=== PATIENT | female | born 1975 | race Caucasian/White ===

== ENCOUNTER → 2018-10-30 11:52 | Outpatient (CLI) | payer MEDICARE, SELFPAY ==
[2018-10-30 12:15] LABS: Basophils # 0.1 K/mm3 (0-0.2); Basophils % 0.6 % (0.1-2.0); Eosinophils # 0.9 K/mm3 (0.0-0.4); Eosinophils % 10.7 % (0.1-12.0); Hematocrit 41.9 % (37.0-47.0); Hemoglobin 14.3 g/dL (12.2-16.2); Lymphocytes # 1.8 K/mm3 (0.7-4.5); Lymphocytes % 22.4 % (10-50); Mean Corpuscular HGB Conc 34.2 g/dL (31.8-35.4); Mean Corpuscular Hemoglobin 34.6 pg (27.0-31.2); Mean Corpuscular Volume 101.3 fl (81-99); Mean Platelet Volume 7.2 fl (7.4-10.4); Monocytes # 0.4 K/mm3 (0.1-1.0); Monocytes % 5.3 % (1.7-9.3); Neutrophils # 4.8 K/mm3 (1.8-7.8); Platelet Count 270 K/mm3 (142-424); Red Blood Count 4.14 M/mm3 (4.20-5.40); Red Cell Distribution Width 13.6 % (11.5-17.5); White Blood Count 7.9 K/mm3 (4.8-10.8)
[2018-10-30 13:03] LABS: Alanine Aminotransferase 35 U/L (12-78); Albumin Level 3.8 gm/dL (3.4-5.0); Bilirubin,Total 0.2 mg/dL (0.2-1.0); Blood Urea Nitrogen 14 mg/dL (7-18); Carbon Dioxide 24 mmol/L (21.0-32.0); Chloride 102 mmol/L (98-107); Globulin 3.8 gm/dl (1.3-3.2); Sodium 137 mmol/L (136-145); Thyroid Stimulating Hormone 1.45 uIU/ml (0.358-3.740); Total Protein,Serum 7.6 gm/dL (6.4-8.2)
[2018-10-30 13:35] LABS: Alkaline Phosphatase 83 U/L (46-116); Anion Gap 15.3 mEq/L (5-15); Aspartate Amino Transferase 15 U/L (15-37); Calcium 8.6 mg/dL (8.5-10.1); Creatinine,Serum 0.69 mg/dL (0.55-1.02); Estimated Glomerular Filt Rate 92 ml/min (>60); GFR (African American) 112 ML/MIN (>60); Potassium 4.3 mmoL/L (3.5-5.1); T4 (Thyroxine) 7.5 ug/dl (4.7-13.3); Triiodothryronine (T3) Uptake 27 % (31-39)
[2018-10-30 13:42] LABS: Glucose 96 mg/dL (74-106)
[2018-10-31 09:48] LABS: FSH 8.4 mIU/mL (.); LH 8.8 mIU/mL (.)
== END ==
PROVIDERS: Visit Provider Nurse Practitioner Obstetrics & Gynecology
DX: N93.9 Abnormal uterine and vaginal bleeding, unspecified (principal); N92.6 Irregular menstruation, unspecified
CPT/HCPCS: 36415; 80053; 83001; 83002; 84436; 84443; 84479; 85025

== ENCOUNTER → 2018-11-15 09:41 | Outpatient (CLI) | payer MEDICARE, SELFPAY ==
--- NOTE | 2018-11-15 09:43 | MM_ITS ---
MM Dig screening mamm BI w/CAD ORDERING PHYSICIAN : Venu Maxwell MD PATIENT AGE: 43 years GENDER: Female COMPARISON: [place] February INDICATION: ITS.REASON: Routine Screening Mammogram TECHNIQUE: Standard CC and MLO images were obtained. R2 CAD reviewed. FINDINGS: Very dense breast bilaterally which significantly decreases sensitivity of mammography. We have finally obtained prior outside studies from [place], [place] RIGHT BREAST: Very very dense breast. There is a focal area of relative density at the medial inferior right breast, most evident on the axillary cc view. Roughly 12 mm size.-Possible cyst versus merely island of dense glandular tissue.. Labeled A. Ultrasound suggested to further evaluate. If no cyst seen here to correlate spot views recommended. As well LEFT BREAST: Area of relative density at the central left breast on cc view seems to dissipate on other views is most likely dense glandular tissue labeled X Also note somewhat dense tissue towards upper-outer quadrant area labeled Y towards upper-outer quadrant. Again these are most likely areas of dense glandular tissue but would recommend ultrasound to survey the left breast as well when the patient returns IMPRESSION: ...... Very dense breast bilaterally which decreases sensitivity of mammography. Right breast, Vague round area of density at the medial right breast warrants ultrasound Left breast.. Area of density at the central breast but it seems to dissipate on the views a most likely dense glandular elements. But ultrasound suggested on left as well given the diffuse dense character breast. . recommend bilateral breast ultrasound to further evaluate this dense breasts. Ultrasound useful compliment/augment to mammography in breast of this dense character BI-RADS Category: 0 0 Need Additional Imaging Evaluation RECOMMENDED FOLLOW-UP: IMM - IMMEDIATE FOLLOW-UP RECOMMENDED Bilateral breast ultrasound. If no cyst identified on the right suggest spot views of the area labeled a (A letter has been sent to the patient regarding results of the study.)
== END ==
PROVIDERS: PCP Emergency Medicine; Visit Provider Nurse Practitioner Obstetrics & Gynecology
DX: Z12.31 Encounter for screening mammogram for malignant neoplasm of breast (principal)
CPT/HCPCS: 77067

== ENCOUNTER → 2018-11-24 12:59 | Outpatient (CLI) | payer MEDICARE, SELFPAY ==
--- NOTE | 2018-11-24 13:01 | MR_ITS ---
MR lumbar spine wo con, MR 3-d myelogram/MRCP HISTORY: Low back pain with bilateral leg pain ITS.REASON: BACK PAIN ORDERING PHYSICIAN: Isac Sandhu MD PATIENT AGE: 43 years Comparison: None TECHNIQUE: Standard multiplanar multiecho sequences are performed without contrast. 3-D MIP and myelographic images are also rendered and reviewed FINDINGS: There is normal alignment. The spinal cord ends at the T12-L1 level. L1-L2, L2-L3, and L3-L4 have unremarkable appearance. L4-L5: There is minimal right foraminal and lateral disc protrusion with minimal foraminal narrowing. L5-S1: Minimal bulging disc along with mild facet and ligamentum hypertrophy with mild bilateral foraminal narrowing. No extruded herniated disc or canal stenosis. Incidental note is made of a left adrenal nodule at 1.5 cm nonspecific. IMPRESSION: 1. Small right foraminal and lateral disc protrusion at L4-L5 with minimal right-sided foraminal narrowing at that level. 2. Minimal bulging disc along with mild facet and ligamentum hypertrophy with mild bilateral foraminal narrowing at L5-S1. 3. No extruded herniated disc or canal stenosis 4. Small left adrenal nodule
== END ==
PROVIDERS: PCP Emergency Medicine; Visit Provider Emergency Medicine
DX: M54.5 Low back pain (principal)
CPT/HCPCS: 72148; 76376

== ENCOUNTER → 2019-01-03 15:08 | Outpatient (CLI) | payer MEDICARE, SELFPAY ==
--- NOTE | 2019-01-03 15:11 | US_ITS ---
MM Dig mamm DX unilat LT CAD, US breast RT complete, US breast LT complete INDICATION: Follow-up abnormal mammogram ORDERING PHYSICIAN: Venu Maxwell MD PATIENT AGE: 43 years COMPARISON: 11/15/2018 The at TECHNIQUE: Spot compression views performed along with bilateral breast ultrasound . The exam was NOT reviewed by the radiologist before the patient left the department FINDINGS: There is very dense fibroglandular tissue decreasing sensitivity of the mammogram. Left breast: 7 mm nodular opacity noted on the edge of the spot compression view. Remains increased density in the retroareolar region medially. Focal spot compression views with small paddle are recommended of both of these abnormalities. Also recommend focal spot compression view in the MLO of a nodular opacity in the superior breast. Also suggest rolled cc views and a straight ML view. Additional spot compression views are recommended of the right breast as suggested in the screening exam as there were no sonographic abnormalities at this region. Recommend spot compression view rolled views and straight ML views of the right breast. Also suggest a spot compression view of the inferior aspect on the MLO image. Right breast ultrasound: Moderate amount of fibroglandular tissue noted. There is a complex cyst measuring 5 mm at 11:00 and does not correspond to the mammographic abnormality. A 6 mm cyst is present in the retroareolar region and does not correspond to the mammographic abnormality. Small nodes are present in the axilla. Left breast ultrasound: There is a 9 x 6 mm cyst at 2:00 which may correspond to the focal asymmetric density which is not well delineated on the mammogram. A 5 x 6 mm isoechoic nodule present at 2:00. At 5 x 3 mm isoechoic nodule is noted at 9:00. There is a 5 mm isoechoic nodule in the retroareolar region. Small nodes are present in the axilla. IMPRESSION: Incomplete, additional imaging recommended. Images were not reviewed by the radiologist before the patient left the department. Asymmetric densities are present in both breasts which warrant further imaging. These are probably benign however they're incompletely evaluated. Additional imaging will be performed at no additional charge to the patient and an addendum issued once the images are reviewed. BI-RADS Category: 0 Need Additional Imaging Evaluation RECOMMENDED FOLLOW-UP: IMM - IMMEDIATE FOLLOW-UP RECOMMENDED (A letter has been sent to the patient regarding results of the study.)
== END ==
PROVIDERS: PCP Emergency Medicine; Visit Provider Nurse Practitioner Obstetrics & Gynecology
DX: R92.8 Other abnormal and inconclusive findings on diagnostic imaging of breast (principal)
CPT/HCPCS: 76641; 77065

== ENCOUNTER 2019-08-21 11:47 | Inpatient (IN) ==
[2019-08-21 14:09] LABS: Basophils % 0.3 % (0.1-2.0); Eosinophils # 0.5 K/mm3 (0.0-0.4); Eosinophils % 7.1 % (0.1-12.0); Hematocrit 38.5 % (37.0-47.0); Hemoglobin 13.2 g/dL (12.2-16.2); Lymphocytes # 1.3 K/mm3 (0.7-4.5); Lymphocytes % 17.2 % (10-50); Mean Corpuscular HGB Conc 34.2 g/dL (31.8-35.4); Monocytes # 0.3 K/mm3 (0.1-1.0); Neutrophils # 5.3 K/mm3 (1.8-7.8); Neutrophils % 71.5 % (37.0-80.0); Platelet Count 358 K/mm3 (142-424); Red Blood Count 3.78 M/mm3 (4.20-5.40); Red Cell Distribution Width 13.4 % (11.5-17.5); White Blood Count 7.5 K/mm3 (4.8-10.8)
[2019-08-21 14:50] LABS: Eosinophils % 5 % (0-3); Lymphocytes % 16 % (10-50); Monocytes % 1 % (2-9); Neutrophils % 77 % (42-76); RBC Morphology Normal; Total Cells Counted 100
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
[2019-08-21 16:05] LABS: Alanine Aminotransferase 58 U/L (12-78); Albumin Level 3.6 gm/dL (3.4-5.0); Albumin/Globulin Ratio 1.1 (1.1-1.8); Alkaline Phosphatase 116 U/L (46-116); Anion Gap 16.8 mEq/L (5-15); Aspartate Amino Transferase 39 U/L (15-37); Bilirubin,Total 0.2 mg/dL (0.2-1.0); Blood Urea Nitrogen 4 mg/dL (7-18); Calcium 8.5 mg/dL (8.5-10.1); Carbon Dioxide 22 mmol/L (21.0-32.0); Chloride 95 mmol/L (98-107); Globulin 3.3 gm/dl (1.3-3.2); Glucose 135 mg/dL (74-106); Sodium 130 mmol/L (136-145); Total Protein,Serum 6.9 gm/dL (6.4-8.2)
[2019-08-21 16:06] LABS: C-Reactive Protein < 0.2 mg/dL (0.0-0.9)
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
[2019-08-21 16:41] LABS: Erythrocyte Sedimentation Rate 22 mm/hr (0-20)
--- NOTE | 2019-08-22 05:49 | Cardiology Report ---
APPROVED REPORT EXAM: Comprehensive 2D, Doppler, and color-flow Echocardiogram Print Journalist: Kourtney Ruano RDCS Ht: 5 ft 0 in Wt: [id number] BSA: 29.19 BP: 122/87 mmHg Indications: Pre-Op Clearance, Hypertension/HDD 2D Dimensions LVOT 1.66 cm (M/F) 1.5-2.5 M-Mode Dimensions RVDd 1.61 cm (0.9-2.6)LVDd 4.88 cm (3.5-5.7) LVDs 3.54 cm (3.5-5.7)IVSd 0.54 cm (0.6-1.1) PWd 0.67 cm (0.6-1.1)EF (Teich) 53.20% FS 27.50% EDV (Teich) 111.70 mL ESV (Teich) 52.30 mL Aortic Valve AO VTI 202.85 (18-25 cm) Left Ventricle Left atrium is mildly enlarged, left ventricle is normal size, mild concentric left ventricular hypertrophy, visually estimated ejection fraction 55% with no regional wall motion abnormality. Diastolic parameters are within normal range. Right Ventricle Right atrium and right ventricle is normal size and contractility. Aortic Valve Aortic valve is grossly normal, there is no aortic stenosis or aortic insufficiency. Mitral Valve Mitral valve is minimally thickened, there is no mitral stenosis, there is moderate mitral regurgitation. Tricuspid Valve Tricuspid valve is grossly normal, there is mild tricuspid regurgitation, tricuspid regurgitation jet velocity is inadequate for calculation of the right ventricular systolic pressure. Pulmonic Valve Pulmonic valve is poorly visualized. Great Vessels Aortic root is normal size. Pericardium No significant pericardial effusion noted. Conclusion 1. Mildly enlarged left atrium, normal left ventricular size, visually estimated ejection fraction 55% with no regional wall motion abnormality, diastolic parameters are within normal range. 2. Moderate mitral and mild tricuspid regurgitation. 3. No significant pericardial effusion noted. Electronically signed by : Sandeep Booth, 08/22/2019 05:48:41
[2019-08-22 06:24] LABS: Basophils % 0.2 % (0.1-2.0); Eosinophils # 0.3 K/mm3 (0.0-0.4); Eosinophils % 5.4 % (0.1-12.0); Hematocrit 37.4 % (37.0-47.0); Hemoglobin 12.7 g/dL (12.2-16.2); Lymphocytes # 0.9 K/mm3 (0.7-4.5); Lymphocytes % 17.4 % (10-50); Mean Corpuscular HGB Conc 34.1 g/dL (31.8-35.4); Mean Corpuscular Volume 103.1 fl (81-99); Mean Platelet Volume 7.3 fl (7.4-10.4); Monocytes # 0.3 K/mm3 (0.1-1.0); Monocytes % 5.6 % (1.7-9.3); Neutrophils # 3.7 K/mm3 (1.8-7.8); Neutrophils % 71.4 % (37.0-80.0); Platelet Count 363 K/mm3 (142-424); Red Blood Count 3.63 M/mm3 (4.20-5.40); Red Cell Distribution Width 13.4 % (11.5-17.5); White Blood Count 5.2 K/mm3 (4.8-10.8)
[2019-08-22 06:30] LABS: Anion Gap 12.6 mEq/L (5-15)
--- NOTE | 2019-08-22 07:19 | Pharmacy Consult Notes ---
[facility] Pharmacy VTE Monitoring - Patient Demographics Admission date: 08/21/19 Report Date: 08/22/19 Time: 07:18 Allergies/Adverse Reactions: Patient Allergies acetaminophen [From Tylenol-Codeine #3] Allergy (Mild, Verified 08/21/19 09:37) vomiting codeine [From Tylenol-Codeine #3] Allergy (Mild, Verified 08/21/19 09:37) vomiting Penicillins Allergy (Mild, Verified 08/21/19 09:37) Height: 1.52 m Weight: 57.153 kg Patient Problems: Current Active Problems Pre-op evaluation (Acute) Peripheral arterial disease (Acute) Critical lower limb ischemia (Acute) - VTE Risk Labs: VTE Related Lab Results Hgb 12.7 g/dL (12.2-16.2) 08/22/19 06:17 Hct 37.4 % (37.0-47.0) 08/22/19 06:17 Plt Count 363 K/mm3 (142-424) 08/22/19 06:17 BUN 2 mg/dL (7-18) L D 08/22/19 06:17 Creatinine 0.54 mg/dL (0.55-1.02) L 08/22/19 06:17 Estimated Creat Clear 119 mL/min (50-200) 08/22/19 06:17 Was VTE Risk Assessment Performed: Yes VTE Score: 3 VTE Risk Level: Low Risk Clinical Trial Participant: No - Prophylaxis VTE Prophylaxis Ordered?: Yes Types of VTE Prophylaxis: TEDS Knee High
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
--- NOTE | 2019-08-22 13:17 | Progress Note ---
Internal Medicine - PN: Subj *Date: 08/23/19 *Time: 06:36 Interval history: pt with foot pain and awaiting card and podiatry eval Exam Vital signs and Labs for Last 24 Hours: Temp Pulse Resp BP Pulse Ox 97.8 F 95 H 18 121/83 94 L 08/22/19 08:00 08/22/19 08:00 08/22/19 08:00 08/22/19 08:00 08/22/19 08:00 Laboratory Results - last 24 hr 08/21/19 13:21: WBC 7.5, RBC 3.78 L, Hgb 13.2, Hct 38.5, MCV 102.0 H, MCH 34.9 H , MCHC 34.2, RDW 13.4, Plt Count 358, Neut % (Auto) 71.5, Lymph % (Auto) 17.2, [place] % (Auto) 4.0, Eos % (Auto) 7.1, Baso % (Auto) 0.3, Neut # (Auto) 5.3, Lymph # (Auto) 1.3, [place] # (Auto) 0.3, Eos # (Auto) 0.5 H, Baso # (Auto) 0.0, Total Counted 100, Neutrophils % (Manual) 77 H, Band Neutrophils % 1.0, Lymphocytes % (Manual) 16, Monocytes % (Manual) 1 L, Eosinophils % (Manual) 5 H, Platelet Estimate Normal, RBC Morphology Normal, ESR 22 H 08/21/19 13:21: Sodium 130 L, Potassium 3.8, Chloride 95 L, Carbon Dioxide 22, Anion Gap 16.8 H, BUN 4 L, Creatinine 0.59, Estimated Creat Clear 110, Estimated GFR 110, Est GFR ( Amer) 133, Glucose 135 H, Calcium 8.5, Total Bilirubin 0.2, AST 39 H, ALT 58, Alkaline Phosphatase 116, C-Reactive Protein < 0.2, Total Protein 6.9, Albumin 3.6, Globulin 3.3 H, Albumin/Globulin Ratio 1.1 08/22/19 06:17: WBC 5.2 D, RBC 3.63 L, Hgb 12.7, Hct 37.4, MCV 103.1 H, MCH 35.1 H, MCHC 34.1, RDW 13.4, Plt Count 363, MPV 7.3 L, Neut % (Auto) 71.4, Lymph % (Auto) 17.4, [place] % (Auto) 5.6, Eos % (Auto) 5.4, Baso % (Auto) 0.2, Neut # (Auto) 3.7, Lymph # (Auto) 0.9, [place] # (Auto) 0.3, Eos # (Auto) 0.3, Baso # (Auto) 0.0 08/22/19 06:17: Sodium 137, Potassium 3.6, Chloride 102, Carbon Dioxide 26, Anion Gap 12.6, BUN 2 L D, Creatinine 0.54 L, Estimated Creat Clear 119, Estimated GFR 122, Est GFR ( Amer) 148, Glucose 131 H, Calcium 9.0, Magnesium 1.9 I & O for Last 24 hours: Intake & Output 08/20/19 08/21/19 08/22/19 08/23/19 11:59 11:59 11:59 11:59 Intake Total 720 / 720 Output Total 700 / 700 Balance Weight 126 lb - Constitutional no acute distress - *Routine HEENT Exam Head: Present: normocephalic Eye: Present: EOMI, PERRL ENT: Present: mucous membranes dry - *Routine Neck Exam Present: supple. Absent: JVD - *Routine Respiratory Exam Present: CTA bilaterally - *Routine Cardiovascular Exam Present: RRR, murmur - *Routine Abdominal Exam Present: soft - *Routine Extremities Exam Absent: calf tenderness - *Routine Skin Exam Present: intact - *Routine Neurological Exam Present: alert, CN II-XII intact - Routine Psychiatric Exam Present: normal affect Assessment and Plan (1) Pre-op evaluation Current visit: Yes Status: Acute Category: Medical Code(s): Z01.818 - Encounter for other preprocedural examination (2) Cellulitis of toe of left foot Current visit: No Status: Acute Category: Medical Code(s): L03.032 - Cellulitis of left toe (3) Toe pain, left Current visit: No Status: Acute Category: Medical Code(s): M79.675 - Pain in left toe(s) (4) Ulcer of second toe of left foot Current visit: No Status: Acute Qualifiers: Non-pressure ulcer stage: with necrosis of muscle Qualified Code(s): L97.523 - Non-pressure chronic ulcer of other part of left foot with necrosis of muscle Category: Medical Code(s): L97.529 - Non-pressure chronic ulcer of other part of left foot with unspecified severity (5) Anxiety Current visit: No Status: Chronic Category: Medical Code(s): F41.9 - Anxiety disorder, unspecified (6) Essential hypertension Current visit: No Status: Chronic Category: Medical Code(s): I10 - Essential (primary) hypertension (7) Tobacco use Current visit: Yes Status: Acute Category: Medical Code(s): Z72.0 - Tobacco use (8) Peripheral arterial disease Current visit: Yes Status: Acute Category: Medical Code(s): I73.9 - Peripheral vascular disease, unspecified (9) Bipolar 1 disorder Current visit: Yes Status: Acute Category: Medical Code(s): F31.9 - Bipolar disorder, unspecified
[2019-08-23 07:23] LABS: Anion Gap 12.8 mEq/L (5-15); Basophils % 0.3 % (0.1-2.0); Calcium 8.8 mg/dL (8.5-10.1); Eosinophils # 0.4 K/mm3 (0.0-0.4); Eosinophils % 7.1 % (0.1-12.0); Hematocrit 38.6 % (37.0-47.0); Hemoglobin 12.8 g/dL (12.2-16.2); Lymphocytes # 1.5 K/mm3 (0.7-4.5); Lymphocytes % 25.1 % (10-50); Mean Corpuscular HGB Conc 33.2 g/dL (31.8-35.4); Mean Corpuscular Volume 104.8 fl (81-99); Monocytes # 0.3 K/mm3 (0.1-1.0); Monocytes % 5.7 % (1.7-9.3); Neutrophils # 3.7 K/mm3 (1.8-7.8); Neutrophils % 61.9 % (37.0-80.0); Platelet Count 396 K/mm3 (142-424); Red Blood Count 3.68 M/mm3 (4.20-5.40); Red Cell Distribution Width 13.3 % (11.5-17.5)
--- NOTE | 2019-08-23 08:21 | Progress Note ---
Subjective Date: 08/23/19 Time: 07:55 Principal diagnosis: Left foot ulcer, PAD Interval history: Patient is resting comfortably upstairs. She is anxious this morning and wants to be home for the holidays. She complains of pain to the left second and third toes. Patient did undergo aortogram with Dr. Mary yesterday 08/22/2019. 08/22/19, ANGIOGRAPHIC RESULTS: The suprarenal abdominal aorta is small with no significant atherosclerotic p laque. The bilateral renal arteries are singular normal. The infrarenal abdominal aorta is hypoplastic mild to moderately atheromatous with diffuse mid vessel and distal 30% stenoses. The bilateral common iliac arteries are calcified with mild to moderate plaque but no stenosis greater than 30%. The bilateral internal iliac arteries are normal. The bilateral external iliac arteries have mild atheromatous plaque with no stenosis greater than 10%. The bilateral profunda femoris arteries are normal. The bilateral femoral arteries are normal. The right superficial femoral artery and right popliteal artery has mild atheromatous plaque. Below the knee the anterior tibialis artery is patent and supplies the right foot. The posterior tibialis artery and peroneal artery are subtotally occluded in the proximal to mid segment and did not supply the foot. The left superficial femoral artery and left popliteal artery are small caliber vessels but patent with no stenosis greater than 10 to 20%. Below the knee the distal popliteal artery becomes very small in caliber with a 50% narrowing. The anterior tibialis artery is small caliber vessel severely diffusely diseased proximally occluded and appears to have some collateralization very distally. The posterior tibialis artery and peroneal artery are proximally occluded. The circulation below the knee is very small caliber diffusely diseased with small vessel vasculopathy. IMPRESSION: Peripheral artery disease as described above Severe infrageniculate small vessel diffuse vasculopathy as described above with left leg worse than right leg PN: Obj Ex Vital signs: Temp Pulse Resp BP Pulse Ox 97.9 F 93 H 18 129/84 94 L 08/23/19 07:56 08/23/19 07:56 08/23/19 07:56 08/23/19 07:56 08/23/19 07:56 - Constitutional no acute distress (anxious) - Routine HEENT Exam Head: Present: normocephalic - Routine Neck Exam Present: supple - Routine Respiratory Exam Absent: respiratory distress - Routine Abdominal Exam Present: soft - Routine Rectal Exam Patient deferred: visual exam - Routine Exam Patient deferred: external exam - Routine Extremities Exam Present: pallor. Absent: pulses intact - Detailed Lower Extremity Exam Top foot image: 1 - Wounds noted to the medial and lateral sides of the left 2nd toe and medial aspect of left 3rd toe. The 2,3,5th toes have some cellulitis extending to the 2-3rd PIPJ. There is pain with palpation. Non-palpable pedal pulse left. Weakly to right. CFT delayed. No hair growth. No drainage, purulence, or malodor noted. Post debridement: 1. Left 2nd toe medial: 1.1 x 1.8 x 0.3cm: 50% black- brown eschar, 50% fibrotic. 2. Left 2nd toe lateral: 1.2 x 1.3 x 0.2cm: 50% black-brown eschar, 50% fibrotic. 3. Left 3rd toe medial: erythema, superficial breakdown thru skin 0.4 x 0.3 x 0.1cm. 4. Left 5th toe medial: 0.4 x 0.3 x 0.1cm: 50% granular, 50% fibrotic - Routine Skin Exam Present: erythema, dry, pallor - Routine Neurological Exam Present: alert, oriented X3 Progress Note: A&P (1) Pre-op evaluation Status: Acute Current Visit: Yes (2) Cellulitis of toe of left foot Status: Acute Current Visit: No (3) Toe pain, left Status: Acute Current Visit: No (4) Ulcer of second toe of left foot Status: Acute Current Visit: No (5) Anxiety Status: Chronic Current Visit: No (6) Essential hypertension Status: Chronic Current Visit: No (7) Tobacco use Status: Acute Current Visit: Yes (8) Peripheral arterial disease Status: Acute Current Visit: Yes (9) Bipolar 1 disorder Status: Acute Current Visit: Yes (10) Osteomyelitis of left foot Status: Acute Current Visit: Yes (11) Osteomyelitis of second toe of left foot Status: Acute Current Visit: Yes Assessment and Plan for All Diagnoses:: Critical limb ischemia, PAD, Left foot cellulitis, 2,3,5th toe ulcers, osteomyelitis: 08/22/19, ANGIOGRAPHIC RESULTS: The suprarenal abdominal aorta is small with no significant atherosclerotic plaque. The bilateral renal arteries are singular normal. The infrarenal abdominal aorta is hypoplastic mild to moderately atheromatous with diffuse mid vessel and distal 30% stenoses. The bilateral common iliac arteries are calcified with mild to moderate plaque but no stenosis greater than 30%. The bilateral internal iliac arteries are normal. The bilateral external iliac arteries have mild atheromatous plaque with no stenosis greater than 10%. The bilateral profunda femoris arteries are normal. The bilateral femoral arteries are normal. The right superficial femoral artery and right popliteal artery has mild atheromatous plaque. Below the knee the anterior tibialis artery is patent and supplies the right foot. The posterior tibialis artery and peroneal artery are subtotally occluded in the proximal to mid segment and did not supply the foot. The left superficial femoral artery and left popliteal artery are small caliber vessels but patent with no stenosis greater than 10 to 20%. Below the knee the distal popliteal artery becomes very small in caliber with a 50% narrowing. The anterior tibialis artery is small caliber vessel severely diffusely diseased proximally occluded and appears to have some collateralization very distally. The posterior tibialis artery and peroneal artery are proximally occluded. The circulation below the knee is very small caliber diffusely diseased with small vessel vasculopathy. IMPRESSION: Peripheral artery disease as described above. Severe infrageniculate small vessel diffuse vasculopathy as described above with left leg worse than right leg. PRE-OP AMPUTATION/INFECTION: Radiographs of the left foot were reviewed and discussed with the patient. MRI was refused by the patient. We discussed results of the aortogram from yesterday. I explained to the patient that she does not have the full blood flow to the foot so that puts her at increased risk of not healing the ulcers. Coupled with the fact that you can see deep through deep fascia and capsule over the bone of the left second toe high suspicion for osteomyelitis. I recommend d oing a definitive amputation with closure as I think there is the greatest chance of trying to heal the sores. Likely her place of residence will not let her go home on an IV antibiotics. So definitive amputation with closure and being discharged on oral antibiotics is likely her best option. We discussed conservative versus surgical treatment options. Conservative treatment options include local wound care, oral and IV antibiotics, change in shoe wear, taping/padding, and off-loading. We discussed surgical intervention for amputation of the left 2-3rd toes versus ulcer debirdements 2,3,5th toes, possible TMA. Patient understands that there is a chance that the toes can migrate to fill the gap or the foot may change shape after surgery. Patient also understands that they could have wound healing complications including delayed healing and infection. We discussed that if the wound does not heal, it is possible that they may need a more proximal amputation and could result in further loss of digits, loss of partial foot or loss of leg. We discussed the risks and benefits in great detail. Other surgical risks include: prolonged pain and swelling, further infection requiring oral or IV antibiotics, delay in healing of soft tissue or bone, nerve or blood vessel damage, CRPS/RSD, DVT, anesthesia complications, and even . PCP: Dr. Sandhu-medical clearance. Cardiac clearance-Dr. Mary. 1. Dressing: betadine dry sterile dressing; done today 2. Wound care instructions given: change dressing daily 3. PWB in post op shoe with DME assistance (needs walker) 4. Case mgmt consult: DME 5. MRI left forefoot w/wout contrast: refused by patient 6. NPO after midnight 8. Plan for amputation vs foot debridement left foot: 08/23/19 @1130 10. Floor nurse, Diya, calling state to discuss surgical consent 11. Plan: post op dressing change tomorrow, then likely discharge back to [place] with betadine daily dressing change orders and 2-4 weeks of oral antibiotics.
--- NOTE | 2019-08-23 08:38 | Progress Note ---
Internal Medicine - PN: Subj *Date: 08/23/19 *Time: 10:58 Interval history: patient refused mri. Surgery planned today per dr treadwell Exam Vital signs and Labs for Last 24 Hours: Temp Pulse Resp BP Pulse Ox 97.9 F 93 H 18 129/84 94 L 08/23/19 07:56 08/23/19 07:56 08/23/19 07:56 08/23/19 07:56 08/23/19 07:56 Laboratory Results - last 24 hr 08/21/19 13:21: 25-OH Vitamin D Total 17.1 L 08/23/19 07:03: WBC 6.0, RBC 3.68 L, Hgb 12.8, Hct 38.6, MCV 104.8 H, MCH 34.8 H , MCHC 33.2, RDW 13.3, Plt Count 396, MPV 8.0, Neut % (Auto) 61.9, Lymph % (Auto) 25.1, [place] % (Auto) 5.7, Eos % (Auto) 7.1, Baso % (Auto) 0.3, Neut # (Auto) 3.7, Lymph # (Auto) 1.5, [place] # (Auto) 0.3, Eos # (Auto) 0.4, Baso # (Auto) 0.0 08/23/19 07:03: Sodium 138, Potassium 3.8, Chloride 104, Carbon Dioxide 25, Anion Gap 12.8, BUN 3 L D, Creatinine 0.59, Estimated Creat Clear 108, Estimated GFR 110, Est GFR ( Amer) 133, Glucose 109 H, Calcium 8.8 I & O for Last 24 hours: Intake & Output 08/20/19 08/21/19 08/22/19 08/23/19 11:59 11:59 11:59 11:59 Intake Total 720 / 720 1776 / 1776 Output Total 700 / 700 3150 / 3150 Balance -1374 / -1374 Weight 126 lb 125 lb 2 oz - Constitutional no acute distress, thin - *Routine HEENT Exam Head: Present: normocephalic Eye: Present: PERRL ENT: Present: mucous membranes moist - *Routine Neck Exam Present: supple. Absent: lymphadenopathy - *Routine Respiratory Exam Present: CTA bilaterally - *Routine Cardiovascular Exam Present: RRR - *Routine Abdominal Exam Present: soft, normoactive bowel sounds. Absent: tenderness - *Routine Extremities Exam Present: full ROM. Absent: cyanosis, clubbing, edema - *Routine Skin Exam Present: warm. Absent: rash Comments: dressing to left foot c/d/i dressing to rt index finger - *Routine Neurological Exam Present: alert, oriented X3 - Routine Psychiatric Exam Present: normal affect Assessment and Plan (1) Pre-op evaluation Current visit: Yes Status: Acute Category: Medical Code(s): Z01.818 - Encounter for other preprocedural examination (2) Cellulitis of toe of left foot Current visit: No Status: Acute Category: Medical Code(s): L03.032 - Cellulitis of left toe (3) Toe pain, left Current visit: No Status: Acute Category: Medical Code(s): M79.675 - Pain in left toe(s) (4) Ulcer of second toe of left foot Current visit: No Status: Acute Qualifiers: Non-pressure ulcer stage: with necrosis of muscle Qualified Code(s): L97.523 - Non-pressure chronic ulcer of other part of left foot with necrosis of muscle Category: Medical Code(s): L97.529 - Non-pressure chronic ulcer of other part of left foot with unspecified severity (5) Anxiety Current visit: No Status: Chronic Category: Medical Code(s): F41.9 - Anxiety disorder, unspecified (6) Essential hypertension Current visit: No Status: Chronic Category: Medical Code(s): I10 - Essential (primary) hypertension (7) Tobacco use Current visit: Yes Status: Acute Category: Medical Code(s): Z72.0 - Tobacco use (8) Peripheral arterial disease Current visit: Yes Status: Acute Category: Medical Code(s): I73.9 - Peripheral vascular disease, unspecified (9) Bipolar 1 disorder Current visit: Yes Status: Acute Category: Medical Code(s): F31.9 - Bipolar disorder, unspecified (10) Osteomyelitis of left foot Current visit: Yes Status: Acute Category: Medical Code(s): M86.9 - Osteomyelitis, unspecified (11) Osteomyelitis of second toe of left foot Current visit: Yes Status: Acute Category: Medical Code(s): M86.9 - Osteomyelitis, unspecified - Assessment and plan all Dx Assessment and Plan for all problems:: rounded with Dr Sandhu all orders per Dr Sandhu
--- NOTE | 2019-08-23 09:01 | Progress Note ---
Subjective Date: 08/23/19 Time: 08:59 Principal diagnosis: Left foot ulcer, PAD Interval history: 43-year-old white female in bed in no acute distress. Right groin cath site looks good. Patient denies any chest pain, pressure or tightness. Exam Vital signs and Labs for Last 24 Hours: Temp Pulse Resp BP Pulse Ox 97.9 F 93 H 18 129/84 94 L 08/23/19 07:56 08/23/19 07:56 08/23/19 07:56 08/23/19 07:56 08/23/19 07:56 Laboratory Results - last 24 hr 08/21/19 13:21: 25-OH Vitamin D Total 17.1 L 08/23/19 07:03: WBC 6.0, RBC 3.68 L, Hgb 12.8, Hct 38.6, MCV 104.8 H, MCH 34.8 H , MCHC 33.2, RDW 13.3, Plt Count 396, MPV 8.0, Neut % (Auto) 61.9, Lymph % (Auto) 25.1, [place] % (Auto) 5.7, Eos % (Auto) 7.1, Baso % (Auto) 0.3, Neut # (Auto) 3.7, Lymph # (Auto) 1.5, [place] # (Auto) 0.3, Eos # (Auto) 0.4, Baso # (Auto) 0.0 08/23/19 07:03: Sodium 138, Potassium 3.8, Chloride 104, Carbon Dioxide 25, Anion Gap 12.8, BUN 3 L D, Creatinine 0.59, Estimated Creat Clear 108, Estimated GFR 110, Est GFR ( Amer) 133, Glucose 109 H, Calcium 8.8 I & O for Last 24 hours: Intake & Output 08/20/19 08/21/19 08/22/19 08/23/19 11:59 11:59 11:59 11:59 Intake Total 720 / 720 1776 / 1776 Output Total 700 / 700 3150 / 3150 Balance -1374 / -1374 Weight 126 lb 125 lb 2 oz - *Routine Respiratory Exam Present: CTA bilaterally. Absent: accessory muscle use, rales, rhonchi, wheezes - *Routine Cardiovascular Exam Present: RRR. Absent: murmur, gallop, rubs - *Routine Neurological Exam Present: alert, oriented X3, moving all extremities Progress Note: A&P (1) Pre-op evaluation Status: Acute Current Visit: Yes (2) Cellulitis of toe of left foot Status: Acute Current Visit: No (3) Toe pain, left Status: Acute Current Visit: No (4) Ulcer of second toe of left foot Status: Acute Current Visit: No (5) Anxiety Status: Chronic Current Visit: No (6) Essential hypertension Status: Chronic Current Visit: No (7) Tobacco use Status: Acute Current Visit: Yes (8) Peripheral arterial disease Status: Acute Current Visit: Yes (9) Bipolar 1 disorder Status: Acute Current Visit: Yes (10) Osteomyelitis of left foot Status: Acute Current Visit: Yes (11) Osteomyelitis of second toe of left foot Status: Acute Current Visit: Yes Assessment and Plan for All Diagnoses:: 1. Cardiac status stable to proceed with anticipated podiatry surgery later today. 2. Moderate MR by echocardiogram with normal left ventricular ejection fraction. Patient is asymptomatic at this time. Continue to monitor.
--- NOTE | 2019-08-23 09:18 | Electrocardiograph Report ---
APPROVED REPORT Exam: Resting ECG HR:105 bpm ECG Measurements Heart Rate 105 AXES [place] 158 P 69 QRSd 80 QRS 58 QT 346 T59 QTc 457 <Conclusion> Sinus tachycardia with premature atrial complexes with aberrant conduction left atrial abnormality Borderline ECG Electronically signed by : Jonas Blair, 08/23/2019 09:17:51
--- NOTE | 2019-08-23 12:13 | Pharmacy Consult Notes ---
- Pharmacy Consult Date: 08/23/19 Time: 12:12 Referring provider: DR. BENSON Reason for Consult:: VANCOMYCIN DOSING Allergies and ADEs:: Allergies Allergy/AdvReac Type Severity Reaction Status Date / Time Penicillins Allergy Mild Verified 08/22/19 08:17 codeine AdvReac Mild vomiting Verified 08/22/19 08:17 [From Tylenol-Codeine #3] Home Medications:: Home Medications Medication Instructions Recorded Confirmed Type acetaminophen 325 mg tablet 650 mg PO Q6H PRN 10/30/18 08/22/19 History clonazepam 0.5 mg tablet 0.5 mg PO BIDP PRN 10/30/18 08/22/19 History gabapentin 600 mg tablet 600 mg PO TID 10/30/18 08/21/19 History cyclobenzaprine 10 mg tablet 10 mg PO BID tab 02/02/19 08/22/19 History diphenhydramine HCl 25 mg capsule 25 mg PO TID 02/02/19 08/21/19 History loperamide 2 mg capsule 2 mg PO BIDP PRN cap 02/02/19 08/22/19 History ondansetron HCl 4 mg tablet 4 mg PO Q6HP PRN 02/02/19 08/22/19 History oxcarbazepine 600 mg tablet 600 mg PO BID 02/02/19 08/21/19 History Quetiapine Fumarate [Seroquel 25mg 25 mg PO BID 06/30/19 08/21/19 History tablet] ARIPiprazole [Abilify 15mg Tablet] 15 mg PO DAILY 08/22/19 08/22/19 History Collagenase Clostridium Hist. 0 gm TP DAILY 08/22/19 08/22/19 History [Santyl Ointment 30gm] Fluticasone/Vilanterol [Breo 1 inh IH DAILY 08/22/19 08/22/19 History Ellipta 100-25 Mcg INH] Ibuprofen [Ibuprofen 600mg 600 mg PO Q6HP PRN 08/22/19 08/22/19 History Tablet] Loratadine [Allergy] 10 mg PO DAILY 08/22/19 08/22/19 History Metoprolol Tartrate [Lopressor 25 mg PO BID 08/22/19 08/22/19 History 25mg tablet] Sertraline HCl [Zoloft] 150 mg PO DAILY 08/22/19 08/22/19 History guaiFENesin [Robafen] 200 mg PO Q6HP PRN 08/22/19 08/22/19 History Height: 1.52 m Weight: 56.756 kg Laboratory Results:: Laboratory Results - last 24 hr 08/21/19 13:21: 25-OH Vitamin D Total 17.1 L 08/23/19 07:03: WBC 6.0, RBC 3.68 L, Hgb 12.8, Hct 38.6, MCV 104.8 H, MCH 34.8 H , MCHC 33.2, RDW 13.3, Plt Count 396, MPV 8.0, Neut % (Auto) 61.9, Lymph % (Auto) 25.1, [place] % (Auto) 5.7, Eos % (Auto) 7.1, Baso % (Auto) 0.3, Neut # (Auto) 3.7, Lymph # (Auto) 1.5, [place] # (Auto) 0.3, Eos # (Auto) 0.4, Baso # (Auto) 0.0 08/23/19 07:03: Sodium 138, Potassium 3.8, Chloride 104, Carbon Dioxide 25, Anion Gap 12.8, BUN 3 L D, Creatinine 0.59, Estimated Creat Clear 108, Estimated GFR 110, Est GFR ( Amer) 133, Glucose 109 H, Calcium 8.8 Medical History: Reports:: Anxiety, Asthma, Depression, Hypertension Denies:: Cancer, Diabetes Mellitus Type 1, Diabetes Mellitus Type 2, MRSA Assessment and Plan (1) Pre-op evaluation Current visit: Yes Status: Acute Category: Medical Code(s): Z01.818 - Encounter for other preprocedural examination (2) Cellulitis of toe of left foot Current visit: No Status: Acute Category: Medical Code(s): L03.032 - Cellulitis of left toe (3) Toe pain, left Current visit: No Status: Acute Category: Medical Code(s): M79.675 - Pain in left toe(s) (4) Ulcer of second toe of left foot Current visit: No Status: Acute Qualifiers: Non-pressure ulcer stage: with necrosis of muscle Qualified Code(s): L97.523 - Non-pressure chronic ulcer of other part of left foot with necrosis of muscle Category: Medical Code(s): L97.529 - Non-pressure chronic ulcer of other part of left foot with unspecified severity (5) Anxiety Current visit: No Status: Chronic Category: Medical Code(s): F41.9 - Anxiety disorder, unspecified (6) Essential hypertension Current visit: No Status: Chronic Category: Medical Code(s): I10 - Essent ial (primary) hypertension (7) Tobacco use Current visit: Yes Status: Acute Category: Medical Code(s): Z72.0 - Tobacco use (8) Peripheral arterial disease Current visit: Yes Status: Acute Category: Medical Code(s): I73.9 - Peripheral vascular disease, unspecified (9) Bipolar 1 disorder Current visit: Yes Status: Acute Category: Medical Code(s): F31.9 - Bipolar disorder, unspecified (10) Osteomyelitis of left foot Current visit: Yes Status: Acute Category: Medical Code(s): M86.9 - Osteomyelitis, unspecified (11) Osteomyelitis of second toe of left foot Current visit: Yes Status: Acute Category: Medical Code(s): M86.9 - Osteomyelitis, unspecified - Assessment and plan all Dx Assessment and Plan for all problems:: BASED ON PATIENT FACTORS, RECOMMEND VANCOMYCIN 1GM IV EVERY 12 HOURS. PHARMACY WILL OBTAIN TROUGH LEVEL PRIOR TO FOURTH DOSE AND ADJUST DOSE APPROPRIATE. -CARON CLIFTOND
[2019-08-24 07:35] LABS: Anion Gap 14.6 mEq/L (5-15); Basophils % 0.5 % (0.1-2.0); Calcium 8.7 mg/dL (8.5-10.1); Eosinophils # 0.1 K/mm3 (0.0-0.4); Eosinophils % 4.9 % (0.1-12.0); Hematocrit 36.4 % (37.0-47.0); Hemoglobin 12.3 g/dL (12.2-16.2); Lymphocytes # 0.6 K/mm3 (0.7-4.5); Mean Corpuscular HGB Conc 33.8 g/dL (31.8-35.4); Mean Corpuscular Volume 102.3 fl (81-99); Mean Platelet Volume 7.3 fl (7.4-10.4); Monocytes # 0.1 K/mm3 (0.1-1.0); Monocytes % 4.9 % (1.7-9.3); Neutrophils # 1.8 K/mm3 (1.8-7.8); Neutrophils % 68.7 % (37.0-80.0); Platelet Count 310 K/mm3 (142-424); Red Blood Count 3.56 M/mm3 (4.20-5.40); Red Cell Distribution Width 13.5 % (11.5-17.5); White Blood Count 2.7 K/mm3 (4.8-10.8)
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
== END 2019-08-24 10:50 | disposition home or self-care (01) | DRG 300 ==
LOC: RT 11:47 → 2ND 11:47 → OBSVTOIN 14:09
PROVIDERS: ADMIT Emergency Medicine; ATTEND Emergency Medicine
CPT/HCPCS: 36200; 36415; 73610; 73630; 75630; 80048; 80053; 82652; 83036; 83735; 85007; 85014; 85018; 85025; 85048; 85049; 85651; 86140; 93005; 93306; 93923; 97162; 99152; 99153; C1725; C1760; C1769; J1644; J3370; Q9966; Q9967

== ENCOUNTER → 2019-09-17 11:37 | Outpatient (CLI) | payer MEDICARE, SELFPAY ==
[2019-09-17 11:55] LABS: Basophils % 0.2 % (0.1-2.0); Eosinophils # 0.3 K/mm3 (0.0-0.4); Eosinophils % 3.6 % (0.1-12.0); Hematocrit 38.2 % (37.0-47.0); Hemoglobin 12.7 g/dL (12.2-16.2); Lymphocytes # 1.5 K/mm3 (0.7-4.5); Lymphocytes % 15.5 % (10-50); Mean Corpuscular HGB Conc 33.1 g/dL (31.8-35.4); Mean Corpuscular Volume 102.6 fl (81-99); Mean Platelet Volume 6.7 fl (7.4-10.4); Monocytes # 0.2 K/mm3 (0.1-1.0); Monocytes % 2.4 % (1.7-9.3); Neutrophils # 7.5 K/mm3 (1.8-7.8); Neutrophils % 78.4 % (37.0-80.0); Platelet Count 331 K/mm3 (142-424); Red Blood Count 3.73 M/mm3 (4.20-5.40); White Blood Count 9.5 K/mm3 (4.8-10.8)
[2019-09-17 12:27] LABS: Erythrocyte Sedimentation Rate 21 mm/hr (0-20)
[2019-09-17 13:51] LABS: Alanine Aminotransferase 18 U/L (12-78); Albumin Level 3.4 gm/dL (3.4-5.0); Albumin/Globulin Ratio 1.1 (1.1-1.8); Alkaline Phosphatase 116 U/L (46-116); Anion Gap 16.9 mEq/L (5-15); Aspartate Amino Transferase 11 U/L (15-37); Bilirubin,Total 0.2 mg/dL (0.2-1.0); Blood Urea Nitrogen 7 mg/dL (7-18); C-Reactive Protein 3.3 mg/dL (0.0-0.9); Calcium 8.5 mg/dL (8.5-10.1); Carbon Dioxide 20 mmol/L (21.0-32.0); Chloride 90 mmol/L (98-107); Creatinine,Serum 0.48 mg/dL (0.55-1.02); Estimated Glomerular Filt Rate 140 ml/min (>60); GFR (African American) 169 ML/MIN (>60); Globulin 3.1 gm/dl (1.3-3.2); Glucose 107 mg/dL (74-106); Potassium 3.9 mmoL/L (3.5-5.1); Sodium 123 mmol/L (136-145); Total Protein,Serum 6.5 gm/dL (6.4-8.2)
== END ==
PROVIDERS: Visit Provider Podiatrist
DX: L03.90 Cellulitis, unspecified (principal); L97.522 Non-pressure chronic ulcer of other part of left foot with fat layer exposed; L97.523 Non-pressure chronic ulcer of other part of left foot with necrosis of muscle; R53.83 Other fatigue; D72.829 Elevated white blood cell count, unspecified
CPT/HCPCS: 36415; 80053; 85025; 85651; 86140

== ENCOUNTER → 2019-10-30 08:53 | Outpatient (CLI) | payer MEDICARE, MEDICAID, SELFPAY ==
--- NOTE | 2019-10-30 08:56 | NM_ITS ---
PROCEDURE: NM BONE 3 PHASE CLINICAL INDICATION: left ulcer to 2nd toe, PAD Left foot 2nd toe ulcer COMPARISON: XR FOOT WT BEARING LT 3V from 08/21/2019 TECHNIQUE: Dose: 24.6 mCi technetium MDP FINDINGS: Initially, there is slight increased blood flow to the right foot compared to the left side. However, during the blood flow images there is increased activity to the 2nd toe. Blood pool images also show increased activity to the 2nd toe and distal aspect of the left foot. Static images only show a small area increased activity to the distal aspect of the left 2nd toe. This is not as hyperintense as what 1 expect for osteomyelitis. IMPRESSION: Overall, the findings are not conclusive for osteomyelitis. There is increased activity to the left foot/2nd toe region on blood flow and blood pool consistent with cellulitis. There is only a small area of increased activity at the distal aspect of the left 2nd toe on the static images. One would expect this to be more hyperintense for acute osteomyelitis although that entity is not completely excluded. Suggest correlation with more recent radiograph.. Dictated by: Pranay Patricio MD 10/31/2019 10:41 Electronically signed by Pranay Patricio MD in [place] 10/31/2019 10:41
--- NOTE | 2019-10-30 11:18 | HMH.ITSHM ---
Current Home Medications as stated by this patient Dorcas Hernández or insurance claim representative. []SULFAMETHOXAZOLE OXCARBAZEPINE ONDANSETRON LOPERAMIDE GUAIFENESIN CLONAZEPAM CYCLOBENZAPRINE GABAPENTIN DIPHENHYDRAMINE ASA ARIPIPRAZOLE ACETAMINOPHEN SERTRALINE XARELTO SEROZUEL METOPROLOL LORATADINE IBUPROFEN DEMETRICE FLOWERS
== END ==
PROVIDERS: PCP Emergency Medicine; Visit Provider Podiatrist
DX: L97.529 Non-pressure chronic ulcer of other part of left foot with unspecified severity (principal); I73.9 Peripheral vascular disease, unspecified; R09.89 Other specified symptoms and signs involving the circulatory and respiratory systems
CPT/HCPCS: 78315; A9503

== ENCOUNTER → 2019-11-06 15:28 | Outpatient (CLI) | payer MEDICARE, MEDICAID, SELFPAY ==
--- NOTE | 2019-11-06 15:40 | XR_ITS ---
PROCEDURE: XR CHEST 2V CLINICAL HISTORY: HYPERTENSION, LEAKING VALVE COMPARISON: No exams were available for comparison FINDINGS: The cardiomediastinal silhouette and pulmonary vascularity are within normal limits. The lungs are clear without infiltrates, suspicious nodules, or pleural effusions. Mild thoracic scoliosis convex right IMPRESSION: No acute findings. Dictated by: Pranay Patricio MD 11/06/2019 17:14 Electronically signed by Pranay Patricio MD in [place] 11/06/2019 17:14
--- NOTE | 2019-11-06 16:07 | ECG_ITS ---
APPROVED REPORT Exam: Resting ECG HR:82 bpm ECG Measurements Heart Rate 82 AXES UT 142 P 69 QRSd 74 QRS 71 QT 368 T 76 QTc 429 <Conclusion> Normal sinus rhythm Left atrial abnormality Borderline ECG Electronically signed by : Jonas Blair, 11/09/2019 08:51:38
== END ==
PROVIDERS: PCP Emergency Medicine; Visit Provider Podiatrist
DX: E11.621 Type 2 diabetes mellitus with foot ulcer (principal); L97.522 Non-pressure chronic ulcer of other part of left foot with fat layer exposed; L03.032 Cellulitis of left toe
CPT/HCPCS: 71046; 93005

== ENCOUNTER → 2019-11-27 09:48 | Outpatient (CLI) | payer MEDICARE, MEDICAID, SELFPAY ==
--- NOTE | 2019-11-27 09:54 | XR_ITS ---
PROCEDURE: XR FOOT WT BEARING LT 3V CLINICAL INDICATION: pain, postop views COMPARISON: XR FOOT WT BEARING RT 3V from 08/21/2019 XR FOOT WT BEARING LT 3V from 08/21/2019 XR FOOT LT MIN 3V from 11/05/2019 XR FOOT LT MIN 3V from 11/07/2019 FINDINGS: Been prior amputation at the 2nd MTP joint and 3rd PIP joint with overlying bandage artifact. There is some minimal cortical regularity at the distal aspect of the proximal phalanx of the 3rd digit not significantly changed nonspecific. The distal and mid phalanges of the 4th and 5th digits are not well delineated and may be due to the overlying bandage artifact. There is good alignment of the remaining bony elements. The joint spaces are well-preserved. No significant degenerative/arthritic changes. No erosive changes evident. Other findings:None. IMPRESSION: Status post amputation at the 2nd MTP joint and the 3rd PIP joint with no definite acute finding Dictated by: Pranay Patricio MD 11/27/2019 15:19 Electronically signed by Pranay Patricio MD in [place] 11/27/2019 15:19
[2019-11-27 10:38] LABS: Basophils % 0.4 % (0.1-2.0); Eosinophils # 0.6 K/mm3 (0.0-0.4); Eosinophils % 6.6 % (0.1-12.0); Hematocrit 39.1 % (37.0-47.0); Lymphocytes # 1.3 K/mm3 (0.7-4.5); Lymphocytes % 16.1 % (10-50); Mean Corpuscular HGB Conc 33.4 g/dL (31.8-35.4); Mean Corpuscular Hemoglobin 32.9 pg (27.0-31.2); Mean Corpuscular Volume 98.5 fl (81-99); Mean Platelet Volume 6.9 fl (7.4-10.4); Monocytes # 0.4 K/mm3 (0.1-1.0); Monocytes % 5.1 % (1.7-9.3); Neutrophils % 71.8 % (37.0-80.0); Platelet Count 374 K/mm3 (142-424); Red Blood Count 3.97 M/mm3 (4.20-5.40); Red Cell Distribution Width 13.2 % (11.5-17.5); White Blood Count 8.3 K/mm3 (4.8-10.8)
[2019-11-27 11:33] LABS: Alanine Aminotransferase 16 U/L (12-78); Albumin Level 4.1 g/dl (3.5-5.0); Albumin/Globulin Ratio 1.5 (1.1-1.8); Alkaline Phosphatase 110 U/L (38-126); Anion Gap 13.4 mEq/L (5-15); Aspartate Amino Transferase 23 U/L (14-36); Bilirubin,Total 0.2 mg/dl (0.2-1.3); Blood Urea Nitrogen 5 mg/dl (7-17); Calcium 9.6 mg/dl (8.4-10.2); Carbon Dioxide 22 mmol/L (22.0-30.0); Chloride 95 mmol/L (98-107); Estimated Glomerular Filt Rate 172 ml/min (>60); GFR (African American) 208 ML/MIN (>60); Globulin 2.8 g/dL (1.3-3.2); Glucose 98 mg/dl (74-100); Potassium 4.4 mmoL/L (3.5-5.1); Sodium 126 mmol/L (136-145); Total Protein,Serum 6.9 g/dl (6.3-8.2)
[2019-11-27 11:42] LABS: Erythrocyte Sedimentation Rate 21 mm/hr (0-20)
== END ==
PROVIDERS: PCP Emergency Medicine; Visit Provider Podiatrist
DX: Z98.890 Other specified postprocedural states (principal); L03.119 Cellulitis of unspecified part of limb; L02.612 Cutaneous abscess of left foot
CPT/HCPCS: 36415; 73630; 80053; 85025; 85651; 86140

== ENCOUNTER → 2019-12-04 16:31 | Outpatient (CLI) | payer MEDICARE, MEDICAID, SELFPAY | PROVIDERS: Visit Provider Podiatrist | DX: Z98.890 Other specified postprocedural states (principal); T81.49XA Infection following a procedure, other surgical site, initial encounter; L03.032 Cellulitis of left toe | CPT/HCPCS: 87070; 87077; 87186; 87205 ==

== ENCOUNTER → 2019-12-25 12:01 | Outpatient (CLI) | payer MEDICARE, SELFPAY ==
[2019-12-25 13:15] LABS: Basophils # 0.1 K/mm3 (0-0.2); Basophils % 1.1 % (0.1-2.0); Eosinophils # 0.5 K/mm3 (0.0-0.4); Eosinophils % 7.5 % (0.1-12.0); Hematocrit 38.7 % (37.0-47.0); Hemoglobin 12.7 g/dL (12.2-16.2); Lymphocytes # 1.3 K/mm3 (0.7-4.5); Lymphocytes % 21.4 % (10-50); Mean Corpuscular HGB Conc 32.8 g/dL (31.8-35.4); Mean Corpuscular Hemoglobin 32.4 pg (27.0-31.2); Mean Corpuscular Volume 98.9 fl (81-99); Mean Platelet Volume 7.5 fl (7.4-10.4); Monocytes # 0.3 K/mm3 (0.1-1.0); Monocytes % 5.2 % (1.7-9.3); Neutrophils # 4.1 K/mm3 (1.8-7.8); Neutrophils % 64.8 % (37.0-80.0); Platelet Count 355 K/mm3 (142-424); Red Blood Count 3.92 M/mm3 (4.20-5.40); Red Cell Distribution Width 13.2 % (11.5-17.5); White Blood Count 6.3 K/mm3 (4.8-10.8)
[2019-12-25 14:06] LABS: Erythrocyte Sedimentation Rate 23 mm/hr (0-20)
[2019-12-25 14:20] LABS: Alanine Aminotransferase 18 U/L (12-78); Albumin Level 3.8 g/dl (3.5-5.0); Albumin/Globulin Ratio 1.5 (1.1-1.8); Alkaline Phosphatase 127 U/L (38-126); Anion Gap 11.1 mEq/L (5-15); Aspartate Amino Transferase 25 U/L (14-36); Bilirubin,Total 0.2 mg/dl (0.2-1.3); Blood Urea Nitrogen 4 mg/dl (7-17); Calcium 9.2 mg/dl (8.4-10.2); Carbon Dioxide 24 mmol/L (22.0-30.0); Chloride 95 mmol/L (98-107); Estimated Glomerular Filt Rate 172 ml/min (>60); GFR (African American) 208 ML/MIN (>60); Globulin 2.6 g/dL (1.3-3.2); Glucose 89 mg/dl (74-100); Potassium 4.1 mmoL/L (3.5-5.1); Sodium 126 mmol/L (136-145); Total Protein,Serum 6.4 g/dl (6.3-8.2)
[2019-12-25 14:26] LABS: C-Reactive Protein 5.4 mg/L (0-4)
== END ==
PROVIDERS: Visit Provider Podiatrist
DX: Z98.890 Other specified postprocedural states; L02.612 Cutaneous abscess of left foot; L03.032 Cellulitis of left toe
CPT/HCPCS: 36415; 80053; 85025; 85651; 86140

== ENCOUNTER → 2020-01-07 15:05 | Outpatient (CLI) | payer MEDICARE, MEDICAID, SELFPAY ==
--- NOTE | 2020-01-07 15:15 | XR_ITS ---
PROCEDURE: XR FOOT WT BEARING LT 3V CLINICAL INDICATION: pain, postop Postoperative pain COMPARISON: XR FOOT LT MIN 3V from 11/05/2019 XR FOOT LT MIN 3V from 11/07/2019 XR FOOT WT BEARING LT 3V from 11/27/2019 XR FOOT LT MIN 3V from 12/06/2019 FINDINGS: Status post amputation at the mid shaft of the 2nd and 3rd metatarsal. The edges of the amputation site appears sharp with no obvious bony erosive process. There is good alignment. The joint spaces are well-preserved. No significant degenerative/arthritic changes. No erosive changes evident. Other findings:None. IMPRESSION: No change status post amputation at the mid shaft of the 2nd and 3rd metatarsal Dictated by: Pranay Patricio MD 01/07/2020 17:32 Electronically signed by Pranay Patricio MD in [place] 01/07/2020 17:32
[2020-01-07 16:36] LABS: Basophils # 0.1 K/mm3 (0-0.2); Eosinophils # 0.3 K/mm3 (0.0-0.4); Eosinophils % 2.2 % (0.1-12.0); Hematocrit 38.8 % (37.0-47.0); Hemoglobin 13.6 g/dL (12.2-16.2); Lymphocytes # 1.1 K/mm3 (0.7-4.5); Lymphocytes % 8.8 % (10-50); Mean Corpuscular HGB Conc 35.1 g/dL (31.8-35.4); Mean Corpuscular Hemoglobin 33.7 pg (27.0-31.2); Mean Corpuscular Volume 95.8 fl (81-99); Mean Platelet Volume 7.8 fl (7.4-10.4); Monocytes # 0.5 K/mm3 (0.1-1.0); Monocytes % 3.5 % (1.7-9.3); Neutrophils # 10.8 K/mm3 (1.8-7.8); Neutrophils % 84.6 % (37.0-80.0); Platelet Count 397 K/mm3 (142-424); Red Blood Count 4.05 M/mm3 (4.20-5.40); Red Cell Distribution Width 13.3 % (11.5-17.5); White Blood Count 12.7 K/mm3 (4.8-10.8)
[2020-01-07 16:45] LABS: Chloride 95 mmol/L (98-107); Potassium 4.6 mmoL/L (3.5-5.1); Sodium 129 mmol/L (136-145)
[2020-01-07 16:48] LABS: Alanine Aminotransferase 17 U/L (12-78); Albumin Level 4.2 g/dl (3.5-5.0); Albumin/Globulin Ratio 1.4 (1.1-1.8); Alkaline Phosphatase 133 U/L (38-126); Anion Gap 14.6 mEq/L (5-15); Aspartate Amino Transferase 23 U/L (14-36); Bilirubin,Total 0.3 mg/dl (0.2-1.3); Blood Urea Nitrogen 5 mg/dl (7-17); Carbon Dioxide 24 mmol/L (22.0-30.0); Estimated Glomerular Filt Rate 133 ml/min (>60); GFR (African American) 161 ML/MIN (>60); Globulin 2.9 g/dL (1.3-3.2); Total Protein,Serum 7.1 g/dl (6.3-8.2)
[2020-01-07 16:49] LABS: Calcium 9.4 mg/dl (8.4-10.2); Glucose 107 mg/dl (74-100)
[2020-01-07 16:55] LABS: C-Reactive Protein 17.8 mg/L (0-4)
[2020-01-07 17:31] LABS: Erythrocyte Sedimentation Rate 21 mm/hr (0-20)
== END ==
PROVIDERS: PCP Emergency Medicine; Visit Provider Podiatrist
DX: Z98.890 Other specified postprocedural states (principal); L03.119 Cellulitis of unspecified part of limb; L02.612 Cutaneous abscess of left foot
CPT/HCPCS: 36415; 73630; 80053; 85025; 85651; 86140

== ENCOUNTER → 2020-01-14 18:09 | Outpatient (CLI) | payer MEDICARE, SELFPAY | PROVIDERS: Visit Provider Podiatrist | DX: T81.49XA Infection following a procedure, other surgical site, initial encounter (principal); Z98.890 Other specified postprocedural states | CPT/HCPCS: 87070; 87077; 87186; 87205 ==

== ENCOUNTER → 2020-01-16 09:18 | Outpatient (CLI) | payer MEDICARE, MEDICAID, SELFPAY ==
--- NOTE | 2020-01-16 10:15 | US_ITS ---
APPROVED REPORT Exam Type: Lower Extremity Segmental Pressures Nutrition Associate: Talia Summers RVT Indications Claudication: Rest Pain: Current Smoker OSTEOMYELITIS OF LEFT FOOT Pressures/Indices Right Indices Left Indices Brachial 113.00 mmHg Brachial 110.00 mmHg Low Thigh 117.00 mmHg 1.04 Low Thigh 123.00 mmHg 1.09 Calf 116.00 mmHg 1.03 Calf 107.00 mmHg 0.95 Ankle(PT) 124.00 mmHg 1.10 Ankle(PT) 99.00 mmHg 0.88 Ankle(DP) 135.00 mmHg 1.19 Ankle(DP) 69.00 mmHg 0.61 Digit 108.00 mmHg 0.96 Digit 32.00 mmHg 0.28 Findings RT ALEX:1.10 LT ALEX:0.88 RT TBI:0.96 LT TBI:0.28 PULSES DIMINSIHED ON THE LEFT. WAVEFORMS DIMINISHED ON THE LEFT. Conclusion RT ALEX:1.10 LT ALEX:0.88 RT TBI:0.96 LT TBI:0.28 PULSES DIMINSIHED ON THE LEFT. WAVEFORMS DIMINISHED ON THE LEFT. MILD ARTERIAL DISEASE ON THE LEFT Electronically signed by : Pranay Patricio MD 01/16/2020 16:35:19
== END ==
PROVIDERS: PCP Emergency Medicine; Visit Provider Podiatrist
DX: M86.9 Osteomyelitis, unspecified (principal); I96 Gangrene, not elsewhere classified
CPT/HCPCS: 93923

== ENCOUNTER → 2020-01-18 11:52 | Outpatient (CLI) | payer MEDICARE, MEDICAID, SELFPAY ==
--- NOTE | 2020-01-18 11:53 | MR_ITS ---
PROCEDURE: MR FOOT LT WO/W CON CLINICAL INDICATION: osteomyelitis Prior amputation, dorsal foot pain, open wound COMPARISON: XR FOOT WT BEARING LT 3V from 01/07/2020 TECHNIQUE: Exam is limited technically due to patient's inability to be properly position and to lie still. Motion artifact is present on every image FINDINGS: There has been amputation at the distal shaft of the 2nd and 3rd metatarsals. There is some increased T2 signal at the distal aspect of the distal phalanx of the great toe. Artifact is noted along the plantar surface and amputation site of the 2nd and 3rd metatarsals. Soft tissue swelling is present at this region with increase in T2 signal IMPRESSION: Dictated by: Pranay Patricio MD 01/21/2020 14:24 Electronically signed by Pranay Patricio MD in [place] 01/21/2020 14:24
== END ==
PROVIDERS: PCP Emergency Medicine; Visit Provider Podiatrist
DX: M86.9 Osteomyelitis, unspecified (principal)
CPT/HCPCS: 73720; A9576

== ENCOUNTER → 2020-01-21 15:53 | Outpatient (CLI) | payer MEDICARE, MEDICAID, SELFPAY ==
--- NOTE | 2020-01-21 | XR_ITS ---
PROCEDURE: XR CHEST 2V CLINICAL HISTORY: SMOKER; PREOP COMPARISON: XR CHEST 2V from 11/06/2019 FINDINGS: The cardiomediastinal silhouette and pulmonary vascularity are within normal limits. There is some mild scarring in the right apex. Lungs are otherwise clear Mild dextroscoliosis of the thoracic spine IMPRESSION: No acute findings. Dictated by: Pranay Patricio MD 01/21/2020 16:27 Electronically signed by Pranay Patricio MD in [place] 01/21/2020 16:27
--- NOTE | 2020-01-21 16:20 | ECG_ITS ---
APPROVED REPORT Exam: Resting ECG HR:78 bpm ECG Measurements Heart Rate 78 AXES IL 150 P 83 QRSd 80 QRS 88 QT 374 T 83 QTc 426 <Conclusion> Normal sinus rhythm Possible Left atrial enlargement Borderline ECG Electronically signed by : Reza Gandara, 01/22/2020 08:52:23
[2020-01-21 16:51] LABS: Basophils % 0.5 % (0.1-2.0); Eosinophils # 0.4 K/mm3 (0.0-0.4); Eosinophils % 4.4 % (0.1-12.0); Hematocrit 38.2 % (37.0-47.0); Hemoglobin 12.9 g/dL (12.2-16.2); Lymphocytes # 1.9 K/mm3 (0.7-4.5); Lymphocytes % 21.9 % (10-50); Mean Corpuscular HGB Conc 33.8 g/dL (31.8-35.4); Mean Corpuscular Hemoglobin 32.3 pg (27.0-31.2); Mean Corpuscular Volume 95.8 fl (81-99); Mean Platelet Volume 6.5 fl (7.4-10.4); Monocytes # 0.5 K/mm3 (0.1-1.0); Monocytes % 5.3 % (1.7-9.3); Neutrophils # 5.9 K/mm3 (1.8-7.8); Platelet Count 420 K/mm3 (142-424); Red Blood Count 3.98 M/mm3 (4.20-5.40); Red Cell Distribution Width 13.9 % (11.5-17.5); White Blood Count 8.6 K/mm3 (4.8-10.8)
[2020-01-21 19:44] LABS: Alanine Aminotransferase 15 U/L (12-78); Albumin Level 4.7 g/dl (3.5-5.0); Albumin/Globulin Ratio 1.4 (1.1-1.8); Alkaline Phosphatase 151 U/L (38-126); Anion Gap 14.1 mEq/L (5-15); Aspartate Amino Transferase 20 U/L (14-36); Bilirubin,Total 0.3 mg/dl (0.2-1.3); Blood Urea Nitrogen 3 mg/dl (7-17); Carbon Dioxide 23 mmol/L (22.0-30.0); Chloride 93 mmol/L (98-107); Estimated Glomerular Filt Rate 239 ml/min (>60); GFR (African American) 290 ML/MIN (>60); Globulin 3.3 g/dL (1.3-3.2); Glucose 105 mg/dl (74-100); Potassium 4.1 mmoL/L (3.5-5.1); Sodium 126 mmol/L (136-145)
[2020-01-21 19:49] LABS: C-Reactive Protein 11.8 mg/L (0-4)
[2020-01-21 21:00] LABS: Erythrocyte Sedimentation Rate 57 mm/hr (0-20)
[2020-01-23 16:14] LABS: Covid-19 Nasal PCR Sendout Lex NOT DETECTED
== END ==
PROVIDERS: PCP Emergency Medicine; Visit Provider Podiatrist
DX: Z01.818 Encounter for other preprocedural examination (principal); M79.672 Pain in left foot; I96 Gangrene, not elsewhere classified
CPT/HCPCS: 36415; 71046; 80053; 85025; 85651; 86140; 93005; U0004

== ENCOUNTER → 2020-01-30 17:07 | Outpatient (CLI) | payer MEDICARE, MEDICAID, SELFPAY ==
[2020-01-30 17:11] LABS: Adenovirus,PCR Not Detected (NotDetected); Bordetella Pertussis Not Detected (NotDetected); Chlamydophila Pneumoniae, PCR Not Detected (NotDetected); Coronavirus 19, PCR Not Detected (NotDetected); Coronavirus 229E Not Detected (NotDetected); Coronavirus NL63 Not Detected (NotDetected); Coronavirus OC43 Not Detected (NotDetected); Coronovirus HKU1,PCR Not Detected (NotDetected); Human Metapneumovirus Not Detected (NotDetected); Influenza A, PCR Not Detected (NotDetected); Influenza AH1, 2009 Not Detected (NotDetected); Influenza AH1, PCR Not Detected (NotDetected); Influenza AH3,PCR Not Detected (NotDetected); Influenza B, PCR Not Detected (NotDetected); Mycoplasma Pneumoniae, PCR Not Detected (NotDected); Parainfluenza 1, PCR Not Detected (NotDetected); Parainfluenza 2, PCR Not Detected (NotDetected); Parainfluenza 3, PCR Not Detected (NotDetected); Parainfluenza 4, PCR Not Detected (NotDetected); Respiratory Syncytial Virus Not Detected (NotDetected); Rhinovirus/Enterovirus Not Detected (NotDetected)
== END ==
PROVIDERS: Visit Provider Podiatrist
DX: Z01.818 Encounter for other preprocedural examination (principal)
CPT/HCPCS: 87581; 87633; 87798

== ENCOUNTER 2020-01-31 06:11 | Day surgery (SDC) | payer MEDICARE, MEDICAID, SELFPAY ==
--- NOTE | 2020-01-21 16:09 | SUR.PREOP ---
01/21/2020 @ 0035--PHONE CALL MADE TO PATIENT. PATIENT UNDERSTANDS THAT LAB WORK AND COVID TESTING NEEDS TO BE COMPLETED @ 0900 ON 01/22/2020. PATIENT UNDERSTANDS IF LAB WORK AND COVID-19 TESTS ARE NOT COMPLETED BY 12PM ON THAT DATE, THE SURGERY SCHEDULED WILL BE CANCELLED AND RESCHEDULED FOR ANOTHER TIME.
--- NOTE | 2020-01-30 12:17 | SW/DCPLANNER ---
I have spoke with Kadeem from [facility] this afternoon regarding this patient. Kadeem has stated that this patient does have a planned surgery tomorrow and is aware that this is an outpatient surgery. Kadeem has stated that as long as patient does not need IV antibiotics or if surgery is more invasive they will take this patient back after surgery. I have provided Jadyn Glass in outpatient with Kameron contact information from [facility] since Kadeem will be out tomorrow. Radha: [phone]
[2020-01-31] VITALS (16 sets, daily range): BP systolic 125–158; BP diastolic 79–100; PULSE 119–144; RESP 14–22; TEMP 36.8–43; O2SAT 91–96; BMI 25.4
--- NOTE | 2020-01-31 07:14 | SUR.PREOP ---
LAB AT BEDSIDE FOR ORDERED LABS
--- NOTE | 2020-01-31 07:15 | SUR.PREOP ---
DR BENSON AT BEDSIDE ORDERS RECEIVED FOR CBC, CMP, ESR, CRP. R/V
[2020-01-31 07:21] LABS: HCG Qualitative, Serum Negative (Negative)
--- NOTE | 2020-01-31 07:25 | SUR.PREOP ---
0725-Radha Dutton called from [facility] and stated that if Xarelto is not on their MAR then the patient doesn't receive it at [facility]. Medication is not on the MAR
[2020-01-31 07:29] LABS: Basophils # 0.1 K/mm3 (0-0.2); Basophils % 0.5 % (0.1-2.0); Eosinophils # 0.4 K/mm3 (0.0-0.4); Eosinophils % 3.5 % (0.1-12.0); Hematocrit 38.1 % (37.0-47.0); Hemoglobin 13.1 g/dL (12.2-16.2); Lymphocytes # 1.6 K/mm3 (0.7-4.5); Mean Corpuscular HGB Conc 34.3 g/dL (31.8-35.4); Mean Corpuscular Hemoglobin 33.8 pg (27.0-31.2); Mean Corpuscular Volume 98.6 fl (81-99); Mean Platelet Volume 6.6 fl (7.4-10.4); Monocytes # 0.5 K/mm3 (0.1-1.0); Monocytes % 5.1 % (1.7-9.3); Neutrophils % 75.8 % (37.0-80.0); Platelet Count 302 K/mm3 (142-424); Red Blood Count 3.87 M/mm3 (4.20-5.40); Red Cell Distribution Width 14.3 % (11.5-17.5); White Blood Count 10.6 K/mm3 (4.8-10.8)
--- NOTE | 2020-01-31 07:31 | HMH.OPNOTE ---
Date of procedure: 01/31/20 Pre-op Diagnosis:: 1. Left foot gangrene 2. Left foot osteomyelitis 3. Post op wound dehiscence 4. Left foot infection, cellulitis 5. Severe PAD 11/07/19, s/p left 2nd toe amp, 3rd partial toe amp 12/06/19, s/p left 3rd toe amp, irrigation and debridement of 2-3rd toes (non viable soft tissue and bone), 2-3rd metatarsal head resection (bone biospy), 2-3rd partial ray amputation Post-op Diagnosis:: Same Procedure performed:: 1. Left foot irrigation and debridement 2. Left Lisfranc disarticulation/amputation 3. Left foot bone biospy 4. Left foot suture removal 5. Left foot application of GABI drain Surgeon:: Karen Plascencia DPM HAY BUCKLER:: Jhoan Kowalski Anesthesia: GETA, local (0.5% marcaine plain) Estimated blood loss (mL): 30 Clinical Note:: Ms. Hernández is a patient with severe PAD who has had surgery: 11/07/19, s/p left 2nd toe amp, 3rd partial toe amp, which did not heal. She then had: 12/06/19, s/p left 3rd toe amp, irrigation and debridement of 2-3rd toes (non viable soft tissue and bone), 2-3rd metatarsal head resection (bone biospy), 2-3rd partial ray amputation. Due to infection and gangrene with poor circulation, wound dehisced and she is still not healing. PRE-OP AMPUTATION/INFECTION: Radiographs and MRI of the left foot were reviewed and discussed with the patient. We discussed conservative versus surgical treatment options. Conservative treatment options include local wound care, oral and IV antibiotics, change in shoe wear, taping/padding, and off-loading. We discussed surgical intervention for amputation of the left partial foot. Patient understands that there is a chance that the foot may change shape after surgery. Patient also understands that they could have wound healing complications including delayed healing, further gangrene and infection. We discussed that if the wound does not heal, it is possible that they may need a more proximal amputation and could result in further loss partial foot, entire foot or loss of leg. She understands if this surgery does not heal, she will likely need a BKA. We discussed the risks and benefits in great detail. Other surgical risks include: prolonged pain and swelling, further infection requiring oral or IV antibiotics, delay in healing of soft tissue or bone, nerve or blood vessel damage, CRPS/RSD, DVT, anesthesia complications, and even . All questions answered. Patient verbalized understanding. Consent obtained by patient, Eagle Lopez (guardian as she is [facility]) and Yaima (clinical nurse). New labs: cbc, cmp, esr, crp, ekg and chest xray ordered. Medical clearance per Dr. Sandhu. Operative findings:: Prior amputation of the second and third toes with partial ray. Postop wound dehiscence with gangrene. Wound base had yellow fibrotic, brown and black necrotic changes with malodor. Sutures from previous surgery intact but loose and pulling through. In the remaining digits at work at the bases were soft. Second and third metatarsal amputation sites were irregular with erosions. Fibrotic scar tissue overlying previous amputation site. Muscle was waldrop and tendons were shredded. By the end of the case the incision site was already dusky. Although there was blood flow, no vessels needed to be tied or cauterized. Patient has severe peripheral arterial disease. Prognosis is poor to fair at best. Given the duskiness and PAD, patient is high risk for referral to an orthopedic surgeon for below-knee amputation. Operative note:: On this date and time patient was deemed an appropriate surgical candidate. With informed consent signed, the patient was taken to the operating theater. The patient was positioned supine. General anesthesia was induced. No tourniquet used. The left lower extremity was prepped and draped in normal sterile fashion. 30cc 0.5% marcaine plain was injected as regional block. Left foot irrigation and debridement: Attention was directed to the left foot, which was prepp
[2020-01-31 07:52] LABS: Erythrocyte Sedimentation Rate 25 mm/hr (0-20)
[2020-01-31 08:07] LABS: Alanine Aminotransferase 12 U/L (12-78); Albumin/Globulin Ratio 1.3 (1.1-1.8); Alkaline Phosphatase 136 U/L (38-126); Anion Gap 7.7 mEq/L (5-15); Aspartate Amino Transferase 23 U/L (14-36); Bilirubin,Total 0.6 mg/dl (0.2-1.3); Blood Urea Nitrogen 3 mg/dl (7-17); Calcium 9.3 mg/dl (8.4-10.2); Carbon Dioxide 27 mmol/L (22.0-30.0); Chloride 100 mmol/L (98-107); Creatinine Clearance Estimated 164 mL/min (50-200); Estimated Glomerular Filt Rate 172 ml/min (>60); GFR (African American) 208 ML/MIN (>60); Globulin 3.2 g/dL (1.3-3.2); Glucose 103 mg/dl (74-100); Potassium 3.7 mmoL/L (3.5-5.1); Sodium 131 mmol/L (136-145); Total Protein,Serum 7.2 g/dl (6.3-8.2)
--- NOTE | 2020-01-31 08:07 | P.PN_ITS ---
[facility] Anesthesia Checklist - Structural Data Admitted From: Home Planned Operative Procedure/s: amputation l foot Consent for Planned Operative Procedure(s) Verified: Yes - Additional verifications Anesthesia Reactions: No Hx Blood Transfusions: No Blood Transfusion Reaction: No - Airway Assessment C-Spine Mobility Assessed: Yes TMJ Mobility Assessed: Yes Dentition: Edentulous - Neurological Assessment Level of Consciousness: Awake, Alert, Appropriate - Anesthesia Plan Anesthesia Risk discussed: Yes Anesthesia Plan: Verified ASA Class: III Anesthesia Type: General [facility] History I have reviewed the patient's past medical history: Yes Medical History: Reports:: Anxiety, Asthma, Depression, Hypertension, MRSA, Peripheral Artery Disease, Seizures (as a child) Denies:: Cancer, Diabetes Mellitus Type 1, Diabetes Mellitus Type 2, Internal Pacemaker *Have you ever received a pneumonia vaccine?: Yes *Have you received a flu vaccine this season?: Yes Other Medical History: Denies: Blood Transfusion Reaction Anesthesia experience/problems:: none Other Surgeries: Yes: Tubal Ligation, Other. No: Pacemaker Amputation: Yes (2 toes removed on left foot) Fractures: Yes (r arm) - *Social History Educational Level: Completed High School Smoking Status: Current every day smoker Tobacco Type: cigarettes # Packs/Day (cigarettes): 1 #Yrs smoked (if former smoker): 20 Alcohol Intake: never Substance Use Type: former substance user, IV drugs *Occupational Status:: disabled Housing: assisted living facility Household Members: other *Travel in the last 8 weeks: None - Psychiatric History Pschychiatric History:: Reports:: Anxiety, Depression Family Hx:: Diabetes, Heart Attack, Hyperlipidemia, Hypertension
[2020-01-31 08:15] LABS: C-Reactive Protein 6.2 mg/L (0-4)
--- NOTE | 2020-01-31 08:36 | XR_ITS ---
PROCEDURE: XR FOOT LT 2V CLINICAL INDICATION: TRANSMETATARSAL AMPUTAION LEFT COMPARISON: XR FOOT LT MIN 3V from 11/07/2019 XR FOOT WT BEARING LT 3V from 11/27/2019 XR FOOT LT MIN 3V from 12/06/2019 XR FOOT WT BEARING LT 3V from 01/07/2020 FINDINGS: Fluoroscopy time: 12 seconds fluoro utilized due guide the amputation at the metatarsal tarsal junction. IMPRESSION: Status post amputation at the metatarsal tarsal Dictated by: Pranay Patricio MD 01/31/2020 13:34 Electronically signed by Pranay Patricio MD in [place] 01/31/2020 13:34
--- NOTE | 2020-01-31 09:13 | HMH.ANESI ---
[facility] Anesthesia Record Part I Intake, IV Amount: 1,500 Estimated blood loss (mL): 100 Urine output (mL): 0 Blood Pressure: 157/100 SaO2: 95 Pulse Rate: 140 Respiratory Rate: 14 Temperature: 98.5 F Patient is:: Awake, Stable Stable to PACU at:: 09:10
--- NOTE | 2020-01-31 09:30 | XR_ITS ---
PROCEDURE: XR FOOT LT MIN 3V CLINICAL INDICATION: Post op amp COMPARISON: XR FOOT WT BEARING LT 3V from 11/27/2019 XR FOOT LT MIN 3V from 12/06/2019 XR FOOT WT BEARING LT 3V from 01/07/2020 XR FOOT LT 2V from 01/31/2020 FINDINGS: There has been interval amputation at the tarsal metatarsal junction. There is some mild fragmentation along the lateral aspect of the cuboid and may be related to residual base of 5th metatarsal.. A drain is in place bandage artifact noted at amputation site IMPRESSION: Interval amputation at the tarsometatarsal junction Dictated by: Pranay Patricio MD 01/31/2020 13:27 Electronically signed by Pranay Patricio MD in [place] 01/31/2020 13:27
--- NOTE | 2020-01-31 10:11 | PC.NURSE ---
pt placed on bedpan c/o having to urinate.
--- NOTE | 2020-01-31 10:16 | PC.NURSE ---
pt remains on bedpan at this time. unable to urinate. wants to remain on bedpan.
--- NOTE | 2020-01-31 10:18 | INFXCTL.NOTE ---
0930- radiology @ bedside getting post-op xrays.
--- NOTE | 2020-01-31 13:37 | PC.NURSE ---
Radha stated that staff was on the way to get patient. Nurse registry was going to help care for patient while recovering at [facility] due to non medical staff on site. Jeaneth from [facility] was given take home instructions, GABI drain instruction sheet, copy of Dr Plascencia's order sheet, 2 RX for patient in the yellow folder.Instructed Jeaneth to have Radha call if there were any questions
--- NOTE | 2020-02-01 17:12 | HMH.ANESII ---
[facility] Anesthesia Record Part II Discharge Time: 09:40 Destination: [facility] PACU nurse assessment reviewed?: Yes Patient Condition:: Good Anesthesia Complications:: None Swallowing reflex intact?: Yes Cyanosis?: No Blood Pressure: 139/79 Pulse Rate: 139 Temperature: 98.7 F Mental Status: Alert & Oriented, Supervisor Baking Memory Loss (139) Pain level:: 7 Nausea and/or vomitting:: None Intake, IV Amount: 1,500
[2020-02-01 17:16] VITALS: BP 139/79; PULSE 139; TEMP 37.1
== END 2020-01-31 12:15 | disposition home or self-care (01) ==
LOC: OR 06:13
PROVIDERS: PCP Emergency Medicine; Visit Provider Podiatrist
DX: M86.8X7 Other osteomyelitis, ankle and foot; L97.524 Non-pressure chronic ulcer of other part of left foot with necrosis of bone; L97.522 Non-pressure chronic ulcer of other part of left foot with fat layer exposed; I70.268 Atherosclerosis of native arteries of extremities with gangrene, other extremity; L03.116 Cellulitis of left lower limb; Z72.0 Tobacco use; Z88.0 Allergy status to penicillin; Z88.5 Allergy status to narcotic agent; I10 Essential (primary) hypertension; Z79.899 Other long term (current) drug therapy; I25.10 Atherosclerotic heart disease of native coronary artery without angina pectoris; T87.81 Dehiscence of amputation stump
CPT/HCPCS: 28805; 36415; 73620; 73630; 76000; 80053; 84703; 85025; 85651; 86140; 87070; 87075; 87077; 87186; 87205; 88305; 88307; 88311; 96374; J3370

== ENCOUNTER → 2020-02-18 16:01 | Outpatient (CLI) | payer MEDICARE, MEDICAID, SELFPAY ==
[2020-02-18 16:09] LABS: Chloride 103 mmol/L (98-107); Potassium 4.1 mmoL/L (3.5-5.1); Sodium 131 mmol/L (136-145)
[2020-02-18 16:11] LABS: Basophils % 0.3 % (0.1-2.0); Eosinophils # 0.3 K/mm3 (0.0-0.4); Eosinophils % 4.9 % (0.1-12.0); Hematocrit 37.7 % (37.0-47.0); Hemoglobin 12.6 g/dL (12.2-16.2); Lymphocytes # 1.7 K/mm3 (0.7-4.5); Lymphocytes % 29.6 % (10-50); Mean Corpuscular HGB Conc 33.3 g/dL (31.8-35.4); Mean Corpuscular Hemoglobin 33.1 pg (27.0-31.2); Mean Corpuscular Volume 99.5 fl (81-99); Mean Platelet Volume 8.3 fl (7.4-10.4); Monocytes # 0.4 K/mm3 (0.1-1.0); Monocytes % 6.6 % (1.7-9.3); Neutrophils # 3.4 K/mm3 (1.8-7.8); Neutrophils % 58.6 % (37.0-80.0); Platelet Count 390 K/mm3 (142-424); Red Blood Count 3.79 M/mm3 (4.20-5.40); Red Cell Distribution Width 14.3 % (11.5-17.5); White Blood Count 5.8 K/mm3 (4.8-10.8)
[2020-02-18 16:12] LABS: Alanine Aminotransferase 13 U/L (12-78); Albumin Level 3.8 g/dl (3.5-5.0); Albumin/Globulin Ratio 1.2 (1.1-1.8); Alkaline Phosphatase 110 U/L (38-126); Anion Gap 6.1 mEq/L (5-15); Aspartate Amino Transferase 27 U/L (14-36); Bilirubin,Total 0.4 mg/dl (0.2-1.3); Blood Urea Nitrogen 5 mg/dl (7-17); Calcium 9.1 mg/dl (8.4-10.2); Carbon Dioxide 26 mmol/L (22.0-30.0); Estimated Glomerular Filt Rate 133 ml/min (>60); GFR (African American) 161 ML/MIN (>60); Globulin 3.1 g/dL (1.3-3.2); Glucose 94 mg/dl (74-100); Total Protein,Serum 6.9 g/dl (6.3-8.2)
[2020-02-18 16:56] LABS: C-Reactive Protein 1.6 mg/L (0-4)
[2020-02-18 18:10] LABS: Erythrocyte Sedimentation Rate 27 mm/hr (0-20)
== END ==
PROVIDERS: Visit Provider Podiatrist
DX: M86.9 Osteomyelitis, unspecified (principal); Z98.890 Other specified postprocedural states
CPT/HCPCS: 36415; 80053; 85025; 85651; 86140; 87070; 87077; 87186; 87205

== ENCOUNTER → 2020-03-03 12:35 | Outpatient (CLI) | payer MEDICARE, SELFPAY ==
--- NOTE | 2020-03-03 12:37 | XR_ITS ---
PROCEDURE: XR FOOT LT MIN 3V CLINICAL INDICATION: POST-OP Follow-up surgery COMPARISON: XR FOOT LT MIN 3V from 12/06/2019 XR FOOT WT BEARING LT 3V from 01/07/2020 XR FOOT LT MIN 3V from 01/31/2020 XR FOOT LT 2V from 01/31/2020 FINDINGS: Status post midfoot amputation at the tarsal metatarsal junction. There is some bony fragmentation along the cuboid laterally which was present on the previous study. Bandage artifact is present. IMPRESSION: Status post amputation at the metatarsal tarsal junction with some fragmentation of the cuboid laterally but no definite bony erosive change Dictated by: Pranay Patricio MD 03/03/2020 13:26 Electronically signed by Pranay Patricio MD in [place] 03/03/2020 13:26
== END ==
PROVIDERS: PCP Emergency Medicine; Visit Provider Podiatrist
DX: Z98.890 Other specified postprocedural states (principal)
CPT/HCPCS: 73630

== ENCOUNTER → 2020-03-11 12:41 | Outpatient (CLI) | payer MEDICARE, SELFPAY ==
--- NOTE | 2020-03-11 12:44 | XR_ITS ---
PROCEDURE: XR FOOT WT BEARING LT 3V CLINICAL INDICATION: foot pain Follow-up amputation COMPARISON: XR FOOT WT BEARING LT 3V from 01/07/2020 XR FOOT LT MIN 3V from 01/31/2020 XR FOOT LT 2V from 01/31/2020 XR FOOT LT MIN 3V from 03/03/2020 FINDINGS: Status amputation at the tarsal metatarsal junction. Bony fragmentation once again noted laterally at the cuboid region. There is ill definition of the distal aspect of the cuboid on AP view possibly only due to osteopenia however, the distal bony cortex is less well delineated than on previous exams on the AP view. On the oblique view there is also questionable discontinuity of the cortex anteriorly and laterally. IMPRESSION: Postsurgical changes with suspected cortical discontinuity distally and laterally raising the suspicion osteomyelitis. MRI may confirm Dictated by: Pranay Patricio MD 03/11/2020 13:57 Electronically signed by Pranay Patricio MD in [place] 03/11/2020 13:57
--- NOTE | 2020-03-11 12:44 | XR_ITS ---
PROCEDURE: XR FOOT WT BEARING RT 3V CLINICAL INDICATION: foot pain COMPARISON: XR FOOT WT BEARING LT 3V from 01/07/2020 XR FOOT LT MIN 3V from 01/31/2020 XR FOOT LT 2V from 01/31/2020 XR FOOT LT MIN 3V from 03/03/2020 FINDINGS: No fracture or dislocation. No lytic or blastic change. There is normal mineralization. The joint spaces are well-preserved. No significant degenerative/arthritic changes. No erosive changes evident. Other findings:None. IMPRESSION: No acute findings. Dictated by: Pranay Patricio MD 03/11/2020 14:03 Electronically signed by Pranay Patricio MD in [place] 03/11/2020 14:03
[2020-03-11 14:31] LABS: Basophils % 0.3 % (0.1-2.0); Eosinophils # 0.4 K/mm3 (0.0-0.4); Eosinophils % 5.3 % (0.1-12.0); Hematocrit 37.4 % (37.0-47.0); Hemoglobin 12.7 g/dL (12.2-16.2); Lymphocytes # 1.7 K/mm3 (0.7-4.5); Lymphocytes % 23.6 % (10-50); Mean Corpuscular Hemoglobin 32.4 pg (27.0-31.2); Mean Corpuscular Volume 95.3 fl (81-99); Mean Platelet Volume 7.8 fl (7.4-10.4); Monocytes # 0.4 K/mm3 (0.1-1.0); Monocytes % 4.9 % (1.7-9.3); Neutrophils # 4.7 K/mm3 (1.8-7.8); Platelet Count 290 K/mm3 (142-424); Red Blood Count 3.92 M/mm3 (4.20-5.40); Red Cell Distribution Width 14.2 % (11.5-17.5); White Blood Count 7.1 K/mm3 (4.8-10.8)
[2020-03-11 14:55] LABS: Erythrocyte Sedimentation Rate 23 mm/hr (0-20)
[2020-03-11 15:07] LABS: Chloride 96 mmol/L (98-107); Potassium 3.8 mmoL/L (3.5-5.1); Sodium 129 mmol/L (136-145)
[2020-03-11 15:10] LABS: Alanine Aminotransferase 14 U/L (12-78); Albumin/Globulin Ratio 1.3 (1.1-1.8); Alkaline Phosphatase 119 U/L (38-126); Anion Gap 13.8 mEq/L (5-15); Aspartate Amino Transferase 29 U/L (14-36); Bilirubin,Total 0.6 mg/dl (0.2-1.3); Blood Urea Nitrogen 6 mg/dl (7-17); Carbon Dioxide 23 mmol/L (22.0-30.0); Estimated Glomerular Filt Rate 172 ml/min (>60); GFR (African American) 208 ML/MIN (>60); Globulin 3.2 g/dL (1.3-3.2); Glucose 97 mg/dl (74-100); Total Protein,Serum 7.2 g/dl (6.3-8.2)
[2020-03-11 15:19] LABS: C-Reactive Protein 23.8 mg/L (0-4)
[2020-03-11 15:30] LABS: Hemoglobin A1C 4.9 % (4.0-6.0)
== END ==
PROVIDERS: PCP Emergency Medicine; Visit Provider Podiatrist
DX: M79.671 Pain in right foot (principal); Z98.890 Other specified postprocedural states; E11.621 Type 2 diabetes mellitus with foot ulcer; L97.509 Non-pressure chronic ulcer of other part of unspecified foot with unspecified severity
CPT/HCPCS: 36415; 73630; 80053; 83036; 85025; 85651; 86140; 87070; 87077; 87186; 87205

== ENCOUNTER 2020-04-03 11:48 | Emergency (ER) | payer MEDICARE, SELFPAY ==
[2020-04-03 11:56] VITALS: BP 135/94; PULSE 65; RESP 17; O2SAT 96; BMI 25.4
--- NOTE | 2020-04-03 12:05 | HMH.EDGENADL ---
ED Disposition Clinical Impression: Wrist drop, left, Radial nerve palsy Disposition: Home, Self-Care Condition on Discharge: Good Instructions: DI for Wrist Strain, Radial Tunnel Syndrome Additional Instructions: You have been evaluated for a wrist drop, radial nerve palsy. Please follow-up with your primary care doctor in 1 to 2 days. Will likely need physical therapy. Return to the emergency department if you have any new or worsening symptoms, speech difficulty, numbness or weakness in other parts of your body. Referrals: Isac Sandhu MD [Primary Care Provider] - Time of Disposition: 13:50 - Critical Care Critical Care Time: No Attestation: On 04/03/20, the high probability of a clinically significant, sudden or life threatening deterioration of the following system(s) required my full and direct attention, intervention and personal management. The time I documented below is in addition to time spent performing reported procedures but includes the following listed in this critical care notation. Medical Decision Making - Medical Records Medical records reviewed: Yes: I reviewed the patient's medical records. - Raymond Inquiry Pt receiving controlled substance: No Vital Signs: 04/03/20 11:56 04/03/20 12:44 04/03/20 13:00 Temperature Temperature Source Pulse Rate Pulse Rate [Radial] 65 73 68 Respiratory Rate 17 20 18 Blood Pressure Blood Pressure [Right Arm] 135/94 H 113/86 114/74 Blood Pressure Mean [Right Arm] 107 95 87 Blood Pressure Source Blood Pressure Source [Right Arm] Automatic Cuff Automatic Cuff Automatic Cuff Blood Pressure Position Blood Pressure Position [Right Arm] Sitting Supine Supine 02 Sat by Pulse Oximetry 96 94 L 97 Oxygen Delivery Method Room Air Room Air Room Air 04/03/20 13:30 04/03/20 13:55 Temperature 98.1 F Temperature Source Oral Pulse Rate 78 Pulse Rate [Radial] 78 Respiratory Rate 20 20 Blood Pressure 124/86 Blood Pressure [Right Arm] 124/86 Blood Pressure Mean [Right Arm] 98 Blood Pressure Source Automatic Cuff Blood Pressure Source [Right Arm] Automatic Cuff Blood Pressure Position Sitting Blood Pressure Position [Right Arm] Supine 02 Sat by Pulse Oximetry 95 Oxygen Delivery Method Room Air Room Air - Lab Data Lab Results 04/03/20 12:25: Phosphorus 4.7 H, Magnesium 1.9 04/03/20 12:25: WBC 7.7, RBC 4.38, Hgb 14.2, Hct 40.9, MCV 93.4, MCH 32.4 H, MCHC 34.7, RDW 14.6, Plt Count 317, MPV 7.5, Neut % (Auto) 66.7, Lymph % (Auto) 22.3, Island % (Auto) 4.1, Eos % (Auto) 6.5, Baso % (Auto) 0.4, Neut # (Auto) 5.2, Lymph # (Auto) 1.7, Island # (Auto) 0.3, Eos # (Auto) 0.5 H, Baso # (Auto) 0.0 04/03/20 12:25: Sodium 127 L, Potassium 4.1, Chloride 94 L, Carbon Dioxide 23, Anion Gap 14.1, BUN 6 L, Creatinine 0.40 L, Estimated Creat Clear 164, Estimated GFR 172, Est GFR ( Amer) 208, Glucose 98, Calcium 9.3, Total Bilirubin 0.4, AST 31, ALT 16, Alkaline Phosphatase 140 H, Total Protein 7.8, Albumin 4.3, Globulin 3.5 H, Albumin/Globulin Ratio 1.2 Result diagrams: 04/03/20 12:25 04/03/20 12:25 Orders (Tests/Meds): ORDERS Category Date Time Status Calcium, Ionized Stat Lab 04/03/20 13:20 Received Medical Decision Narrative: Is a 44-year-old female with history of wrist drop presenting to the emergency department with weakness of wrist extension. Patient is overall well-appearing on arrival. She has an isolated peripheral nerve complaints. No other signs of central neurologic dysfunction. No facial asymmetry, speech difficulty, lower extremity symptoms, weakness on elbow flexion extension, weakness on shoulder shrug. Patient has a lengthy history of tobacco use. Will obtain chest x-ray to assess for superior sulcus tumor. Will obtain basic labs to address electrolytes. Chest x-ray unremarkable. Laboratory results do not show abnormality of potassium, sodium, other electrolytes. On reassessment she continued to have wri
--- NOTE | 2020-04-03 12:15 | XR_ITS ---
PROCEDURE: XR CHEST 2V CLINICAL HISTORY: left wrist drop Cough. Smoker. COMPARISON: XR CHEST 2V from 11/06/2019 XR CHEST 2V from 01/21/2020 FINDINGS: No acute bony abnormalities. Straightening of normal thoracic kyphosis. Mild dextroscoliosis. The cardiomediastinal silhouette and pulmonary vascularity are within normal limits. The lungs are hyperinflated, consistent with COPD. There is left basilar mild subsegmental atelectasis. No demonstrated consolidation, vascular congestion or substantial pleural effusion. IMPRESSION: 1. No acute cardiopulmonary abnormality demonstrated. Stable chest. 2. Possible COPD. Dictated by: Padma Goramn 04/03/2020 12:54 Electronically signed by Padma Gorman in [place] 04/03/2020 12:54
[2020-04-03 12:36] LABS: Basophils % 0.4 % (0.1-2.0); Eosinophils # 0.5 K/mm3 (0.0-0.4); Eosinophils % 6.5 % (0.1-12.0); Hematocrit 40.9 % (37.0-47.0); Hemoglobin 14.2 g/dL (12.2-16.2); Lymphocytes # 1.7 K/mm3 (0.7-4.5); Lymphocytes % 22.3 % (10-50); Mean Corpuscular HGB Conc 34.7 g/dL (31.8-35.4); Mean Corpuscular Hemoglobin 32.4 pg (27.0-31.2); Mean Corpuscular Volume 93.4 fl (81-99); Mean Platelet Volume 7.5 fl (7.4-10.4); Monocytes # 0.3 K/mm3 (0.1-1.0); Monocytes % 4.1 % (1.7-9.3); Neutrophils # 5.2 K/mm3 (1.8-7.8); Neutrophils % 66.7 % (37.0-80.0); Platelet Count 317 K/mm3 (142-424); Red Blood Count 4.38 M/mm3 (4.20-5.40); Red Cell Distribution Width 14.6 % (11.5-17.5); White Blood Count 7.7 K/mm3 (4.8-10.8)
--- NOTE | 2020-04-03 12:40 | PC.NURSE ---
pt with rad at this time
[2020-04-03 12:41] LABS: Magnesium 1.9 mg/dl (1.6-2.3); Phosphorous 4.7 mg/dl (2.5-4.5)
[2020-04-03 12:42] LABS: Alanine Aminotransferase 16 U/L (12-78); Albumin Level 4.3 g/dl (3.5-5.0); Albumin/Globulin Ratio 1.2 (1.1-1.8); Alkaline Phosphatase 140 U/L (38-126); Anion Gap 14.1 mEq/L (5-15); Aspartate Amino Transferase 31 U/L (14-36); Bilirubin,Total 0.4 mg/dl (0.2-1.3); Blood Urea Nitrogen 6 mg/dl (7-17); Calcium 9.3 mg/dl (8.4-10.2); Carbon Dioxide 23 mmol/L (22.0-30.0); Chloride 94 mmol/L (98-107); Creatinine Clearance Estimated 164 mL/min (50-200); Estimated Glomerular Filt Rate 172 ml/min (>60); GFR (African American) 208 ML/MIN (>60); Globulin 3.5 g/dL (1.3-3.2); Glucose 98 mg/dl (74-100); Potassium 4.1 mmoL/L (3.5-5.1); Sodium 127 mmol/L (136-145); Total Protein,Serum 7.8 g/dl (6.3-8.2)
[2020-04-03 12:44] VITALS: BP 113/86; PULSE 73; RESP 20; O2SAT 94
[2020-04-03 13:00] VITALS: BP 114/74; PULSE 68; RESP 18; O2SAT 97
[2020-04-03 13:30] VITALS: BP 124/86; PULSE 78; RESP 20; O2SAT 95
[2020-04-03 13:55] VITALS: BP 124/86; PULSE 78; RESP 20; TEMP 36.7; O2SAT 95
[2020-04-04 18:01] LABS: Calcium, Ionized 5.3 mg/dL (4.5-5.6)
== END 2020-04-03 13:59 | disposition home or self-care (01) ==
PROVIDERS: Emergency Provider Emergency Medicine; PCP Emergency Medicine
DX: M21.332 Wrist drop, left wrist (principal); G56.32 Lesion of radial nerve, left upper limb; I10 Essential (primary) hypertension; F41.8 Other specified anxiety disorders; F90.9 Attention-deficit hyperactivity disorder, unspecified type; Z87.891 Personal history of nicotine dependence; F17.210 Nicotine dependence, cigarettes, uncomplicated; Z88.0 Allergy status to penicillin; Z88.5 Allergy status to narcotic agent; Z89.422 Acquired absence of other left toe(s); F31.9 Bipolar disorder, unspecified; Z79.899 Other long term (current) drug therapy
CPT/HCPCS: 29125; 36415; 71046; 80053; 82330; 83735; 84100; 85025; 99283

== ENCOUNTER 2020-04-14 11:47 | Outpatient (RCR) | payer MEDICARE, SELFPAY | END 2020-04-14 12:15 | disposition home or self-care (01) | LOC: OT 11:47 | PROVIDERS: Visit Provider Orthopaedic Surgery | DX: G56.32 Lesion of radial nerve, left upper limb (principal) | CPT/HCPCS: 97763 ==

== ENCOUNTER 2020-07-08 14:20 | Inpatient (IN) | payer MEDICARE, SELFPAY ==
[2020-07-08 12:01] LABS: MANUAL DIFFERENTIAL MANUAL DIFFERENTIAL (MANUAL DIFF)
[2020-07-08 13:21] LABS: Alanine Aminotransferase 18 U/L (12-78); Albumin Level 3.9 g/dl (3.5-5.0); Albumin/Globulin Ratio 1.4 (1.1-1.8); Alkaline Phosphatase 141 U/L (38-126); Anion Gap 11.9 mEq/L (5-15); Aspartate Amino Transferase 26 U/L (14-36); Bilirubin,Total 0.3 mg/dl (0.2-1.3); Blood Urea Nitrogen 6 mg/dl (7-17); Carbon Dioxide 23 mmol/L (22.0-30.0); Chloride 93 mmol/L (98-107); Estimated Glomerular Filt Rate 172 ml/min (>60); GFR (African American) 208 ML/MIN (>60); Globulin 2.7 g/dL (1.3-3.2); Glucose 92 mg/dl (74-100); Potassium 4.9 mmoL/L (3.5-5.1); Sodium 123 mmol/L (136-145); Total Protein,Serum 6.6 g/dl (6.3-8.2)
[2020-07-08 13:25] LABS: Basophils % 0.5 % (0.1-2.0); Eosinophils # 0.3 K/mm3 (0.0-0.4); Eosinophils % 5.5 % (0.1-12.0); Hematocrit 40.4 % (37.0-47.0); Hemoglobin 13.8 g/dL (12.2-16.2); Lymphocytes # 1.1 K/mm3 (0.7-4.5); Lymphocytes % 18.4 % (10-50); Mean Corpuscular HGB Conc 34.2 g/dL (31.8-35.4); Mean Corpuscular Hemoglobin 33.2 pg (27.0-31.2); Mean Corpuscular Volume 97.1 fl (81-99); Mean Platelet Volume 7.2 fl (7.4-10.4); Monocytes # 0.3 K/mm3 (0.1-1.0); Monocytes % 5.4 % (1.7-9.3); Neutrophils # 4.2 K/mm3 (1.8-7.8); Neutrophils % 70.2 % (37.0-80.0); Platelet Count 324 K/mm3 (142-424); Red Blood Count 4.17 M/mm3 (4.20-5.40); Red Cell Distribution Width 15.5 % (11.5-17.5); White Blood Count 5.9 K/mm3 (4.8-10.8)
[2020-07-08 13:27] LABS: C-Reactive Protein 3.1 mg/L (0-4)
[2020-07-08 14:03] LABS: INR 0.98 (0.9-1.1); Prothrombin Time 10.9 seconds (9.4-11.8)
[2020-07-08 14:07] LABS: Activated Partial Thrombo Time 37.1 seconds (23.6-34.0)
[2020-07-08 14:14] LABS: Eosinophils % 3 % (0-3); Lymphocytes % 19 % (10-50); Monocytes % 10 % (2-9); Neutrophils % 68 % (42-76); Platelet Estimate Normal; RBC Morphology Normal; Total Cells Counted 100
[2020-07-08 14:26] VITALS: BP 102/70; PULSE 67; RESP 19; TEMP 36.6; O2SAT 99; BMI 24.2
[2020-07-08 14:33] LABS: Erythrocyte Sedimentation Rate 12 mm/hr (0-20)
[2020-07-08 14:49] LABS: Coronavirus 19 IgG Antibody Negative (Negative); Coronavirus 19 IgM Antibody Negative (Negative)
--- NOTE | 2020-07-08 15:12 | CA_ITS ---
APPROVED REPORT EXAM: Comprehensive 2D, Doppler, and color-flow Echocardiogram Auto Mechanic Supervisor: Talia Summers RVT Ht: 5 ft 0 in Wt: 124lbs BSA: 1.52 BP: 98/65 mmHg Indications: PRE-OP BKA, MOD MR,HTN,EX SMOKER 2D Dimensions LVOT 1.89 cm (M/F) 1.5-2.5 M-Mode Dimensions RVDd 1.88 cm (0.9-2.6) LA Diam 3.08 cm (1.9-4.0) LVDd 4.16 cm (3.5-5.7) Ao Diam 2.13 cm (2.0-3.7) LVDs 2.32 cm (3.5-5.7) IVSd 1.03 cm (0.6-1.1) PWd 0.88 cm (0.6-1.1) EF (Teich) 75.90% FS 44.20% EDV (Teich) 76.80 mL ESV (Teich) 18.50 mL LV Diastology E Decel Time 283.00 (160-240 msec) E/A Ratio 1.1 MED E' 13.40 (< 7 cm/sec) E'/MED E' Ratio 7.93 (>14) LAT E' 9.90 (<10 cm/sec) E/LAT E' Ratio 10.73 (>14) Aortic Valve AI PHT 481.00 ms Mitral Valve MV E Max Joselito. 106.00 (40-130 cm/s) MV A Velocity 95.00 (40-130 cm/s) E/A Ratio 1.11 MV Decel. Time 283.00 (160-240 ms) MV PHT 83.00 ms Pulmonary Valve PV Peak Velocity 69.00 (50-150 cm/s) Tricuspid Valve TR P. Velocity 201.00 cm/s Left Ventricle Left atrium is mildly enlarged, left ventricle is normal size, left ventricle wall thickness is upper limit of normal, there is preserved left ventricular systolic function, visually estimated ejection fraction 55% with no regional wall motion abnormality. Diastolic parameters are inconclusive. Right Ventricle Right atrium and right ventricle are relatively normal size and function. Aortic Valve Aortic valve is thickened and calcified leaflet chordae display good mobility, there is no aortic stenosis, there is mild aortic insufficiency. Mitral Valve Mitral valve leaflets are minimally thickened, there is no mitral stenosis, there is moderate mitral regurgitation. Tricuspid Valve Tricuspid valve grossly normal, there is mild tricuspid regurgitation, tricuspid regurgitation jet velocity is inadequate for calculation of the right ventricular systolic pressure. Pulmonic Valve Pulmonic valve is poorly visualized. Great Vessels Aortic root is normal size. Pericardium No significant pericardial effusion noted. 1. Conclusion 1. Normal left ventricular size, preserved left ventricular systolic function, visually estimated ejection fraction 55% with no regional wall motion abnormality, diastolic parameters are inconclusive. 2. Mild aortic and moderate mitral regurgitation. 3. No significant pericardial effusion noted. Electronically signed by : Sandeep Booth, 07/09/2020 06:40:26
[2020-07-08 15:27] LABS: Thyroid Stimulating Hormone 1.17 uIU/mL (0.465-4.68)
--- NOTE | 2020-07-08 15:28 | HMH.PHAVTE ---
[facility] Pharmacy VTE Monitoring - Patient Demographics Admission date: 07/08/20 Report Date: 07/08/20 Time: 15:28 Allergies/Adverse Reactions: Patient Allergies Penicillins Allergy (Mild, Verified 07/08/20 14:47) Unknown allergy reaction codeine [From Tylenol-Codeine #3] Adverse Reaction (Mild, Verified 07/08/20 12:55) vomiting Height: 1.52 m Weight: 56.245 kg - VTE Risk Labs: VTE Related Lab Results Hgb 13.8 g/dL (12.2-16.2) 07/08/20 11:45 Hct 40.4 % (37.0-47.0) 07/08/20 11:45 Plt Count 324 K/mm3 (142-424) 07/08/20 11:45 PT 10.9 seconds (9.4-11.8) 07/08/20 11:45 INR 0.98 (0.9-1.1) 07/08/20 11:45 APTT 37.1 seconds (23.6-34.0) H 07/08/20 11:45 BUN 6 mg/dl (7-17) L 07/08/20 11:45 Creatinine 0.40 mg/dl (0.52-1.04) L 07/08/20 11:45 - Prophylaxis VTE Prophylaxis Ordered?: Yes Types of VTE Prophylaxis: TEDS Knee High Location of Applied Device: Bilateral Lower Extremeties
--- NOTE | 2020-07-08 15:34 | HMH.CNCARD ---
History of Present Illness Consult date: 07/08/20 Requesting physician: Isac Sandhu Consult reason: pre-op evaluation Chief complaint: Left foot infection Additional Medical History:: 1. Hypertension A. Echo, 08/21/2019, 1. Mildly enlarged left atrium, normal left ventricular size, visually estimated ejection fraction 55% with no regional wall motion abnormality, diastolic parameters are within normal range. 2. Moderate mitral and mild tricuspid regurgitation. 3. No significant pericardial effusion noted. 2. Bipolar disorder 3. PTSD 4. History of drug use 5. History of anxiety/depression 6. History of Tourette's syndrome 7. Tobacco use 8. Asthma 9. PAD A. History of left transmetatarsal amputation B. Osteomyelitis of the left foot, 07/08/2020 10. Hyponatremia, 123 on 07/08/2020 (same as 09/2019 but as high as 131 in 03/2020). History of present illness: 44-year-old white female with multiple medical issues as noted above was admitted for osteomyelitis of the left foot with plans for surgical intervention this admission. Cardiology consulted for preop evaluation. Patient denies any chest pain, pressure or tightness. Activity is limited due to partial amputation of the left foot. [facility] the [facility] She does continue to smoke 10 cigarettes/day and denies being a diabetic. 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 No: Pacemaker Amputation: Yes (2 toes removed on left foot) Fractures: Yes (r arm) - *Social History Smoking Status: Former smoker Tobacco Type: cigarettes # Packs/Day (cigarettes): 1 #Yrs smoked (if former smoker): 20 Alcohol Intake: never Substance Use Type: former substance user, IV drugs *Occupational Status:: disabled Housing: assisted living facility Household Members: other *Travel in the last 8 weeks: None - Psychiatric History Pschychiatric History:: Reports:: Anxiety, Depression Family Hx:: Diabetes, Heart Attack, Hyperlipidemia, Hypertension Meds Home Medications Medication Instructions Recorded Confirmed Type acetaminophen 325 mg tablet 650 mg PO Q6H PRN 10/30/18 07/08/20 History gabapentin 600 mg tablet 600 mg PO TID 10/30/18 07/08/20 History cyclobenzaprine 10 mg tablet 10 mg PO HS tab 02/02/19 07/08/20 History diphenhydramine HCl 25 mg capsule 25 mg PO TID 02/02/19 07/08/20 History loperamide 2 mg capsule 2 mg PO BIDP PRN cap 02/02/19 07/08/20 History oxcarbazepine 600 mg tablet 600 mg PO BID 02/02/19 07/08/20 History Quetiapine Fumarate [Seroquel 25mg 25 mg PO BID 06/30/19 07/08/20 History tablet] Collagenase Clostridium Hist. 0 gm TP DAILY 08/22/19 07/08/20 History [Santyl Ointment 30gm] Fluticasone/Vilanterol [Breo 1 inh IH DAILY 08/22/19 07/08/20 History Ellipta 100-25 Mcg INH] Ibuprofen [Ibuprofen 600mg 600 mg PO Q6HP PRN 08/22/19 07/08/20 History Tablet] Loratadine [Allergy] 10 mg PO DAILY 08/22/19 07/08/20 History Metoprolol Tartrate [Lopressor 25 mg PO BID 08/22/19 07/08/20 History 25mg tablet] guaiFENesin [Robafen] 200 mg PO Q6HP PRN 08/22/19 07/08/20 History aripiprazole 15 mg tablet 15 mg PO DAILY tab 09/17/19 07/08/20 History Aspirin [Low Dose Aspirin EC] 81 mg PO DAILY 11/07/19 07/08/20 History ondansetron HCL [Zofran 4mg Tab*] 1 tab PO Q6HP PRN 12/06/19 07/08/20 History polyethylene glycoL 3350 [Miralax 17 gm PO DAILY 12/06/19 07/08/20 History 17gm Packet] diazepam 5 mg tablet 5 mg PO DAILY tab 01/14/20 07/08/20 History sertraline 100 mg tablet 100 mg PO Q24H tab 01/14/2007/08
--- NOTE | 2020-07-08 17:38 | HMH.ORTHOCON ---
*Admission Date: 07/08/20 *Reason for consult:: L foot osteomyelitis, gangrene; hyponatremia *History of present illness: 44yo F with L foot wound dehiscence s/p L TMA, with underlying osteomyelitis and progressive infection (h/o MRSA, Pseudomonas, enterococcus and corynebacterium; now with MDR E. Coli); gangrene appears stable and not worsened since her last visit. After discussion with Dr. Plascencia and examination of the patient and her history, I have recommended below-knee amputation. I last saw her in April 2020, when these recommendations were made. Evaluation and clearance by her primary care physician were requested, as well as permission from the [facility] to perform the procedure. The patient is a pratt of the [facility] and it has taken a prolonged period of time to get approval for the procedure. We have the approval now, but the patient has not been seen by myself in some time and was brought in today for evaluation prior to surgical planning. She has not been seen or cleared by her primary care since her last visit, and a history of chronic hyponatremia has been noted, so labs were drawn today in the outpatient setting prior to scheduling a surgical date. Her sodium today is 123. She does not appear to be symptomatic from this; no nausea or vomiting, no headache, no confusion, no fatigue, no restless or irritable complaints, no muscle spasms or seizures. She has been on chronic antipsychotic medication, which may be contributing to her hyponatremia; she is currently on aripiprazole 15 mg daily. Additionally she takes clonazepam, diazepam, oxcarbazepine, quetiapine, sertraline for her psychiatric issues. She is a resident of [facility], and local wound care has been performed by a home health agency there. Because of her location of residence she is unable to have an indwelling PICC line or IV antibiotics, so she has been on oral antibiotics. She reports she is currently not on anything. Nonweightbearing on the left lower extremity in a postop shoe. She has previously been a heavy smoker but is working on smoking cessation. Additionally, she has a history of lymphedema, peripheral vascular disease, bipolar disorder and diabetes. Recent LLE ALEX was 0.8, TBI 0.28. At her last visit with me, she reported a new onset left radial nerve palsy with wrist drop. Subsequent EMG-NCS was negative and her symptoms appear to have resolved. L TMA 01/31/2020 --> E. Coli (cultures and path) --> remained on wound cultures from February and March 2020 (multi-drug resistant) amputations of several digits L foot November and December 2019 (dx: gangrene and osteomyelitis) --> November: pseudomonas, enterococcus and corynebacterium; bone pathology negative for osteomyelitis. December: bone cultures grew MRSA and corynebacterium. 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 No: Pacemaker Amputation: Yes (TOES ON LEFT FOOT) Fractures: Yes (RIGHT ARM) - *Social History Last grade of school completed: High school graduate Smoking Status: Former smoker Tobacco Type: cigarettes # Packs/Day (cigarettes): 1 #Yrs smoked (if former smoker): 20 Alcohol Intake: never Substance Use Type: former substance user, IV drugs *Occupational Status:: disabled Housing: assisted living facility Household Members: other *Travel in the last 8 weeks: None - Psychiatric History Pschychiatric History:: Reports:: Anxiety, Depression Family Hx:: Heart Attack Review of Systems - Review of Systems Review of systems:: pertinent systems reviewed and
--- NOTE | 2020-07-08 17:46 | XR_ITS ---
PROCEDURE: XR FOOT LT MIN 3V CLINICAL INDICATION: known osteomyelitis Foot infection, pain redness and swelling COMPARISON: CR XR FOOT WT BEARING LT 3V from 08/21/2019 CR XR FOOT LT MIN 3V from 01/31/2020 CR XR FOOT LT MIN 3V from 03/03/2020 CR XR FOOT WT BEARING RT 3V from 03/11/2020 CR XR FOOT WT BEARING LT 3V from 03/11/2020 FINDINGS: Status post midfoot amputation at the tarsal metatarsal junction. There is diffuse osteopenia. Previously noted bony cortical irregularity at the cuboid is not apparent on today's exam. There is a calcific density lateral to the cuboid and may be due to residual base of 5th metatarsal fragment. Other findings:None. IMPRESSION: Status post amputation at the tarsal metatarsal junction with interval improvement in the cortical regularity of the cuboid Dictated by: Pranay Patricio MD 07/09/2020 06:25 Pranay Patricio MD in OV 07/09/2020 06:25
[2020-07-08 18:21] LABS: Microscopic, Urine URINE MICROSCOPIC (MICROSCOPIC)
[2020-07-08 18:40] VITALS: RESP 16
--- NOTE | 2020-07-08 19:05 | PC.NURSE ---
report given to danie
--- NOTE | 2020-07-08 19:24 | PC.NURSE ---
incisional wound w/ necrosis, min amount of sang drainage noted to dressing when removed. noted to be 5 cm x 2 cm
[2020-07-08 20:00] VITALS: BP 116/80; PULSE 68; RESP 19; TEMP 36.4; O2SAT 98
[2020-07-08 20:50] LABS: Chloride 93 mmol/L (98-107); Sodium 122 mmol/L (136-145)
[2020-07-08 20:51] LABS: Potassium 3.5 mmoL/L (3.5-5.1)
[2020-07-08 20:53] LABS: Blood Urea Nitrogen 6 mg/dl (7-17); Creatinine Clearance Estimated 125 mL/min (50-200); Estimated Glomerular Filt Rate 133 ml/min (>60); GFR (African American) 161 ML/MIN (>60)
[2020-07-08 20:54] LABS: Anion Gap 10.5 mEq/L (5-15); Calcium 8.4 mg/dl (8.4-10.2); Carbon Dioxide 22 mmol/L (22.0-30.0); Glucose 112 mg/dl (74-100)
[2020-07-08 20:56] LABS: Appearance,Urine CLEAR (Clear); Bilirubin,Urine Negative (Negative); Blood, Urine TRACE-I (Negative); Color,Urine YELLOW (Yellow); Glucose,Urine (UA) Negative (Negative); Ketones,Urine Negative (Negative); Leukocyte Esterase,Urine Negative (Negative); Nitrate,Urine Negative (Negative); Protein,Urine Negative (Negative); Specific Gravity, Urine 1.015 (1.005-1.030); Urobilinogen,Urine 0.2 EU/dl (0.2)
[2020-07-08 21:11] LABS: Bacteria,Urine 1+ /lpf
[2020-07-09] VITALS (25 sets, daily range): BP systolic 104–148; BP diastolic 64–95; PULSE 71–141; RESP 10–20; TEMP 36.4–43; O2SAT 93–98; BMI 23.9; BMI 23.8
[2020-07-09 06:38] LABS: Basophils % 0.4 % (0.1-2.0); Eosinophils # 0.3 K/mm3 (0.0-0.4); Eosinophils % 6.5 % (0.1-12.0); Hematocrit 41.3 % (37.0-47.0); Hemoglobin 13.4 g/dL (12.2-16.2); Lymphocytes # 1.1 K/mm3 (0.7-4.5); Mean Corpuscular HGB Conc 32.4 g/dL (31.8-35.4); Mean Corpuscular Hemoglobin 32.5 pg (27.0-31.2); Mean Corpuscular Volume 100.2 fl (81-99); Mean Platelet Volume 6.4 fl (7.4-10.4); Monocytes # 0.2 K/mm3 (0.1-1.0); Monocytes % 4.5 % (1.7-9.3); Neutrophils % 65.6 % (37.0-80.0); Platelet Count 283 K/mm3 (142-424); Red Blood Count 4.12 M/mm3 (4.20-5.40); Red Cell Distribution Width 15.1 % (11.5-17.5); White Blood Count 4.6 K/mm3 (4.8-10.8)
[2020-07-09 06:51] LABS: Chloride 103 mmol/L (98-107); Potassium 4.8 mmoL/L (3.5-5.1); Sodium 135 mmol/L (136-145)
[2020-07-09 06:54] LABS: Anion Gap 11.8 mEq/L (5-15); Blood Urea Nitrogen 6 mg/dl (7-17); Carbon Dioxide 25 mmol/L (22.0-30.0); Creatinine Clearance Estimated 154 mL/min (50-200); Estimated Glomerular Filt Rate 172 ml/min (>60); GFR (African American) 208 ML/MIN (>60); Glucose 97 mg/dl (74-100)
[2020-07-09 06:55] LABS: Magnesium 2.1 mg/dl (1.6-2.3)
[2020-07-09 07:02] LABS: INR 0.97 (0.9-1.1); Prothrombin Time 10.8 seconds (9.4-11.8)
--- NOTE | 2020-07-09 07:08 | PC.NURSE ---
shift summary patient has been awake all night anxious at times. able to ambulate with standby assist to rest room. breath sounds clear. has complained of pain twice this shift. treated with morphine.
[2020-07-09 08:02] LABS: Calcium 9.3 mg/dl (8.4-10.2)
--- NOTE | 2020-07-09 09:05 | HMH.HP ---
*Admission Date: 07/08/20 *Chief complaint: Hyponatremia *History of present illness: 44 year-old female patient seen in Ortho clinic for preop assessment of foot surgery. She had not been seen or cleared by her primary care physician and has a history of chronic hyponatremia after labs were drawn and resulted sodium was 123. She is also taking medications for her chronic antipsychotic behavior including Abilify, clonazepam, diazepam, oxcarbazepine, quetiapine, sertraline and she is resident of [place]. She denies N/V/D, headache, confusion, muscle spasms, fatigue, or seizures She was admitted to the hospital in normal saline IV fluids were started. Sodium was rechecked at 10:30 PM last night and was 122 Sodium this morning is 135. Patient was seen she was sitting in the bed resting quietly explained to her current situation and she will be cleared for orthopedic surgery. Patient became very tearful, discussion of benefits of surgery with patient and she was more relieved afterwards. 07/08/20 ECHO: Conclusion 1. Normal left ventricular size, preserved left ventricular systolic function, visually estimated ejection fraction 55% with no regional wall motion abnormality, diastolic parameters are inconclusive. 2. Mild aortic and moderate mitral regurgitation. 3. No significant pericardial effusion noted. Electronically signed by : Holli Pathak has seen and recommends: 1. Osteomyelitis of the left foot. Surgery planned. 2. Hyponatremia, sodium 123. 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 Recommend monitoring to make sure it doesn't rapidly rise within a 12 hr period to greater than 130. 3. Moderate mitral regurgitation, unchanged by preliminary echo today. From a cardiac standpoint, she is a low and acceptable risk for surgery. 4. 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 No: Pacemaker Amputation: Yes (TOES ON LEFT FOOT) Fractures: Yes (RIGHT ARM) - *Social History Last grade of school completed: High school graduate Smoking Status: Current every day smoker Tobacco Type: cigarettes # Packs/Day (cigarettes): 1 #Yrs smoked (if former smoker): 20 Alcohol Intake: never Substance Use Type: former substance user, IV drugs *Occupational Status:: disabled Housing: assisted living facility Household Members: other *Travel in the last 8 weeks: None - Psychiatric History Pschychiatric History:: Reports:: Anxiety, Depression Family Hx:: Heart Attack Review of Systems - Review of Systems Review of systems:: pertinent systems reviewed and negative unless documented below - Constitutional Denies chills, Denies lack of energy - Eyes Denies blind spots, Denies change in vision - ENT Denies abnormal hearing, Denies lip swelling - *Cardiovascular Denies chest pain, Denies shortness of breath - *Respiratory Denies chest congestion, Denies shortness of breath - *Gastrointestinal Reports abdominal pain, Denies incontinent of stools - *Musculoskeletal Denies joint pain, Denies muscle weakness - Integumentary/Breasts Denies change in skin color, Denies lesions - *Neurologic Denies abnormal walking, Denies headache(s) - Psychiatric Denies abnormal sleep pattern, Denies anxiety - Endocrine Denies cold intolerance, Denies heat intolerance - Hematologic/Lymphatic Denies easy bleeding, Denies easy bruising - Allergic/Immunologic Denies GI upset with certain foods, Denies lip swelling Meds Home Medications Medication Instructions Recorded Confirmed Type sebastian
--- NOTE | 2020-07-09 09:49 | SW/DCPLANNER ---
Addendum entered by [facility] 07/11/20 11:20: Dr Sandhu has signed 30 day exempt for PAS[employer]. I have added a copy to patients chart and faxed Rosario at [facility] a copy. Addendum entered by [facility] 07/11/20 09:37: I have notified Rosario with [facility] that this patient will be stable for discharge today. Dr Alvarado will see this patient around noon then patient will be ready for discharge pending no setbacks. Addendum entered by [facility] 07/10/20 17:28: Lan is agreeable with plan of discharging to [facility] tomorrow pending no setbacks. Addendum entered by [facility] 07/10/20 14:53: Rosario from [facility] has stated that she can accept this patient for tomorrow pending no setbacks. Negative COVID results have been faxed to Rosario. Addendum entered by [facility] 07/10/20 13:59: Patients Guardian (Lan) has stated that he is currently waiting to hear back from his occupational therapy supervisor regarding financial situation for this patient. Rosario from [facility] is aware of this plan. Lan is asking if the state can approve for to cover co-insurance days if needed after 20 MCR skilled days. I will continue to follow up with Lan and Rosario at [facility]. I have informed Dr Sandhu, Dr Gray, Alondra and Dr Alvarado of situation. COVID test is NEGATIVE. Addendum entered by Jeanne [place] 07/10/20 09:57: I have updated patients State Guardian Lan regarding this case. Addendum entered by [facility] 07/10/20 09:41: Rosario has stated that patient information is still being reviewed. I have informed Rosario that this patient will be ready for discharge later today. Currently waiting to hear back from Rosario. Patient will have PT/OT evaluation today. Patient will also require a COVID swab prior to discharge. Addendum entered by [facility] 07/09/20 15:38: Lisa at [facility] has stated that patient information is currently being reviewed. Lisa has stated that Rosario from [facility] will follow up with me tomorrow morning. Original Note: This patient currently resides at [facility]. I have spoke with Kadeem and she has stated that placement has not been started for this patient. Kadeem has stated that Lan Gonzalez is patients Guardian: I have contacted Lan. Lan stated that he would prefer [facility] for this patient and if they do not have a bed available then would prefer [place]. I have informed Lan that this patient will have BKA surgery this afternoon. Rosario with [facility] has stated that they do have females beds available. Patient information has been faxed to Rosario at [facility]. Patient is not currently ready for discharge but I will continue to follow up with Lan and Angus Munroe.
[2020-07-09 10:04] LABS: Urine Pregnancy, HCG Qual. Negative (Negative)
--- NOTE | 2020-07-09 10:12 | HMH.PNCARD ---
Subjective Date: 07/09/20 Time: 10:00 Principal diagnosis: OM of L foot Interval history: This is a 44-year-old white female who was admitted to the hospital for osteomyelitis of her left foot. The patient does have a history of moderate mitral regurgitation which is unchanged by echocardiogram on this visit. She denies any chest pain or pressure. She denies any shortness of breath or edema. She denies any fever, chills, nausea, vomiting, diarrhea, PND or orthopnea. Her sodium was down to 122. It did improve to 135 today. 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 She is acceptable risk from a cardiac standpoint to proceed with surgical intervention on her left lower extremity today. Exam Vital signs and Labs for Last 24 Hours: Temp Pulse Resp BP Pulse Ox 97.8 F 82 18 104/64 L 93 L 07/09/20 07:58 07/09/20 07:58 07/09/20 07:58 07/09/20 07:58 07/09/20 08:40 Laboratory Results - last 24 hr 07/08/20 11:45: WBC 5.9, RBC 4.17 L, Hgb 13.8, Hct 40.4, MCV 97.1, MCH 33.2 H, MCHC 34.2, RDW 15.5, Plt Count 324, MPV 7.2 L, Neut % (Auto) 70.2, Lymph % (Auto) 18.4, Kay % (Auto) 5.4, Eos % (Auto) 5.5, Baso % (Auto) 0.5, Neut # (Auto) 4.2, Lymph # (Auto) 1.1, Kay # (Auto) 0.3, Eos # (Auto) 0.3, Baso # (Auto) 0.0, Total Counted 100, Neutrophils % (Manual) 68, Lymphocytes % (Manual) 19, Monocytes % (Manual) 10 H, Eosinophils % (Manual) 3, Platelet Estimate Normal, RBC Morphology Normal, ESR 12 07/08/20 11:45: PT 10.9, INR 0.98, APTT 37.1 H 07/08/20 11:45: Sodium 123 L, Potassium 4.9, Chloride 93 L, Carbon Dioxide 23, Anion Gap 11.9, BUN 6 L, Creatinine 0.40 L, Estimated GFR 172, Est GFR ( Amer) 208, Glucose 92, Calcium 9.0, Total Bilirubin 0.3, AST 26, ALT 18, Alkaline Phosphatase 141 H, C-Reactive Protein 3.1, Total Protein 6.6, Albumin 3.9, Globulin 2.7, Albumin/Globulin Ratio 1.4 07/08/20 12:01: SARS-CoV-2 IgG Ab (Rapid) Negative, SARS-CoV-2 IgM Ab (Rapid) Negative 07/08/20 12:01: TSH 1.17, Thyroxine (T4) 6.0 07/08/20 18:00: Urine Color Yellow, Urine Appearance Clear, Urine pH 6.0, Ur Specific [employer] 1.015, Urine Protein Negative, Urine Glucose (UA) Negative, Urine Ketones Negative, Urine Blood Trace-i, Urine Nitrate Negative, Urine Bilirubin Negative, Urine Urobilinogen 0.2, Ur Leukocyte Esterase Negative, Urine WBC 3-5, Ur Squamous Epith Cells 10-20, Urine Bacteria 1+ 07/08/20 20:30: Sodium 122 L, Potassium 3.5 D, Chloride 93 L, Carbon Dioxide 22, Anion Gap 10.5, BUN 6 L, Creatinine 0.50 L D, Estimated Creat Clear 125, Estimated GFR 133, Est GFR ( Amer) 161 D, Glucose 112 H D, Calcium 8.4 07/09/20 06:00: Urine HCG, Qual Negative 07/09/20 06:12: WBC 4.6 L, RBC 4.12 L, Hgb 13.4, Hct 41.3, MCV 100.2 H, MCH 32.5 H, MCHC 32.4, RDW 15.1, Plt Count 283, MPV 6.4 L, Neut % (Auto) 65.6, Lymph % (Auto) 23.0, Kay % (Auto) 4.5, Eos % (Auto) 6.5, Baso % (Auto) 0.4, Neut # (Auto) 3.0, Lymph # (Auto) 1.1, Kay # (Auto) 0.2, Eos # (Auto) 0.3, Baso # (Auto) 0.0 07/09/20 06:12: PT 10.8, INR 0.97 07/09/20 06:12: Sodium 135 L, Potassium 4.8 D, Chloride 103, Carbon Dioxide 25, Anion Gap 11.8, BUN 6 L, Creatinine 0.40 L, Estimated Creat Clear 154, Estimated GFR 172, Est GFR ( Amer) 208 D, Glucose 97, Calcium 9.3 D, Magnesium 2.1 I & O for Last 24 hours: Intake & Output 07/06/20 07/07/20 07/08/20 07/09/20 23:59 23:59 23:59 23:59 Intake Total 450 / 930 2235 / 2235 Output Total 700 / 700 1850 / 1850 Balance -250 / 230 385 / 385 Weight 124 lb 122 lb - Constitutional no acute distress, average body habitus, chronically ill appearing - *Routine HEENT Exam Head: Present: normocephalic, atraumatic Eye: Present: EOMI, PERRL ENT: Present: mucous membranes moist - *Routine Neck Exam Present: supple, full ROM. Absent: JVD, carotid bruit, lymphadenopathy - *Routine Respiratory Exam Present: CTA bilaterally - *Routine
--- NOTE | 2020-07-09 10:39 | PC.NURSE ---
Preoperative checklist completed with pt. Dr. Alvarado at bedside at this time talking to pt about surgery. Sandee Tucker RN called and said she got verbal consent from the state and the consent is in OR.
--- NOTE | 2020-07-09 10:47 | HMH.PHAINT ---
CLARIFIED HOME MEDICATION LIST WITH [employer]
--- NOTE | 2020-07-09 10:55 | HMH.ORTHPN ---
Subjective Date: 07/09/20 Time: 10:30 Principal diagnosis: osteomyelitis, gangrene L foot Interval history: The patient is well this morning but anxious regarding her surgery. She is fearful of the pain she knows she'll have post-operatively but knows surgery is necessary and is in agreement with the plan. Her sodium yesterday was 123, which has increased to 135 this morning. She appears lucid with no reports of dizziness, lethargy, chest pain, shortness of breath, nausea/vomiting. PN: Obj Ex Vital signs: Temp Pulse Resp BP Pulse Ox 97.8 F 82 18 104/64 L 93 L 07/09/20 07:58 07/09/20 07:58 07/09/20 07:58 07/09/20 07:58 07/09/20 08:40 - Constitutional no acute distress - Routine HEENT Exam Head: Present: normocephalic Eye: Present: EOMI ENT: Present: mucous membranes moist - Routine Neck Exam Present: supple - Routine Respiratory Exam Absent: respiratory distress - Routine Cardiovascular Exam Present: RRR - Routine Abdominal Exam Present: soft. Absent: tenderness - Routine Extremities Exam Comments: LLE s/p TMA with incisional wound necrosis/gangrene with dehiscence; appears stable from last exam in April but not improved LLE pedal pulses weakly palpable (DP and PT), sluggish cap refill skin temperature wnl, no varicosities 2+ pitting edema LLE with mild cellulitis muscle tone normal throughout, strength 5/5 throughout no calf tenderness LLE no active drainage L foot, no purulence; no fluctuance. Patient does not tolerate extensive palpation. sensation intact to light touch LLE but quality diminished from mid-tibia distally - Routine Skin Exam Present: erythema, warm, normal turgor, wounds, gangrene. Absent: ecchymosis - Routine Neurological Exam Present: alert, oriented X3, moving all extremities, normal tone, vision grossly intact, hearing grossly intact, normal speech. Absent: sensory deficit, motor deficit, altered mental status - Routine Psychiatric Exam Present: anxious Progress Note: A&P (1) Moderate mitral regurgitation by prior echocardiogram Status: Acute (2) Bipolar 1 disorder Status: Acute (3) Cellulitis Status: Acute (4) Cellulitis and abscess of foot Status: Acute (5) Osteomyelitis of left foot Status: Acute (6) Tobacco use Status: Acute (7) Essential hypertension Status: Chronic (8) Peripheral arterial disease Status: Chronic (9) Hyponatremia Status: Acute Assessment and Plan for All Diagnoses:: 44yo F with L foot wound dehiscence with worsening gangrene s/p L TMA, with underlying osteomyelitis and progressive infection (h/o MRSA, Pseudomonas, enterococcus and corynebacterium; now with MDR E. Coli) -- sodium has increased to 135 overnight. This is a rapid increase and I am concerned about the magnitude and speed with which it corrected. 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 This was discussed with Dr. Mary, who believes she is ok for surgery today and delaying the procedure further does not have added protective benefit. Will monitor neurologic status closely after surgery. -- to OR this afternoon for L BKA -- continue NPO status, IVF per primary care team -- IV antibiotics section laborer to OR; will hold antibiotics until biopsies are taken. After that will give daptomycin 350mg IV; this was discussed with pharmacy. I discussed the risks of below-knee amputation with the patient, including bleeding, continued or worsening infection, neurovascular damage, risk of wound or stump necrosis necessitating later debridement, wound vac application, wound care clinic treatment, or revision amputation to a higher level; I also discussed the risk of phantom limb pain, later s
--- NOTE | 2020-07-09 17:55 | HMH.OPNOTE ---
Date of procedure: 07/09/20 Pre-op Diagnosis:: Left lower extremity: 1) s/p transmetatarsal amputation (TMA) L foot with wound dehiscence and gangrene 2) osteomyelitis L foot Post-op Diagnosis:: same Procedure performed:: left below knee amputation (BKA) Surgeon:: Carol Alvarado MD Coding Director(s):: Cathy Ta ANNUAL GIVING DIRECTOR:: Gurdeep Walker Anesthesia: GETA Estimated blood loss (mL): 200 Clinical Note:: 44yo F with L foot wound dehiscence s/p L TMA, with underlying osteomyelitis and progressive infection (h/o MRSA, Pseudomonas, enterococcus and corynebacterium; now with MDR E. Coli); gangrene appears stable and not worsened since her last visit. After discussion with Dr. Plascencia and examination of the patient and her history, I have recommended below-knee amputation. I last saw her in April 2020, when these recommendations were made. Evaluation and clearance by her primary care physician were requested, as well as permission from the [facility] to perform the procedure. The patient is a pratt of the [facility] and it has taken a prolonged period of time to get approval for the procedure. We have the approval now, but the patient has not been seen by myself in some time and was brought in today for evaluation prior to surgical planning. She has not been seen or cleared by her primary care since her last visit, and a history of chronic hyponatremia has been noted, so labs were drawn today in the outpatient setting prior to scheduling a surgical date. Her sodium today is 123. She does not appear to be symptomatic from this; no nausea or vomiting, no headache, no confusion, no fatigue, no restless or irritable complaints, no muscle spasms or seizures. She has been on chronic antipsychotic medication, which may be contributing to her hyponatremia; she is currently on aripiprazole 15 mg daily. Additionally she takes clonazepam, diazepam, oxcarbazepine, quetiapine, sertraline for her psychiatric issues. She is a resident of [facility], and local wound care has been performed by a home health agency there. Because of her location of residence she is unable to have an indwelling PICC line or IV antibiotics, so she has been on oral antibiotics. She reports she is currently not on anything. Nonweightbearing on the left lower extremity in a postop shoe. She has previously been a heavy smoker but is working on smoking cessation. Additionally, she has a history of lymphedema, peripheral vascular disease, bipolar disorder and diabetes. Recent LLE ALEX was 0.8, TBI 0.28. At her last visit with me, she reported a new onset left radial nerve palsy with wrist drop. Subsequent EMG-NCS was negative and her symptoms appear to have resolved. L TMA 01/31/2020 --> E. Coli (cultures and path) --> remained on wound cultures from February and March 2020 (multi-drug resistant) amputations of several digits L foot November and December 2019 (dx: gangrene and osteomyelitis) --> November: pseudomonas, enterococcus and corynebacterium; bone pathology negative for osteomyelitis. December: bone cultures grew MRSA and corynebacterium. Sodium increased to 135 overnight. She was seen and cleared by Drs. Sandhu and Tyra. I discussed the risks of below-knee amputation with the patient, including bleeding, continued or worsening infection, neurovascular damage, risk of wound or stump necrosis necessitating later debridement, wound vac application, wound care clinic treatment, or revision amputation to a higher level; I also discussed the risk of phantom limb pain, later stump breakdown despite initial wound healing, and risks of anesthesia including heart attack, stroke or even . The patient vocalized understanding of the above and in agreement with this plan. Consent was obtained by the patient's state guardian Lan Gonzalez verbally. Daptomycin 350mg IV was ordered electrical & instrumentation supervisor to OR for the case, after discussion with pharmacy. This was given too early by the patient's nurse in error; dimas sams
--- NOTE | 2020-07-09 17:58 | HMH.ORTHPN ---
Subjective Date: 07/09/20 Time: 18:00 Principal diagnosis: osteomyelitis, gangrene L foot Interval history: The patient underwent L BKA this afternoon without complication. EBL 200cc PN: Obj Ex Vital signs: Temp Pulse Resp BP Pulse Ox 97.8 F 82 18 104/64 L 93 L 07/09/20 07:58 07/09/20 07:58 07/09/20 07:58 07/09/20 07:58 07/09/20 08:40 - Constitutional no acute distress - Routine HEENT Exam Head: Present: normocephalic Eye: Present: EOMI ENT: Present: mucous membranes moist - Routine Respiratory Exam Absent: respiratory distress, wheezes - Routine Cardiovascular Exam Present: RRR - Routine Abdominal Exam Present: soft. Absent: tenderness - Routine Extremities Exam Comments: LLE s/p BKA, splint/dressings c/d/i GABI drain to suction with scant output - Routine Skin Exam Present: warm Progress Note: A&P (1) Moderate mitral regurgitation by prior echocardiogram Status: Acute (2) Bipolar 1 disorder Status: Acute (3) Cellulitis Status: Acute (4) Cellulitis and abscess of foot Status: Acute (5) Osteomyelitis of left foot Status: Acute (6) Tobacco use Status: Acute (7) Essential hypertension Status: Chronic (8) Peripheral arterial disease Status: Chronic (9) Hyponatremia Status: Acute Assessment and Plan for All Diagnoses:: 44yo F POD #0 s/p L BKA -- clear liquid diet, advance as tolerated -- DVT prophy: SCD RLE, pharmacoprophylaxis per PCP -- encourage IS 10x/hr while awake -- pain control: oral percocet, IV dilaudid PRN for breakthrough -- elevate LLE on pillows at all times -- empty GABI drain each shift and record output -- continue IV antibiotics x24 hours -- PT/OT eval ordered -- dispo planning: anticipate d/c to SNF for retirement, dressing changes and PT
--- NOTE | 2020-07-09 18:02 | HMH.ANESI ---
[facility] Anesthesia Record Part I Intake, IV Amount: 700 Estimated blood loss (mL): 200 Urine output (mL): 0 (NM) Blood Products used (#): none Blood Pressure: 147/90 SaO2: 96 Pulse Rate: 121 Respiratory Rate: 10 Temperature: 97.5 F Patient is:: Awake, Drowsy, Nasal O2, Stable Stable to PACU at:: 17:55
--- NOTE | 2020-07-09 18:10 | PC.NURSE ---
A&OX4. PT HAS TOLERATED ROOM AIR WELL THROUGHOUT SHIFT. RESPIRATIONS REGULAR AND UNLABORED. LUNG SOUNDS BILATERALLY CLEAR. NO COUGH NOTED. NO EDEMA NOTED. +2 PULSES NOTED THROUGHOUT. HAND DRYCLEANER EQUAL. ACTIVE BOWEL SOUNDS HEARD IN ALL 4 QUADRANTS. SOFT AND NONTENDER ABDOMEN. PT HAS DOYLE 1 BM THUS FAR. PT VOIDS PER TOILET WITH CLEAR YELLOW URINE NOTED. STANDBY ASSIST. STEADY GAIT NOTED. PT TOLERATES WELL. PT REPORTED PAIN ONCE THUS FAR AND RECEIVED MORPHINE PER MAR. ON REASSESSMENT, PT STATED PAIN WAS TOLERABLE. DRESSING NOTED TO L FOOT R/T PREVIOUS TOE AMPUTATION A FEW MONTHS AGO. CDI. PT IS CURRENTLY IN SURGERY GETTING A L BKA. AWAITING PT'S ARRIVAL BACK TO THE FLOOR. WHILE UNDER MY CARE, PT'S VITALS WERE STABLE. CALL LIGHT WAS WITHIN LIMITS. BED WAS IN LOWEST POSITION. PT REMAINED NPO. ANDREW NOTED TO R LEG.
--- NOTE | 2020-07-09 18:20 | XR_ITS ---
PROCEDURE: XR TIBIA FIBULA LT 2V CLINICAL INDICATION: s/p L BKA Follow-up surgery COMPARISON: No exams were available for comparison FINDINGS: Status post below the knee amputation. Postsurgical gas and drain and wrap is present. The bony amputation site is well defined. Other findings:None. IMPRESSION: Status post below-knee amputation Dictated by: Pranay Patricio MD 07/10/2020 05:44 Pranay Patricio MD in OV 07/10/2020 05:44
--- NOTE | 2020-07-09 18:30 | PC.NURSE ---
RECEIVED REPORT FROM Tomeka VIDALES RN. SHE SAID SHE WOULD BRING PT UP SHORTLY.
--- NOTE | 2020-07-09 18:48 | PC.NURSE ---
A&OX4. PT IS TOLERATING 2L NC WELL. RESPIRATIONS REGULAR AND UNLABORED. LUNG SOUNDS BILATERALLY CLEAR. DRY OCCASIONAL NONPRODUCTIVE COUGH NOTED. HAND RUBBER GOODS CUTTER FINISHER EQUAL. +2 PULSES NOTED THROUGHOUT. ACTIVE BOWEL SOUNDS HEARD IN ALL 4 QUADRANTS. SOFT AND NONTENDER ABDOMEN. DRESSING NOTED TO L KNEE. CDI. PT EDCUATED ON HOW TO USE INCENTIVE SPIROMETER AND ENCOURAGED TO USE 10 TIMES EVERY HOUR WHILE AWAKE. PT'S BEST NOTED AT 1250ML. GABI DRAIN NOTED TO L KNEE.NO DRAINAGE NOTED AT THIS TIME. SCUD NOTED TO R LEG. L KNEE ELEVATED ON A PILLOW. DIETARY BROUGHT PT A TRAY FOR SUPPER. CURRENTLY DRINKING AND TOLERATING WELL. BED IN LOWEST POSITION. CALL LIGHT WITHIN REACH. VSS. WILL CONTINUE TO MONITOR.
--- NOTE | 2020-07-09 19:06 | PC.NURSE ---
report given to maru
[2020-07-10] VITALS (7 sets, daily range): BP systolic 126–142; BP diastolic 78–93; PULSE 86–120; RESP 16–20; TEMP 36.4–36.8; O2SAT 94–97; BMI 22.7
--- NOTE | 2020-07-10 03:13 | PC.NURSE ---
Pt has remained A&O to name and time this shift, but not place. Lung sounds remain clear. Left BKA dressing remains CDI and left stump remains elevated on a pillow. Right leg continues to have thigh-high SCUDS. Pt was able to use bedpan x2 this shift and has urinated clear, tea colored urine. Pt has c/o pain x1 thus far this shift and pt was administered PRN pain meds per MAR with favorable results. Currently pt is lying in bed with eyes closed. Pt is currently tolerating RA appropriately with o2 sats in the mid-upper 90's. IS has been used hourly during awake hours. At best, pt has reached 500 on IS. GABI drain continues to have no drainage. Pt has continued to tolerate clear liquids this shift. Call light remains in reach. No other acute changes or complaints at this time. Will continue to monitor.
[2020-07-10 07:13] LABS: Basophils % 0.1 % (0.1-2.0); Eosinophils # 0.1 K/mm3 (0.0-0.4); Eosinophils % 1.3 % (0.1-12.0); Hemoglobin 10.4 g/dL (12.2-16.2); Lymphocytes # 1.2 K/mm3 (0.7-4.5); Lymphocytes % 15.2 % (10-50); Mean Corpuscular HGB Conc 32.5 g/dL (31.8-35.4); Mean Corpuscular Volume 101.6 fl (81-99); Mean Platelet Volume 6.8 fl (7.4-10.4); Monocytes # 0.5 K/mm3 (0.1-1.0); Monocytes % 6.4 % (1.7-9.3); Neutrophils # 5.9 K/mm3 (1.8-7.8); Platelet Count 302 K/mm3 (142-424); Red Blood Count 3.15 M/mm3 (4.20-5.40); Red Cell Distribution Width 15.3 % (11.5-17.5); White Blood Count 7.7 K/mm3 (4.8-10.8)
[2020-07-10 07:51] LABS: Chloride 100 mmol/L (98-107); Potassium 3.7 mmoL/L (3.5-5.1); Sodium 130 mmol/L (136-145)
[2020-07-10 07:54] LABS: Blood Urea Nitrogen 3 mg/dl (7-17); Creatinine Clearance Estimated 146 mL/min (50-200); Estimated Glomerular Filt Rate 172 ml/min (>60); GFR (African American) 208 ML/MIN (>60)
[2020-07-10 07:55] LABS: Anion Gap 7.7 mEq/L (5-15); Calcium 8.6 mg/dl (8.4-10.2); Carbon Dioxide 26 mmol/L (22.0-30.0); Glucose 110 mg/dl (74-100)
--- NOTE | 2020-07-10 08:24 | P.PN_ITS ---
Subjective Date: 07/10/20 Time: 08:30 Principal diagnosis: osteomyelitis, gangrene L foot Interval history: The patient is doing well today, but does report pain in the left leg. This is tolerable with pain medication. Otherwise no complaints; no fevers or chills, no nausea, vomiting or diarrhea. No chest pain or shortness of breath. PN: Obj Ex Vital signs: Temp Pulse Resp BP Pulse Ox 98.3 F 107 H 16 130/93 H 94 L 07/10/20 04:00 07/10/20 04:00 07/10/20 04:00 07/10/20 04:00 07/10/20 04:00 - Constitutional no acute distress - Routine HEENT Exam Head: Present: normocephalic Eye: Present: EOMI ENT: Present: mucous membranes moist - Routine Neck Exam Present: trachea midline - Routine Respiratory Exam Absent: respiratory distress - Routine Cardiovascular Exam Present: RRR - Routine Abdominal Exam Present: soft. Absent: tenderness - Routine Extremities Exam Comments: LLE s/p BKA, splint/dressings c/d/i GABI drain to suction with scant output - Routine Skin Exam Present: warm - Routine Neurological Exam Present: alert, oriented X3, moving all extremities, normal tone, vision grossly intact, hearing grossly intact, normal speech. Absent: sensory deficit, motor deficit, altered mental status - Routine Psychiatric Exam Present: normal affect Progress Note: A&P (1) Moderate mitral regurgitation by prior echocardiogram Status: Acute (2) Bipolar 1 disorder Status: Acute (3) Cellulitis Status: Acute (4) Cellulitis and abscess of foot Status: Acute (5) Osteomyelitis of left foot Status: Acute (6) Tobacco use Status: Acute (7) Essential hypertension Status: Chronic (8) Peripheral arterial disease Status: Chronic (9) Hyponatremia Status: Acute Assessment and Plan for All Diagnoses:: 44yo F POD #1 s/p L BKA -- PT/OT to eval -- DVT prophy: SCD RLE, pharmacoprophylaxis per PCP -- encourage IS 10x/hr while awake -- pain control: oral percocet, IV dilaudid PRN for breakthrough -- elevate LLE on pillows at all times -- empty GABI drain each shift and record output --> scant output overnight, may pull later today -- continue IV antibiotics x24 hours -- dispo planning: anticipate d/c to SNF for [facility], dressing changes and PT --> ok for d/c from ortho standpoint after drain pulled
--- NOTE | 2020-07-10 10:19 | HMH.OTEV ---
OT Inpatient Evaluation Rehab OT IP Evaluation Start: 07/09/20 18:14 Freq: ONCE Status: Complete Protocol: Document 07/10/20 10:12 [facility] (Rec: 07/10/20 10:19 [facility] [id number]) Rehab OT IP Assessment Subjective History Pt oriented x 3 on arrival. Pt agreeable to engage in therapy evaluation. Pt was admitted on 07/08/20 and required a left below the knee amputation on 07/09/20. Pt has a past medical history of anxiety, asthma, depression, HTN, hyperlipidemia, PAD, MRSA , and seizures. Pt reports prior to admission, pt lived at [place] and required assistance with all ADL's ( dressing and bathing). Pt did not ambulate much and mostly used a wheelchair. Pt is independent with eating. Pt is dependent upon staff to complete IADL's. Subjective I can't do this. Objective Patient Orientation Person,Place,Birthday Upper Extremity Gross ROM WFL Bed Mobility bed mobility-scooting,bed mobility - supine/sit,bed mobility - rolling Assist Level Minimal x 1 (25% assist) Rehab OT IP prob,goals,plan Problems Date of Evaluation: 07/10/20 OT IP Problems Bed Mobility,Transfers,Gait, Balance,Self care,Safety Rehab Potential Rehab Potential Good Equipment Needs Assistive Devices Standard Walker Plan OT intervention Plan Bed Mobility,Transfers,Gait, Balance,Self care,Safety, Therapeutic Exercise OT Plan Frequency Daily Duration LOS Discharge Goals Bed Mobility Ability Standby Assistance Sit to Stand Chair Transfer Ability Minimal x 1 (25% assist) Chair Transfer Ability Contact Guard/Hand Hold Chair Transfer Technique Sit to/from Ambulatory Chair Transfer Assistive Devices Standard Walker Feeding Ability Assist with Tray Set Up Lower Body Dressing Ability Assistance X1 Upper Body Dressing Ability Standby Assistance Bathing Ability Assistance x1 Performing Toilet Hygiene Ability Assistance X1 Overall Commode/Toilet Transfer Ability Assistance x1 Commode/Toilet Transfer Technique Sit to/from Ambu
--- NOTE | 2020-07-10 11:01 | HMH.PTEV ---
Physical Therapy Evaluation Rehab PT IP Evaluation Start: 07/09/20 18:14 Freq: ONCE Status: Active Protocol: Document 07/10/20 10:53 [facility] (Rec: 07/10/20 11:01 [facility] [id number]) Subjective/History History History This is the initial IP PT evaluation for Dorcas Hernández. Pt is a 44 y/o female admitted to [facility] s/p sx for L BKA. Pt had hx of multiple toe amputation w/ failed heeling, and eventual osteo and gangrene. Pt has sig. co- morbidities including bipolar disorder, PVD, smoking, and hx of hyponatremia Subjective Subjective Pt is fearful of pain and screams and moans in pain w/ any movement of anticipation of movement. Pt stops c/o pain or acting fearful of pain if distracted by conversation . Pt requires a lot of encouragement to move and participate. Rehab PT IP Eval Objective Appearance Patient Behavior Anxious,Fearful,Distractible Patient Orientation Place,Name,Birthday Difficulty following instructions none Speech Pattern Appropriate Ambulation Patient Able to Ambulate No Balance Ability to Arise Unable Sitting Balance Steady, safe Standing Balance Unsteady Dynamic Sitting Balance Ability Fair Dynamic Standing Balance Ability Poor Transfers Bed Transfer Ability Supervision/Stand by Chair Transfer Ability Supervision/Stand by Sit to Stand Bed Transfer Ability Maximum x 1 (75% assist) Sit to Stand Chair Transfer Ability Maximum x 1 (75% assist) ROM LLE PT ROM Status ABN Abnormal ROM Comment knee splinted to prevent flexion and protect incision MMT LLE PT MMT ABN Abnormal MMT Grade no ankle MMT Rehab PT IP prob,goals,plan Problems Date of Evaluation: 07/10/20 PT IP Problems Bed Mobility,Transfers,Gait, Balance,Self care,Safety Rehab Potential Rehab Potential Fair Equipment Needs Assistive Devices Rolling / Wheeled Walker Plan PT Intervention Plan Bed Mobility,Transfers,Gait, Balance,Self care,Therapeutic Exercise PT Plan Frequency
[2020-07-10 11:12] LABS: Adenovirus,PCR Not Detected (NotDetected); Bordetella Pertussis Not Detected (NotDetected); Chlamydophila Pneumoniae, PCR Not Detected (NotDetected); Coronavirus 19, PCR Not Detected (NotDetected); Coronavirus 229E Not Detected (NotDetected); Coronavirus NL63 Not Detected (NotDetected); Coronavirus OC43 Not Detected (NotDetected); Coronovirus HKU1,PCR Not Detected (NotDetected); Human Metapneumovirus Not Detected (NotDetected); Influenza A, PCR Not Detected (NotDetected); Influenza AH1, 2009 Not Detected (NotDetected); Influenza AH1, PCR Not Detected (NotDetected); Influenza AH3,PCR Not Detected (NotDetected); Influenza B, PCR Not Detected (NotDetected); Mycoplasma Pneumoniae, PCR Not Detected (NotDetected); Parainfluenza 1, PCR Not Detected (NotDetected); Parainfluenza 2, PCR Not Detected (NotDetected); Parainfluenza 3, PCR Not Detected (NotDetected); Parainfluenza 4, PCR Not Detected (NotDetected); Respiratory Syncytial Virus Not Detected (NotDetected)
--- NOTE | 2020-07-10 11:34 | HMH.ANESII ---
[facility] Anesthesia Record Part II Discharge Time: 18:25 Destination: Medical Surgical Department PACU nurse assessment reviewed?: Yes Patient Condition:: Good Anesthesia Complications:: None Swallowing reflex intact?: Yes Cyanosis?: No Blood Pressure: 134/78 Pulse Rate: 120 Temperature: 97.5 F Mental Status: Confused and Disoriented Pain level:: 10 (Medication administered) Nausea and/or vomitting:: None Intake, IV Amount: 0
[2020-07-10 12:57] LABS: Rhinovirus/Enterovirus Detected (NotDetected)
--- NOTE | 2020-07-10 13:55 | HMH.ACPN2 ---
Internal Medicine - PN: Subj *Date: 07/10/20 *Time: 08:15 Interval history: pt states no issues Exam Vital signs and Labs for Last 24 Hours: Temp Pulse Resp BP Pulse Ox 97.5 F L 120 H 16 134/78 94 L 07/10/20 11:36 07/10/20 11:36 07/10/20 04:00 07/10/20 11:36 07/10/20 04:00 Laboratory Results - last 24 hr 07/10/20 06:45: WBC 7.7 D, RBC 3.15 L, Hgb 10.4 L, Hct 32.0 L, MCV 101.6 H, MCH 33.0 H, MCHC 32.5, RDW 15.3, Plt Count 302, MPV 6.8 L, Neut % (Auto) 77.0, Lymph % (Auto) 15.2, Aiken % (Auto) 6.4, Eos % (Auto) 1.3, Baso % (Auto) 0.1, Neut # (Auto) 5.9, Lymph # (Auto) 1.2, Aiken # (Auto) 0.5, Eos # (Auto) 0.1, Baso # (Auto) 0.0 07/10/20 06:45: Sodium 130 L, Potassium 3.7 D, Chloride 100, Carbon Dioxide 26, Anion Gap 7.7, BUN 3 L D, Creatinine 0.40 L, Estimated Creat Clear 146, Estimated GFR 172, Est GFR ( Amer) 208, Glucose 110 H, Calcium 8.6 07/10/20 11:00: Chlamy pneumoniae PCR Not detected, Adenovirus (PCR) Not detected, B. pertussis DNA (PCR) Not detected, Coronavirus OC43 (PCR) Not detected, Coronavirus HKU1 (PCR) Not detected, Coronavirus 229E (PCR) Not detected, SARS-CoV-2 (PCR) Not detected, Coronavirus NL63 (PCR) Not detected, Human Metapneumovir PCR Not detected, Influenza A (H1) PCR Not detected, Influ A (H1N1/09) PCR Not detected, Influenza A (H3) PCR Not detected, Influenza Type A (PCR) Not detected, Influenza Type B (PCR) Not detected, M. pneumoniae (PCR) Not detected, Parainfluenza 1 (PCR) Not detected, Parainfluenza 2 (PCR) Not detected, Parainfluenza 3 (PCR) Not detected, Parainfluenza 4 (PCR) Not detected, RSV (PCR) Not detected, Entero/Rhino (PCR) Detected A I & O for Last 24 hours: Intake & Output 07/08/20 07/09/20 07/10/20 07/11/20 11:59 11:59 11:59 11:59 Intake Total 2685 / 2685 1763 / 1763 Output Total 2550 / 2550 850 / 850 Balance 135 / 135 913 / 913 Weight 122 lb 116 lb - Constitutional no acute distress - *Routine HEENT Exam Head: Present: normocephalic Eye: Present: PERRL ENT: Present: mucous membranes moist - *Routine Neck Exam Present: supple. Absent: lymphadenopathy - *Routine Respiratory Exam Present: CTA bilaterally - *Routine Cardiovascular Exam Present: RRR - *Routine Abdominal Exam Present: soft, normoactive bowel sounds. Absent: tenderness - *Routine Extremities Exam Present: amputation. Absent: cyanosis, clubbing, edema Comments: left bka dressing intact drain with no drainage - *Routine Skin Exam Present: warm. Absent: rash - *Routine Neurological Exam Present: alert, oriented X3 - Routine Psychiatric Exam Present: normal affect Assessment and Plan (1) Moderate mitral regurgitation by prior echocardiogram Status: Acute Category: Medical Code(s): I34.0 - Nonrheumatic mitral (valve) insufficiency (2) Bipolar 1 disorder Status: Acute Category: Medical Code(s): F31.9 - Bipolar disorder, unspecified (3) Cellulitis Status: Acute Qualifiers: Site of cellulitis: extremity Site of cellulitis of extremity: toe Laterality: left Qualified Code(s): L03.032 - Cellulitis of left toe Category: Medical Code(s): L03.90 - Cellulitis, unspecified (4) Cellulitis and abscess of foot Status: Acute Category: Medical Code(s): L03.119 - Cellulitis of unspecified part of limb; L02.619 - Cutaneous abscess of unspecified foot (5) Osteomyelitis of left foot Status: Acute Qualifiers: Osteomyelitis type: chronic multifocal Qualified Code(s): M86.372 - Chronic multifocal osteomyelitis, left ankle and foot Category: Medical Code(s): M86.9 - Osteomyelitis, unspecified (6) Tobacco use Status: Acute Category: Social Hx Code(s): Z72.0 - Tobacco use (7) Essential hypertension Status: Chronic Category: Medical Code(s): I10 - Essential (primary) hypertension (8) Peripheral arterial disease Status: Chronic Category: Medical Code(s): I73.9 - Peripheral vascular disease, unspecif
--- NOTE | 2020-07-10 19:54 | PC.NURSE ---
Pt is alert and oriented. Have medicated per mar related to L BKA pain. Have educated to keep elevated, L BKA elevated. 5 cc drained from joselin, have stripped a couple times this shift. VSS. Have encouraged pt use is as lungs have had some expiratory wheezes on r side. NAD- denies soa. Has been pleasant. CB in reach and report given.
--- NOTE | 2020-07-10 22:04 | PC.NURSE ---
[address] R[address] PT AWAKE AND NO NEEDS VOICED . TRASH AND LINENS EMPTIED. ICE WATER FILLED.
--- NOTE | 2020-07-11 03:38 | PC.NURSE ---
Pt is A&O, Pt medicated for pain per MAR, BLT lung sounds have some wheezing, Pt educated on use of incentive, has been done multiple times an hour when awake, Bowel sounds present in all 4 quadrants, Pt has kept LLE elevated, Both IVs patent, Pt has a purewick in place draining clear/yellow urine, dressing on the knee CDI.
[2020-07-11 05:00] VITALS: BMI 23.2
[2020-07-11 05:01] VITALS: BP 154/91; PULSE 92; RESP 20; TEMP 36.8; O2SAT 96
[2020-07-11 06:59] LABS: Basophils % 0.4 % (0.1-2.0); Eosinophils # 0.3 K/mm3 (0.0-0.4); Eosinophils % 4.8 % (0.1-12.0); Hematocrit 33.2 % (37.0-47.0); Hemoglobin 11.4 g/dL (12.2-16.2); Lymphocytes # 1.4 K/mm3 (0.7-4.5); Lymphocytes % 20.4 % (10-50); Mean Corpuscular HGB Conc 34.2 g/dL (31.8-35.4); Mean Corpuscular Volume 99.5 fl (81-99); Mean Platelet Volume 7.1 fl (7.4-10.4); Monocytes # 0.5 K/mm3 (0.1-1.0); Monocytes % 7.3 % (1.7-9.3); Neutrophils # 4.6 K/mm3 (1.8-7.8); Neutrophils % 67.2 % (37.0-80.0); Platelet Count 292 K/mm3 (142-424); Red Blood Count 3.34 M/mm3 (4.20-5.40); Red Cell Distribution Width 15.6 % (11.5-17.5); White Blood Count 6.8 K/mm3 (4.8-10.8)
[2020-07-11 07:03] LABS: Chloride 100 mmol/L (98-107); Potassium 3.9 mmoL/L (3.5-5.1); Sodium 132 mmol/L (136-145)
[2020-07-11 07:06] LABS: Anion Gap 9.9 mEq/L (5-15); Blood Urea Nitrogen 2 mg/dl (7-17); Calcium 8.8 mg/dl (8.4-10.2); Carbon Dioxide 26 mmol/L (22.0-30.0); Creatinine Clearance Estimated 149 mL/min (50-200); Estimated Glomerular Filt Rate 172 ml/min (>60); GFR (African American) 208 ML/MIN (>60); Glucose 104 mg/dl (74-100)
[2020-07-11 08:00] VITALS: BP 132/67; PULSE 99; RESP 16; TEMP 37.2; O2SAT 97
[2020-07-11 08:45] VITALS: PULSE 99; RESP 16; O2SAT 97
--- NOTE | 2020-07-11 09:20 | HMH.DCSUM ---
General - General Admission date:: 07/09/20 Discharge date: 07/11/20 HPI HPI: 44 year-old female patient seen in Ortho clinic for preop assessment of foot surgery. She had not been seen or cleared by her primary care physician and has a history of chronic hyponatremia after labs were drawn and resulted sodium was 123. She is also taking medications for her chronic antipsychotic behavior including Abilify, clonazepam, diazepam, oxcarbazepine, quetiapine, sertraline and she is resident of [facility]. She denies N/V/D, headache, confusion, muscle spasms, fatigue, or seizures She was admitted to the hospital in normal saline IV fluids were started. Sodium was rechecked at 10:30 PM last night and was 122 Sodium this morning is 135. Patient was seen she was sitting in the bed resting quietly explained to her current situation and she will be cleared for orthopedic surgery. Patient became very tearful, discussion of benefits of surgery with patient and she was more relieved afterwards. 07/08/20 ECHO: Conclusion 1. Normal left ventricular size, preserved left ventricular systolic function, visually estimated ejection fraction 55% with no regional wall motion abnormality, diastolic parameters are inconclusive. 2. Mild aortic and moderate mitral regurgitation. 3. No significant pericardial effusion noted. Electronically signed by : Holli Pathak has seen and recommends: 1. Osteomyelitis of the left foot. Surgery planned. 2. Hyponatremia, sodium 123. 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 Recommend monitoring to make sure it doesn't rapidly rise within a 12 hr period to greater than 130. 3. Moderate mitral regurgitation, unchanged by preliminary echo today. From a cardiac standpoint, she is a low and acceptable risk for surgery. 4. Bipolar disorder Hospital Course Hospital Course: Laboratory Tests 07/08/20 07/08/20 07/08/20 11:45 11:45 11:45 WBC 5.9 RBC 4.17 L Hgb 13.8 Hct 40.4 MCV 97.1 MCH 33.2 H MCHC 34.2 RDW 15.5 Plt Count 324 MPV 7.2 L Neut % (Auto) 70.2 Lymph % (Auto) 18.4 [place] % (Auto) 5.4 Eos % (Auto) 5.5 Baso % (Auto) 0.5 Neut # (Auto) 4.2 Lymph # (Auto) 1.1 [place] # (Auto) 0.3 Eos # (Auto) 0.3 Baso # (Auto) 0.0 Total Counted 100 Neutrophils % (Manual) 68 Lymphocytes % (Manual) 19 Monocytes % (Manual) 10 H Eosinophils % (Manual) 3 Platelet Estimate Normal RBC Morphology Normal ESR 12 PT 10.9 INR 0.98 APTT 37.1 H Sodium 123 L Potassium 4.9 Chloride 93 L Carbon Dioxide 23 Anion Gap 11.9 BUN 6 L Creatinine 0.40 L Estimated Creat Clear Estimated GFR 172 Est GFR ( Amer) 208 Glucose 92 Calcium 9.0 Magnesium Total Bilirubin 0.3 AST 26 ALT 18 Alkaline Phosphatase 141 H C-Reactive Protein 3.1 Total Protein 6.6 Albumin 3.9 Globulin 2.7 Albumin/Globulin Ratio 1.4 TSH Thyroxine (T4) Urine Color Urine Appearance Urine pH Ur Specific [place] Urine Protein Urine Glucose (UA) Urine Ketones Urine Blood Urine Nitrate Urine Bilirubin Urine Urobilinogen Ur Leukocyte Esterase Urine WBC Ur Squamous Epith Cells Urine Bacteria Urine HCG, Qual Chlamy pneumoniae PCR Adenovirus (PCR) B. pertussis DNA (PCR) Coronavirus OC43 (PCR) Coronavirus HKU1 (PCR) Coronavirus 229E (PCR) SARS-CoV-2 (PCR) Coronavirus NL63 (PCR) Human Metapneumovir PCR Influenza A (H1) PCR Influ A (H1N1/09) PCR Influenza A (H3) PCR Influenza Type A (PCR) Influenza Type B (PCR) M. pneumoniae (PCR) Parainfluenza 1 (PCR) Parainfluenza 2 (PCR) Parainfluenza 3 (PCR) Parainfluenza 4 (PCR) RSV (PCR) Entero/Rhino (PCR) SARS-CoV-2 IgG Ab (Rapid) SARS-CoV-2 IgM Ab (Rapid) 07/08/20 07/08/20 07/08/20 12:01
--- NOTE | 2020-07-11 10:00 | DIET.NUTRFU ---
Pt tolerated diet advancement well, is in good spirits, and states [facility] has the best biscuits and gravy. PO intakes ~75% + protein supplements bid. Pt has been counseled/educated on increased protein needs for dc.
--- NOTE | 2020-07-11 12:38 | HMH.ORTHPN ---
Subjective Date: 07/11/20 Time: 12:00 Principal diagnosis: osteomyelitis, gangrene L foot Interval history: The patient is doing well this morning. She is resting comfortably in the bedside chair, and has worked with physical therapy. Her pain is controlled with pain medication. No fevers or chills reported, no chest pain or shortness of breath, no nausea, vomiting or diarrhea. She is currently eating lunch and is anticipating transfer to residential facility this afternoon. PN: Obj Ex Vital signs: Temp Pulse Resp BP Pulse Ox 99.0 F 99 H 16 132/67 97 07/11/20 08:00 07/11/20 08:45 07/11/20 08:45 07/11/20 08:00 07/11/20 08:45 - Constitutional no acute distress - Routine HEENT Exam Head: Present: normocephalic Eye: Present: EOMI ENT: Present: mucous membranes moist - Routine Neck Exam Present: trachea midline - Routine Respiratory Exam Absent: respiratory distress - Routine Cardiovascular Exam Present: RRR - Routine Abdominal Exam Present: soft. Absent: tenderness - Routine Extremities Exam Comments: LLE dressings/splint intact, GABI with scant output all dressings removed, incision c/d/i with all sutures intact GABI drain removed intact no periwound erythema, no wound necrosis/duskiness, minimal tenderness L BKA stump skin pink/warm; sensation intact - Routine Skin Exam Present: warm - Routine Neurological Exam Present: alert, oriented X3, moving all extremities, vision grossly intact, hearing grossly intact, normal speech. Absent: sensory deficit, motor deficit, altered mental status - Routine Psychiatric Exam Present: normal affect Progress Note: A&P (1) Moderate mitral regurgitation by prior echocardiogram Status: Acute (2) Bipolar 1 disorder Status: Acute (3) Cellulitis Status: Acute (4) Cellulitis and abscess of foot Status: Acute (5) Osteomyelitis of left foot Status: Acute (6) Tobacco use Status: Acute (7) Essential hypertension Status: Chronic (8) Peripheral arterial disease Status: Chronic (9) Hyponatremia Status: Acute Assessment and Plan for All Diagnoses:: 44yo F POD #2 s/p L BKA -- PT/OT to continue at SNF; NWB LLE, transfers and edema control -- DVT prophy: SCD RLE, pharmacoprophylaxis per PCP -- encourage IS 10x/hr while awake -- pain control: oral percocet, IV dilaudid PRN for breakthrough -- elevate LLE on pillows at all times -- dispo planning: ok for d/c from ortho standpoint at this time; follow-up 07/17/20 in the office
== END 2020-07-11 15:30 | DRG 240 ==
PROVIDERS: Nurse Practitioner Family; Admitting Provider Emergency Medicine; PCP Emergency Medicine; Visit Provider Orthopaedic Surgery
PROC: 0Y6J0Z2 Detachment at Left Lower Leg, Mid, Open Approach (ICD-10-PCS; CPT 27880; principal; 2020-07-09 14:30)
DX: I70.262 Atherosclerosis of native arteries of extremities with gangrene, left leg (principal); E87.1 Hypo-osmolality and hyponatremia; M86.672 Other chronic osteomyelitis, left ankle and foot; L03.116 Cellulitis of left lower limb; M87.9 Osteonecrosis, unspecified; Z79.01 Long term (current) use of anticoagulants; I34.0 Nonrheumatic mitral (valve) insufficiency; Z72.0 Tobacco use; T87.81 Dehiscence of amputation stump; F31.9 Bipolar disorder, unspecified; I10 Essential (primary) hypertension; Z86.14 Personal history of Methicillin resistant Staphylococcus aureus infection
CPT/HCPCS: 27880; 36415; 73590; 73630; 80048; 80053; 81001; 81025; 83735; 84436; 84443; 85007; 85014; 85018; 85025; 85048; 85049; 85610; 85651; 85730; 86140; 86328; 87070; 87205; 87581; 87633; 87798; 88307; 88311; 90686; 90732; 93306; 97110; 97161; 97166; 97530; G0378; J0131; J0878; J2405; J2710; U0003

== ENCOUNTER → 2020-07-28 12:56 | Outpatient (CLI) | payer MEDICARE, MEDICAID, SELFPAY ==
--- NOTE | 2020-07-28 12:59 | XR_ITS ---
PROCEDURE: XR TIBIA FIBULA LT 2V CLINICAL INDICATION: left leg pain/ evaluate for infection COMPARISON: No exams were available for comparison FINDINGS: Status post below the knee amputation. The amputation site appears sharp and unremarkable. No gas within the soft tissues. There is a small lucency along the anterior aspect of the tibia just proximal to the amputation site which had a similar appearance the previous study. IMPRESSION: Status post below the knee amputation with no acute finding. Dictated by: Pranay Patricio MD 07/28/2020 14:42 Pranay Patricio MD in [facility] 07/28/2020 14:42
== END ==
PROVIDERS: PCP Emergency Medicine; Visit Provider Orthopaedic Surgery
DX: M86.9 Osteomyelitis, unspecified (principal)
CPT/HCPCS: 73590

== ENCOUNTER 2020-08-16 02:24 | Inpatient (IN) | payer MEDICARE, MEDICAID, SELFPAY ==
[2020-08-16] VITALS (14 sets, daily range): BP systolic 95–131; BP diastolic 59–84; PULSE 85–121; RESP 16–18; TEMP 36.6–37.2; O2SAT 94–100; BMI 22.4; BMI 22.6; BMI 23.3
--- NOTE | 2020-08-16 02:27 | CT_ITS ---
PROCEDURE: CT LOWER LEG LT W CON CLINICAL HISTORY: recent BKA, swelling and warmth, concern abscess COMPARISON: No exams were available for comparison TECHNIQUE: Axial images obtained with sagittal and coronal reformats. All CT scans at the facility use one or more dose reduction, viz: automated exposure control, ma/kV adjustment per patient size (including targeted exams where dose is matched to indication, i.e. head), or iterative reconstruction technique. FINDINGS: There is a well-defined postsurgical stump of the proximal tibia and proximal fibula. However just inferior to the tibial stump is a rim enhancing fluid collection measuring 4.7 x 1 point 6 x 3.4 cm. There is diffuse swelling and heterogenic enhancement of the fascial planes with subcutaneous edema and the appearance is strongly suggestive of infectious myositis and abscess collection. At the most inferior extent of the amputation site there is a smaller rim enhancing fluid collection measuring 2.4 x 1.2 by 1.9 cm. There is no periosteal reaction of either the tibial stump or fibular stump. The muscles of the thigh and subcutaneous tissues of the thigh appear normal. IMPRESSION: Status post below-knee amputation with diffuse cellulitis and probable myositis and small rim enhancing fluid collections consistent with abscesses without definite communication between each abscess. Dictated by: Dr. Bear Yang MD 08/16/2020 13:37 Dr. Bear Yang MD in [facility] 08/16/2020 13:37
--- NOTE | 2020-08-16 02:39 | HMH.EDGENADL ---
ED Disposition Clinical Impression: Abscess after procedure Disposition: Admitted As Inpatient Condition on Discharge: Good Referrals: Isac Sandhu MD [Primary Care Provider] - - Critical Care Critical Care Time: No Attestation: On 08/16/20, the high probability of a clinically significant, sudden or life threatening deterioration of the following system(s) required my full and direct attention, intervention and personal management. The time I documented below is in addition to time spent performing reported procedures but includes the following listed in this critical care notation. Medical Decision Making - Raymond Inquiry Pt receiving controlled substance: No Vital Signs: 08/16/20 02:21 Temperature 98.2 F Temperature Source Oral Pulse Rate [Left] 97 H Respiratory Rate 18 Blood Pressure [Right Arm] 120/78 Blood Pressure Mean [Right Arm] 92 Blood Pressure Source [Right Arm] Automatic Cuff Blood Pressure Position [Right Arm] Sitting 02 Sat by Pulse Oximetry 100 Oxygen Delivery Method Room Air - Lab Data Lab Results 08/16/20 02:20: WBC 14.0 H, RBC 3.73 L, Hgb 12.1 L, Hct 36.8 L, MCV 98.8, MCH 32.6 H, MCHC 33.0, RDW 14.0, Plt Count 349, MPV 7.7, Neut % (Auto) 81.8 H, Lymph % (Auto) 8.6 L, [place] % (Auto) 7.1, Eos % (Auto) 2.3, Baso % (Auto) 0.2, Neut # (Auto) 11.5 H, Lymph # (Auto) 1.2, [place] # (Auto) 1.0, Eos # (Auto) 0.3, Baso # (Auto) 0.0, ESR 23 H 08/16/20 02:20: Sodium 129 L, Potassium 3.9, Chloride 95 L, Carbon Dioxide 25, Anion Gap 12.9, BUN 4 L, Creatinine 0.40 L, Estimated Creat Clear 145, Estimated GFR 172, Est GFR ( Amer) 208, Glucose 112 H, Calcium 9.2, C-Reactive Protein 65.8 H Result diagrams: 08/16/20 02:20 08/16/20 02:20 Orders (Tests/Meds): ED MEDICATIONS Generic Name Dose Route Start Last Admin Trade Name Freq PRN Reason Stop Dose Admin Vancomycin HCl 1,000 mg/ 250 mls @ 125 mls/hr 08/16/20 05:29 Sodium Chloride IV 08/16/20 07:28 ONCE ONE Protocol Discontinued Medications Generic Name Dose Route Start Last Admin Trade Name Abbi PRN Reason Stop Dose Admin Hydrocodone Bitart/Acetaminophen 1 tab 08/16/20 02:28 08/16/20 02:42 Hydrocodone/Apap 5/325 Mg Tablet PO 08/16/20 02:29 1 tab ONCE ONE Administration Iopamidol 120 ml 08/16/20 04:43 08/16/20 04:44 Iopamidol-370 (76%);100ml Bottle IV 08/16/20 04:44 120 ml ONCE ONE Administration Sodium Chloride 40 ml 08/16/20 04:43 08/16/20 04:44 0.9 % Sodium Chloride 50 Ml Vial IV 08/16/20 04:44 40 ml ONCE ONE Administration Sodium Chloride 10 ml 08/16/20 04:43 08/16/20 04:44 Sodium Chloride 0.9% 10ml Syr (Rad Only) IV 08/16/20 04:44 10 ml ONCE ONE Administration ORDERS Category Date Time Status CT lower leg LT w con Stat Cat Scan 08/16/20 02:27 Taken Blood Culture Stat Micro 08/16/20 02:30 Received Medical Decision Narrative: The patient is a 44 year old female s/p BKA who presents with LLE swelling, redness, warmth and increased pain at the site of her amputation. She is awake and alert. Hemodynamically stable. She has a mild cellulitis on visual exam at the site of her LLE amputation but on POC US I am concerned for abscess. Labs including CBC, BMP, CRP, ESR were ordered as well as blood cultures. She was given PO [place] [address] LLE was ordered to evaluate for abscess. CT scan showed 4.9x 3 x 2.3 cm rim enhancing fluid collection concerning for abscess with surrounding cellulitis. Also some concern for osteomyelitis of the tibial stump. CRP was 64, ESR mildly elevated at 32. Orthopedics electrician substation supervisor was consulted who recommended admission for antibiotics and ortho evaluation inpatient. She was given 1g vancomycin IV. Dr. Centeno agreed to admit the patient for Dr. Sandhu. Patient in agreement with plan. General Adult HPI - General Chief complaint: Extremity Problem,Nontraumatic Stated complaint: BKA redness Time Seen by Provider: 08/16/20 02:51 Mod
[2020-08-16 02:41] LABS: Basophils % 0.2 % (0.1-2.0); Eosinophils # 0.3 K/mm3 (0.0-0.4); Eosinophils % 2.3 % (0.1-12.0); Hematocrit 36.8 % (37.0-47.0); Hemoglobin 12.1 g/dL (12.2-16.2); Lymphocytes # 1.2 K/mm3 (0.7-4.5); Lymphocytes % 8.6 % (10-50); Mean Corpuscular Hemoglobin 32.6 pg (27.0-31.2); Mean Corpuscular Volume 98.8 fl (81-99); Mean Platelet Volume 7.7 fl (7.4-10.4); Monocytes % 7.1 % (1.7-9.3); Neutrophils # 11.5 K/mm3 (1.8-7.8); Neutrophils % 81.8 % (37.0-80.0); Platelet Count 349 K/mm3 (142-424); Red Blood Count 3.73 M/mm3 (4.20-5.40)
[2020-08-16 02:42] LABS: Anion Gap 12.9 mEq/L (5-15); Blood Urea Nitrogen 4 mg/dl (7-17); Calcium 9.2 mg/dl (8.4-10.2); Carbon Dioxide 25 mmol/L (22.0-30.0); Chloride 95 mmol/L (98-107); Creatinine Clearance Estimated 145 mL/min (50-200); Estimated Glomerular Filt Rate 172 ml/min (>60); GFR (African American) 208 ML/MIN (>60); Glucose 112 mg/dl (74-100); Potassium 3.9 mmoL/L (3.5-5.1); Sodium 129 mmol/L (136-145)
[2020-08-16 02:47] LABS: C-Reactive Protein 65.8 mg/L (0-4)
[2020-08-16 03:13] LABS: Erythrocyte Sedimentation Rate 23 mm/hr (0-20)
--- NOTE | 2020-08-16 03:46 | PC.NURSE ---
Pt is a difficult pt to obtain IV access on, Radiology states they can't do IV contrast through a hand IV, will continue to obtain AC, IV access.
--- NOTE | 2020-08-16 06:19 | PC.NURSE ---
Vanco dose confirmed with Ana in Pharmacy
[2020-08-16 07:14] LABS: Coronavirus 19 IgG Antibody Positive (Negative); Coronavirus 19 IgM Antibody Positive (Negative)
--- NOTE | 2020-08-16 07:15 | PC.NURSE ---
notified ER of pt igg/igm results.
--- NOTE | 2020-08-16 07:20 | PC.NURSE ---
Covid swab sent to lab by Kevin WHITLEY
[2020-08-16 07:23] LABS: Adenovirus,PCR Not Detected (NotDetected); Bordetella Pertussis Not Detected (NotDetected); Chlamydophila Pneumoniae, PCR Not Detected (NotDetected); Coronavirus 19, PCR Not Detected (NotDetected); Coronavirus 229E Not Detected (NotDetected); Coronavirus NL63 Not Detected (NotDetected); Coronavirus OC43 Not Detected (NotDetected); Coronovirus HKU1,PCR Not Detected (NotDetected); Human Metapneumovirus Not Detected (NotDetected); Influenza A, PCR Not Detected (NotDetected); Influenza AH1, 2009 Not Detected (NotDetected); Influenza AH1, PCR Not Detected (NotDetected); Influenza AH3,PCR Not Detected (NotDetected); Influenza B, PCR Not Detected (NotDetected); Mycoplasma Pneumoniae, PCR Not Detected (NotDetected); Parainfluenza 1, PCR Not Detected (NotDetected); Parainfluenza 2, PCR Not Detected (NotDetected); Parainfluenza 3, PCR Not Detected (NotDetected); Parainfluenza 4, PCR Not Detected (NotDetected); Respiratory Syncytial Virus Not Detected (NotDetected)
--- NOTE | 2020-08-16 09:01 | PC.NURSE ---
lab states pt swab is negative for covid notified Karen on second floor that pt is ready to come up for admission.
[2020-08-16 09:02] LABS: Rhinovirus/Enterovirus Detected (NotDetected)
--- NOTE | 2020-08-16 09:38 | PC.NURSE ---
spoke with food concession manager [facility], Pao Bennett, who gave permission to photography pt left bka. phone consent obtained with Viola Peoples RN
--- NOTE | 2020-08-16 10:28 | PC.WOUNDNOTE ---
Wound Location: left bka incision Length: Width: Depth: Undermining Y/N: n Tunneling cm: Granulation %: Slough/necrotic tissue %: Inflammation/swelling Y/N: y Pain and/or tenderness Y/N: y Exudate: purulent, serous Serosanguinous Sanguinous Serosanguinous Seropurulent Purulent Color: Yellow, red streaking Clear [place] Cloudy/milky [place] Red Green Yellow Brown [place] Blue Consistency: thick and thin Thick Thin Amount: small None Scant Small Moderate Large Odor Y/N: n
--- NOTE | 2020-08-16 12:13 | P.CONPHA_ITS ---
[facility] Pharmacy VTE Monitoring - Patient Demographics Admission date: 08/16/20 Report Date: 08/16/20 Time: 12:13 Allergies/Adverse Reactions: Patient Allergies Penicillins Allergy (Mild, Verified 07/28/20 13:25) Unknown allergy reaction codeine [From Tylenol-Codeine #3] Adverse Reaction (Mild, Verified 07/28/20 13:25) vomiting Height: 1.52 m Weight: 54.204 kg Patient Problems: Current Active Problems Abscess after procedure (Acute) - VTE Risk Labs: VTE Related Lab Results Hgb 12.1 g/dL (12.2-16.2) L 08/16/20 02:20 Hct 36.8 % (37.0-47.0) L 08/16/20 02:20 Plt Count 349 K/mm3 (142-424) 08/16/20 02:20 BUN 4 mg/dl (7-17) L 08/16/20 02:20 Creatinine 0.40 mg/dl (0.52-1.04) L 08/16/20 02:20 Estimated Creat Clear 145 mL/min (50-200) 08/16/20 02:20 VTE Score: 2 - Prophylaxis Types of VTE Prophylaxis: TEDS Knee High Location of Applied Device: Right Leg (ANDREW HOSE ORDERED FOR RIGHT LEG.)
--- NOTE | 2020-08-16 13:54 | ECG_ITS ---
APPROVED REPORT Exam: Resting ECG HR:116 bpm ECG Measurements Heart Rate 116 AXES AL 128 P 69 QRSd 68 QRS 56 QT 312 T 47 QTc 433 Conclusion Sinus tachycardia Possible Left atrial enlargement Junctional ST depression, probably normal Borderline ECG Electronically signed by : Jonas Blair, 08/16/2020 14:27:25
--- NOTE | 2020-08-16 14:52 | HMH.HP ---
*Admission Date: 08/16/20 *Chief complaint: cellulitis LLE *History of present illness: The patient is a 44 year old female s/p BKA after LLE gangrene who presents to the ED with concern for post operative infection. Patient states since yesterday her LLE stump has been red, hard, and swollen. She denies fever but notes increased pain. She has not had issues with her incision since the surgery. She is not on antibiotics. No other complaints. The patient is a 44 year old female s/p BKA who presents with LLE swelling, redness, warmth and increased pain at the site of her amputation. She is awake and alert. Hemodynamically stable. She has a mild cellulitis on visual exam at the site of her LLE amputation but on POC US I am concerned for abscess. Labs including CBC, BMP, CRP, ESR were ordered as well as blood cultures. She was given PO [place] [address] LLE was ordered to evaluate for abscess. CT scan showed 4.9x 3 x 2.3 cm rim enhancing fluid collection concerning for abscess with surrounding cellulitis. Also some concern for osteomyelitis of the tibial stump. CRP was 64, ESR mildly elevated at 32. Orthopedics front end ui developer was consulted who recommended admission for antibiotics and ortho evaluation inpatient. She was given 1g vancomycin IV. Dr. Centeno agreed to admit the patient for Dr. Sandhu. Patient in agreement with plan. Above is from ER documentation. Elevated heart rate was noted. EKG this afternoon shows sinus tachycardia. She was given a fluid bolus, and her low-dose beta-hien was uptitrated. Clinically she does not appear to be septic. I spoke with Dr. Cao this afternoon, he plans on taking her to the operating room for a cleanout. Patient is apprehensive about going to the OR today, but she does feel she will be ready in the morning. He relays no chest pain, no dyspnea, she has underlying psychiatric issues but answers questions appropriately. She was given 1 dose of vancomycin in the emergency room, spoke with pharmacy, we will be continuing this. Blood cultures were taken. Patient has no history of diabetes. 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 No: Pacemaker Amputation: Yes Fractures: Yes (RIGHT ARM) - *Social History Last grade of school completed: High school graduate Smoking Status: Former smoker Tobacco Type: cigarettes # Packs/Day (cigarettes): 1 #Yrs smoked (if former smoker): 20 Alcohol Intake: never Substance Use Type: former substance user, IV drugs *Occupational Status:: disabled Housing: alf Household Members: other *Travel in the last 8 weeks: None - Psychiatric History Pschychiatric History:: Reports:: Anxiety, Depression Family Hx:: Heart Attack Review of Systems - Constitutional Denies chills, Denies fever(s) - Eyes Denies change in vision - ENT Denies abnormal hearing, Denies hearing loss - *Cardiovascular Reports leg swelling, Reports rapid, pounding, or irregular heartbeat, Denies chest pain, Denies chest pain at rest, Denies shortness of breath, Denies shortness of breath causing sudden awakening - *Respiratory Denies chest congestion, Denies cough - *Gastrointestinal Denies abdominal pain - *Genitourinary Denies difficulty urinating - *Musculoskeletal Reports abnormal walking, Reports joint pain, Reports decreased muscle mass, Reports muscle weakness, Reports radiating pain into limb - Integumentary/Breasts Reports changing lesions, Denies yellowing of the skin - *Neurologic Reports abnormal walking, Reports weakness, Denies seizure-like activity, Denies sei
--- NOTE | 2020-08-16 15:21 | HMH.ORTHOCON ---
*Admission Date: 08/16/20 *Reason for consult:: Abscess BKA stump, left *History of present illness: The patient is a 44 year old female s/p BKA for LLE gangrene on 07/09/[address] Fisher. She presents to the ED during early hours today with concern for post operative infection. Patient states since yesterday her LLE stump has been red, hard, and swollen. She denies fever but notes increased pain. She states she did not have any issues with her incision since the surgery. She was not on any antibiotics prior to the admission. Evaluation in the ER showed elevated white cell count, ESR and CRP. CT scan showed evidence of fluid collection concerning for abscess. Patient was admitted from the ER and started on IV vancomycin. No history of any fevers, chills or rigors. She says she is eating and drinking well. She has underlying psychiatric issues but answers questions appropriately. Patient was last seen in Dr. Alvarado's office couple of weeks ago. She has history of anxiety, asthma, depression, peripheral vascular disease, hypertension, hyperlipidemia, seizures and history of MRSA infection. She is not known to be diabetic. She is a chronic smoker. Patient is apprehensive about going to the OR today, but she does feel she will be ready in the morning. She wanted me to discuss the management plan with Dr. Alvarado. 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 No: Pacemaker Amputation: Yes Fractures: Yes (RIGHT ARM) - *Social History Last grade of school completed: High school graduate Smoking Status: Former smoker Tobacco Type: cigarettes # Packs/Day (cigarettes): 1 #Yrs smoked (if former smoker): 20 Alcohol Intake: never Substance Use Type: former substance user, IV drugs *Occupational Status:: disabled Housing: fdc Household Members: other *Travel in the last 8 weeks: None - Psychiatric History Pschychiatric History:: Reports:: Anxiety, Depression Family Hx:: Heart Attack Review of Systems - Review of Systems Review of systems:: pertinent systems reviewed and negative unless documented below - Constitutional Denies chills, Denies fever(s) - Eyes Denies change in vision - ENT Denies abnormal hearing - *Cardiovascular Denies chest pain, Denies shortness of breath - *Respiratory Denies cough, Denies shortness of breath - *Gastrointestinal Denies abdominal pain - *Genitourinary Denies painful urination - *Musculoskeletal Reports abnormal walking, Reports joint pain, Reports joint swelling - *Neurologic Reports abnormal walking, Reports weakness, Denies abnormal hearing, Denies seizure-like activity, Denies seizure-like activity - Psychiatric Reports anxiety, Reports depression - Endocrine Denies cold intolerance, Denies heat intolerance - Allergic/Immunologic Denies hives Meds Home Medications Medication Instructions Recorded Confirmed Type cyclobenzaprine 10 mg tablet 10 mg PO HS tab 02/02/19 08/16/20 History diphenhydramine HCl 25 mg capsule 25 mg PO TID 02/02/19 08/16/20 History loperamide 2 mg capsule 2 mg PO BIDP PRN cap 02/02/19 08/16/20 History oxcarbazepine 600 mg tablet 600 mg PO BID 02/02/19 08/16/20 History Fluticasone/Vilanterol [Breo 1 inh IH DAILY 08/22/19 08/16/20 History Ellipta 100-25 Mcg INH] Metoprolol Tartrate [Lopressor 25 mg PO BID 08/22/19 08/16/20 History 25mg tablet] guaiFENesin [Robafen] 200 mg PO Q6HP PRN 08/22/19 08/16/20 History aripiprazole 15 mg tablet 15 mg PO DAILY tab 09/17/19 08/16/20
--- NOTE | 2020-08-16 15:22 | HMH.PHACONS ---
- Pharmacy Consult Date: 08/16/20 Time: 15:22 Referring provider: DR. HERNANDEZ Reason for Consult:: VANCOMYCIN DOSING Allergies and ADEs:: Allergies Allergy/AdvReac Type Severity Reaction Status Date / Time Penicillins Allergy Mild Unknown Verified 07/28/20 13:25 allergy reaction codeine AdvReac Mild vomiting Verified 07/28/20 13:25 [From Tylenol-Codeine #3] Home Medications:: Home Medications Medication Instructions Recorded Confirmed Type cyclobenzaprine 10 mg tablet 10 mg PO HS tab 02/02/19 08/16/20 History diphenhydramine HCl 25 mg capsule 25 mg PO TID 02/02/19 08/16/20 History loperamide 2 mg capsule 2 mg PO BIDP PRN cap 02/02/19 08/16/20 History oxcarbazepine 600 mg tablet 600 mg PO BID 02/02/19 08/16/20 History Fluticasone/Vilanterol [Breo 1 inh IH DAILY 08/22/19 08/16/20 History Ellipta 100-25 Mcg INH] Metoprolol Tartrate [Lopressor 25 mg PO BID 08/22/19 08/16/20 History 25mg tablet] guaiFENesin [Robafen] 200 mg PO Q6HP PRN 08/22/19 08/16/20 History aripiprazole 15 mg tablet 15 mg PO DAILY tab 09/17/19 08/16/20 History ondansetron HCL [Zofran 4mg Tab*] 1 tab PO Q6HP PRN 12/06/19 08/16/20 History polyethylene glycoL 3350 [Miralax 17 gm PO DAILY 12/06/19 08/16/20 History 17gm Packet] sertraline 100 mg tablet 150 mg PO Q24H tab 01/14/20 08/16/20 History Loratadine [Allerclear] 10 mg PO DAILYP PRN 07/09/20 08/16/20 History oxycodone-acetaminophen 5 mg-325 1 tab PO Q4-6H PRN #30 tab 07/15/20 08/16/20 Rx mg tablet gabapentin 600 mg tablet 600 mg PO QID #120 tab 07/18/20 08/16/20 Rx quetiapine 25 mg tablet 25 mg PO BID 07/28/20 08/16/20 History Acetaminophen [Tylenol 500mg 1,000 mg PO BID PRN 08/16/20 08/16/20 History tablet] Aspirin [Aspirin 325mg Tab] 325 mg PO DAILY 08/16/20 08/16/20 History Height: 1.52 m Weight: 54.204 kg Laboratory Results:: Laboratory Results - last 24 hr 08/16/20 02:20: WBC 14.0 H, RBC 3.73 L, Hgb 12.1 L, Hct 36.8 L, MCV 98.8, MCH 32.6 H, MCHC 33.0, RDW 14.0, Plt Count 349, MPV 7.7, Neut % (Auto) 81.8 H, Lymph % (Auto) 8.6 L, [place] % (Auto) 7.1, Eos % (Auto) 2.3, Baso % (Auto) 0.2, Neut # (Auto) 11.5 H, Lymph # (Auto) 1.2, [place] # (Auto) 1.0, Eos # (Auto) 0.3, Baso # (Auto) 0.0, ESR 23 H 08/16/20 02:20: Sodium 129 L, Potassium 3.9, Chloride 95 L, Carbon Dioxide 25, Anion Gap 12.9, BUN 4 L, Creatinine 0.40 L, Estimated Creat Clear 145, Estimated GFR 172, Est GFR ( Amer) 208, Glucose 112 H, Calcium 9.2, C-Reactive Protein 65.8 H 08/16/20 02:20: SARS-CoV-2 IgG Ab (Rapid) Positive A, SARS-CoV-2 IgM Ab (Rapid) Positive A 08/16/20 07:19: Chlamy pneumoniae PCR Not detected, Adenovirus (PCR) Not detected, B. pertussis DNA (PCR) Not detected, Coronavirus OC43 (PCR) Not detected, Coronavirus HKU1 (PCR) Not detected, Coronavirus 229E (PCR) Not detected, SARS-CoV-2 (PCR) Not detected, Coronavirus NL63 (PCR) Not detected, Human Metapneumovir PCR Not detected, Influenza A (H1) PCR Not detected, Influ A (H1N1/09) PCR Not detected, Influenza A (H3) PCR Not detected, Influenza Type A (PCR) Not detected, Influenza Type B (PCR) Not detected, M. pneumoniae (PCR) Not detected, Parainfluenza 1 (PCR) Not detected, Parainfluenza 2 (PCR) Not detected, Parainfluenza 3 (PCR) Not detected, Parainfluenza 4 (PCR) Not detected, RSV (PCR) Not detected, Entero/Rhino (PCR) Detected A Medical History: Reports:: Anxiety, Asthma, Depression, Hyperlipidemia, Hypertension, MRSA, Peripheral Artery Disease, Seizures Denies:: Cancer, Diabetes Mellitus Type 1, Diabetes Mellitus Type 2, Internal Pacemaker Assessment and Plan (1) Essential (primary) hypertension Status: Chronic Category: Medical Code(s): I10 - Essential (primary) hypertension (2) Tachycardia Status: Acute Category: Medical Code(s): R00.0 - Tachycardia, unspecified (3) Abscess after procedure Status: Acute Category: Medical Code(s): T81.49XA - Infection following a procedure, other surgical site, initial encounte
--- NOTE | 2020-08-16 17:59 | PC.NURSE ---
Patient was brought in today from ER. Has moments of extreme anxiety, but is overall very pleasant and content. Neurologically patient is alert and oriented x 4, however, she is a pratt of the state. GI patient has had a great appetite, no n/v/d, eaten greater than 75% of all meals. patient ambulates to bedside commode assist x 1, urine has been pale yellow. SKin: patients bka incision on left leg has been weeping purulent and serous fluid today. Redness extends up stump. Painful to the tough. Patient states that it feels very heavy, has required several doses of pain medication throughout shift. Images of wound obtained after the patients court appointed pratt was contacted and granted permission. Images attached to chart. spoke with patient regarding I and D tomorrow. Patient became very anxious regarding procedure when mentioned doing the procedure today because she states that she doesn't want to be npo because she is very thirsty. Patient stated that she would do it tomorrow as long as she could eat during the day and didn't have to be npo until tonight. Hemodynamically patient has had stable vital signs. No signs of fever currently. Started on IV antibiotics. Will continue to monitor patient.
[2020-08-17] VITALS (23 sets, daily range): BP systolic 88–121; BP diastolic 52–96; PULSE 64–100; RESP 12–20; TEMP 36.3–43; O2SAT 92–98; BMI 23.6
[2020-08-17 07:31] LABS: Basophils % 0.3 % (0.1-2.0); Eosinophils # 0.3 K/mm3 (0.0-0.4); Eosinophils % 3.2 % (0.1-12.0); Hematocrit 32.5 % (37.0-47.0); Hemoglobin 10.7 g/dL (12.2-16.2); Lymphocytes % 9.9 % (10-50); Mean Corpuscular Hemoglobin 32.9 pg (27.0-31.2); Mean Corpuscular Volume 99.6 fl (81-99); Mean Platelet Volume 7.5 fl (7.4-10.4); Monocytes # 0.6 K/mm3 (0.1-1.0); Monocytes % 5.7 % (1.7-9.3); Neutrophils # 8.4 K/mm3 (1.8-7.8); Neutrophils % 80.9 % (37.0-80.0); Platelet Count 286 K/mm3 (142-424); Red Blood Count 3.26 M/mm3 (4.20-5.40); Red Cell Distribution Width 14.1 % (11.5-17.5); White Blood Count 10.4 K/mm3 (4.8-10.8)
[2020-08-17 07:39] LABS: Chloride 102 mmol/L (98-107); Potassium 3.9 mmoL/L (3.5-5.1); Sodium 129 mmol/L (136-145)
[2020-08-17 07:42] LABS: Alanine Aminotransferase 11 U/L (12-78); Albumin Level 3.1 g/dl (3.5-5.0); Albumin/Globulin Ratio 1.1 (1.1-1.8); Alkaline Phosphatase 105 U/L (38-126); Anion Gap 6.9 mEq/L (5-15); Aspartate Amino Transferase 15 U/L (14-36); Bilirubin,Total 0.3 mg/dl (0.2-1.3); Blood Urea Nitrogen 5 mg/dl (7-17); Carbon Dioxide 24 mmol/L (22.0-30.0); Creatinine Clearance Estimated 151 mL/min (50-200); Estimated Glomerular Filt Rate 172 ml/min (>60); GFR (African American) 208 ML/MIN (>60); Globulin 2.9 g/dL (1.3-3.2); Glucose 102 mg/dl (74-100)
[2020-08-17 07:43] LABS: Calcium 8.3 mg/dl (8.4-10.2)
--- NOTE | 2020-08-17 10:23 | HMH.ANESCL ---
[facility] Anesthesia Checklist - Structural Data Admitted From: Inpatient Planned Operative Procedure/s: i/d lle Consent for Planned Operative Procedure(s) Verified: Yes - Additional verifications Anesthesia Reactions: No Hx Blood Transfusions: No Blood Transfusion Reaction: No - Anesthesia Plan Anesthesia Risk discussed: Yes Anesthesia Plan: Verified ASA Class: III Anesthesia Type: General [facility] History I have reviewed the patient's past medical history: Yes Medical History: Reports:: Anxiety, Asthma, Depression, Hyperlipidemia, Hypertension, MRSA, Peripheral Artery Disease, Seizures Denies:: Cancer, Diabetes Mellitus Type 1, Diabetes Mellitus Type 2, Internal Pacemaker *Have you ever received a pneumonia vaccine?: Yes *Have you received a flu vaccine this season?: Yes Other Medical History: Denies: Blood Transfusion Reaction Anesthesia experience/problems:: none Other Surgeries: Yes: Tubal Ligation, 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 No: Pacemaker Amputation: Yes Fractures: Yes (RIGHT ARM) - *Social History Last grade of school completed: High school graduate Smoking Status: Former smoker Tobacco Type: cigarettes # Packs/Day (cigarettes): 1 #Yrs smoked (if former smoker): 20 Alcohol Intake: never Substance Use Type: former substance user, IV drugs *Occupational Status:: disabled Housing: senior living Household Members: other *Travel in the last 8 weeks: None - Psychiatric History Pschychiatric History:: Reports:: Anxiety, Depression Family Hx:: Heart Attack
--- NOTE | 2020-08-17 10:31 | P.PN_ITS ---
[facility] Anesthesia Record Part I Intake, IV Amount: 1,000 Estimated blood loss (mL): 100 Urine output (mL): 0 Blood Pressure: 97/64 SaO2: 96 Pulse Rate: 71 Respiratory Rate: 12 Temperature: 98.7 F Patient is:: Awake, Stable Stable to PACU at:: 10:30
--- NOTE | 2020-08-17 11:59 | HMH.OPNOTE ---
Date of procedure: 08/17/20 Pre-op Diagnosis:: Abscess BKA stump, left Post-op Diagnosis:: Same Procedure performed:: Incision and drainage/debridement, abscess left BKA stump Surgeon:: Charles Cao MD Council Member(s):: Diamante Duran WHITEPRINTING MACHINE OPERATOR:: Jhoan Kowalski Anesthesia: GETA Estimated blood loss (mL): 10 Clinical Note:: The patient is a 44 year old female s/p BKA for LLE gangrene on 07/09/[address] Fisher. She presents to the ED during early hours today with concern for post operative infection. Patient states since yesterday her LLE stump has been red, hard, and swollen. She denies fever but notes increased pain. She states she did not have any issues with her incision since the surgery. She was not on any antibiotics prior to the admission. Evaluation in the ER showed elevated white cell count, ESR and CRP. CT scan showed evidence of fluid collection concerning for abscess. Patient was admitted from the ER and started on IV vancomycin. No history of any fevers, chills or rigors. She says she is eating and drinking well. She has underlying psychiatric issues but answers questions appropriately. Patient was last seen in Dr. Alvarado's office couple of weeks ago. She has history of anxiety, asthma, depression, peripheral vascular disease, hypertension, hyperlipidemia, seizures and history of MRSA infection. She is not known to be diabetic. She is a chronic smoker. Operative findings:: A large abscess over the left BKA stump with small amount of purulent discharge from the suture line. There is partial breakdown suture line with slough noted along the incision; small amount of purulent discharge is draining. After opening the previous incision, about 50 cc of ivone pus noted. No obvious tendon, bone involvement was noted. There was cellulitis over the BKA stump. Operative note:: On the day of the procedure the patient was met on the floor and I again discussed the diagnosis, natural history and management options in detail including both nonsurgical and surgical. Following admission to the hospital, she was started on IV antibiotics. The procedure of incision and drainage under anesthesia was discussed with the patient. The complications discussed including but not limited to- infection, bleeding, injury to nerves, blood vessels, tendons, failure to eradicate the infection, incomplete recovery, persistent pain, DVT/PE, likely need for further surgery and anesthetic complications including stroke, heart attack and even . Patient wished to proceed with the surgical intervention. All her questions were answered and she verbalized a good understanding. The limb was appropriately marked. Consent form was reviewed and signed. Patient was brought to the operating room and placed supine on the operating table. All the bony prominences were appropriately padded. A general anesthesia was administered by the membership secretary. The left lower residual extremity (status post left BKA) was prepped and draped in usual sterile fashion. A preprocedure timeout was performed as per protocol. A large abscess over the left BKA stump with small amount of purulent discharge from the suture line. There is partial breakdown suture line with slough noted along the incision; small amount of purulent discharge is draining. After opening the previous incision, about 50 cc of ivone pus noted. No obvious tendon, bone involvement was noted. There was cellulitis over the BKA stump. A culture swab was obtained. After taking the swab, the abscess cavity was explored digitally and all the adhesions were broken down. The abscess cavity was curetted out and granulation tissue/debris removed. The cavity was then thoroughly irrigated with normal saline. The abscess cavity was packed with 2 inch iodoform gauze; 2 pieces of packing gauze were used. The wound was partially closed with #2 Ethilon sutures. The remaining part of the wound was left open for drainage and to heal by secondary i
--- NOTE | 2020-08-17 17:01 | HMH.ACPN2 ---
Internal Medicine - PN: Subj *Date: 08/17/20 *Time: 17:03 Interval history: Patient was taken to the OR per Dr. Cao. The op note is reviewed. She tolerated the procedure nicely. Patient is in good spirits. She denies chest pain, shortness of breath. Her pain control is adequate. Exam Vital signs and Labs for Last 24 Hours: Temp Pulse Resp BP Pulse Ox 97.8 F 90 16 102/62 L 95 08/17/20 16:44 08/17/20 16:44 08/17/20 16:44 08/17/20 16:44 08/17/20 16:44 Laboratory Results - last 24 hr 08/17/20 07:05: WBC 10.4 D, RBC 3.26 L, Hgb 10.7 L, Hct 32.5 L, MCV 99.6 H, MCH 32.9 H, MCHC 33.0, RDW 14.1, Plt Count 286, MPV 7.5, Neut % (Auto) 80.9 H, Lymph % (Auto) 9.9 L, [place] % (Auto) 5.7, Eos % (Auto) 3.2, Baso % (Auto) 0.3, Neut # (Auto) 8.4 H, Lymph # (Auto) 1.0, [place] # (Auto) 0.6, Eos # (Auto) 0.3, Baso # (Auto) 0.0 08/17/20 07:05: Sodium 129 L, Potassium 3.9, Chloride 102, Carbon Dioxide 24, Anion Gap 6.9, BUN 5 L, Creatinine 0.40 L, Estimated Creat Clear 151, Estimated GFR 172, Est GFR ( Amer) 208, Glucose 102 H, Calcium 8.3 L, Total Bilirubin 0.3, AST 15, ALT 11 L, Alkaline Phosphatase 105, Total Protein 6.0 L, Albumin 3.1 L, Globulin 2.9, Albumin/Globulin Ratio 1.1 I & O for Last 24 hours: Intake & Output 08/14/20 08/15/20 08/16/20 08/17/20 23:59 23:59 23:59 23:59 Intake Total 2510 / 2510 3149 / 3149 Output Total 300 / 300 250 / 250 Balance 2210 / 2210 2899 / 2899 Weight 119 lb 8 oz 120 lb 5 oz Microbiology Reports for the Last 24 Hours: Microbiology 08/17/20 11:00 Synovial Fluid - Abscess Gram Stain - Final 08/17/20 11:00 Leg,Left Gram Stain - Final - Constitutional no acute distress - *Routine HEENT Exam Head: Present: normocephalic Eye: Present: EOMI, PERRL ENT: Present: mucous membranes moist - *Routine Neck Exam Present: supple. Absent: lymphadenopathy - *Routine Respiratory Exam Present: CTA bilaterally - *Routine Cardiovascular Exam Present: RRR - *Routine Abdominal Exam Present: soft, normoactive bowel sounds. Absent: tenderness - *Routine Extremities Exam Present: tenderness - *Routine Skin Exam Absent: jaundice - *Routine Neurological Exam Present: alert, oriented X3. Absent: facial asymmetry Assessment and Plan (1) Essential (primary) hypertension Status: Chronic Category: Medical Code(s): I10 - Essential (primary) hypertension (2) Tachycardia Status: Acute Category: Medical Code(s): R00.0 - Tachycardia, unspecified (3) Abscess after procedure Status: Acute Category: Medical Code(s): T81.49XA - Infection following a procedure, other surgical site, initial encounter (4) Bipolar 1 disorder Status: Chronic Category: Medical Code(s): F31.9 - Bipolar disorder, unspecified (5) Cellulitis Status: Acute Qualifiers: Site of cellulitis: extremity Site of cellulitis of extremity: toe Laterality: left Qualified Code(s): L03.032 - Cellulitis of left toe Category: Medical Code(s): L03.90 - Cellulitis, unspecified (6) Peripheral vascular disease Status: Chronic Category: Medical Code(s): I73.9 - Peripheral vascular disease, unspecified (7) Anxiety Status: Chronic Category: Medical Code(s): F41.9 - Anxiety disorder, unspecified (8) Hyponatremia Status: Acute Category: Medical Code(s): E87.1 - Hypo-osmolality and hyponatremia (9) Condition involving rhinovirus Status: Acute Category: Medical Code(s): B34.8 - Other viral infections of unspecified site (10) COVID-19 virus IgG antibody detected Status: Acute Category: Medical Code(s): Z01.84 - Encounter for antibody response examination (11) COVID-19 virus IgM antibody detected Status: Acute Category: Medical Code(s): Z01.84 - Encounter for antibody response examination (12) COVID-19 virus IgM antibody detected Status: Acute Category: Medical Code(s): Z01.84 - Encounter for antibody response e
--- NOTE | 2020-08-17 17:27 | PC.NURSE ---
Patient is resting comfortably in bed. Went for I/D today, did well and has been stable since being admitted back to [facility]. Patient is alert and oriented x 4. Sales Counselor are equal, pupils are equal. Patient is appropriate. Has reported pain after surgery, ordered 2mg morphine q4 hr prn as needed for pain in addition to oral pain medication, however, Dr. Cao requested that medications be spaced so that patient does not get IV morphine at the same time as her oral percocet. Patient's appetite has been excelled, eaten 100% of meals, no n/v/d. Patient has requested a purewic for her urine post surgery. Has had roughly 400cc of urine. Patient is concerned about urine being dark and states it best when she pee's, will discuss with md during next round. Patients vitals have been stable following i/d, no fever noted. Patients surgical site is dressed, drainage noted on bed, incision reinforced. Bedding changed. Patient has no concerns at this time. Will continue to monitor patient.
--- NOTE | 2020-08-17 23:14 | PC.NURSE ---
po pain medication given for pain rated at 8 on pain scale, requesting iv pain medication. discussed allowing medication time to work before iv pain medication.
--- NOTE | 2020-08-18 03:13 | PC.NURSE ---
patient currently resting with eyes closed
[2020-08-18 04:00] VITALS: BP 123/80; PULSE 82; RESP 17; TEMP 36.7; O2SAT 95
[2020-08-18 04:50] VITALS: BMI 24.4
[2020-08-18 05:20] LABS: Anion Gap 10.7 mEq/L (5-15); Blood Urea Nitrogen 3 mg/dl (7-17); Calcium 8.1 mg/dl (8.4-10.2); Carbon Dioxide 22 mmol/L (22.0-30.0); Chloride 97 mmol/L (98-107); Creatinine Clearance Estimated 157 mL/min (50-200); Estimated Glomerular Filt Rate 172 ml/min (>60); GFR (African American) 208 ML/MIN (>60); Glucose 102 mg/dl (74-100); Potassium 3.7 mmoL/L (3.5-5.1); Sodium 126 mmol/L (136-145)
[2020-08-18 05:24] LABS: Hematocrit 31.8 % (37.0-47.0); Hemoglobin 9.7 g/dL (12.2-16.2); Mean Corpuscular Volume 101.4 fl (81-99); Red Blood Count 3.14 M/mm3 (4.20-5.40); White Blood Count 8.8 K/mm3 (4.8-10.8)
[2020-08-18 05:25] LABS: Basophils % 0.3 % (0.1-2.0); Eosinophils # 0.4 K/mm3 (0.0-0.4); Eosinophils % 4.9 % (0.1-12.0); Lymphocytes # 1.1 K/mm3 (0.7-4.5); Lymphocytes % 12.4 % (10-50); Mean Corpuscular HGB Conc 30.6 g/dL (31.8-35.4); Monocytes # 0.4 K/mm3 (0.1-1.0); Neutrophils # 6.7 K/mm3 (1.8-7.8); Neutrophils % 75.6 % (37.0-80.0); Platelet Count 313 K/mm3 (142-424); Red Cell Distribution Width 13.6 % (11.5-17.5)
--- NOTE | 2020-08-18 05:25 | PC.NURSE ---
beginning of shift small amount of ss drainage on surgical dressing. patient has c/o pain throughout night, treated with prn medications. this am dressing reinforced due to ss drainage small amount of ss drainage through surgical dressing
[2020-08-18 05:26] LABS: C-Reactive Protein 82.3 mg/L (0-4)
[2020-08-18 05:48] LABS: Erythrocyte Sedimentation Rate 40 mm/hr (0-20)
[2020-08-18 05:50] LABS: Vancomycin,Trough 16.1 ug/mL (5.0-10.0)
[2020-08-18 07:21] VITALS: BP 116/71; PULSE 107; RESP 18; TEMP 36.7; O2SAT 95
--- NOTE | 2020-08-18 09:44 | SW/DCPLANNER ---
Addendum entered by Jeanne Sim 08/18/20 16:00: I have notified Rosario with [facility] that this patient will require a PICC line and prolong IV antibiotics. Original Note: This patient resides at [facility]. I have spoke with Rosario from [facility] and she has stated that patient is SN[facility] level of care. I will continue to update Rosario at [facility]. Updated patient information has been faxed to [facility].
--- NOTE | 2020-08-18 09:59 | HMH.PHACONS ---
- Pharmacy Consult Date: 08/18/20 Time: 09:59 Referring provider: DR. HERNANDEZ Reason for Consult:: VANCOMYCIN TROUGH LEVEL Allergies and ADEs:: Allergies Allergy/AdvReac Type Severity Reaction Status Date / Time Penicillins Allergy Mild Unknown Verified 07/28/20 13:25 allergy reaction codeine AdvReac Mild vomiting Verified 07/28/20 13:25 [From Tylenol-Codeine #3] Home Medications:: Home Medications Medication Instructions Recorded Confirmed Type cyclobenzaprine 10 mg tablet 10 mg PO HS tab 02/02/19 08/17/20 History loperamide 2 mg capsule 2 mg PO BIDP PRN cap 02/02/19 08/16/20 History Fluticasone/Vilanterol [Breo 1 inh IH DAILY 08/22/19 08/17/20 History Ellipta 100-25 Mcg INH] Metoprolol Tartrate [Lopressor 25 mg PO BID 08/22/19 08/16/20 History 25mg tablet] aripiprazole 15 mg tablet 15 mg PO DAILY tab 09/17/19 08/17/20 History ondansetron HCL [Zofran 4mg Tab*] 1 tab PO Q6HP PRN 12/06/19 08/16/20 History polyethylene glycoL 3350 [Miralax 17 gm PO DAILY 12/06/19 08/16/20 History 17gm Packet] Loratadine [Allerclear] 10 mg PO DAILYP PRN 07/09/20 08/16/20 History oxycodone-acetaminophen 5 mg-325 1 tab PO Q4-6H PRN #30 tab 07/15/20 08/16/20 Rx mg tablet gabapentin 600 mg tablet 600 mg PO QID #120 tab 07/18/20 08/17/20 Rx quetiapine 25 mg tablet 25 mg PO DAILY 07/28/20 08/17/20 History Acetaminophen [Tylenol 500mg 500 mg PO BID PRN 08/16/20 08/17/20 History tablet] Aspirin [Aspirin 325mg Tab] 325 mg PO DAILY 08/16/20 08/17/20 History Acetaminophen [Tactinal] 500 mg PO QID 08/17/20 08/17/20 History OXcarbazepine [Trileptal] 300 mg PO BID 08/17/20 08/17/20 History Sertraline HCl [Zoloft] 150 mg PO DAILY 08/17/20 08/17/20 History diphenhydrAMINE HCl 25 mg PO TID 08/17/20 08/17/20 History [Diphenhydramine HCl] guaiFENesin [Guaifenesin] 200 mg PO Q6HP PRN 08/17/20 08/17/20 History Height: 1.52 m Weight: 56.444 kg Laboratory Results:: Laboratory Results - last 24 hr 08/18/20 04:50: WBC 8.8, RBC 3.14 L, Hgb 9.7 L, Hct 31.8 L, MCV 101.4 H, MCH 31.0, MCHC 30.6 L, RDW 13.6, Plt Count 313, MPV 7.0 L, Neut % (Auto) 75.6, Lymph % (Auto) 12.4, [place] % (Auto) 5.0, Eos % (Auto) 4.9, Baso % (Auto) 0.3, Neut # (Auto) 6.7, Lymph # (Auto) 1.1, [place] # (Auto) 0.4, Eos # (Auto) 0.4, Baso # (Auto) 0.0 08/18/20 04:50: Sodium 126 L, Potassium 3.7, Chloride 97 L, Carbon Dioxide 22, Anion Gap 10.7, BUN 3 L D, Creatinine 0.40 L, Estimated Creat Clear 157, Estimated GFR 172, Est GFR ( Amer) 208, Glucose 102 H, Calcium 8.1 L, C-Reactive Protein 82.3 H D 08/18/20 04:50: Vancomycin Trough 16.1 H 08/18/20 04:50: ESR 40 H Medical History: Reports:: Anxiety, Asthma, Depression, Hyperlipidemia, Hypertension, MRSA, Peripheral Artery Disease, Seizures Denies:: Cancer, Diabetes Mellitus Type 1, Diabetes Mellitus Type 2, Internal Pacemaker Assessment and Plan (1) Essential (primary) hypertension Status: Chronic Category: Medical Code(s): I10 - Essential (primary) hypertension (2) Tachycardia Status: Acute Category: Medical Code(s): R00.0 - Tachycardia, unspecified (3) Abscess after procedure Status: Acute Category: Medical Code(s): T81.49XA - Infection following a procedure, other surgical site, initial encounter (4) Bipolar 1 disorder Status: Chronic Category: Medical Code(s): F31.9 - Bipolar disorder, unspecified (5) Cellulitis Status: Acute Qualifiers: Site of cellulitis: extremity Site of cellulitis of extremity: toe Laterality: left Qualified Code(s): L03.032 - Cellulitis of left toe Category: Medical Code(s): L03.90 - Cellulitis, unspecified (6) Peripheral vascular disease Status: Chronic Category: Medical Code(s): I73.9 - Peripheral vascular disease, unspecified (7) Anxiety Status: Chronic Category: Medical Code(s): F41.9 - Anxiety disorder, unspecified (8) Hyponatremia Status: Acute Category: Medical Code(s): E87.1 - Hypo-os
--- NOTE | 2020-08-18 10:25 | HMH.CNCARD ---
History of Present Illness Consult date: 08/18/20 Requesting physician: Richmond Gray Chief complaint: tachycardia, wound infection Additional Medical History:: 1. Hypertension A. Echo, 08/21/2019 and 07/09/2020. 1. Normal left ventricular size, preserved left ventricular systolic function, visually estimated ejection fraction 55% with no regional wall motion abnormality, diastolic parameters are inconclusive. 2. Mild aortic and moderate mitral regurgitation. 3. No significant pericardial effusion noted. 2. Bipolar disorder 3. PTSD 4. History of drug use 5. History of anxiety/depression 6. History of Tourette's syndrome 7. Tobacco use 8. Asthma 9. PAD A. History of left transmetatarsal amputation B. Osteomyelitis of the left foot, 07/08/2020 C. 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 Hyponatremia, 123 on 07/08/2020 (same as 09/2019 but as high as 131 in 03/2020). Possible psychogenic polydipsia. History of present illness: The patient is a 44 year old female s/p BKA after LLE gangrene who presents to the ED with concern for post operative infection. Patient states since yesterday her LLE stump has been red, hard, and swollen. She denies fever but notes increased pain. She has not had issues with her incision since the surgery. She is not on antibiotics. No other complaints. The patient is a 44 year old female s/p BKA who presents with LLE swelling, redness, warmth and increased pain at the site of her amputation. She is awake and alert. Hemodynamically stable. She has a mild cellulitis on visual exam at the site of her LLE amputation but on POC US I am concerned for abscess. Labs including CBC, BMP, CRP, ESR were ordered as well as blood cultures. She was given PO [place] [address] LLE was ordered to evaluate for abscess. CT scan showed 4.9x 3 x 2.3 cm rim enhancing fluid collection concerning for abscess with surrounding cellulitis. Also some concern for osteomyelitis of the tibial stump. CRP was 64, ESR mildly elevated at 32. Orthopedics mrp controller was consulted who recommended admission for antibiotics and ortho evaluation inpatient. She was given 1g vancomycin IV. Dr. Centeno agreed to admit the patient for Dr. Sandhu. Patient in agreement with plan. Above is from ER documentation. Elevated heart rate was noted. EKG this afternoon shows sinus tachycardia. She was given a fluid bolus, and her low-dose beta-hien was uptitrated. Clinically she does not appear to be septic. I spoke with Dr. Coa this afternoon, he plans on taking her to the operating room for a cleanout. Patient is apprehensive about going to the OR today, but she does feel she will be ready in the morning. He relays no chest pain, no dyspnea, she has underlying psychiatric issues but answers questions appropriately. She was given 1 dose of vancomycin in the emergency room, spoke with pharmacy, we will be continuing this. Blood cultures were taken. Patient has no history of diabetes The above per ER MD and Dr. Gray Cardiology asked to evaluate the patient for tachycardia. 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 No: Pacemaker Amputation: Yes Fractures: Yes (RIGHT ARM) - *Social History Last grade of school completed: High school graduate Smoking Status: Former smoker Tobacco Type: cigarettes # Packs/Day (cigarettes): 1 #Yrs smoked (if former smoker): 20 Alcohol Intake: never Substance Use Type: former substance user, IV drugs *Occupational Status:: disabled Housing: residential Household Members: o
[2020-08-18 11:03] VITALS: BP 113/83; PULSE 85; RESP 18; TEMP 36.9; O2SAT 95
--- NOTE | 2020-08-18 12:25 | HMH.ORTHPN ---
Subjective Date: 08/18/20 Time: 12:00 Principal diagnosis: L BKA stump infection Interval history: The patient is s/p L BKA stump I&D yesterday, with 50cc pus reported that communicated down to the bone. Wound was packed with iodoform and left partially open for drainage. The patient has been on IV vancomycin since admission. She says she has been doing well and reports no cuts or scrapes lately, but did fall a few weeks ago; prior to that she had not had any issues with her stump/incision and had been healing well. She recently quit smoking and has not smoked in 3 weeks. Preliminary intraoperative wound cultures positive for GPC. PN: Obj Ex Vital signs: Temp Pulse Resp BP Pulse Ox 98.5 F 85 18 113/83 95 08/18/20 11:03 08/18/20 11:03 08/18/20 11:03 08/18/20 11:03 08/18/20 11:03 - Constitutional no acute distress - Routine HEENT Exam Head: Present: normocephalic Eye: Present: EOMI ENT: Present: mucous membranes moist - Routine Neck Exam Present: trachea midline - Routine Respiratory Exam Absent: respiratory distress, wheezes - Routine Cardiovascular Exam Present: RRR - Routine Abdominal Exam Present: soft - Routine Extremities Exam Comments: L BKA stump dressings c/d/i, no strikethrough - Routine Skin Exam Present: warm - Routine Neurological Exam Present: alert, oriented X3, moving all extremities, normal tone, vision grossly intact, hearing grossly intact. Absent: sensory deficit, motor deficit, altered mental status Progress Note: A&P (1) Essential (primary) hypertension Status: Chronic (2) Tachycardia Status: Acute (3) Abscess after procedure Status: Acute (4) Bipolar 1 disorder Status: Chronic (5) Cellulitis Status: Acute (6) Peripheral vascular disease Status: Chronic (7) Anxiety Status: Chronic (8) Hyponatremia Status: Acute (9) Condition involving rhinovirus Status: Acute (10) COVID-19 virus IgG antibody detected Status: Acute (11) COVID-19 virus IgM antibody detected Status: Acute (12) COVID-19 virus IgM antibody detected Status: Acute (13) COVID-19 virus IgG antibody detected Status: Acute Assessment and Plan for All Diagnoses:: 44yo F POD 1 s/p I&D L BKA stump infection; s/p L BKA 07/09/20 -- continue IV vancomycin, pharmacy to dose -- will presume osteomyelitis is present given communication of pus with bone and treat accordingly -- PICC line today, plan on IV antibiotics for several weeks -- surgical cultures pending, will f/u results/speciation and tailor antibiotics accordingly -- will change packing tomorrow and reassess for need for repeat I&D -- continue to elevate LLE, offload R heel and turn frequently to avoid pressure ulcers -- continue medical management per Dr. Gray
--- NOTE | 2020-08-18 12:43 | XR_ITS ---
PROCEDURE: XR CHEST PORTABLE PICC PLAC CLINICAL HISTORY: Confirm PICC line placement COMPARISON: CR XR CHEST 2V from 11/06/2019 DX XR CHEST 2V from 01/21/2020 CR XR CHEST 2V from 04/03/2020 FINDINGS: Right upper extremity PICC line has been inserted. The tip is in good position in the region of the proximal aspect of the superior vena cava. Unremarkable cardiovascular structures. There is mild atelectatic changes in the lower lobes. No acute bony abnormalities. IMPRESSION: PICC line tip in good position with bibasilar atelectasis Dictated by: Pranay Patricio MD 08/18/2020 15:26 Pranay Patricio MD in OV 08/18/2020 15:26
--- NOTE | 2020-08-18 13:05 | HMH.ACPN2 ---
Internal Medicine - PN: Subj *Date: 08/19/20 *Time: 06:28 Interval history: doing better - surg note reviewed Exam Vital signs and Labs for Last 24 Hours: Temp Pulse Resp BP Pulse Ox 98.5 F 85 18 113/83 95 08/18/20 11:03 08/18/20 11:03 08/18/20 11:03 08/18/20 11:03 08/18/20 11:03 Laboratory Results - last 24 hr 08/18/20 04:50: WBC 8.8, RBC 3.14 L, Hgb 9.7 L, Hct 31.8 L, MCV 101.4 H, MCH 31.0, MCHC 30.6 L, RDW 13.6, Plt Count 313, MPV 7.0 L, Neut % (Auto) 75.6, Lymph % (Auto) 12.4, [place] % (Auto) 5.0, Eos % (Auto) 4.9, Baso % (Auto) 0.3, Neut # (Auto) 6.7, Lymph # (Auto) 1.1, [place] # (Auto) 0.4, Eos # (Auto) 0.4, Baso # (Auto) 0.0 08/18/20 04:50: Sodium 126 L, Potassium 3.7, Chloride 97 L, Carbon Dioxide 22, Anion Gap 10.7, BUN 3 L D, Creatinine 0.40 L, Estimated Creat Clear 157, Estimated GFR 172, Est GFR ( Amer) 208, Glucose 102 H, Calcium 8.1 L, C-Reactive Protein 82.3 H D 08/18/20 04:50: Vancomycin Trough 16.1 H 08/18/20 04:50: ESR 40 H I & O for Last 24 hours: Intake & Output 08/16/20 08/17/20 08/18/20 08/19/20 11:59 11:59 11:59 11:59 Intake Total 250 / 250 4449 / 4449 3160 / 3160 Output Total 550 / 550 1650 / 1650 Balance 250 / 250 3899 / 3899 1510 / 1510 Weight 119 lb 8 oz 120 lb 5 oz 124 lb 7.019 oz Microbiology Reports for the Last 24 Hours: Microbiology 08/17/20 11:00 Synovial Fluid - Abscess Gram Stain - Final 08/17/20 11:00 Synovial Fluid - Abscess Body Fluid Culture - Preliminary Gram Positive Cocci 08/17/20 11:00 Leg,Left Gram Stain - Final 08/17/20 11:00 Leg,Left Wound Culture - Preliminary Gram Positive Cocci 08/16/20 02:30 Blood Blood Culture - Preliminary NO GROWTH AFTER 48 HOURS 08/16/20 02:30 Blood Blood Culture - Preliminary NO GROWTH AFTER 48 HOURS - Constitutional no acute distress - *Routine HEENT Exam Head: Present: normocephalic Eye: Present: EOMI, PERRL ENT: Present: mucous membranes dry - *Routine Neck Exam Present: supple - *Routine Respiratory Exam Present: CTA bilaterally - *Routine Cardiovascular Exam Present: RRR - *Routine Abdominal Exam Present: soft - *Routine Extremities Exam Comments: s/p amputation - *Routine Skin Exam Comments: dressing in place - *Routine Neurological Exam Present: alert, CN II-XII intact - Routine Psychiatric Exam Present: normal affect Assessment and Plan (1) Essential (primary) hypertension Status: Chronic Category: Medical Code(s): I10 - Essential (primary) hypertension (2) Tachycardia Status: Acute Category: Medical Code(s): R00.0 - Tachycardia, unspecified (3) Abscess after procedure Status: Acute Category: Medical Code(s): T81.49XA - Infection following a procedure, other surgical site, initial encounter (4) Bipolar 1 disorder Status: Chronic Category: Medical Code(s): F31.9 - Bipolar disorder, unspecified (5) Cellulitis Status: Acute Qualifiers: Site of cellulitis: extremity Site of cellulitis of extremity: toe Laterality: left Qualified Code(s): L03.032 - Cellulitis of left toe Category: Medical Code(s): L03.90 - Cellulitis, unspecified (6) Peripheral vascular disease Status: Chronic Category: Medical Code(s): I73.9 - Peripheral vascular disease, unspecified (7) Anxiety Status: Chronic Category: Medical Code(s): F41.9 - Anxiety disorder, unspecified (8) Hyponatremia Status: Acute Category: Medical Code(s): E87.1 - Hypo-osmolality and hyponatremia (9) Condition involving rhinovirus Status: Acute Category: Medical Code(s): B34.8 - Other viral infections of unspecified site (10) COVID-19 virus IgG antibody detected Status: Acute Category: Medical Code(s): Z01.84 - Encounter for antibody response examination (11) COVID-19 virus IgM antibody detec
[2020-08-18 15:24] VITALS: BP 113/69; PULSE 81; RESP 20; TEMP 36.9; O2SAT 96
[2020-08-18 16:15] VITALS: BMI 24.2
--- NOTE | 2020-08-18 18:35 | PC.NURSE ---
pt has done well today. pt left stump incision has been draining, dressing reenforced. pt had a picc placed today in RUE, yellow disc has dried blood on it, no new drainaged noted. vss. will cont. to monitor.
[2020-08-18 20:00] VITALS: BP 107/74; PULSE 99; RESP 18; TEMP 37; O2SAT 96
[2020-08-18 23:45] VITALS: BP 110/76; PULSE 88; RESP 20; TEMP 37; O2SAT 94
[2020-08-19] VITALS (7 sets, daily range): BP systolic 110–128; BP diastolic 71–84; PULSE 70–87; RESP 18–20; TEMP 36.7–37.2; O2SAT 91–98; BMI 23.8
--- NOTE | 2020-08-19 04:47 | PC.NURSE ---
Addendum entered by Rafa Carter RN 08/19/20 06:21: Is encouraged often. Pt best of 1500 this shift. Original Note: Pt c/o pain to surgical site throughout the night and was medicated per MAR. Serous drainage to drsg at start of shift, Drsg reinforced w/ kerlex. Purwick in place w/ pt voiding clear, yellow urine. VSS. Will continue to monitor.
[2020-08-19 07:18] LABS: Basophils % 0.4 % (0.1-2.0); Eosinophils # 0.4 K/mm3 (0.0-0.4); Eosinophils % 7.4 % (0.1-12.0); Hematocrit 29.2 % (37.0-47.0); Hemoglobin 9.6 g/dL (12.2-16.2); Lymphocytes # 1.4 K/mm3 (0.7-4.5); Lymphocytes % 27.8 % (10-50); Mean Corpuscular HGB Conc 32.9 g/dL (31.8-35.4); Mean Corpuscular Hemoglobin 32.5 pg (27.0-31.2); Mean Corpuscular Volume 98.8 fl (81-99); Mean Platelet Volume 7.8 fl (7.4-10.4); Monocytes # 0.4 K/mm3 (0.1-1.0); Monocytes % 8.3 % (1.7-9.3); Neutrophils # 2.8 K/mm3 (1.8-7.8); Neutrophils % 56.1 % (37.0-80.0); Platelet Count 378 K/mm3 (142-424); Red Blood Count 2.95 M/mm3 (4.20-5.40); Red Cell Distribution Width 13.9 % (11.5-17.5)
[2020-08-19 07:22] LABS: Chloride 101 mmol/L (98-107); Sodium 133 mmol/L (136-145)
[2020-08-19 07:23] LABS: Potassium 4.1 mmoL/L (3.5-5.1)
[2020-08-19 07:25] LABS: Blood Urea Nitrogen 4 mg/dl (7-17); Creatinine Clearance Estimated 122 mL/min (50-200); Estimated Glomerular Filt Rate 133 ml/min (>60); GFR (African American) 161 ML/MIN (>60)
[2020-08-19 07:26] LABS: Anion Gap 9.1 mEq/L (5-15); Calcium 8.8 mg/dl (8.4-10.2); Carbon Dioxide 27 mmol/L (22.0-30.0); Glucose 84 mg/dl (74-100)
[2020-08-19 07:32] LABS: C-Reactive Protein 47.9 mg/L (0-4)
--- NOTE | 2020-08-19 14:01 | HMH.ACPN ---
Internal Medicine - PN: Subj *Date: 08/19/20 *Time: 14:01 Exam Vital signs and Labs for Last 24 Hours: Temp Pulse Resp BP Pulse Ox 98.3 F 70 20 114/71 98 08/19/20 11:43 08/19/20 11:43 08/19/20 11:43 08/19/20 11:43 08/19/20 11:43 Laboratory Results - last 24 hr 08/19/20 06:03: WBC 5.0 D, RBC 2.95 L, Hgb 9.6 L, Hct 29.2 L, MCV 98.8, MCH 32.5 H, MCHC 32.9, RDW 13.9, Plt Count 378, MPV 7.8, Neut % (Auto) 56.1, Lymph % (Auto) 27.8, [place] % (Auto) 8.3, Eos % (Auto) 7.4, Baso % (Auto) 0.4, Neut # (Auto) 2.8, Lymph # (Auto) 1.4, [place] # (Auto) 0.4, Eos # (Auto) 0.4, Baso # (Auto) 0.0 08/19/20 06:03: Sodium 133 L, Potassium 4.1, Chloride 101, Carbon Dioxide 27 D, Anion Gap 9.1, BUN 4 L D, Creatinine 0.50 L D, Estimated Creat Clear 122, Estimated GFR 133, Est GFR ( Amer) 161 D, Glucose 84, Calcium 8.8, C-Reactive Protein 47.9 H D I & O for Last 24 hours: Intake & Output 08/16/20 08/17/20 08/18/20 08/19/20 23:59 23:59 23:59 23:59 Intake Total 2510 / 2510 3629 / 3629 5403 / 5403 2383 / 2383 Output Total 300 / 300 250 / 250 4900 / 4900 3000 / 3000 Balance 2210 / 2210 3379 / 3379 503 / 503 -617 / -617 Weight 54.204 kg 54.573 kg 56 kg 55.026 kg Microbiology Reports for the Last 24 Hours: Microbiology 08/17/20 11:00 Synovial Fluid - Abscess Gram Stain - Final 08/17/20 11:00 Synovial Fluid - Abscess Body Fluid Culture - Final Staphylococcus aureus 08/17/20 11:00 Leg,Left Gram Stain - Final 08/17/20 11:00 Leg,Left Wound Culture - Final Staphylococcus aureus Assessment and Plan (1) Essential (primary) hypertension Status: Chronic Category: Medical Code(s): I10 - Essential (primary) hypertension (2) Tachycardia Status: Acute Category: Medical Code(s): R00.0 - Tachycardia, unspecified (3) Abscess after procedure Status: Acute Category: Medical Code(s): T81.49XA - Infection following a procedure, other surgical site, initial encounter (4) Bipolar 1 disorder Status: Chronic Category: Medical Code(s): F31.9 - Bipolar disorder, unspecified (5) Cellulitis Status: Acute Qualifiers: Site of cellulitis: extremity Site of cellulitis of extremity: toe Laterality: left Qualified Code(s): L03.032 - Cellulitis of left toe Category: Medical Code(s): L03.90 - Cellulitis, unspecified (6) Peripheral vascular disease Status: Chronic Category: Medical Code(s): I73.9 - Peripheral vascular disease, unspecified (7) Anxiety Status: Chronic Category: Medical Code(s): F41.9 - Anxiety disorder, unspecified (8) Hyponatremia Status: Acute Category: Medical Code(s): E87.1 - Hypo-osmolality and hyponatremia (9) Condition involving rhinovirus Status: Acute Category: Medical Code(s): B34.8 - Other viral infections of unspecified site (10) COVID-19 virus IgG antibody detected Status: Acute Category: Medical Code(s): Z01.84 - Encounter for antibody response examination (11) COVID-19 virus IgM antibody detected Status: Acute Category: Medical Code(s): Z01.84 - Encounter for antibody response examination (12) COVID-19 virus IgM antibody detected Status: Acute Category: Medical Code(s): Z01.84 - Encounter for antibody response examination (13) COVID-19 virus IgG antibody detected Status: Acute Category: Medical Code(s): Z01.84 - Encounter for antibody response examination The patient's infection will respond to the chosen ABx?: Yes Is the patient receiving the right drug, dose, and route?: Yes Could a more targeted ABx be ordered?: No
--- NOTE | 2020-08-19 17:33 | HMH.ACPN2 ---
Internal Medicine - PN: Subj *Date: 08/19/20 *Time: 19:37 Interval history: 44-year-old female patient sitting up in bed respirations easy even. She reports her pain is well under control. Dressing to left BKA clean dry and intact. Left lower extremity wound cultures have grown MRSA and is susceptible to vancomycin which she has been receiving Exam Vital signs and Labs for Last 24 Hours: Temp Pulse Resp BP Pulse Ox 98.1 F 80 18 128/84 95 08/19/20 16:00 08/19/20 16:00 08/19/20 16:00 08/19/20 16:00 08/19/20 16:00 Laboratory Results - last 24 hr 08/19/20 06:03: WBC 5.0 D, RBC 2.95 L, Hgb 9.6 L, Hct 29.2 L, MCV 98.8, MCH 32.5 H, MCHC 32.9, RDW 13.9, Plt Count 378, MPV 7.8, Neut % (Auto) 56.1, Lymph % (Auto) 27.8, [place] % (Auto) 8.3, Eos % (Auto) 7.4, Baso % (Auto) 0.4, Neut # (Auto) 2.8, Lymph # (Auto) 1.4, [place] # (Auto) 0.4, Eos # (Auto) 0.4, Baso # (Auto) 0.0 08/19/20 06:03: Sodium 133 L, Potassium 4.1, Chloride 101, Carbon Dioxide 27 D, Anion Gap 9.1, BUN 4 L D, Creatinine 0.50 L D, Estimated Creat Clear 122, Estimated GFR 133, Est GFR ( Amer) 161 D, Glucose 84, Calcium 8.8, C-Reactive Protein 47.9 H D I & O for Last 24 hours: Intake & Output 08/16/20 08/17/20 08/18/20 08/19/20 23:59 23:59 23:59 23:59 Intake Total 2510 / 2510 3629 / 3629 5403 / 5403 2383 / 2383 Output Total 300 / 300 250 / 250 4900 / 4900 3000 / 3000 Balance 2210 / 2210 3379 / 3379 503 / 503 -617 / -617 Weight 119 lb 8 oz 120 lb 5 oz 123 lb 7.342 oz 121 lb 5 oz Microbiology Reports for the Last 24 Hours: Microbiology 08/17/20 11:00 Synovial Fluid - Abscess Gram Stain - Final 08/17/20 11:00 Synovial Fluid - Abscess Body Fluid Culture - Final Staphylococcus aureus 08/17/20 11:00 Leg,Left Gram Stain - Final 08/17/20 11:00 Leg,Left Wound Culture - Final Staphylococcus aureus - Constitutional no acute distress - *Routine HEENT Exam Head: Present: normocephalic. Absent: scalp tenderness Eye: Present: EOMI ENT: Present: mucous membranes moist. Absent: sinus tenderness - *Routine Neck Exam Present: full ROM, trachea midline. Absent: tenderness, tracheal deviation - *Routine Respiratory Exam Present: CTA bilaterally. Absent: accessory muscle use, patient mechanically ventilated - *Routine Cardiovascular Exam Present: RRR. Absent: bradycardia - *Routine Abdominal Exam Present: soft, normoactive bowel sounds. Absent: tenderness, firm - *Routine Extremities Exam Present: amputation Comments: Anthony BKA - *Routine Skin Exam Present: warm. Absent: cyanosis, erythema, wounds Comments: Anthony BKA w/ Drsg C/D/I - *Routine Neurological Exam Present: alert, oriented X3. Absent: motor deficit, altered mental status - Routine Psychiatric Exam Present: normal affect, normal thought process. Absent: auditory hallucinations Assessment and Plan (1) Essential (primary) hypertension Status: Chronic Category: Medical Code(s): I10 - Essential (primary) hypertension (2) Tachycardia Status: Acute Category: Medical Code(s): R00.0 - Tachycardia, unspecified (3) Abscess after procedure Status: Acute Category: Medical Code(s): T81.49XA - Infection following a procedure, other surgical site, initial encounter (4) Bipolar 1 disorder Status: Chronic Category: Medical Code(s): F31.9 - Bipolar disorder, unspecified (5) Cellulitis Status: Acute Qualifiers: Site of cellulitis: extremity Site of cellulitis of extremity: toe Laterality: left Qualified Code(s): L03.032 - Cellulitis of left toe Category: Medical Code(s): L03.90 - Cellulitis, unspecified (6) Peripheral vascular disease Status: Chronic Category: Medical Code(s): I73.9 - Peripheral vascular disease, unspecified (7) Anxiety Status: Chronic Category: Medical Code(s): F41.9 - Anxiety disorder, unspecified (8) Hyponatremia S
--- NOTE | 2020-08-19 18:39 | PC.NURSE ---
Patient remains a/o x4 today. Patient remains on RA with no SOB. She has reported left leg pain multiple times today. Morophine and oxycodone were given per MAR. Per Linda note she had stated that she would come by today and reacess the wound. she has not rounded this shift. No drainage noted. Patient has a Right upper arm picc line, the dressing change was completed this shift. Tolerated well. Patient has TEDS on right leg for VTE. She is currently still using the purwick to void. Patient has been very pleasant today, will continue to monitor.
[2020-08-20] VITALS (11 sets, daily range): BP systolic 102–136; BP diastolic 59–93; PULSE 55–126; RESP 16–26; TEMP 36.3–36.8; O2SAT 89–100; BMI 24.0
--- NOTE | 2020-08-20 04:09 | PC.NURSE ---
PATIENT A&O X4, LUNGS CLEAR, PULSES EQUAL. DRESSING C/D/I. PATIENT HAS HAD SEVERAL REQUESTS FOR PAIN MEDICATION DURING THIS RN SHIFT. THIS RN APPLIED ICE PACK AND PROVIDED ORDERED MEDICATION. NO NEW CONCERNS AT THIS TIME.
[2020-08-20 06:54] LABS: Basophils % 0.6 % (0.1-2.0); Eosinophils # 0.4 K/mm3 (0.0-0.4); Eosinophils % 7.2 % (0.1-12.0); Hematocrit 30.3 % (37.0-47.0); Hemoglobin 10.2 g/dL (12.2-16.2); Lymphocytes # 1.6 K/mm3 (0.7-4.5); Lymphocytes % 28.6 % (10-50); Mean Corpuscular HGB Conc 33.7 g/dL (31.8-35.4); Mean Corpuscular Hemoglobin 33.1 pg (27.0-31.2); Mean Corpuscular Volume 98.3 fl (81-99); Mean Platelet Volume 7.4 fl (7.4-10.4); Monocytes # 0.4 K/mm3 (0.1-1.0); Monocytes % 8.1 % (1.7-9.3); Neutrophils % 55.5 % (37.0-80.0); Platelet Count 435 K/mm3 (142-424); Red Blood Count 3.08 M/mm3 (4.20-5.40); Red Cell Distribution Width 14.3 % (11.5-17.5); White Blood Count 5.5 K/mm3 (4.8-10.8)
[2020-08-20 06:58] LABS: Chloride 100 mmol/L (98-107); Sodium 134 mmol/L (136-145)
[2020-08-20 07:01] LABS: Blood Urea Nitrogen 5 mg/dl (7-17); Calcium 9.1 mg/dl (8.4-10.2); Carbon Dioxide 28 mmol/L (22.0-30.0); Creatinine Clearance Estimated 123 mL/min (50-200); Estimated Glomerular Filt Rate 133 ml/min (>60); GFR (African American) 161 ML/MIN (>60); Glucose 96 mg/dl (74-100)
--- NOTE | 2020-08-20 08:29 | HMH.DCSUM ---
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 Patient states since yesterday her LLE stump has been red, hard, and swollen. She denies fever but notes increased pain. She has not had issues with her incision since the surgery. She is not on antibiotics. No other complaints. The patient is a 44 year old female s/p BKA who presents with LLE swelling, redness, warmth and increased pain at the site of her amputation. She is awake and alert. Hemodynamically stable. She has a mild cellulitis on visual exam at the site of her LLE amputation but on POC US I am concerned for abscess. Labs including CBC, BMP, CRP, ESR were ordered as well as blood cultures. She was given PO [place] [address] LLE was ordered to evaluate for abscess. CT scan showed 4.9x 3 x 2.3 cm rim enhancing fluid collection concerning for abscess with surrounding cellulitis. Also some concern for osteomyelitis of the tibial stump. CRP was 64, ESR mildly elevated at 32. Orthopedics collection agent was consulted who recommended admission for antibiotics and ortho evaluation inpatient. She was given 1g vancomycin IV. Dr. Centeno agreed to admit the patient for Dr. Sandhu. Patient in agreement with plan. Above is from ER documentation. Elevated heart rate was noted. EKG this afternoon shows sinus tachycardia. She was given a fluid bolus, and her low-dose beta-hien was uptitrated. Clinically she does not appear to be septic. I spoke with Dr. Cao this afternoon, he plans on taking her to the operating room for a cleanout. Patient is apprehensive about going to the OR today, but she does feel she will be ready in the morning. He relays no chest pain, no dyspnea, she has underlying psychiatric issues but answers questions appropriately. She was given 1 dose of vancomycin in the emergency room, spoke with pharmacy, we will be continuing this. Blood cultures were taken. Patient has no history of diabetes. Hospital Course Hospital Course: The patient is a 44 year old female s/p BKA who presents with LLE swelling, redness, warmth and increased pain at the site of her amputation. She is awake and alert. Hemodynamically stable. She has a mild cellulitis on visual exam at the site of her LLE amputation but on POC US I am concerned for abscess. Labs including CBC, BMP, CRP, ESR were ordered as well as blood cultures. She was given PO [place] [address] LLE was ordered to evaluate for abscess. CT scan showed 4.9x 3 x 2.3 cm rim enhancing fluid collection concerning for abscess with surrounding cellulitis. Also some concern for osteomyelitis of the tibial stump. CRP was 64, ESR mildly elevated at 32. Orthopedics collection agent was consulted who recommended admission for antibiotics and ortho evaluation inpatient. She was given 1g vancomycin IV. Dr. Centeno agreed to admit the patient for Dr. Sandhu. Patient in agreement with plan. Above is from ER documentation. Elevated heart rate was noted. EKG this afternoon shows sinus tachycardia. She was given a fluid bolus, and her low-dose beta-hien was uptitrated. Clinically she does not appear to be septic. After discussion w/ Dr. Cao this afternoon, he plans on taking her to the operating room for a cleanout. Patient is apprehensive about going to the OR today, but she does feel she will be ready in the morning. He relays no chest pain, no dyspnea, she has underlying psychiatric issues but answers questions appropriately. She was given 1 dose of vancomycin in the emergency room, spoke with pharmacy, we will be continuing this. Blood cultures were taken. Patient has no history of diabetes (Per Dr. Gray). 08/16/[address]: FINDINGS: There is a well-defined postsurgical stump of the proximal tibia and proximal fibula. However just inferior to the tibial stump is a rim enhanci
[2020-08-20 10:57] LABS: Vancomycin,Trough 6.2 ug/mL (5.0-10.0)
--- NOTE | 2020-08-20 11:20 | HMH.PHACONS ---
- Pharmacy Consult Date: 08/20/20 Time: 11:20 Referring provider: DR. HERNANDEZ Reason for Consult:: VANCOMYCIN TROUGH LEVEL Allergies and ADEs:: Allergies Allergy/AdvReac Type Severity Reaction Status Date / Time Penicillins Allergy Mild Unknown Verified 07/28/20 13:25 allergy reaction codeine AdvReac Mild vomiting Verified 07/28/20 13:25 [From Tylenol-Codeine #3] Home Medications:: Home Medications Medication Instructions Recorded Confirmed Type cyclobenzaprine 10 mg tablet 10 mg PO HS tab 02/02/19 08/17/20 History loperamide 2 mg capsule 2 mg PO BIDP PRN cap 02/02/19 08/16/20 History Fluticasone/Vilanterol [Breo 1 inh IH DAILY 08/22/19 08/17/20 History Ellipta 100-25 Mcg INH] Metoprolol Tartrate [Lopressor 25 mg PO BID 08/22/19 08/16/20 History 25mg tablet] aripiprazole 15 mg tablet 15 mg PO DAILY tab 09/17/19 08/17/20 History ondansetron HCL [Zofran 4mg Tab*] 1 tab PO Q6HP PRN 12/06/19 08/16/20 History polyethylene glycoL 3350 [Miralax 17 gm PO DAILY 12/06/19 08/16/20 History 17gm Packet] Loratadine [Allerclear] 10 mg PO DAILYP PRN 07/09/20 08/16/20 History oxycodone-acetaminophen 5 mg-325 1 tab PO Q4-6H PRN #30 tab 07/15/20 08/16/20 Rx mg tablet gabapentin 600 mg tablet 600 mg PO QID #120 tab 07/18/20 08/17/20 Rx quetiapine 25 mg tablet 25 mg PO DAILY 07/28/20 08/17/20 History Acetaminophen [Tylenol 500mg 500 mg PO BID PRN 08/16/20 08/17/20 History tablet] Aspirin [Aspirin 325mg Tab] 325 mg PO DAILY 08/16/20 08/17/20 History Acetaminophen [Tactinal] 500 mg PO QID 08/17/20 08/17/20 History OXcarbazepine [Trileptal] 300 mg PO BID 08/17/20 08/17/20 History Sertraline HCl [Zoloft] 150 mg PO DAILY 08/17/20 08/17/20 History diphenhydrAMINE HCl 25 mg PO TID 08/17/20 08/17/20 History [Diphenhydramine HCl] guaiFENesin [Guaifenesin] 200 mg PO Q6HP PRN 08/17/20 08/17/20 History Height: 1.52 m Weight: 55.565 kg Laboratory Results:: Laboratory Results - last 24 hr 08/16/20 07:19: Chlamy pneumoniae PCR Cancelled, Adenovirus (PCR) Cancelled, B. pertussis DNA (PCR) Cancelled, Coronavirus OC43 (PCR) Cancelled, Coronavirus HKU1 (PCR) Cancelled, Coronavirus 229E (PCR) Cancelled, SARS-CoV-2 (PCR) Cancelled, Coronavirus NL63 (PCR) Cancelled, Human Metapneumovir PCR Cancelled, Influenza A (H1) PCR Cancelled, Influ A (H1N1/09) PCR Cancelled, Influenza A (H3) PCR Cancelled, Influenza Type A (PCR) Cancelled, Influenza Type B (PCR) Cancelled, M. pneumoniae (PCR) Cancelled, Parainfluenza 1 (PCR) Cancelled, Parainfluenza 2 (PCR) Cancelled, Parainfluenza 3 (PCR) Cancelled, Parainfluenza 4 (PCR) Cancelled, RSV (PCR) Cancelled, Entero/Rhino (PCR) Cancelled 08/20/20 06:10: WBC 5.5, RBC 3.08 L, Hgb 10.2 L, Hct 30.3 L, MCV 98.3, MCH 33.1 H, MCHC 33.7, RDW 14.3, Plt Count 435 H, MPV 7.4, Neut % (Auto) 55.5, Lymph % (Auto) 28.6, [place] % (Auto) 8.1, Eos % (Auto) 7.2, Baso % (Auto) 0.6, Neut # (Auto) 3.0, Lymph # (Auto) 1.6, [place] # (Auto) 0.4, Eos # (Auto) 0.4, Baso # (Auto) 0.0 08/20/20 06:10: Sodium 134 L, Potassium 4.0, Chloride 100, Carbon Dioxide 28, Anion Gap 10.0, BUN 5 L, Creatinine 0.50 L, Estimated Creat Clear 123, Estimated GFR 133, Est GFR ( Amer) 161, Glucose 96, Calcium 9.1 08/20/20 10:10: Vancomycin Trough 6.2 Medical History: Reports:: Anxiety, Asthma, Depression, Hyperlipidemia, Hypertension, MRSA, Peripheral Artery Disease, Seizures Denies:: Cancer, Diabetes Mellitus Type 1, Diabetes Mellitus Type 2, Internal Pacemaker Assessment and Plan (1) Essential (primary) hypertension Status: Chronic Category: Medical Code(s): I10 - Essential (primary) hypertension (2) Tachycardia Status: Acute Category: Medical Code(s): R00.0 - Tachycardia, unspecified (3) Abscess after procedure Status: Acute Category: Medical Code(s): T81.49XA - Infection following a procedure, other surgical site, initial encounter (4) Bipolar 1 disorder Status: Chronic Category: Medical Code(s): F31
--- NOTE | 2020-08-20 11:58 | HMH.ORTHPN ---
Subjective Date: 08/20/20 Time: 11:00 Principal diagnosis: L BKA stump infection Interval history: The patient is doing well this morning. Wound culture is positive for MRSA. She continues to receive vancomycin via PICC line. CRP remains elevated but is trending downwards. PN: Obj Ex Vital signs: Temp Pulse Resp BP Pulse Ox 97.9 F 98 H 16 122/79 95 08/20/20 08:00 08/20/20 08:00 08/20/20 08:00 08/20/20 08:00 08/20/20 08:00 - Constitutional no acute distress - Routine HEENT Exam Head: Present: normocephalic Eye: Present: EOMI ENT: Present: mucous membranes moist - Routine Neck Exam Present: trachea midline - Routine Respiratory Exam Absent: respiratory distress, wheezes - Routine Cardiovascular Exam Present: RRR - Routine Abdominal Exam Present: soft. Absent: tenderness - Routine Extremities Exam Comments: L BKA dressings removed underlying wound w/o significant erythema, skin pink/warm sutures intact with central opening ~2.5cm with packing iodoform packing removed, no purulence noted no foul odor noted on dressing change - Routine Skin Exam Present: warm Progress Note: A&P (1) Essential (primary) hypertension Status: Chronic (2) Tachycardia Status: Acute (3) Abscess after procedure Status: Acute (4) Bipolar 1 disorder Status: Chronic (5) Cellulitis Status: Acute (6) Peripheral vascular disease Status: Chronic (7) Anxiety Status: Chronic (8) Hyponatremia Status: Acute (9) Condition involving rhinovirus Status: Acute (10) COVID-19 virus IgG antibody detected Status: Acute (11) COVID-19 virus IgM antibody detected Status: Acute (12) COVID-19 virus IgM antibody detected Status: Acute (13) COVID-19 virus IgG antibody detected Status: Acute (14) Osteomyelitis Status: Acute Assessment and Plan for All Diagnoses:: 44yo F POD 3 s/p I&D L BKA stump infection; s/p L 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 Intraoperative cultures positive for MRSA, sensitive to vancomycin. -- continue IV vancomycin, pharmacy to dose -- dressing changed today, continue to change once daily; xeroform, 4x4 gauze, ABD pads, kerlix, MRAIMAR wrap with overlying compression stocking (to be applied to day prior to d/c) -- continue to elevate LLE, offload R heel and turn frequently to avoid pressure ulcers -- continue medical management per Dr. Gray -- f/u with me in clinic 08/26/20 at 10am; will check labs + XR that day, may consider MRI to evaluate for osteomyelitis pending evaluation that day
--- NOTE | 2020-08-20 12:21 | XR_ITS ---
PROCEDURE: XR CHEST PORTABLE CLINICAL HISTORY: SOA Shortness of air COMPARISON: DX XR CHEST 2V from 01/21/2020 CR XR CHEST 2V from 04/03/2020 CR XR CHEST PORTABLE PICC PLAC from 08/18/2020 FINDINGS: There has been interval development of diffuse bilateral alveolar opacification greater in the lower lobes and greatest in the right mid and lower lung zone. Small bilateral effusions are also present. PICC line remains in place from the right upper extremity approach with the tip in the region the SVC. No acute bony abnormalities. IMPRESSION: Interval development of diffuse bilateral airspace disease right greater than left consistent with bilateral pneumonia with small bilateral effusions. Dictated by: Pranay Patricio MD 08/20/2020 13:00 Pranay Patricio MD in [facility] 08/20/2020 13:00
--- NOTE | 2020-08-20 12:23 | CT_ITS ---
PROCEDURE: CT ANGIO CHEST CLINCIAL INDICATION: SOA Severe shortness of air COMPARISON: No exams were available for comparison TECHNIQUE: IV Contrast: 70ML Isovue 370 Axial images obtained with sagittal and coronal reformats. All CT scans at the facility use one or more dose reduction, viz: automated exposure control, ma/kV adjustment per patient size (including targeted exams where dose is matched to indication, i.e. head), or iterative reconstruction technique. FINDINGS: HEART AND MEDIASTINAL STRUCTURES: No evidence of pulmonary embolus aortic aneurysm or dissection. There are few small mediastinal lymph nodes. Mediastinum mostly has an overall slight increase in density with a somewhat infiltrative appearance. Possibly due to adenopathy. Convalescent follow-up is suggested. LUNGS AND PLEURAL SPACES: Motion artifact does obscure fine detail. There is diffuse consolidation involving the right lower lobe with some sparing in the superior segment. Consolidation also present in the right upper lobe also with some mild sparing superiorly. Diffuse consolidation is present in the left upper lobe superiorly and there is consolidation also in the left lower lobe. There is prominent septal thickening in the upper lobes. There is also thickening of the fissures and there is trace bilateral effusions. Septal thickening also noted in the lower lobes. The heart is not enlarged. No pericardial effusion. No acute bony findings. There is mild thoracic scoliosis convex right. BONY STRUCTURES: Thoracic scoliosis convex right UPPER ABDOMEN: Unremarkable. ADDITIONAL FINDINGS: No other significant abnormalities. IMPRESSION: 1. No evidence of pulmonary embolus. Small emboli may not be visualized secondary to the diffuse consolidation and motion artifact. 2. Diffuse bilateral pneumonia in both upper and lower lobes most severe in the right lower lobe. There are trace bilateral effusions. 3. There is septal thickening in the upper and lower lobes superimposed upon COPD/paraseptal emphysematous changes. Underlying CHF is a consideration. Dictated by: Pranay Patricio MD 08/20/2020 13:26 Pranay Patricio MD in [facility] 08/20/2020 13:26
--- NOTE | 2020-08-20 14:37 | HMH.ACPN2 ---
Internal Medicine - PN: Subj *Date: 08/20/20 *Time: 17:09 Interval history: 44-year-old female patient in for I&D of left lower extremity wound. She was in the process of being discharged today when suddenly she became short of breath and very anxious she was taken for a chest x-ray and chest CT with PE protocol. Chest CTA revealed: 1. No evidence of pulmonary embolus. Small emboli may not be visualized secondary to the diffuse consolidation and motion artifact. 2. Diffuse bilateral pneumonia in both upper and lower lobes most severe in the right lower lobe. There are trace bilateral effusions. Exam Vital signs and Labs for Last 24 Hours: Temp Pulse Resp BP Pulse Ox 97.9 F 98 H 16 122/79 95 08/20/20 08:00 08/20/20 08:00 08/20/20 08:00 08/20/20 08:00 08/20/20 08:00 Laboratory Results - last 24 hr 08/16/20 07:19: Chlamy pneumoniae PCR Not detected, Adenovirus (PCR) Not detected, B. pertussis DNA (PCR) Not detected, Coronavirus OC43 (PCR) Not detected, Coronavirus HKU1 (PCR) Not detected, Coronavirus 229E (PCR) Not detected, SARS-CoV-2 (PCR) Not detected, Coronavirus NL63 (PCR) Not detected, Human Metapneumovir PCR Not detected, Influenza A (H1) PCR Not detected, Influ A (H1N1/09) PCR Not detected, Influenza A (H3) PCR Not detected, Influenza Type A (PCR) Not detected, Influenza Type B (PCR) Not detected, M. pneumoniae (PCR) Not detected, Parainfluenza 1 (PCR) Not detected, Parainfluenza 2 (PCR) Not detected, Parainfluenza 3 (PCR) Not detected, Parainfluenza 4 (PCR) Not detected, RSV (PCR) Not detected, Entero/Rhino (PCR) Detected A 08/20/20 06:10: WBC 5.5, RBC 3.08 L, Hgb 10.2 L, Hct 30.3 L, MCV 98.3, MCH 33.1 H, MCHC 33.7, RDW 14.3, Plt Count 435 H, MPV 7.4, Neut % (Auto) 55.5, Lymph % (Auto) 28.6, [place] % (Auto) 8.1, Eos % (Auto) 7.2, Baso % (Auto) 0.6, Neut # (Auto) 3.0, Lymph # (Auto) 1.6, [place] # (Auto) 0.4, Eos # (Auto) 0.4, Baso # (Auto) 0.0 08/20/20 06:10: Sodium 134 L, Potassium 4.0, Chloride 100, Carbon Dioxide 28, Anion Gap 10.0, BUN 5 L, Creatinine 0.50 L, Estimated Creat Clear 123, Estimated GFR 133, Est GFR ( Amer) 161, Glucose 96, Calcium 9.1 08/20/20 10:10: Vancomycin Trough 6.2 I & O for Last 24 hours: Intake & Output 08/17/20 08/18/20 08/19/20 08/20/20 23:59 23:59 23:59 23:59 Intake Total 3629 / 3629 5403 / 5403 2863 / 2863 2061 / 206 Output Total 250 / 250 4900 / 4900 4250 / 4250 2500 / 2500 Balance 3379 / 3379 503 / 503 -1387 / -1387 -438 / -438 Weight 120 lb 5 oz 123 lb 7.342 oz 121 lb 5 oz 122 lb 8 oz Microbiology Reports for the Last 24 Hours: Microbiology 08/20/20 10:21 Nasopharyngeal Coronavirus COVID-19 PCR - Final - Constitutional no acute distress - *Routine HEENT Exam Head: Present: normocephalic Eye: Present: EOMI ENT: Present: mucous membranes moist - *Routine Neck Exam Present: trachea midline. Absent: tracheal deviation - *Routine Respiratory Exam Present: CTA bilaterally. Absent: accessory muscle use - *Routine Cardiovascular Exam Present: RRR. Absent: bradycardia - *Routine Abdominal Exam Present: soft, normoactive bowel sounds. Absent: tenderness, firm - *Routine Extremities Exam Present: pulses intact, normal capillary refill, amputation. Absent: cyanosis, calf tenderness Comments: Anthony BKA - *Routine Skin Exam Present: dry, warm, wounds. Absent: cyanosis, erythema Comments: L BKA w/ drsg C/D/I - *Routine Neurological Exam Present: alert, oriented X3. Absent: altered mental status - Routine Psychiatric Exam Present: normal affect, normal thought process, cooperative. Absent: auditory hallucinations Assessment and Plan (1) Essential (primary) hypertension Status: Chronic Category: Medical Code(s): I10 - Essential (primary) hypertension (2) Tachycardia Status: Acute Category: Medical Code(s): R00.0 - Tachycardia, unspecified (3) Abscess after procedure Status: Acute Category: Medical Code(s)
--- NOTE | 2020-08-20 16:34 | HMH.PULMCON ---
*Admission Date: 08/16/20 *History of present illness: Ms. brink is a 44-year-old female significant smoking history, last smoked a month ago using inhalers at baseline, not on any long-term oxygen therapy was initially had a left lower extremity BKA on 07/09/2020 and presented to the ED on this admission complaining of worsening stump edema swelling and redness and patient was sent to the wash and wound cultures at that time grew MRSA patient hospital course has been relatively uncomplicated with respect to her respiratory status however this afternoon patient had an anxiety episode status patient became acutely hypoxic needing Ventimask to maintain her oxygen saturations And pulmonary was called for further management. Patient denies any chest pain, appears comfortable. Denies any abdominal pain / lower extremity pain. 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 No: Pacemaker Amputation: Yes Fractures: Yes (RIGHT ARM) - *Social History Last grade of school completed: High school graduate Smoking Status: Former smoker Tobacco Type: cigarettes # Packs/Day (cigarettes): 1 #Yrs smoked (if former smoker): 20 Alcohol Intake: never Substance Use Type: former substance user, IV drugs *Occupational Status:: disabled Housing: [facility] Household Members: other *Travel in the last 8 weeks: None - Psychiatric History Pschychiatric History:: Reports:: Anxiety, Depression Family Hx:: Heart Attack ROS - Review of Systems Review of systems:: pertinent systems reviewed and negative unless documented below - Card Reports shortness of breath, Denies chest pain, Denies chest pain at rest - Resp Respiratory: Yes shortness of breath, Yes chest congestion, Yes dyspnea, Yes dyspnea on exertion - GI Gastrointestingal: Reports: system reviewed and no additional complaints, except as docu Meds Home Medications Medication Instructions Recorded Confirmed Type cyclobenzaprine 10 mg tablet 10 mg PO HS tab 02/02/19 08/17/20 History loperamide 2 mg capsule 2 mg PO BIDP PRN cap 02/02/19 08/16/20 History Fluticasone/Vilanterol [Breo 1 inh IH DAILY 08/22/19 08/17/20 History Ellipta 100-25 Mcg INH] Metoprolol Tartrate [Lopressor 25 mg PO BID 08/22/19 08/16/20 History 25mg tablet] aripiprazole 15 mg tablet 15 mg PO DAILY tab 09/17/19 08/17/20 History ondansetron HCL [Zofran 4mg Tab*] 1 tab PO Q6HP PRN 12/06/19 08/16/20 History polyethylene glycoL 3350 [Miralax 17 gm PO DAILY 12/06/19 08/16/20 History 17gm Packet] Loratadine [Allerclear] 10 mg PO DAILYP PRN 07/09/20 08/16/20 History oxycodone-acetaminophen 5 mg-325 1 tab PO Q4-6H PRN #30 tab 07/15/20 08/16/20 Rx mg tablet gabapentin 600 mg tablet 600 mg PO QID #120 tab 07/18/20 08/17/20 Rx quetiapine 25 mg tablet 25 mg PO DAILY 07/28/20 08/17/20 History Acetaminophen [Tylenol 500mg 500 mg PO BID PRN 08/16/20 08/17/20 History tablet] Aspirin [Aspirin 325mg Tab] 325 mg PO DAILY 08/16/20 08/17/20 History Acetaminophen [Tactinal] 500 mg PO QID 08/17/20 08/17/20 History OXcarbazepine [Trileptal] 300 mg PO BID 08/17/20 08/17/20 History Sertraline HCl [Zoloft] 150 mg PO DAILY 08/17/20 08/17/20 History diphenhydrAMINE HCl 25 mg PO TID 08/17/20 08/17/20 History [Diphenhydramine HCl] guaiFENesin [Guaifenesin] 200 mg PO Q6HP PRN 08/17/20 08/17/20 History Allergies Allergy/AdvReac Type Severity Reaction Status Date / Time Penicillins Allergy Mild Unknown Verified 07/28/20 13:25 allergy reaction codeine AdvReac Mild vomiting Veri
[2020-08-20 16:52] LABS: ABG HCO3 22.1 mmhg (22.0-26.0); ABG Oxygen Saturation 89 % (90-100); ABG PCO2 38.3 mmhg (35.0-45.0); ABG PH 7.38 mmol/L (7.35-7.45); ABG PO2 59.1 mmhg (80-100); ABG TCO2 23.3 mmhg (23-27)
[2020-08-20 16:55] LABS: Source Right Radial
[2020-08-20 17:20] LABS: Basophils % 0.3 % (0.1-2.0); Chloride 99 mmol/L (98-107); Eosinophils # 0.1 K/mm3 (0.0-0.4); Eosinophils % 1.1 % (0.1-12.0); Hemoglobin 11.1 g/dL (12.2-16.2); Lymphocytes # 0.6 K/mm3 (0.7-4.5); Lymphocytes % 5.9 % (10-50); Mean Corpuscular HGB Conc 31.7 g/dL (31.8-35.4); Mean Corpuscular Hemoglobin 32.3 pg (27.0-31.2); Monocytes # 0.4 K/mm3 (0.1-1.0); Monocytes % 4.1 % (1.7-9.3); Neutrophils # 8.3 K/mm3 (1.8-7.8); Neutrophils % 88.5 % (37.0-80.0); Platelet Count 471 K/mm3 (142-424); Potassium 3.9 mmoL/L (3.5-5.1); Red Blood Count 3.44 M/mm3 (4.20-5.40); Red Cell Distribution Width 14.3 % (11.5-17.5); Sodium 132 mmol/L (136-145); White Blood Count 9.4 K/mm3 (4.8-10.8)
[2020-08-20 17:22] LABS: Blood Urea Nitrogen 7 mg/dl (7-17); Creatinine Clearance Estimated 123 mL/min (50-200); Estimated Glomerular Filt Rate 133 ml/min (>60); GFR (African American) 161 ML/MIN (>60)
[2020-08-20 17:23] LABS: Anion Gap 10.9 mEq/L (5-15); Calcium 8.7 mg/dl (8.4-10.2); Carbon Dioxide 26 mmol/L (22.0-30.0); Glucose 135 mg/dl (74-100); Lactic Acid 1.6 mmol/L (0.7-2.1); Magnesium 1.6 mg/dl (1.6-2.3)
[2020-08-20 17:25] LABS: MANUAL DIFFERENTIAL MANUAL DIFFERENTIAL (MANUAL DIFF)
[2020-08-20 17:50] LABS: Lymphocytes % 12 % (10-50); Monocytes % 5 % (2-9); Neutrophils % 83 % (42-76); Platelet Estimate Slight Increase; RBC Morphology Normal; Total Cells Counted 100
[2020-08-20 17:51] LABS: Macrocytosis 1+
--- NOTE | 2020-08-20 18:13 | PC.NURSE ---
Pt has been pleasant and cooperative for the majority of the shift. A&O X4. Pt has had frequent complaints of pain and has been medicated with Percocet and Morphine per MAR with favorable results. Pt had an episode of severe SOA around noon today and had to be placed on a non-rebreather for an O2 sat. of 74%. Contacted Vlad Trevizo APRN and received orders for a CXR, CTA, and a one time dose of IV Ativan. O2 saturation improved slightly with non-rebreather, but still maintained mid-80's. Dr. Moser was consulted and received orders for a one time dose of IV lasix, BiPap application, sputum specimen, and an echo. Pt is currently wearing Bipap with continuous pulse oximetry noted to be >90%. Sputum specimen cup at bedside and pt has been instructed to provide a sample. Lung sounds reveal expiratory rhonchi and scattered wheezing. No edema noted. LT stump surgical dressing changed per Dr. Alvarado C/D/I. Pt ambulates/transfers with a walker and assistance X1. Pt has been incontinent of bladder this shift. No BM today. Appetite is good and pt eats majority of all meals. PICC line in place to RT upper arm. HR and RR have been elevated, other VSS. Call light within reach. Will continue to monitor.
[2020-08-21 02:55] VITALS: O2SAT 100
[2020-08-21 04:00] VITALS: BP 110/77; PULSE 97; RESP 20; TEMP 36.4; O2SAT 90
[2020-08-21 04:42] VITALS: BMI 24.0
[2020-08-21 04:47] VITALS: O2SAT 94
--- NOTE | 2020-08-21 04:50 | PC.NURSE ---
at beginning of shift, pt was on a venti mask, pt sats 96-100% on venti, RT placed patient on 3L NC, pt weaned down to room air with O2 sats 90-100%, pt has had no complaints of SOA or chest pain during this shift, lungs CTA, does not appear anxious and has rested well t/o shift
[2020-08-21 05:31] VITALS: O2SAT 95
[2020-08-21 06:46] LABS: Basophils % 0.1 % (0.1-2.0); Eosinophils % 0.3 % (0.1-12.0); Hematocrit 31.3 % (37.0-47.0); Hemoglobin 10.2 g/dL (12.2-16.2); Mean Corpuscular HGB Conc 32.5 g/dL (31.8-35.4); Mean Corpuscular Hemoglobin 32.1 pg (27.0-31.2); Monocytes # 0.4 K/mm3 (0.1-1.0); Monocytes % 4.3 % (1.7-9.3); Neutrophils # 8.2 K/mm3 (1.8-7.8); Neutrophils % 85.3 % (37.0-80.0); Platelet Count 496 K/mm3 (142-424); Red Blood Count 3.16 M/mm3 (4.20-5.40); Red Cell Distribution Width 14.2 % (11.5-17.5); White Blood Count 9.6 K/mm3 (4.8-10.8)
[2020-08-21 06:50] LABS: Chloride 98 mmol/L (98-107); Sodium 133 mmol/L (136-145)
[2020-08-21 06:53] LABS: Blood Urea Nitrogen 12 mg/dl (7-17); Creatinine Clearance Estimated 123 mL/min (50-200); Estimated Glomerular Filt Rate 133 ml/min (>60); GFR (African American) 161 ML/MIN (>60)
[2020-08-21 06:54] LABS: Calcium 9.2 mg/dl (8.4-10.2); Carbon Dioxide 27 mmol/L (22.0-30.0); Glucose 130 mg/dl (74-100)
[2020-08-21 06:55] VITALS: PULSE 106; PULSE 107; O2SAT 98
[2020-08-21 06:55] LABS: MANUAL DIFFERENTIAL MANUAL DIFFERENTIAL (MANUAL DIFF)
--- NOTE | 2020-08-21 07:43 | XR_ITS ---
PROCEDURE: XR CHEST PORTABLE CLINICAL HISTORY: PNM COMPARISON: CR XR CHEST 2V from 04/03/2020 CR XR CHEST PORTABLE PICC PLAC from 08/18/[address] ANGIO CHEST from 08/20/2020 CR XR CHEST PORTABLE from 08/20/2020 FINDINGS: The cardiomediastinal silhouette and pulmonary vascularity are within normal limits. Previously noted diffuse bilateral airspace disease has improved with some residual pneumonia in the right upper lobe and right infrahilar region. PICC line is present from the right upper extremity with the tip in the region the SVC. Small bilateral effusions no longer apparent. No acute bony abnormalities. IMPRESSION: Marked improvement in bilateral airspace disease with some residual pneumonia in the right upper lobe and right infrahilar region Dictated by: Pranay Patricio MD 08/21/2020 09:50 Pranay Patricio MD in [place] 08/21/2020 09:50
[2020-08-21 08:00] VITALS: BP 119/67; PULSE 116; RESP 20; TEMP 36.8; O2SAT 88
[2020-08-21 08:37] LABS: Lymphocytes % 24 % (10-50); Monocytes % 3 % (2-9); Neutrophils % 73 % (42-76); Platelet Estimate Normal; RBC Morphology Normal; Total Cells Counted 100
--- NOTE | 2020-08-21 08:48 | HMH.DCSUM ---
General - General Admission date:: 08/16/20 Discharge date: 08/21/20 HPI HPI: The patient is a 44 year old female s/p BKA after LLE gangrene who presents to the ED with concern for post operative infection. Patient states since yesterday her LLE stump has been red, hard, and swollen. She denies fever but notes increased pain. She has not had issues with her incision since the surgery. She is not on antibiotics. No other complaints. The patient is a 44 year old female s/p BKA who presents with LLE swelling, redness, warmth and increased pain at the site of her amputation. She is awake and alert. Hemodynamically stable. She has a mild cellulitis on visual exam at the site of her LLE amputation but on POC US I am concerned for abscess. Labs including CBC, BMP, CRP, ESR were ordered as well as blood cultures. She was given PO [place] [address] LLE was ordered to evaluate for abscess. CT scan showed 4.9x 3 x 2.3 cm rim enhancing fluid collection concerning for abscess with surrounding cellulitis. Also some concern for osteomyelitis of the tibial stump. CRP was 64, ESR mildly elevated at 32. Orthopedics astronomy professor was consulted who recommended admission for antibiotics and ortho evaluation inpatient. She was given 1g vancomycin IV. Dr. Centeno agreed to admit the patient for Dr. Sandhu. Patient in agreement with plan. Above is from ER documentation. Elevated heart rate was noted. EKG this afternoon shows sinus tachycardia. She was given a fluid bolus, and her low-dose beta-hien was uptitrated. Clinically she does not appear to be septic. I spoke with Dr. Cao this afternoon, he plans on taking her to the operating room for a cleanout. Patient is apprehensive about going to the OR today, but she does feel she will be ready in the morning. He relays no chest pain, no dyspnea, she has underlying psychiatric issues but answers questions appropriately. She was given 1 dose of vancomycin in the emergency room, spoke with pharmacy, we will be continuing this. Blood cultures were taken. Patient has no history of diabetes. Hospital Course Hospital Course: The patient is a 44 year old female s/p BKA who presents with LLE swelling, redness, warmth and increased pain at the site of her amputation. She is awake and alert. Hemodynamically stable. She has a mild cellulitis on visual exam at the site of her LLE amputation but on POC US I am concerned for abscess. Labs including CBC, BMP, CRP, ESR were ordered as well as blood cultures. She was given PO [place] [address] LLE was ordered to evaluate for abscess. CT scan showed 4.9x 3 x 2.3 cm rim enhancing fluid collection concerning for abscess with surrounding cellulitis. Also some concern for osteomyelitis of the tibial stump. CRP was 64, ESR mildly elevated at 32. Orthopedics astronomy professor was consulted who recommended admission for antibiotics and ortho evaluation inpatient. She was given 1g vancomycin IV. Dr. Centeno agreed to admit the patient for Dr. Sandhu. Patient in agreement with plan. Above is from ER documentation. Elevated heart rate was noted. EKG this afternoon shows sinus tachycardia. She was given a fluid bolus, and her low-dose beta-hien was uptitrated. Clinically she does not appear to be septic. After discussion w/ Dr. Cao this afternoon, he plans on taking her to the operating room for a cleanout. Patient is apprehensive about going to the OR today, but she does feel she will be ready in the morning. He relays no chest pain, no dyspnea, she has underlying psychiatric issues but answers questions appropriately. She was given 1 dose of vancomycin in the emergency room, spoke with pharmacy, we will be continuing this. Blood cultures were taken. Patient has no history of diabetes (Per Dr. Gray). 08/16/[address]: FINDINGS: There is a well-defined postsurgical stump of the proximal tibia and proximal fibula. However just inferior to the tibial stump is a rim enhancing f
--- NOTE | 2020-08-21 09:30 | SW/DCPLANNER ---
This patient will discharge back to [facility] today. Patient information along with NEGATIVE COVID swab from yesterday has been faxed to Rosario at [facility]. Rosario is aware that patient has a PICC line and will require IV: VANC, Meropenem and Levaquin. Rosario is fine with this plan and patient will be SNF level of care. Patient will discharge today.
--- NOTE | 2020-08-21 09:40 | HMH.SLDYSPHA ---
Speech & Language Evaluation Speech/Language Dysphagia Evaluation Start: 08/21/20 09:35 Freq: ONCE Status: Active Protocol: Document 08/21/20 09:35 SHANTHI (Rec: 08/21/20 09:40 SHANTHI [id number]) Dysphagia Assess/Goals/Plan Assessment Date of Evaluation: 08/21/20 Evaluation Type Initial Certification Assessment/Problems Dysphagia Does Patient Qualify for Service No Qualify/Failure Comment Patient diet modified due to lack of dentition. Therapy not warranted. Recommendations PHYSICIAN CERTIFICATION: The specified therapy services are required, authorized, and reviewed every 30 days. Diet Recommendations Mechanical Soft Liquid Type Recommendations Normal/Thin Plan Pt/Guardian verbally ack understanding Yes: PA notified of dx/prognosis/goals G -code Required No Speech & Language HPI Language Primary Language Japanese General Information General Current Food Consistancy Regular,Thin Liquids Dentition Edentulous Oxygen Status Nasal Cannula Facial Symmetry Symmetrical Patient Orientation Person,Place,Time,Situation Ability to Follow Directions Excellent Communication Ability No Impairment Dysphagia:Food Presentation Evaluation Food Type Mechanical Soft,Liquid,Pudding Dysphagia Evaluation Summary Patient was given the following consistencies: thins via straw and open cup, pudding, and mechanical soft. No signs of dysphagia noted. At this time, it is recommended she be placed on mechanical soft with thin liquids via straw due to lack of dentition. Speech therapy is not warranted. Stroke Dysphagia Assessment PHYSICIAN CERTIFICATION: I certify the specified therapy services for Dorcas Hernández are required, authorized, and reviewed every 30 days.
[2020-08-21 09:59] LABS: Adenovirus,PCR Not Detected (NotDetected); Bordetella Pertussis Not Detected (NotDetected); Chlamydophila Pneumoniae, PCR Not Detected (NotDetected); Coronavirus 229E Not Detected (NotDetected); Coronavirus NL63 Not Detected (NotDetected); Coronavirus OC43 Not Detected (NotDetected); Coronovirus HKU1,PCR Not Detected (NotDetected); Human Metapneumovirus Not Detected (NotDetected); Influenza A, PCR Not Detected (NotDetected); Influenza AH1, 2009 Not Detected (NotDetected); Influenza AH1, PCR Not Detected (NotDetected); Influenza AH3,PCR Not Detected (NotDetected); Influenza B, PCR Not Detected (NotDetected); Mycoplasma Pneumoniae, PCR Not Detected (NotDetected); Parainfluenza 1, PCR Not Detected (NotDetected); Parainfluenza 2, PCR Not Detected (NotDetected); Parainfluenza 3, PCR Not Detected (NotDetected); Parainfluenza 4, PCR Not Detected (NotDetected); Respiratory Syncytial Virus Not Detected (NotDetected)
[2020-08-21 11:07] LABS: Rhinovirus/Enterovirus Detected (NotDetected)
--- NOTE | 2020-08-21 12:15 | PC.NURSE ---
THIS RN PHONED [facility] AND PROVIDED REPORT TO BELKYS BAEZ. PER BELKYS FACILITY HAS TO HAVE PRINTED SCRIPTS FOR ATIVAN AND NORCO. THIS RN PHONED JACK POLLACK IN CARE MANAGEMENT, PER JACK, DR. HERNANDEZ IS AWARE AND HE WILL TAKE CARE OF IT. THIS RN PHONED DR. HERNANDEZ OFFICE, SPOKE WITH ANA. PER ANA, DR. HERNANDEZ WILL TAKE CARE OF PRESCRIPTIONS, THAT THEY MAY BE ELECTRONICALLY SENT. NO OTHER CONCERNS AT DISCHARGE.
--- NOTE | 2020-08-21 14:10 | HMH.PULMPN ---
Internal Medicine - PN: Subj *Date: 08/21/20 *Time: 14:17 Interval history: No acute respiratory events overnight, patient respiratory status significantly improved, this morning on room air saturating 90% and above Exam - Constitutional Constitutional:: no acute distress, comfortable - HENMT Exam HENMT: normocephalic, atraumatic - Eye Exam Eyes:: normal appearance both eyes and related structures - Neck Exam Neck:: normal visual inspection, thyroid normal, no lymphadenopathy - Respiratory Exam Respiratory:: able to speak in complete sentences, normal respiratory effort Comments: Bilateral coarse breath sounds - Cardiovascular Exam Cardiac:: regular rhythm, S1, S2 - GI Exam GI:: soft, no hepatosplenomegaly - Skin Exam Skin: warm, no rash, dry - Neurological Exam Neurological: alert, awake - Extremities Exam Extremities: no cyanosis, no clubbing, no edema, amputation Assessment and Plan (1) Essential (primary) hypertension Status: Chronic Category: Medical Code(s): I10 - Essential (primary) hypertension (2) Tachycardia Status: Acute Category: Medical Code(s): R00.0 - Tachycardia, unspecified (3) Abscess after procedure Status: Acute Category: Medical Code(s): T81.49XA - Infection following a procedure, other surgical site, initial encounter (4) Bipolar 1 disorder Status: Chronic Category: Medical Code(s): F31.9 - Bipolar disorder, unspecified (5) Cellulitis Status: Acute Qualifiers: Site of cellulitis: extremity Site of cellulitis of extremity: toe Laterality: left Qualified Code(s): L03.032 - Cellulitis of left toe Category: Medical Code(s): L03.90 - Cellulitis, unspecified (6) Peripheral vascular disease Status: Chronic Category: Medical Code(s): I73.9 - Peripheral vascular disease, unspecified (7) Anxiety Status: Chronic Category: Medical Code(s): F41.9 - Anxiety disorder, unspecified (8) Hyponatremia Status: Acute Category: Medical Code(s): E87.1 - Hypo-osmolality and hyponatremia (9) Condition involving rhinovirus Status: Acute Category: Medical Code(s): B34.8 - Other viral infections of unspecified site (10) COVID-19 virus IgG antibody detected Status: Acute Category: Medical Code(s): Z01.84 - Encounter for antibody response examination (11) COVID-19 virus IgM antibody detected Status: Acute Category: Medical Code(s): Z01.84 - Encounter for antibody response examination (12) COVID-19 virus IgM antibody detected Status: Acute Category: Medical Code(s): Z01.84 - Encounter for antibody response examination (13) COVID-19 virus IgG antibody detected Status: Acute Category: Medical Code(s): Z01.84 - Encounter for antibody response examination (14) Osteomyelitis Status: Acute Category: Medical Code(s): M86.9 - Osteomyelitis, unspecified (15) HCAP (healthcare-associated pneumonia) Status: Acute Category: Medical Code(s): J18.9 - Pneumonia, unspecified organism - Assessment and plan all Dx Assessment and Plan for all problems:: #Acute hypoxic respiratory failure: #History of COPD: 44-year-old recent left lower extremity below-knee amputation status post infection presented for washout with wound cultures positive for MRSA on 08/17/2020 recent echo from July showed diastolic dysfunction EF of 50% with mild MR and TR had an acute episode of worsening hypoxic respiratory failure and pulmonary was called for further management. Patient had a CT form that showed bilateral diffuse airspace disease without any evidence of pulmonary embolism. Patient's prior chest x-ray from 2 months ago is completely normal -the CT from yesterday showed diffuse bilateral airspace disease can be a result of her recent adenovirus infection with accelerated fibrosis or superimposed bacterial infection. Initial requiring Ventimask, escalated to BiPAP to maintain her saturation 90% and never however sign
--- NOTE | 2020-08-21 16:38 | CA_ITS ---
APPROVED REPORT EXAM: Comprehensive 2D, Doppler, and color-flow Echocardiogram [facility]: Felicia Benz RT(R) Ht: 5 ft 0 in Wt: 122lbs BSA: 1.51 BP: 132/85 mmHg Indications: ex smoker, HTN, hyperlipidemia, Post op abcess BKA, mod MR, MRSA, PAD, echo 07/08/20 55% EF, mild AI, bipolar, anxiety 2D Dimensions LVOT 1.82 cm (M/F) 1.5-2.5 M-Mode Dimensions RVDd 2.07 cm (0.9-2.6) LA Diam 2.86 cm (1.9-4.0) LVDd 4.40 cm (3.5-5.7) Ao Diam 2.36 cm (2.0-3.7) LVDs 3.53 cm (3.5-5.7) IVSd 0.87 cm (0.6-1.1) PWd 0.79 cm (0.6-1.1) EF (Teich) 40.80% FS 19.80% EDV (Teich) 87.70 mL ESV (Teich) 51.90 mL Left Ventricle Left atrium is mildly enlarged, left ventricle is normal size, mild concentric left ventricular hypertrophy, visually estimated ejection fraction 55% with no regional wall motion abnormality, diastolic parameters are inconclusive in the study. Right Ventricle Right atrium and right ventricle are normal size and contractility. Aortic Valve Aortic valve is minimally thickened and fibrosed, there is no aortic stenosis, there is mild aortic insufficiency. Mitral Valve Mitral valve is grossly normal, there is mild mitral regurgitation. Tricuspid Valve Tricuspid valve is grossly normal, there is mild tricuspid regurgitation, tricuspid regurgitation jet velocity is inadequate for calculation of the right ventricular systolic pressure. Pulmonic Valve Pulmonic valve is poorly visualized. Great Vessels Aortic root is normal size. Pericardium No significant pericardial effusion noted. Conclusion 1. Mildly enlarged left atrium, normal left ventricular size, mild concentric left ventricular hypertrophy, visually estimated ejection fraction 55% with no regional wall motion abnormality, diastolic parameters are inconclusive. 2. Mild aortic, mild mitral and tricuspid regurgitation. 3. No significant pericardial effusion noted. Electronically signed by : Sandeep Booth, 08/21/2020 13:25:07
--- NOTE | 2020-08-22 14:03 | P.PN_ITS ---
[facility] Anesthesia Record Part II Discharge Time: 11:00 Destination: floor PACU nurse assessment reviewed?: Yes Patient Condition:: Good Anesthesia Complications:: None Swallowing reflex intact?: Yes Cyanosis?: No Blood Pressure: 93/64 Pulse Rate: 78 Temperature: 97.7 F Mental Status: Alert & Oriented Pain level:: 5 Nausea and/or vomitting:: None Intake, IV Amount: 800
[2020-08-22 14:04] VITALS: BP 93/64; PULSE 78; TEMP 36.5
== END 2020-08-21 12:13 | DRG 920 ==
LOC: ER 06:14 → 2ND 06:36
PROVIDERS: Emergency Medicine; Family Medicine; Internal Medicine Pulmonary Disease; Nurse Practitioner Family; Orthopaedic Surgery; Admitting Provider Internal Medicine Adolescent Medicine; Emergency Provider Emergency Medicine; PCP Emergency Medicine; Visit Provider Emergency Medicine
PROC: 0Y9J0ZX Drainage of Left Lower Leg, Open Approach, Diagnostic (ICD-10-PCS; principal; 2020-08-17 09:00)
DX: T87.44 Infection of amputation stump, left lower extremity; L03.116 Cellulitis of left lower limb; E87.1 Hypo-osmolality and hyponatremia; B95.62 Methicillin resistant Staphylococcus aureus infection as the cause of diseases classified elsewhere; I10 Essential (primary) hypertension; Z86.19 Personal history of other infectious and parasitic diseases; Z72.0 Tobacco use; E78.5 Hyperlipidemia, unspecified; T81.31XA Disruption of external operation (surgical) wound, not elsewhere classified, initial encounter; F95.2 Tourette's disorder; F31.9 Bipolar disorder, unspecified; Z88.0 Allergy status to penicillin; Z88.5 Allergy status to narcotic agent
CPT/HCPCS: 10180; 36415; 36569; 71045; 71275; 73701; 80048; 80053; 80202; 82803; 83605; 83735; 84100; 85007; 85025; 85651; 86140; 86328; 87040; 87070; 87075; 87077; 87186; 87205; 87486; 87581; 87633; 87798; 92610; 93005; 93306; 94640; 94660; 94761; 96365; 99284; C1751; J1956; J2185; J2405; J3370; Q9967; U0003

== ENCOUNTER → 2020-08-23 02:15 | Outpatient (REF) | payer MEDICARE, SELFPAY ==
[2020-08-23 03:08] LABS: Anion Gap 9.2 mEq/L (5-15); Blood Urea Nitrogen 9 mg/dl (7-17); Calcium 8.8 mg/dl (8.4-10.2); Carbon Dioxide 29 mmol/L (22.0-30.0); Chloride 100 mmol/L (98-107); Estimated Glomerular Filt Rate 133 ml/min (>60); GFR (African American) 161 ML/MIN (>60); Glucose 94 mg/dl (74-100); Potassium 4.2 mmoL/L (3.5-5.1); Sodium 134 mmol/L (136-145)
== END ==
LOC: LAB.DROPOF 02:15
PROVIDERS: Visit Provider Emergency Medicine
DX: T81.49XA Infection following a procedure, other surgical site, initial encounter (principal)
CPT/HCPCS: 80048; 80202

== ENCOUNTER → 2020-08-25 13:37 | Outpatient (CLI) | payer MEDICARE, MEDICAID, SELFPAY ==
[2020-08-25 14:37] LABS: Basophils % 0.6 % (0.1-2.0); Eosinophils # 0.6 K/mm3 (0.0-0.4); Eosinophils % 9.2 % (0.1-12.0); Hematocrit 32.7 % (37.0-47.0); Hemoglobin 10.4 g/dL (12.2-16.2); Lymphocytes # 1.5 K/mm3 (0.7-4.5); Lymphocytes % 24.4 % (10-50); Mean Corpuscular Hemoglobin 31.6 pg (27.0-31.2); Mean Corpuscular Volume 98.8 fl (81-99); Mean Platelet Volume 8.1 fl (7.4-10.4); Monocytes # 0.5 K/mm3 (0.1-1.0); Monocytes % 7.5 % (1.7-9.3); Neutrophils # 3.5 K/mm3 (1.8-7.8); Neutrophils % 58.3 % (37.0-80.0); Platelet Count 493 K/mm3 (142-424); Red Cell Distribution Width 14.4 % (11.5-17.5); White Blood Count 6.1 K/mm3 (4.8-10.8)
[2020-08-25 14:42] LABS: Chloride 101 mmol/L (98-107); Potassium 4.2 mmoL/L (3.5-5.1); Sodium 133 mmol/L (136-145)
[2020-08-25 14:45] LABS: Blood Urea Nitrogen 8 mg/dl (7-17); Estimated Glomerular Filt Rate 133 ml/min (>60); GFR (African American) 161 ML/MIN (>60)
[2020-08-25 14:46] LABS: Anion Gap 12.2 mEq/L (5-15); Calcium 8.9 mg/dl (8.4-10.2); Carbon Dioxide 24 mmol/L (22.0-30.0); Glucose 93 mg/dl (74-100)
[2020-08-25 14:51] LABS: C-Reactive Protein 2.2 mg/L (0-4)
[2020-08-25 14:54] LABS: Vancomycin,Trough 20.1 ug/mL (5.0-10.0)
[2020-08-25 15:08] LABS: Erythrocyte Sedimentation Rate 52 mm/hr (0-20)
== END ==
PROVIDERS: PCP Emergency Medicine; Visit Provider Orthopaedic Surgery
DX: L03.032 Cellulitis of left toe (principal); Z51.81 Encounter for therapeutic drug level monitoring
CPT/HCPCS: 80048; 80202; 85025; 85651; 86140

== ENCOUNTER → 2020-08-26 09:39 | Outpatient (CLI) | payer MEDICARE, MEDICAID, SELFPAY ==
[2020-08-26 09:42] LABS: MANUAL DIFFERENTIAL MANUAL DIFFERENTIAL (MANUAL DIFF)
--- NOTE | 2020-08-26 09:55 | XR_ITS ---
PROCEDURE: XR TIBIA FIBULA LT 2V CLINICAL INDICATION: s/p L BKA Follow-up amputation COMPARISON: CR XR TIBIA FIBULA LT 2V from 07/09/2020 CR XR TIBIA FIBULA LT 2V from 07/28/2020 FINDINGS: Status post below the knee amputation. There is a small area of decreased attenuation involving the proximal tibia just proximal to the amputation site. This area measures approximately 3 mm nonspecific etiology indeterminate. Amputation site has an unremarkable appearance. IMPRESSION: Status post below the knee amputation as described above Dictated by: Pranay Patricio MD 08/26/2020 16:31 Pranay Patricio MD in [place] 08/26/2020 16:31
[2020-08-26 10:38] LABS: Basophils % 0.6 % (0.1-2.0); Eosinophils # 0.9 K/mm3 (0.0-0.4); Eosinophils % 12.8 % (0.1-12.0); Hematocrit 34.3 % (37.0-47.0); Lymphocytes # 1.3 K/mm3 (0.7-4.5); Lymphocytes % 19.7 % (10-50); Mean Corpuscular HGB Conc 32.2 g/dL (31.8-35.4); Mean Corpuscular Hemoglobin 31.3 pg (27.0-31.2); Mean Corpuscular Volume 97.4 fl (81-99); Mean Platelet Volume 7.7 fl (7.4-10.4); Monocytes # 0.5 K/mm3 (0.1-1.0); Monocytes % 7.5 % (1.7-9.3); Neutrophils # 3.9 K/mm3 (1.8-7.8); Neutrophils % 59.2 % (37.0-80.0); Platelet Count 462 K/mm3 (142-424); Red Blood Count 3.52 M/mm3 (4.20-5.40); Red Cell Distribution Width 14.5 % (11.5-17.5); White Blood Count 6.7 K/mm3 (4.8-10.8)
[2020-08-26 11:06] LABS: Eosinophils % 7 % (0-3); Lymphocytes % 23 % (10-50); Monocytes % 10 % (2-9); Neutrophils % 60 % (42-76); Platelet Estimate Slight Increase; RBC Morphology Normal; Total Cells Counted 100
[2020-08-26 12:40] LABS: C-Reactive Protein 1.3 mg/L (0-4)
[2020-08-26 13:13] LABS: Erythrocyte Sedimentation Rate 41 mm/hr (0-20)
== END ==
PROVIDERS: Visit Provider Orthopaedic Surgery
DX: L08.9 Local infection of the skin and subcutaneous tissue, unspecified (principal); T14.8XXA Other injury of unspecified body region, initial encounter; Z89.512 Acquired absence of left leg below knee
CPT/HCPCS: 36415; 73590; 85007; 85014; 85018; 85048; 85049; 85651; 86140

== ENCOUNTER → 2020-08-27 13:46 | Outpatient (CLI) | payer MEDICARE, MEDICAID, SELFPAY ==
[2020-08-27 15:36] LABS: Anion Gap 10.9 mEq/L (5-15); Blood Urea Nitrogen 8 mg/dl (7-17); Calcium 8.8 mg/dl (8.4-10.2); Carbon Dioxide 24 mmol/L (22.0-30.0); Chloride 103 mmol/L (98-107); Estimated Glomerular Filt Rate 133 ml/min (>60); GFR (African American) 161 ML/MIN (>60); Glucose 107 mg/dl (74-100); Potassium 3.9 mmoL/L (3.5-5.1); Sodium 134 mmol/L (136-145)
[2020-08-27 15:41] LABS: Vancomycin,Trough 18.5 ug/mL (5.0-10.0)
== END ==
PROVIDERS: Visit Provider Emergency Medicine
DX: T81.49XA Infection following a procedure, other surgical site, initial encounter (principal); Z51.81 Encounter for therapeutic drug level monitoring
CPT/HCPCS: 80048; 80202

== ENCOUNTER → 2020-09-01 01:56 | Outpatient (CLI) | payer MEDICARE, SELFPAY ==
[2020-09-01 02:34] LABS: Anion Gap 8.2 mEq/L (5-15); Blood Urea Nitrogen 6 mg/dl (7-17); Carbon Dioxide 24 mmol/L (22.0-30.0); Chloride 107 mmol/L (98-107); Estimated Glomerular Filt Rate 133 ml/min (>60); GFR (African American) 161 ML/MIN (>60); Glucose 92 mg/dl (74-100); Potassium 4.2 mmoL/L (3.5-5.1); Sodium 135 mmol/L (136-145)
== END ==
PROVIDERS: Visit Provider Emergency Medicine
DX: Z51.81 Encounter for therapeutic drug level monitoring (principal); Z79.2 Long term (current) use of antibiotics
CPT/HCPCS: 80048; 80202

== ENCOUNTER 2020-09-01 12:21 | Inpatient (IN) | payer MEDICARE, MEDICAID, SELFPAY ==
[2020-09-01] VITALS (13 sets, daily range): BP systolic 110–178; BP diastolic 74–124; PULSE 57–124; RESP 12–32; TEMP 36.3–36.7; O2SAT 85–100; BMI 22.6
--- NOTE | 2020-09-01 12:17 | ECG_ITS ---
APPROVED REPORT Exam: Resting ECG HR:104 bpm ECG Measurements Heart Rate 104 AXES OR 134 P 78 QRSd 70 QRS 87 QT 340 T 90 QTc 447 Conclusion Sinus tachycardia Otherwise normal ECG Electronically signed by : Jonas Blair, 09/02/2020 19:57:32
--- NOTE | 2020-09-01 12:26 | PC.NURSE ---
Radiology at bedside
--- NOTE | 2020-09-01 12:27 | XR_ITS ---
PROCEDURE: XR CHEST PORTABLE CLINICAL HISTORY: SOA COMPARISON: CR XR CHEST PORTABLE PICC PLAC from 08/18/[address] ANGIO CHEST from 08/20/2020 CR XR CHEST PORTABLE from 08/20/2020 CR XR CHEST PORTABLE from 08/21/2020 FINDINGS: There has been interval return of the diffuse patchy ill-defined pneumonic infiltrates in the right upper lobe and right lower lobe similar in appearance to 08/20/2020 study. It is difficult to explain the rather rapid clearing on 08/21/2020 with return to diffuse pneumonic infiltrate right lung and minimal left lung perihilar infiltrate on the current study. There is relative sparing of the lung apices. There is no definite pleural fluid. IMPRESSION: Prominent diffuse ill-defined pneumonic infiltrates right upper lobe and right lower lobe with minimal similar appearing patchy infiltrate left perihilar region Dictated by: Dr. Bear Yang MD 09/01/2020 13:09 Dr. Bear Yang MD in [place] 09/01/2020 13:09
[2020-09-01 12:41] LABS: VBG Base Excess -13.6 mmol/L (-2.4-2.3); VBG HCO3 15.2 mmol/L (23-30); VBG Oxygen Saturation 69.8 % (50-70); VBG PCO2 44.2 mmol/L (35-51); VBG PO2 45.8 mmol/L (28-40); VBG Total CO2 16.5 mmol/L (23-27)
[2020-09-01 12:41] LABS: Basophils # 0.1 K/mm3 (0-0.2); Basophils % 0.9 % (0.1-2.0); Eosinophils # 0.8 K/mm3 (0.0-0.4); Eosinophils % 8.5 % (0.1-12.0); Hemoglobin 12.9 g/dL (12.2-16.2); Lymphocytes # 2.7 K/mm3 (0.7-4.5); Lymphocytes % 27.9 % (10-50); Mean Corpuscular HGB Conc 30.1 g/dL (31.8-35.4); Mean Corpuscular Hemoglobin 30.1 pg (27.0-31.2); Mean Corpuscular Volume 100.2 fl (81-99); Mean Platelet Volume 8.2 fl (7.4-10.4); Monocytes # 0.5 K/mm3 (0.1-1.0); Monocytes % 5.6 % (1.7-9.3); Neutrophils # 5.6 K/mm3 (1.8-7.8); Neutrophils % 57.1 % (37.0-80.0); Platelet Count 454 K/mm3 (142-424); Red Blood Count 4.29 M/mm3 (4.20-5.40); Red Cell Distribution Width 14.7 % (11.5-17.5); White Blood Count 9.7 K/mm3 (4.8-10.8)
[2020-09-01 12:42] LABS: VBG PH 7.15 mmol/L (7.31-7.41)
--- NOTE | 2020-09-01 12:46 | PC.NURSE ---
Resp placed pt on bipap at this time
--- NOTE | 2020-09-01 12:48 | HMH.EDSOB ---
ED Disposition Clinical Impression: CHF exacerbation Qualifiers: Heart failure type: unspecified Qualified Code(s): I50.9 - Heart failure, unspecified Pneumonia Qualifiers: Pneumonia type: due to unspecified organism Laterality: right Lung location: lower lobe of lung Qualified Code(s): J18.9 - Pneumonia, unspecified organism Disposition: Admitted As Inpatient Condition on Discharge: Good - Critical Care Critical Care Time: Yes Attestation: On , the high probability of a clinically significant, sudden or life threatening deterioration of the following system(s) required my full and direct attention, intervention and personal management. The time I documented below is in addition to time spent performing reported procedures but includes the following listed in this critical care notation. Total Critical Care Time: 35 Vital system(s) involved:: Respiratory Failure My critical care processes included: Assessment & monitoring of V/S, Initial and Re-exams, Coordinating Care, Medication Orders and management Medical Decision Making - Medical Records Medical records reviewed: Yes: I reviewed the patient's medical records. - Raymond Inquiry Pt receiving controlled substance: No Vital Signs: 09/01/20 12:21 09/01/20 13:11 09/01/20 13:30 Pulse Rate [Radial] 124 H 57 L 115 H Respiratory Rate 32 H 28 H Blood Pressure [Right Arm] 160/112 H 130/107 H 123/87 Blood Pressure Mean [Right Arm] 128 114 99 Blood Pressure Source [Right Arm] Automatic Cuff Automatic Cuff Blood Pressure Position [Right Arm] Sitting Sitting Sitting 02 Sat by Pulse Oximetry 85 L 85 L 100 Oxygen Delivery Method Non-Rebreather BiPAP BiPAP Oxygen Flow Rate (LPM) 15 - Lab Data Lab Results 09/01/20 12:25: WBC 9.7, RBC 4.29, Hgb 12.9, Hct 43.0, MCV 100.2 H, MCH 30.1, MCHC 30.1 L, RDW 14.7, Plt Count 454 H, MPV 8.2, Neut % (Auto) 57.1, Lymph % (Auto) 27.9, [place] % (Auto) 5.6, Eos % (Auto) 8.5, Baso % (Auto) 0.9, Neut # (Auto) 5.6, Lymph # (Auto) 2.7, [place] # (Auto) 0.5, Eos # (Auto) 0.8 H, Baso # (Auto) 0.1 09/01/20 12:25: Sodium 134 L, Potassium 3.9, Chloride 103, Carbon Dioxide 17 L D, Anion Gap 17.9 H, BUN 5 L, Creatinine 0.60, Estimated Creat Clear 101, Estimated GFR 108, Est GFR ( Amer) 130, Glucose 266 H D, Calcium 8.5, Total Bilirubin 0.3, AST 33, ALT 28, Alkaline Phosphatase 151 H, Troponin I < 0.01, Total Protein 7.2, Albumin 3.9, Globulin 3.3 H, Albumin/Globulin Ratio 1.2 09/01/20 12:25: NT-Pro-B Natriuret Pep 2420 H 09/01/20 12:25: SARS-CoV-2 IgG Ab (Rapid) Negative, SARS-CoV-2 IgM Ab (Rapid) Negative 09/01/20 12:27: VBG pH 7.15 L, VBG pCO2 44.2, VBG pO2 45.8 H, VBG HCO3 15.2 L, VBG Total CO2 16.5 L, VBG O2 Saturation 69.8, VBG Base Excess -13.6 L Result diagrams: 09/01/20 12:25 09/01/20 12:25 Orders (Tests/Meds): ED MEDICATIONS Generic Name Dose Route Start Last Admin Trade Name Freq PRN Reason Stop Dose Admin Ceftriaxone Sodium 2 gm/ 50 mls @ 100 mls/hr 09/01/20 13:15 09/01/20 13:42 Sodium Chloride IV 09/15/20 13:14 100 mls/hr Q24H ASH Administration Protocol Discontinued Medications Generic Name Dose Route Start Last Admin Trade Name Freq PRN Reason Stop Dose Admin Furosemide 40 mg 09/01/20 13:08 09/01/20 13:42 Furosemide 40mg/4ml Vial IV 09/01/20 13:09 40 mg ONCE ONE Administration Methylprednisolone Sodium Succinate 125 mg 09/01/20 12:27 09/01/20 12:30 Methylprednisolone Sod Succ 125mg Vial IV 09/01/20 12:28 125 mg ONCE ONE Administration ORDERS Category Date Time Status Full Resp Panel w/COVID ([facility]) Routine Lab 09/01/20 12:27 Ordered Troponin I Q3H Lab 09/01/20 15:30 Ordered Troponin I Q3H Lab 09/01/20 18:30 Ordered - Radiology Data #1 Image(s): Chest Image Reviewed: Yes I have reviewed radiologist's interpretation Preliminary Findings: Abnormal (Pulmonary edema with right lower lobe pneumonia) - ECG Data Tracing #1 Sinus tachycardia with no f
[2020-09-01 12:51] LABS: Chloride 103 mmol/L (98-107); Potassium 3.9 mmoL/L (3.5-5.1); Sodium 134 mmol/L (136-145)
[2020-09-01 12:54] LABS: Alanine Aminotransferase 28 U/L (12-78); Albumin Level 3.9 g/dl (3.5-5.0); Albumin/Globulin Ratio 1.2 (1.1-1.8); Alkaline Phosphatase 151 U/L (38-126); Anion Gap 17.9 mEq/L (5-15); Aspartate Amino Transferase 33 U/L (14-36); Bilirubin,Total 0.3 mg/dl (0.2-1.3); Blood Urea Nitrogen 5 mg/dl (7-17); Carbon Dioxide 17 mmol/L (22.0-30.0); Creatinine Clearance Estimated 101 mL/min (50-200); Estimated Glomerular Filt Rate 108 ml/min (>60); GFR (African American) 130 ML/MIN (>60); Globulin 3.3 g/dL (1.3-3.2); Total Protein,Serum 7.2 g/dl (6.3-8.2)
[2020-09-01 12:55] LABS: Calcium 8.5 mg/dl (8.4-10.2); Glucose 266 mg/dl (74-100)
[2020-09-01 13:03] LABS: NT Pro Brain Natriuretic Pep. 2420 pg/mL (0-125)
[2020-09-01 13:07] LABS: Troponin I < 0.01 ng/ml (0.00-0.034)
[2020-09-01 13:11] LABS: Coronavirus 19 IgG Antibody Negative (Negative); Coronavirus 19 IgM Antibody Negative (Negative)
--- NOTE | 2020-09-01 13:52 | PC.NURSE ---
CALL TO DR SAUCEDO
--- NOTE | 2020-09-01 14:07 | PC.NURSE ---
Resp arriving at bedside
--- NOTE | 2020-09-01 14:24 | PC.NURSE ---
Notified care management of admission
--- NOTE | 2020-09-01 14:27 | PC.NURSE ---
Patient request to be taken off BiPAP. notified. Doctor Alexey request resp be called and have pt titrated off BiPAP. Resp called at this time.
--- NOTE | 2020-09-01 15:53 | PC.NURSE ---
report given to jose alfredo la
[2020-09-01 16:04] LABS: Troponin I < 0.01 ng/ml (0.00-0.034)
--- NOTE | 2020-09-01 17:46 | XR_ITS ---
PROCEDURE: XR FEMUR LT 2V CLINICAL INDICATION: evaluate for osteomyelitis COMPARISON: No exams were available for comparison FINDINGS: No fracture or dislocation. No lytic or blastic change. There is normal mineralization. There is a below-knee amputation noted the stumps of the tibia and fibula appear grossly normal. There is no abnormal periosteal reaction involving the femur or the proximal tibia and fibula. The joint spaces are well-preserved. No significant degenerative/arthritic changes. No erosive changes evident. Other findings:There is a well-defined tubular device projecting over the vulva with a 2 bleeding from the device likely for persistent bladder leakage. IMPRESSION: Post below-knee amputation, otherwise grossly negative left femur Dictated by: Dr. Bear Yang MD 09/01/2020 21:03 Dr. Bear Yang MD in [place] 09/01/2020 21:03
[2020-09-01 18:06] LABS: POC Glucose,Bedside 166 (70-110)
--- NOTE | 2020-09-01 18:10 | PC.NURSE ---
jose alfredo texted and told her of consult and she will she patient in a.m.
--- NOTE | 2020-09-01 18:15 | PC.NURSE ---
Patient arrived to unit with dressing to L stump from [facility]. Dressing was removed, wounds photographed and clean dressing was placed mimicking dressing that was removed, this occurred at 1700. Due to patient improved condition per Dr Gray, pt does not need to be in stepdown (at 1745). Pt fsbs was 166, no hx of diabetes. pt has eaten her meal. no insulin given at this time, fsbs will be reassessed at 2100. dr Alvarado was notified of consult at 1805. Dr Alvarado will see pt in the am.
--- NOTE | 2020-09-01 18:19 | PC.WOUNDNOTE ---
Wound Location: Left Knee Inflammation/swelling Y/N:N Pain and/or tenderness Y/N:N Exudate:NA
--- NOTE | 2020-09-01 18:55 | PC.WOUNDNOTE ---
Wound Location: Left Stump below the knee Length:4.5 cm Width: 2 cm Depth: 0.5cm Exudate: Serous Color: Naylor Red Consistency: Thin Amount: Scant Odor Y/N:
--- NOTE | 2020-09-01 18:58 | PC.WOUNDNOTE ---
Wound Location: R Groin Color: PINK Gaulded appearing area
--- NOTE | 2020-09-01 19:20 | PC.NURSE ---
CAlled and spoke with Jeaneth Morgan who is pt emergency guardian since pt is [facility]att of [facility]. OK to obtain photos of pt wounds, pt is a full code. verified with Shailesh Snider,
[2020-09-01 21:40] LABS: POC Glucose,Bedside 146 (70-110)
[2020-09-02] VITALS (12 sets, daily range): BP systolic 102–125; BP diastolic 78–95; PULSE 90–110; RESP 14–20; TEMP 36.5–37.6; O2SAT 92–100; BMI 24.0
--- NOTE | 2020-09-02 05:00 | XR_ITS ---
PROCEDURE: XR CHEST PORTABLE Referring Doctor: Piero Blackburn Patient Age:44Y CLINICAL HISTORY: chf Recent BKA surgery COMPARISON: CT CT ANGIO CHEST from 08/20/2020 CR XR CHEST PORTABLE from 08/20/2020 CR XR CHEST PORTABLE from 08/21/2020 CR XR CHEST PORTABLE from 09/01/2020 FINDINGS: Portable upright AP chest performed today and compared to 09/01/2020 CXR and other recent prior portable chest films . there has been marked improvement since 09/01 but the diffuse infiltrate seen at the right mid and lower lung aceves has shown marked regression with only minimal residual. Yesterday's study showed less pronounced infiltrate throughout the left lung,, most evident centrally-but this is also shown marked improvement and regression nearly returning to baseline appearance on at left chest The heart is normal size, martha and mediastinal structures appears satisfactory. Chest wall unremarkable on this view. bus monitor leads PICC line enters from right transversing right subclavian vein with tip at the SVC, at level of nico. Stable good position IMPRESSION: Marked improvement of the diffuse infiltrate and pulmonary edema since yesterday's chest film Improvement and regression of infiltrate/pulmonary edema most striking at the previously more involved right chest,, but there is also been improvement throughout the left chest Heart normal size. CP angles sharp. Dictated by: Hong Harvey MD 09/02/2020 06:49 Hong Harvey MD in [facility] 09/02/2020 06:49
[2020-09-02 05:54] LABS: POC Glucose,Bedside 108 (70-110)
--- NOTE | 2020-09-02 06:38 | PC.NURSE ---
Pt has rested well this shift. C/O discomfort at beginning of shift. Requested medication for pain and medication for anxiety. MD was notified. One time dose of Ativan 1 mg and Harvard 7.5/325 mg PO was ordered and administered. Gabapentin 600 mg PO QID was restarted. Pt has remained on 2L O2 NC with O2 sats in lower 90s. Pt has ortho consult this AM. Pictures of LBKA on chart. Pt is currently NPO. Will continue to monitor.
[2020-09-02 06:47] LABS: Basophils % 0.6 % (0.1-2.0); Eosinophils # 0.1 K/mm3 (0.0-0.4); Eosinophils % 1.6 % (0.1-12.0); Hematocrit 33.2 % (37.0-47.0); Lymphocytes # 1.5 K/mm3 (0.7-4.5); Lymphocytes % 26.8 % (10-50); Mean Corpuscular Hemoglobin 30.9 pg (27.0-31.2); Mean Corpuscular Volume 93.5 fl (81-99); Mean Platelet Volume 7.9 fl (7.4-10.4); Monocytes # 0.5 K/mm3 (0.1-1.0); Monocytes % 9.2 % (1.7-9.3); Neutrophils # 3.5 K/mm3 (1.8-7.8); Neutrophils % 61.8 % (37.0-80.0); Platelet Count 415 K/mm3 (142-424); Red Blood Count 3.55 M/mm3 (4.20-5.40); Red Cell Distribution Width 14.9 % (11.5-17.5); White Blood Count 5.6 K/mm3 (4.8-10.8)
[2020-09-02 06:56] LABS: Chloride 100 mmol/L (98-107); Potassium 3.3 mmoL/L (3.5-5.1); Sodium 134 mmol/L (136-145)
[2020-09-02 06:58] LABS: Blood Urea Nitrogen 7 mg/dl (7-17); Creatinine Clearance Estimated 123 mL/min (50-200); Estimated Glomerular Filt Rate 133 ml/min (>60); GFR (African American) 161 ML/MIN (>60)
[2020-09-02 06:59] LABS: Anion Gap 8.3 mEq/L (5-15); Calcium 8.9 mg/dl (8.4-10.2); Carbon Dioxide 29 mmol/L (22.0-30.0); Glucose 98 mg/dl (74-100); Magnesium 1.6 mg/dl (1.6-2.3)
--- NOTE | 2020-09-02 07:53 | P.CONPHA_ITS ---
[facility] Pharmacy VTE Monitoring - Patient Demographics Admission date: 09/01/20 Report Date: 09/02/20 Time: 07:53 Allergies/Adverse Reactions: Patient Allergies Penicillins Allergy (Mild, Verified 08/26/20 10:53) Unknown allergy reaction codeine [From Tylenol-Codeine #3] Adverse Reaction (Mild, Verified 08/26/20 10:53) vomiting Height: 1.52 m Weight: 55.429 kg Patient Problems: Current Active Problems CHF exacerbation (Acute) Pneumonia (Acute) - VTE Risk Labs: VTE Related Lab Results Hgb 11.0 g/dL (12.2-16.2) L D 09/02/20 05:40 Hct 33.2 % (37.0-47.0) L 09/02/20 05:40 Plt Count 415 K/mm3 (142-424) 09/02/20 05:40 BUN 7 mg/dl (7-17) D 09/02/20 05:40 Creatinine 0.50 mg/dl (0.52-1.04) L 09/02/20 05:40 Estimated Creat Clear 123 mL/min (50-200) 09/02/20 05:40 Was VTE Risk Assessment Performed: Yes VTE Score: 2 VTE Risk Level: Very Low Risk - Prophylaxis VTE Prophylaxis Ordered?: Yes Types of VTE Prophylaxis: TEDS Knee High, Pharmacological Location of Applied Device: Right Leg Pharmacologic Type: Enoxaparin
--- NOTE | 2020-09-02 08:52 | HMH.PHAINT ---
MEDICATION RECONCILIATION COMPLETED ON PATIENT USING MAR FROM [facility] AND DISCHARGE SUMMARY FROM PREVIOUS ADMISSION. -CARON CLIFTOND
--- NOTE | 2020-09-02 08:55 | HMH.PHACONS ---
- Pharmacy Consult Date: 09/02/20 Time: 08:55 Referring provider: DR. HERNANDEZ Reason for Consult:: VANCOMYCIN DOSING Allergies and ADEs:: Allergies Allergy/AdvReac Type Severity Reaction Status Date / Time Penicillins Allergy Mild Unknown Verified 08/26/20 10:53 allergy reaction codeine AdvReac Mild vomiting Verified 08/26/20 10:53 [From Tylenol-Codeine #3] Home Medications:: Home Medications Medication Instructions Recorded Confirmed Type cyclobenzaprine 10 mg tablet 10 mg PO HS tab 02/02/19 09/01/20 History loperamide 2 mg capsule 2 mg PO BIDP PRN cap 02/02/19 09/01/20 History Fluticasone/Vilanterol [Breo 1 puff IH DAILY 08/22/19 09/02/20 History Ellipta 100-25 Mcg INH] Metoprolol Tartrate [Lopressor 25 mg PO BID 08/22/19 09/01/20 History 25mg tablet] aripiprazole 15 mg tablet 15 mg PO DAILY tab 09/17/19 09/01/20 History ondansetron HCL [Zofran 4mg Tab*] 1 tab PO Q6HP PRN 12/06/19 09/01/20 History polyethylene glycoL 3350 [Miralax 17 gm PO DAILY 12/06/19 09/01/20 History 17gm Packet] Loratadine [Allerclear] 10 mg PO DAILYP PRN 07/09/20 09/01/20 History gabapentin 600 mg tablet 600 mg PO QID #120 tab 07/18/20 09/01/20 Rx quetiapine 25 mg tablet 25 mg PO DAILY 07/28/20 09/01/20 History Acetaminophen [Tylenol 500mg 500 mg PO BIDP PRN 08/16/20 09/02/20 History tablet] Aspirin [Aspirin 325mg Tab] 325 mg PO DAILY 08/16/20 09/01/20 History Acetaminophen [Tactinal] 500 mg PO QID 08/17/20 09/01/20 History OXcarbazepine [Trileptal] 300 mg PO BID 08/17/20 09/01/20 History Sertraline HCl [Zoloft] 150 mg PO DAILY 08/17/20 09/01/20 History diphenhydrAMINE HCl 25 mg PO TID 08/17/20 09/01/20 History [Diphenhydramine HCl] guaiFENesin [Guaifenesin] 200 mg PO Q6HP PRN 08/17/20 09/01/20 History hydrocodone 7.5 mg-acetaminophen 1 tab PO Q6H PRN 30 Days #120 tab 08/21/20 09/01/20 Rx 325 mg tablet Meropenem [Meropenem 1GM Vial] 1 gm IV Q8H 09/01/20 09/01/20 History Vancomycin HCl [Vancomycin 1000mg 1,000 mg IV Q12H 09/01/20 09/01/20 History Adv] levoFLOXacin [Levofloxacin 750MG 750 mg PO DAILY 09/01/20 09/01/20 History Tablet*] LORazepam [Lorazepam] 1 mg PO Q6HP PRN 09/02/20 09/02/20 History Height: 1.52 m Weight: 55.429 kg Laboratory Results:: Laboratory Results - last 24 hr 09/01/20 12:25: WBC 9.7, RBC 4.29, Hgb 12.9, Hct 43.0, MCV 100.2 H, MCH 30.1, MCHC 30.1 L, RDW 14.7, Plt Count 454 H, MPV 8.2, Neut % (Auto) 57.1, Lymph % (Auto) 27.9, [place] % (Auto) 5.6, Eos % (Auto) 8.5, Baso % (Auto) 0.9, Neut # (Auto) 5.6, Lymph # (Auto) 2.7, [place] # (Auto) 0.5, Eos # (Auto) 0.8 H, Baso # (Auto) 0.1 09/01/20 12:25: Sodium 134 L, Potassium 3.9, Chloride 103, Carbon Dioxide 17 L D, Anion Gap 17.9 H, BUN 5 L, Creatinine 0.60, Estimated Creat Clear 101, Estimated GFR 108, Est GFR ( Amer) 130, Glucose 266 H D, Calcium 8.5, Total Bilirubin 0.3, AST 33, ALT 28, Alkaline Phosphatase 151 H, Troponin I < 0.01, Total Protein 7.2, Albumin 3.9, Globulin 3.3 H, Albumin/Globulin Ratio 1.2 09/01/20 12:25: NT-Pro-B Natriuret Pep 2420 H 12/28/20 12:25: SARS-CoV-2 IgG Ab (Rapid) Negative, SARS-CoV-2 IgM Ab (Rapid) Negative 09/01/20 12:27: VBG pH 7.15 L, VBG pCO2 44.2, VBG pO2 45.8 H, VBG HCO3 15.2 L, VBG Total CO2 16.5 L, VBG O2 Saturation 69.8, VBG Base Excess -13.6 L 09/01/20 15:26: Troponin I < 0.01 09/01/20 17:44: POC Glucose 166 H 09/01/20 20:36: POC Glucose 146 H 09/02/20 05:21: POC Glucose 108 09/02/20 05:40: WBC 5.6 D, RBC 3.55 L, Hgb 11.0 L D, Hct 33.2 L, MCV 93.5, MCH 30.9, MCHC 33.0, RDW 14.9, Plt Count 415, MPV 7.9, Neut % (Auto) 61.8, Lymph % (Auto) 26.8, [place] % (Auto) 9.2, Eos % (Auto) 1.6, Baso % (Auto) 0.6, Neut # (Auto) 3.5, Lymph # (Auto) 1.5, [place] # (Auto) 0.5, Eos # (Auto) 0.1, Baso # (Auto) 0.0 09/02/20 05:40: Sodium 134 L, Potassium 3.3 L, Chloride 100, Carbon Dioxide 29 D, Anion Gap 8.3, BUN 7 D, Creatinine 0.50 L, Estimated Creat Clear 123, Estimated GFR 133, Est GFR ( Amer) 161 D, Gluco
--- NOTE | 2020-09-02 08:57 | HMH.HP ---
*Admission Date: 09/01/20 *Chief complaint: Shortness of breath *History of present illness: 44-year-old female who looks much older than stated age with a [id number] amputation currently being treated for osteomyelitis. Presents in acute respiratory distress with severe difficulty breathing from rehab facility. Differential includes pneumonia, CHF exacerbation, COPD exacerbation, pulmonary embolism, ACS. Significant rales on exam concerning for pulmonary edema is also associated with profound hypertension at this time. Satting in the 80s on nonrebreather chest x-ray demonstrates pulmonary edema with possible pneumonia in the right lower lobe. She was started on BiPAP which significantly improved her symptoms and work of breathing now satting 96% with normal respiratory rate. Further work-up demonstrated a negative troponin and with diuresis and BiPAP therapy her heart rate is normalized and she is no longer hypoxic and with obvious other source no concern for pulmonary embolism at this time as she has no evidence of a DVT. Patient was given 40 mg IV Lasix 125 mg IV Solu-Medrol. BNP is greater than 2000. Will be treated for pneumonia with IV ceftriaxone and IV azithromycin. The patient was admitted and discussed to Dr. Gray for further evaluation and management (Per Dr. Blackburn). 09/01/20 CXR: IMPRESSION: Prominent diffuse ill-defined pneumonic infiltrates right upper lobe and right lower lobe with minimal similar appearing patchy infiltrate left perihilar region Dictated by: Trey, 09/01/20 L Femur XR: IMPRESSION: Post below-knee amputation, otherwise grossly negative left femur Dictated by: Trey 09/02/20 CXR: IMPRESSION: Marked improvement of the diffuse infiltrate and pulmonary edema since yesterday's chest film Improvement and regression of infiltrate/pulmonary edema most striking at the previously more involved right chest,, but there is also been improvement throughout the left chest Heart normal size. CP angles sharp. Dictated by: Wes 44-year-old female patient sitting up in bed awakens easily to verbal stimuli. Oxygen saturations on 2 L per nasal cannula have been greater than 92% all night and afebrile during night. She does report she is feeling better this morning dressing to left BKA clean dry and intact. Patient did receive 40 of Lasix yesterday in ED and additional 20 cc during the night. She did diurese a good amount of urine during the night. This morning still with bibasilar crackles we will give an additional 20 mg Lasix IV x1 and start potassium 20 mEq p.o. daily. We will consult Ortho for left BKA I and D earlier this month. She is currently residing in [facility] facility for rehab and IV antibiotics for osteomyelitis of left below-knee amputation. She also has a history of mitral regurg, diabetes, CHF, and COPD Sodium 134, potassium 3.3, CBC within normal, Chest x-ray today showing improvement [facility] History Medical History: Reports:: Anxiety, Asthma, Depression, Hyperlipidemia, Hypertension, MRSA, Peripheral Artery Disease, Seizures Denies:: Cancer, Diabetes Mellitus Type 1, Diabetes Mellitus Type 2, Internal Pacemaker *Have you ever received a pneumonia vaccine?: Yes *Have you received a flu vaccine this season?: Yes Other Medical History: Denies: Blood Transfusion Reaction Other Surgeries: Yes: Tubal Ligation, 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 No: Pacemaker Amputation: Yes Fractures: Yes (RIGHT ARM) - *Social History Smoking Status: Former smoker Tobacco Type: cigarettes # Packs/Day (cigarettes): 1 #Yrs smoked (if former smoker): 20 Alcohol Intake: former Substance Use Type: former substance user, IV drugs *Occupational Status:: disabled Housing: intermediate Household Members: other *Travel in the last 8 weeks: None - Psychiatric History Pschychiatric History:: Reports:: Anxiety, Depression Family Hx:: Heart Attack Review of Systems - Review of Systems Re
--- NOTE | 2020-09-02 08:58 | MR_ITS ---
PROCEDURE: MR LOWER LEG LT WO CON Referring Doctor: Tylor Trevizo Patient Age:44Y CLINICAL INDICATION: Osteomyelitis a left BKA. Redness. Swelling COMPARISON: CR XR TIBIA FIBULA LT 2V from 07/09/2020 CR XR TIBIA FIBULA LT 2V from 07/28/2020 CR XR TIBIA FIBULA LT 2V from 08/26/2020 CR XR FEMUR LT 2V from 09/01/2020 TECHNIQUE: Multiplanar multi sequence imaging 1.5 T MRI but no IV contrast utilized FINDINGS: There has been a left below-knee amputation. I suspect the amputation was performed approximate 07/09/2020. Today we see prominent abnormal bone signal at the tibial stump. Bone edema abnormal bone signal extends from the margin of the amputation into the distal tibial shaft the period,. This prominent abnormal bone signal most compatible with osteomyelitis seen involving the distal tibial stump. Abnormal signal extending upward into the proximal tibial metaphysis. A layer of fluid is seen surrounding the amputated osseous stump period this layer fluid wraps about the stump extending mainlymedial and anterior adjacent to the tibia. Also diffuse edema and inflammation seen throughout the soft tissues overlying the amputated tibia . Right knee joint included. Scant joint effusion but otherwise unremarkable.. No prominent findings otherwise at these limited survey images of right knee joint. Medial and lateral meniscus grossly intact, cruciate ligaments unremarkable IMPRESSION: . . Findings compatible with osteomyelitis involving amputated tibial stump of the right BKA. . Associated fluid and edema in the soft tissues surrounding the distal stump associated as well Dictated by: Hong Harvey MD 09/02/2020 16:46 Hong Harvey MD in [place] 09/02/2020 16:46
--- NOTE | 2020-09-02 09:40 | HMH.ORTHOCON ---
*Admission Date: 09/01/20 *Reason for consult:: L BKA infection *History of present illness: 44yo F admitted yesterday with shortness of breath and hypoxia. She is s/p L BKA 07/09/20 with subsequent stump infection, I&D performed by Dr. Cao on 08/17/20. Cultures were positive for MRSA and concern present for osteomyelitis, as the abscess communicated deeply to the bone. She has been undergoing local wound care with daily dressing changes at her SNF and is receiving IV antibiotics via PICC line: vancomycin + meropenem, levofloxacin. Last office visit was 08/26/20. Labs on 08/25/20 showed WBC of 6.1, ESR 52, CRP 2.2 mg/L. No fevers or chills reported. MRI was ordered by myself to evaluate the presence of osteomyelitis; scheduled for this week but not done yet. Currently she does not report drainage from the stump but does have anxiety, with shortness of breath and chest tightness. 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 No: Pacemaker Amputation: Yes Fractures: Yes (RIGHT ARM) - *Social History Smoking Status: Former smoker Tobacco Type: cigarettes # Packs/Day (cigarettes): 1 #Yrs smoked (if former smoker): 20 Alcohol Intake: former Substance Use Type: former substance user, IV drugs *Occupational Status:: disabled Housing: alf Household Members: other *Travel in the last 8 weeks: None - Psychiatric History Pschychiatric History:: Reports:: Anxiety, Depression Family Hx:: Heart Attack Review of Systems - Review of Systems Review of systems:: pertinent systems reviewed and negative unless documented below Meds Home Medications Medication Instructions Recorded Confirmed Type cyclobenzaprine 10 mg tablet 10 mg PO HS tab 02/02/19 09/01/20 History loperamide 2 mg capsule 2 mg PO BIDP PRN cap 02/02/19 09/01/20 History Fluticasone/Vilanterol [Breo 1 puff IH DAILY 08/22/19 09/02/20 History Ellipta 100-25 Mcg INH] Metoprolol Tartrate [Lopressor 25 mg PO BID 08/22/19 09/01/20 History 25mg tablet] aripiprazole 15 mg tablet 15 mg PO DAILY tab 09/17/19 09/01/20 History ondansetron HCL [Zofran 4mg Tab*] 1 tab PO Q6HP PRN 12/06/19 09/01/20 History polyethylene glycoL 3350 [Miralax 17 gm PO DAILY 12/06/19 09/01/20 History 17gm Packet] Loratadine [Allerclear] 10 mg PO DAILYP PRN 07/09/20 09/01/20 History gabapentin 600 mg tablet 600 mg PO QID #120 tab 07/18/20 09/01/20 Rx quetiapine 25 mg tablet 25 mg PO DAILY 07/28/20 09/01/20 History Acetaminophen [Tylenol 500mg 500 mg PO BIDP PRN 08/16/20 09/02/20 History tablet] Aspirin [Aspirin 325mg Tab] 325 mg PO DAILY 08/16/20 09/01/20 History Acetaminophen [Tactinal] 500 mg PO QID 08/17/20 09/01/20 History OXcarbazepine [Trileptal] 300 mg PO BID 08/17/20 09/01/20 History Sertraline HCl [Zoloft] 150 mg PO DAILY 08/17/20 09/01/20 History diphenhydrAMINE HCl 25 mg PO TID 08/17/20 09/01/20 History [Diphenhydramine HCl] guaiFENesin [Guaifenesin] 200 mg PO Q6HP PRN 08/17/20 09/01/20 History hydrocodone 7.5 mg-acetaminophen 1 tab PO Q6H PRN 30 Days #120 tab 08/21/20 09/01/20 Rx 325 mg tablet Meropenem [Meropenem 1GM Vial] 1 gm IV Q8H 09/01/20 09/01/20 History Vancomycin HCl [Vancomycin 1000mg 1,000 mg IV Q12H 09/01/20 09/01/20 History Adv] levoFLOXacin [Levofloxacin 750MG 750 mg PO DAILY 09/01/20 09/01/20 History Tablet*] LORazepam [Lorazepam] 1 mg PO Q6HP PRN 09/02/20 09/02/20 History Allergies Allergy/AdvReac Type Severity Reaction Status Date / Time Penicillins Allergy Mild Unknown Verified
--- NOTE | 2020-09-02 09:48 | SW/DCPLANNER ---
This patient currently resides at [facility]. I have spoke with Rosario this morning from [facility] whom stated this patient is SNF level of care. I will continue to follow up with patient and Rosario until patient is medically stable for discharge.
--- NOTE | 2020-09-02 09:49 | PC.NURSE ---
sutures removed from left stump per Dr. Alvarado. Stump wrapped in kerlix and MARIMAR bandage.
[2020-09-02 11:02] LABS: C-Reactive Protein 6.7 mg/L (0-4)
[2020-09-02 11:06] LABS: POC Glucose,Bedside 104 (70-110)
[2020-09-02 11:46] LABS: Erythrocyte Sedimentation Rate 80 mm/hr (0-20)
--- NOTE | 2020-09-02 15:14 | HMH.PULMCON ---
*Admission Date: 09/01/20 *History of present illness: Ms. brink is a 44-year-old female significant smoking history, last smoked a month ago using inhalers at baseline, not on any long-term oxygen therapy was initially had a left lower extremity BKA on 07/09/2020 s/p wash and wound cultures at that time grew MRSA patient recently admitted to the hospital when she was found to have acute hypoxic respiratory failure significantly improved after diuresis presented to the emergency department again with worsening shortness of breath needing oxygen supplementation of 2 L nasal cannula and pulmonary was called for further management. 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 No: Pacemaker Amputation: Yes Fractures: Yes (RIGHT ARM) - *Social History Smoking Status: Former smoker Tobacco Type: cigarettes # Packs/Day (cigarettes): 1 #Yrs smoked (if former smoker): 20 Alcohol Intake: former Substance Use Type: former substance user, IV drugs *Occupational Status:: disabled Housing: snf Household Members: other *Travel in the last 8 weeks: None - Psychiatric History Pschychiatric History:: Reports:: Anxiety, Depression Family Hx:: Heart Attack ROS - Cons Reports chills - Card Reports shortness of breath, Reports shortness of breath with activity - Resp Respiratory: Yes change in phlegm color, Yes chest congestion, Yes cough, Yes dyspnea on exertion - GI Gastrointestingal: Reports: system reviewed and no additional complaints, except as docu - [place] Musculoskeletal: Reports system reviewed and no additional complaints, except as docu Meds Home Medications Medication Instructions Recorded Confirmed Type cyclobenzaprine 10 mg tablet 10 mg PO HS tab 02/02/19 09/01/20 History loperamide 2 mg capsule 2 mg PO BIDP PRN cap 02/02/19 09/01/20 History Fluticasone/Vilanterol [Breo 1 puff IH DAILY 08/22/19 09/02/20 History Ellipta 100-25 Mcg INH] Metoprolol Tartrate [Lopressor 25 mg PO BID 08/22/19 09/01/20 History 25mg tablet] aripiprazole 15 mg tablet 15 mg PO DAILY tab 09/17/19 09/01/20 History ondansetron HCL [Zofran 4mg Tab*] 1 tab PO Q6HP PRN 12/06/19 09/01/20 History polyethylene glycoL 3350 [Miralax 17 gm PO DAILY 12/06/19 09/01/20 History 17gm Packet] Loratadine [Allerclear] 10 mg PO DAILYP PRN 07/09/20 09/01/20 History gabapentin 600 mg tablet 600 mg PO QID #120 tab 07/18/20 09/01/20 Rx quetiapine 25 mg tablet 25 mg PO DAILY 07/28/20 09/01/20 History Acetaminophen [Tylenol 500mg 500 mg PO BIDP PRN 08/16/20 09/02/20 History tablet] Aspirin [Aspirin 325mg Tab] 325 mg PO DAILY 08/16/20 09/01/20 History Acetaminophen [Tactinal] 500 mg PO QID 08/17/20 09/01/20 History OXcarbazepine [Trileptal] 300 mg PO BID 08/17/20 09/01/20 History Sertraline HCl [Zoloft] 150 mg PO DAILY 08/17/20 09/01/20 History diphenhydrAMINE HCl 25 mg PO TID 08/17/20 09/01/20 History [Diphenhydramine HCl] guaiFENesin [Guaifenesin] 200 mg PO Q6HP PRN 08/17/20 09/01/20 History hydrocodone 7.5 mg-acetaminophen 1 tab PO Q6H PRN 30 Days #120 tab 08/21/20 09/01/20 Rx 325 mg tablet Meropenem [Meropenem 1GM Vial] 1 gm IV Q8H 09/01/20 09/01/20 History Vancomycin HCl [Vancomycin 1000mg 1,000 mg IV Q12H 09/01/20 09/01/20 History Adv] levoFLOXacin [Levofloxacin 750MG 750 mg PO DAILY 09/01/20 09/01/20 History Tablet*] LORazepam [Lorazepam] 1 mg PO Q6HP PRN 09/02/20 09/02/20 History Allergies Allergy/AdvReac Type Severity Reaction Status Date / Time Penicillins Allergy Mild Unknown Verified 08/26/20 10:53 allergy
[2020-09-02 17:09] LABS: POC Glucose,Bedside 103 (70-110)
--- NOTE | 2020-09-02 17:58 | PC.NURSE ---
shift note: pt has been stable this shift. Plan is for pt to go to surgery on for the following: BKA revision, possible AKA per Dr. Alvarado. Pt has been sinus tach on tele. Has a purwick. PICC line noted in RUE. On 2L NC. Is tolerating a DM diet.
--- NOTE | 2020-09-02 19:47 | PC.NURSE ---
Late Entry: [address] Alvarado, she states that patient will not be cleared/ready for surgery per Dr Gray until approximately . Order to be cancelled and reentered closer to surgery date.
[2020-09-02 21:27] LABS: POC Glucose,Bedside 104 (70-110)
[2020-09-03] VITALS (13 sets, daily range): BP systolic 113–130; BP diastolic 67–94; PULSE 72–127; RESP 16–20; TEMP 36.6–36.8; O2SAT 95–100; BMI 23.2
--- NOTE | 2020-09-03 04:40 | PC.NURSE ---
Pt is A&O x 4 and has slept through most of the night. No complaints of pain or discomfort. Lung sounds are clear but diminished. Sats have been mid 90s on 2L NC. Bowel sounds are positive x4, abd soft & nontender. Pt has purwick in place and has adequate output. Pt has a L BKA that is wrapped with kerlex and sebastian wrap x1. Pt is to possible BKA revision . ACHS FSBG have not required insulin coverage. PICC noted in RUE, patent. Tele- sinus tach with peaked T waves. VSS, call light in reach. no concerns at this time.
--- NOTE | 2020-09-03 06:12 | PC.NURSE ---
All care completed under the supervision of this RN
[2020-09-03 06:33] LABS: Chloride 103 mmol/L (98-107); Potassium 4.4 mmoL/L (3.5-5.1); Sodium 136 mmol/L (136-145)
[2020-09-03 06:34] LABS: Basophils % 0.6 % (0.1-2.0); Eosinophils # 0.4 K/mm3 (0.0-0.4); Eosinophils % 8.8 % (0.1-12.0); Hematocrit 31.9 % (37.0-47.0); Hemoglobin 9.5 g/dL (12.2-16.2); Lymphocytes # 1.1 K/mm3 (0.7-4.5); Mean Corpuscular HGB Conc 29.7 g/dL (31.8-35.4); Mean Corpuscular Hemoglobin 28.6 pg (27.0-31.2); Mean Corpuscular Volume 96.2 fl (81-99); Mean Platelet Volume 7.2 fl (7.4-10.4); Monocytes # 0.3 K/mm3 (0.1-1.0); Monocytes % 6.6 % (1.7-9.3); Neutrophils # 2.9 K/mm3 (1.8-7.8); Platelet Count 374 K/mm3 (142-424); Red Blood Count 3.32 M/mm3 (4.20-5.40); Red Cell Distribution Width 14.2 % (11.5-17.5); White Blood Count 4.8 K/mm3 (4.8-10.8)
[2020-09-03 06:34] LABS: POC Glucose,Bedside 111 (70-110)
[2020-09-03 06:36] LABS: Blood Urea Nitrogen 13 mg/dl (7-17); Creatinine Clearance Estimated 119 mL/min (50-200); Estimated Glomerular Filt Rate 133 ml/min (>60); GFR (African American) 161 ML/MIN (>60)
[2020-09-03 06:37] LABS: Anion Gap 10.4 mEq/L (5-15); Calcium 9.2 mg/dl (8.4-10.2); Carbon Dioxide 27 mmol/L (22.0-30.0); Glucose 112 mg/dl (74-100)
--- NOTE | 2020-09-03 07:30 | CA_ITS ---
APPROVED REPORT EXAM: Comprehensive 2D, Doppler, and color-flow Echocardiogram Ruling Machine Feeder: Felicia Benz RT(R) Ht: 5 ft 0 in Wt: 120lbs BSA: 1.50 BP: 119/85 mmHg Indications: ex smoker, HTN, hyperlipidemia, post BKA with osteomyelitis now preop clearance, MRSA, bipolar, anxiety 2D Dimensions LVOT 2.01 cm (M/F) 1.5-2.5 M-Mode Dimensions RVDd 1.20 cm (0.9-2.6) LA Diam 2.45 cm (1.9-4.0) LVDd 3.79 cm (3.5-5.7) Ao Diam 2.71 cm (2.0-3.7) LVDs 2.91 cm (3.5-5.7) IVSd 0.93 cm (0.6-1.1) PWd 0.99 cm (0.6-1.1) EF (Teich) 47.20% FS 23.20% EDV (Teich) 61.60 mL ESV (Teich) 32.50 mL LV Diastology E Decel Time 150.00 (160-240 msec) E/A Ratio 0.9 MED E' 11.50 (< 7 cm/sec) E'/MED E' Ratio 8.70 (>14) LAT E' 10.80 (<10 cm/sec) E/LAT E' Ratio 9.27 (>14) Mitral Valve MV E Max Joselito. 100.00 (40-130 cm/s) MV A Velocity 108.00 (40-130 cm/s) E/A Ratio 0.93 MV Decel. Time 150.00 (160-240 ms) MV PHT 44.00 ms Left Ventricle Left atrium is mildly enlarged, left ventricle is normal size, mild concentric left ventricular hypertrophy, visually estimated ejection fraction 55% with no regional wall motion abnormality, diastolic parameters are inconclusive. Right Ventricle Right atrium and right ventricle are normal size and contractility. Aortic Valve Aortic valve is thickened and calcified there is no aortic stenosis, there is mild aortic insufficiency. Mitral Valve Mitral valve leaflets are minimally thickened, there is mild mitral regurgitation. Tricuspid Valve Tricuspid valve is grossly normal, there is mild tricuspid regurgitation tricuspid regurgitation jet velocity is inadequate for calculation of the right ventricular systolic pressure. Pulmonic Valve Pulmonic valve is minimally thickened and fibrosed. There is mild pulmonic insufficiency. Great Vessels Aortic root is normal size. Pericardium No significant pericardial effusion noted. Conclusion 1. Mildly enlarged left atrium, normal left ventricular size, mild concentric left ventricular hypertrophy, visually estimated ejection fraction 55% with no regional wall motion abnormality, diastolic parameters are inconclusive. 2. Mild aortic, mild mitral and tricuspid regurgitation. 3. No significant pericardial effusion noted. Electronically signed by : Sandeep Booth, 09/03/2020 18:00:18
--- NOTE | 2020-09-03 08:03 | PC.NURSE ---
O2 removed, pt room air after being assisted to BSC and now resting in bed is 95%.
--- NOTE | 2020-09-03 08:06 | HMH.ACPN2 ---
Internal Medicine - PN: Subj *Date: 09/03/20 *Time: 12:36 Interval history: 44-year-old female patient sitting up in bed respirations easy and even oxygen saturations are 98% on 2 L per nasal cannula. She does report she feels better today. Lung sounds are clear, She reports she is ready to proceed with surgery and denies any questions. Pulmonology has seen and Rec: Plan: -We will hold off on initiating any antibiotics antibiotics for possible pneumonia, given current episode is likely from volume overload than worsening pneumonia especially given patient completed her recent 7-day course of broad-spectrum antibiotics including Vanco meropenem and levofloxacin. - Follow with the primary team and orthopedics regarding the need for antibiotics for other sources of infection. -Volume optimization with diuresis as per primary team -Continue DuoNebs every 6 hours scheduled and budesonide every 12 scheduled. 09/02/20 LLE MRI: FINDINGS: There has been a left below-knee amputation. I suspect the amputation was performed approximate 07/09/2020. Today we see prominent abnormal bone signal at the tibial stump. Bone edema abnormal bone signal extends from the margin of the amputation into the distal tibial shaft the period,. This prominent abnormal bone signal most compatible with osteomyelitis seen involving the distal tibial stump. Abnormal signal extending upward into the proximal tibial metaphysis. A layer of fluid is seen surrounding the amputated osseous stump period this layer fluid wraps about the stump extending mainlymedial and anterior adjacent to the tibia. Also diffuse edema and inflammation seen throughout the soft tissues overlying the amputated tibia . Right knee joint included. Scant joint effusion but otherwise unremarkable.. No prominent findings otherwise at these limited survey images of right knee joint. Medial and lateral meniscus grossly intact, cruciate ligaments unremarkable IMPRESSION: . Findings compatible with osteomyelitis involving amputated tibial stump of the right BKA. . Associated fluid and edema in the soft tissues surrounding the distal stump associated as well Dictated by: Wes, Exam Vital signs and Labs for Last 24 Hours: Temp Pulse Resp BP Pulse Ox 98.1 F 101 H 20 130/94 H 95 09/03/20 04:00 09/03/20 07:59 09/03/20 07:59 09/03/20 04:00 09/03/20 07:59 Laboratory Results - last 24 hr 09/02/20 10:16: ESR 80 H 09/02/20 10:16: C-Reactive Protein 6.7 H 09/02/20 10:59: POC Glucose 104 09/02/20 16:54: POC Glucose 103 09/02/20 21:20: POC Glucose 104 09/03/20 05:50: WBC 4.8, RBC 3.32 L, Hgb 9.5 L, Hct 31.9 L, MCV 96.2, MCH 28.6, MCHC 29.7 L, RDW 14.2, Plt Count 374, MPV 7.2 L, Neut % (Auto) 61.0, Lymph % (Auto) 23.0, Waller % (Auto) 6.6, Eos % (Auto) 8.8, Baso % (Auto) 0.6, Neut # (Auto) 2.9, Lymph # (Auto) 1.1, Waller # (Auto) 0.3, Eos # (Auto) 0.4, Baso # (Auto) 0.0 09/03/20 05:50: Sodium 136, Potassium 4.4 D, Chloride 103, Carbon Dioxide 27, Anion Gap 10.4, BUN 13 D, Creatinine 0.50 L, Estimated Creat Clear 119, Estimated GFR 133, Est GFR ( Amer) 161, Glucose 112 H, Calcium 9.2 09/03/20 06:15: POC Glucose 111 H I & O for Last 24 hours: Intake & Output 08/31/20 09/01/20 09/02/20 09/03/20 23:59 23:59 23:59 23:59 Intake Total 240 / 240 1170 / 1770 600 / 600 Output Total 600 / 1300 2400 / 2400 1350 / 1350 Balance -360 / -1060 -1230 / -630 -750 / -750 Weight 116 lb 1 oz 122 lb 3.2 oz 118 lb 7 oz - Constitutional no acute distress, thin - *Routine HEENT Exam Head: Present: normocephalic. Absent: tenderness of temporal artery Eye: Present: EOMI. Absent: periorbital tenderness ENT: Present: mucous membranes moist. Absent: sinus tenderness - *Routine Neck Exam Present: trachea midline. Absent: JVD, tracheal deviation - *Routine Respiratory Exam Present: CTA bilaterally. Absent: accessory muscle use - *R
--- NOTE | 2020-09-03 08:35 | HMH.CNCARD ---
History of Present Illness Consult date: 09/03/20 Requesting physician: Richmond Gray Consult reason: congestive heart failure, post-op evaluation Chief complaint: CHF and pre-op Additional Medical History:: 1. Peripheral vascular disease (09/03/2020) 2. Left BKA (07/2020) a. Nonhealing stump. 3. Preop evaluation for AKA (09/03/2020) 4. Chronic obstructive pulmonary disease 5. Congestive heart failure 6. Coronary artery disease a. (2019) Medical management cath. 7. Diabetes a. Controlled History of present illness: 44-year-old female admitted to [facility] on 09/01/2020 for increased shortness of breath and drainage from the left BKA stump. On admission patient received treatment through BiPAP and diuretics which improved congestive heart failure symptoms. Patient denies chest pain, tightness or pressure. Patient resting quietly in bed. Patient is alert and oriented x3. Patient denies shortness of breath. Patient is on 2 L of O2 by nasal cannula. Initial EKG revealed sinus tachycardia with a heart rate of 104. Patient noted to have a heart rate of 89-96. Patient will have sinus tachycardia with a heart rate of 120 with activity. No swelling noted of the lower extremities. Patient has history of L BKA 07/25/2020 due to PVD. Left stump noted as nonhealing and continues to drain. Plan is for patient to undergo left AKA once cardiology has cleared patient. Last echocardiogram was in 08/24/2020 EF of 55% mild AR, mild MR and mild TR. Patient stated she did undergo a left heart catheterization and 2019 which revealed medical management. Patient denies tobacco or alcohol use. Patient does have history of COPD. Patient has history of diabetes. Patient states her diabetes is under control. Echo (08/2020) Conclusion 1. Mildly enlarged left atrium, normal left ventricular size, mild concentric left ventricular hypertrophy, visually estimated ejection fraction 55% with no regional wall motion abnormality, diastolic parameters are inconclusive. 2. Mild aortic, mild mitral and tricuspid regurgitation. 3. No significant pericardial effusion noted Obtain echocardiogram to determine LV function and valve status. Depending on results of the echocardiogram changes in medication or treatment may be recommended. Discussed plan of care with Dr. Mary and Dr. Gray. Pt is an acceptable and low risk from a cardiac standpoint to proceed with her elective AKA surgery. Thank you for letting cardiology participate in the care of this patient. 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 No: Pacemaker Amputation: Yes Fractures: Yes (RIGHT ARM) - *Social History Smoking Status: Former smoker Tobacco Type: cigarettes # Packs/Day (cigarettes): 1 #Yrs smoked (if former smoker): 20 Alcohol Intake: former Substance Use Type: former substance user, IV drugs *Occupational Status:: disabled Housing: [facility] Household Members: other *Travel in the last 8 weeks: None - Psychiatric History Pschychiatric History:: Reports:: Anxiety, Depression Family Hx:: Heart Attack Meds Home Medications Medication Instructions Recorded Confirmed Type cyclobenzaprine 10 mg tablet 10 mg PO HS tab 02/02/19 09/01/20 History loperamide 2 mg capsule 2 mg PO BIDP PRN cap 02/02/19 09/01/20 History Fluticasone/Vilanterol [Breo 1 puff IH DAILY 08/22/19 09/02/20 History Ellipta 100-25 Mcg INH] Metoprolol Tartrate [Lopressor 25 mg PO BID
[2020-09-03 10:51] LABS: POC Glucose,Bedside 105 (70-110)
--- NOTE | 2020-09-03 11:00 | P.PN_ITS ---
Subjective Date: 09/03/20 Time: 10:30 Principal diagnosis: s/p L BKA Interval history: The patient is doing well this morning. No complaints. No fevers or chills reported, no ongoing drainage from the wound. PN: Obj Ex Vital signs: Temp Pulse Resp BP Pulse Ox 98.3 F 101 H 17 119/90 95 09/03/20 08:00 09/03/20 08:00 09/03/20 08:00 09/03/20 08:00 09/03/20 08:00 - Constitutional no acute distress - Routine HEENT Exam Head: Present: normocephalic Eye: Present: EOMI ENT: Present: mucous membranes moist - Routine Respiratory Exam Absent: respiratory distress - Routine Cardiovascular Exam Present: RRR - Routine Extremities Exam Comments: L BKA dressings removed underlying wound w/o significant erythema, skin pink/warm sutures intact with central opening ~2.5cm where previously packed no active drainage, no purulence noted, no foul odor - Routine Skin Exam Present: warm - Routine Neurological Exam Present: alert, oriented X3, moving all extremities, normal tone, vision grossly intact, hearing grossly intact, normal speech. Absent: sensory deficit, motor deficit, altered mental status Progress Note: A&P (1) CHF exacerbation Status: Acute (2) Pneumonia Status: Acute (3) Tobacco use Status: Acute (4) Anxiety Status: Chronic (5) Essential (primary) hypertension Status: Chronic Assessment and Plan for All Diagnoses:: 44yo F s/p L BKA 07/09/20 --> subsequent stump abscess I&D by Dr. Cao on 08/17/20. Cultures were +MRSA. -- MRI L BKA shows increased signal in the tibial bone stump consistent with osteomyelitis, with a small surrounding fluid collection. Signal extends into metaphyseal region of tibia. -- I suspect BKA revision will be difficult and likely unsuccessful given pr oximal extension of signal into metaphysis. Will attempt BKA revision/salvage but AKA may be necessary. -- I discussed the risks of surgery with the patient, including but not limited to: bleeding, continued or worsening infection, neurovascular damage, risk of wound or stump necrosis necessitating later debridement, wound vac application, or revision amputation to a higher level; I also discussed the risk of phantom limb pain, later stump breakdown despite initial wound healing, and risks of anesthesia including heart attack, stroke or even . The patient vocalized understanding of the above and provided informed consent for the procedure. Plan for surgery tomorrow, 09/04/20. Please hold lovenox tomorrow.
--- NOTE | 2020-09-03 14:12 | HMH.PULMPN ---
Internal Medicine - PN: Subj *Date: 09/03/20 *Time: 14:12 Interval history: Respiratory events overnight. Patient respiratory status improved, on room air this morning. Exam - Constitutional Constitutional:: no acute distress, comfortable, healthy appearing - HENMT Exam HENMT: normocephalic, atraumatic - Eye Exam Eyes:: eyelids normal, normal conjunctiva - Neck Exam Neck:: thyroid normal, no lymphadenopathy - Respiratory Exam Respiratory:: able to speak in complete sentences, lungs clear, normal breath sounds, no respiratory distress, normal respiratory effort - Cardiovascular Exam Cardiac:: S1, S2 - GI Exam GI:: soft, no hepatosplenomegaly - Skin Exam Skin: warm, no rash - Neurological Exam Neurological: alert, awake, normal cognition - Extremities Exam Extremities: no cyanosis, no clubbing - Psychiatric Exam Psychiatric: normal affect Assessment and Plan (1) CHF exacerbation Status: Acute Qualifiers: Heart failure type: unspecified Qualified Code(s): I50.9 - Heart failure, unspecified Category: Medical Code(s): I50.9 - Heart failure, unspecified (2) Pneumonia Status: Acute Qualifiers: Pneumonia type: due to unspecified organism Laterality: right Lung location: lower lobe of lung Qualified Code(s): J18.9 - Pneumonia, unspecified organism Category: Medical Code(s): J18.9 - Pneumonia, unspecified organism (3) Tobacco use Status: Acute Category: Social Hx Code(s): Z72.0 - Tobacco use (4) Anxiety Status: Chronic Category: Medical Code(s): F41.9 - Anxiety disorder, unspecified (5) Essential (primary) hypertension Status: Chronic Category: Medical Code(s): I10 - Essential (primary) hypertension (6) Acute and chronic cholecystitis Status: Acute Category: Medical Code(s): K81.2 - Acute cholecystitis with chronic cholecystitis (7) Osteomyelitis Status: Acute Category: Medical Code(s): M86.9 - Osteomyelitis, unspecified (8) MRSA (methicillin resistant Staphylococcus aureus) Status: Acute Category: Medical Code(s): A49.02 - Methicillin resistant Staphylococcus aureus infection, unspecified site - Assessment and plan all Dx Assessment and Plan for all problems:: #Hypoxic respiratory failure: #COPD: 44-year-old male recently admitted to the hospital for amputation stump infection found to have acute hypoxic respiratory failure during which she was diuresed with significant improvement and she was also being treated for hospital-acquired pneumonia with vancomycin meropenem and levofloxacin since discharge presented to the hospital with worsening shortness of breath. Patient afebrile, no evidence of leukocytosis. Interval update: Patient diuresis and respiratory status significantly improved, this morning on room air saturating 97 to 98% with no respiratory distress. Current etiology for respiratory status is likely volume overload, heart failure given significant improvement in a day. Patient has similar episode during her recent admission where she had diffuse worsening pulmonary infiltrates with worsening hypoxic respiratory failure that improved significantly in 24 hours with diuresis and chest x-ray completely clear within 24 hours with diuresis. MRI of left BKA showed osteomyelitis, following with orthopedics. Plan: -Hold off on initiating any antibiotics antibiotics for possible pneumonia. Follow with the primary team and orthopedics regarding the need for antibiotics. -Volume optimization with diuresis as per primary team -Continue DuoNebs every 6 hours scheduled and budesonide every 12 scheduled. #Thank you for involving pulmonary in this patient care. We will follow the patient in the clinic as previously scheduled with full PFTs.
--- NOTE | 2020-09-03 18:11 | PC.NURSE ---
Consent obtained for procedure @ this time from Rachel Benitez, state guardian. Verified w/ Anthony Monte RN
--- NOTE | 2020-09-03 20:06 | PC.NURSE ---
Pt remains on room air. No needs voiced. Is able to transfer using walker to BS safely. No complaints of pain this shift. Currently sitting up in bed. Dressing to L stump C/D/I. Report given to Tea Silva RN
[2020-09-03 21:00] LABS: POC Glucose,Bedside 110 (70-110)
[2020-09-03 21:29] LABS: Vancomycin,Trough 6.6 ug/mL (5.0-10.0)
[2020-09-04] VITALS (26 sets, daily range): BP systolic 92–135; BP diastolic 54–86; PULSE 80–114; RESP 14–20; TEMP 36.4–43; O2SAT 92–97; BMI 23.0
--- NOTE | 2020-09-04 05:21 | PC.NURSE ---
Pt is A&Ox4 and has turned self t/o shift and slept well during the night. Pt has been medicated with Tylenol 1x for milld Left stump pain. Dry DSG to L stump in place and no d/c noted. Open area noted and some redness, tenderness, and dry borders. PICC in place to MARY that is SL. Lungs CTA, continues on room air with sats > 94-97%. Pt denies any SOB or dyspnea. ABD is soft, non-tender and flat. BM was noted during previous shift. Pt denies any N/V/D. VSS, call light within reach.
--- NOTE | 2020-09-04 06:20 | PC.NURSE ---
Pt left the floor with pre-op @ 0610
[2020-09-04 06:24] LABS: Basophils % 0.5 % (0.1-2.0); Eosinophils # 0.8 K/mm3 (0.0-0.4); Eosinophils % 12.1 % (0.1-12.0); Hematocrit 35.6 % (37.0-47.0); Hemoglobin 11.4 g/dL (12.2-16.2); Lymphocytes # 1.6 K/mm3 (0.7-4.5); Lymphocytes % 23.5 % (10-50); Mean Corpuscular HGB Conc 32.1 g/dL (31.8-35.4); Mean Corpuscular Hemoglobin 30.1 pg (27.0-31.2); Mean Corpuscular Volume 93.8 fl (81-99); Monocytes # 0.4 K/mm3 (0.1-1.0); Monocytes % 6.3 % (1.7-9.3); Neutrophils % 57.6 % (37.0-80.0); Platelet Count 446 K/mm3 (142-424); White Blood Count 6.9 K/mm3 (4.8-10.8)
[2020-09-04 06:29] LABS: Urine Pregnancy, HCG Qual. Negative (Negative)
[2020-09-04 06:33] LABS: Chloride 99 mmol/L (98-107)
[2020-09-04 06:34] LABS: Potassium 4.5 mmoL/L (3.5-5.1); Sodium 134 mmol/L (136-145)
[2020-09-04 06:36] LABS: Blood Urea Nitrogen 9 mg/dl (7-17); Creatinine Clearance Estimated 118 mL/min (50-200); Estimated Glomerular Filt Rate 133 ml/min (>60); GFR (African American) 161 ML/MIN (>60)
[2020-09-04 06:37] LABS: Anion Gap 11.5 mEq/L (5-15); Calcium 9.7 mg/dl (8.4-10.2); Carbon Dioxide 28 mmol/L (22.0-30.0); Glucose 110 mg/dl (74-100)
--- NOTE | 2020-09-04 07:42 | P.PN_ITS ---
[facility] Anesthesia Checklist - Patient Identification Patient Identification: Arm Band - Structural Data Admitted From: Inpatient Planned Operative Procedure/s: Left Above Knee Amputation Consent for Planned Operative Procedure(s) Verified: Yes Verified Documents: Surgical Consent, History and Physical - NPO Status Verified Time NPO: 00:00 - Additional verifications Anesthesia Reactions: No Hx Blood Transfusions: No Blood Transfusion Reaction: No - Airway Assessment C-Spine Mobility Assessed: Yes (mp2) TMJ Mobility Assessed: Yes Dentition: Edentulous - Neurological Assessment Level of Consciousness: Awake, Alert - Anesthesia Plan Anesthesia Risk discussed: Yes Anesthesia Plan: Verified ASA Class: III Anesthesia Type: MAC w/Spinal (Discussed at length risks/benefit of SAB vs GA. 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 No: Pacemaker Amputation: Yes Fractures: Yes (RIGHT ARM) - *Social History Smoking Status: Former smoker Tobacco Type: cigarettes # Packs/Day (cigarettes): 1 #Yrs smoked (if former smoker): 20 Alcohol Intake: former Substance Use Type: former substance user, IV drugs *Occupational Status:: disabled Housing: [facility] Household Members: other *Travel in the last 8 weeks: None - Psychiatric History Pschychiatric History:: Reports:: Anxiety, Depression Family Hx:: Heart Attack
--- NOTE | 2020-09-04 09:07 | P.PN_ITS ---
[facility] Anesthesia Record Part I Intake, IV Amount: 700 Estimated blood loss (mL): 100 Urine output (mL): 100 Blood Pressure: 118/71 SaO2: 93 Pulse Rate: 98 Respiratory Rate: 16 Temperature: 98 F Patient is:: Drowsy, Stable Stable to PACU at:: 09:05
--- NOTE | 2020-09-04 09:08 | XR_ITS ---
PROCEDURE: XR FEMUR LT 2V Referring Doctor: Carol Alvarado Patient Age:44Y CLINICAL INDICATION: s/p L AKA Status post amputation COMPARISON: CR XR FEMUR LT 2V from 09/01/2020 TECHNIQUE: 3 View AP, Oblique, Lateral FINDINGS: . The patient had prior BKA with infected tibia . Has now undergone AKA/above knee amputation. Period. There is a smooth transverse osteotomy distal femur and stump at amputated distal femur shaft. Vascular clips near this area, medial to the distal femur observed; with drain in place. IMPRESSION: Left AKA now evident Dictated by: Hong Harvey MD 09/04/2020 12:47 Hong Harvey MD in [place] 09/04/2020 12:47
--- NOTE | 2020-09-04 09:13 | HMH.OPNOTE ---
Date of procedure: 09/04/20 Pre-op Diagnosis:: L below-knee amputation stump abscess, tibial osteomyelitis Post-op Diagnosis:: L below-knee amputation stump abscess, tibial osteomyelitis Procedure performed:: L above-knee amputation (AKA) Surgeon:: Carol Alvarado MD Stone Sandblaster(s):: Amparo Marinelli BAKER HEAD:: Anoop Estefanía Anesthesia: MAC, spinal Estimated blood loss (mL): 100 Clinical Note:: 44yo F admitted 09/01/20 with shortness of breath and hypoxia. She is s/p L BKA 07/09/20 with subsequent stump infection, I&D performed by Dr. Cao on 08/17/20. Cultures were positive for MRSA and concern present for osteomyelitis, as the abscess communicated deeply to the bone. She has been undergoing local wound care with daily dressing changes at her SNF and is receiving IV antibiotics via PICC line: vancomycin + meropenem, levofloxacin. Last office visit was 08/26/20. Labs on 08/25/20 showed WBC of 6.1, ESR 52, CRP 2.2 mg/L. No fevers or chills reported. Currently she does not report drainage from the stump but does have anxiety, with shortness of breath and chest tightness. She was treated for presumed pneumonia as well as her anxiety and some fluid overload; after antibiotics and diuresis her breathing improved. MRI was obtained that revealed osteomyelitis of the tibial stump with a small fluid collection. The signal increase in the tibia extended into the metaphyseal region. I discussed treatment options with the patient, and given her ongoing wound healing issues and presence of osteomyelitis, I recommend surgical intervention. I discussed revision BKA versus AKA and that I suspect BKA revision will be difficult and likely unsuccessful given proximal extension of signal into metaphysis. I discussed the risks of surgery with the patient, including but not limited to: bleeding, continued or worsening infection, neurovascular damage, risk of wound or stump necrosis necessitating later debridement, wound vac application, or revision amputation to a higher level; I also discussed the risk of phantom limb pain, later stump breakdown despite initial wound healing, and risks of anesthesia including heart attack, stroke or even . The patient vocalized understanding of the above and provided informed consent for the procedure. Lovenox was held today. Operative findings:: L BKA with central opening, ~2.5cm with serous drainage, no purulence. Mild erythema. Operative note:: The patient was identified in preoperative holding and the L leg signed by myself. Consent was verified with the patient and all questions answered. She was then transferred to the OR and spinal anesthetic administered by OCTAVIANO. She was transferred to the operative table and placed supine; no tourniquet was applied to the left leg. She has been on 3 antibiotics since admission; these were not redosed prior to surgery. However, an additional dose of clindamycin was given prior to incision. IV sedation was given and the L BKA stump more closely examined. Given the persistence of the wound and proximal extension of infection on MRI, I felt BKA revision was unlikely to be successful and AKA more definitive. Not enough proximal tibial bone would be left after debridement to be functional or allow for a prosthesis, and with the proximal extension of signal on MRI I felt the likelihood high infection would persist. Therefore I decided to proceed with above knee amputation (AKA). The left lower extremity was then prepped and draped in the usual sterile fashion for an above-knee amputation. Timeout was performed, identifying the correct patient, the correct procedure, and correct site. The procedure was begun by first using a marking pen to draw out my desired incisions on the left thigh. A fishmouth incision was planned with equal anterior and posterior flaps, the apex drawn at the level of the desired bone cut. The expected bone cut was measured around 10 cm proximal to the knee joint. Equal anterior-posterior fishmouth
--- NOTE | 2020-09-04 09:13 | HMH.ORTHPN ---
Subjective Date: 09/04/20 Time: 09:15 Principal diagnosis: L BKA osteomyelitis Interval history: The patient underwent L AKA this morning without complication. EBL 100cc. On IV vancomycin already, given additional dose of clindamycin at the time of surgery. Leg was sent to pathology and culture swabs taken of proximal stump. Spinal anesthesia performed so conrad was placed. PN: Obj Ex Vital signs: Temp Pulse Resp BP Pulse Ox 98 F 98 H 16 118/71 95 09/04/20 09:08 09/04/20 09:08 09/04/20 09:08 09/04/20 09:08 09/04/20 04:00 - Constitutional no acute distress - Routine HEENT Exam Head: Present: normocephalic Eye: Present: EOMI ENT: Present: mucous membranes moist - Routine Respiratory Exam Absent: respiratory distress, wheezes - Routine Cardiovascular Exam Present: RRR - Routine Abdominal Exam Present: soft - Routine Exam Comments: conrad to gravity with clear yellow urine - Routine Extremities Exam Comments: L AKA surgical dressings c/d/i GABI drain to bulb suction, scant output in drain no motor/sensory below waist as spinal still in effect - Routine Skin Exam Present: warm - Routine Neurological Exam Present: alert, oriented X3 Progress Note: A&P (1) CHF exacerbation Status: Acute (2) Pneumonia Status: Acute (3) Tobacco use Status: Acute (4) Anxiety Status: Chronic (5) Essential (primary) hypertension Status: Chronic (6) Acute and chronic cholecystitis Status: Acute (7) Osteomyelitis Status: Acute (8) MRSA (methicillin resistant Staphylococcus aureus) Status: Acute Assessment and Plan for All Diagnoses:: 44yo F s/p L BKA 07/09/20 --> subsequent stump abscess I&D by Dr. Cao on 08/17/20. Cultures were +MRSA. POD 0 s/p L AKA. -- empty drain each shift and record output -- keep LLE elevated on 2 pillows at all times -- do not remove dressings -- PT to eval; mobilization, gait training/transfers -- continue IV antibiotics; IV vancomycin -- pathology/cultures pending -- DVT prophy per PCP -- dispo planning: anticipate d/c back to SNF in 1-2 days if medically appropriate
--- NOTE | 2020-09-04 09:38 | HMH.PHACONS ---
- Pharmacy Consult Date: 09/04/20 Time: 09:38 Referring provider: DR. HERNANDEZ Reason for Consult:: VANCOMYCIN TROUGH LEVEL Allergies and ADEs:: Allergies Allergy/AdvReac Type Severity Reaction Status Date / Time Penicillins Allergy Mild Unknown Verified 08/26/20 10:53 allergy reaction codeine AdvReac Mild vomiting Verified 08/26/20 10:53 [From Tylenol-Codeine #3] Home Medications:: Home Medications Medication Instructions Recorded Confirmed Type cyclobenzaprine 10 mg tablet 10 mg PO HS tab 02/02/19 09/01/20 History loperamide 2 mg capsule 2 mg PO BIDP PRN cap 02/02/19 09/01/20 History Fluticasone/Vilanterol [Breo 1 puff IH DAILY 08/22/19 09/02/20 History Ellipta 100-25 Mcg INH] Metoprolol Tartrate [Lopressor 25 mg PO BID 08/22/19 09/01/20 History 25mg tablet] aripiprazole 15 mg tablet 15 mg PO DAILY tab 09/17/19 09/01/20 History ondansetron HCL [Zofran 4mg Tab*] 1 tab PO Q6HP PRN 12/06/19 09/01/20 History polyethylene glycoL 3350 [Miralax 17 gm PO DAILY 12/06/19 09/01/20 History 17gm Packet] Loratadine [Allerclear] 10 mg PO DAILYP PRN 07/09/20 09/01/20 History gabapentin 600 mg tablet 600 mg PO QID #120 tab 07/18/20 09/01/20 Rx quetiapine 25 mg tablet 25 mg PO DAILY 07/28/20 09/01/20 History Acetaminophen [Tylenol 500mg 500 mg PO BIDP PRN 08/16/20 09/02/20 History tablet] Aspirin [Aspirin 325mg Tab] 325 mg PO DAILY 08/16/20 09/01/20 History Acetaminophen [Tactinal] 500 mg PO QID 08/17/20 09/01/20 History OXcarbazepine [Trileptal] 300 mg PO BID 08/17/20 09/01/20 History Sertraline HCl [Zoloft] 150 mg PO DAILY 08/17/20 09/01/20 History diphenhydrAMINE HCl 25 mg PO TID 08/17/20 09/01/20 History [Diphenhydramine HCl] guaiFENesin [Guaifenesin] 200 mg PO Q6HP PRN 08/17/20 09/01/20 History hydrocodone 7.5 mg-acetaminophen 1 tab PO Q6H PRN 30 Days #120 tab 08/21/20 09/01/20 Rx 325 mg tablet Meropenem [Meropenem 1GM Vial] 1 gm IV Q8H 09/01/20 09/01/20 History Vancomycin HCl [Vancomycin 1000mg 1,000 mg IV Q12H 09/01/20 09/01/20 History Adv] levoFLOXacin [Levofloxacin 750MG 750 mg PO DAILY 09/01/20 09/01/20 History Tablet*] LORazepam [Lorazepam] 1 mg PO Q6HP PRN 09/02/20 09/02/20 History Height: 1.52 m Weight: 53.269 kg Laboratory Results:: Laboratory Results - last 24 hr 09/03/20 10:44: POC Glucose 105 09/03/20 20:38: Vancomycin Trough 6.6 09/03/20 20:48: POC Glucose 110 09/04/20 06:04: WBC 6.9 D, RBC 3.80 L, Hgb 11.4 L, Hct 35.6 L, MCV 93.8, MCH 30.1, MCHC 32.1, RDW 15.0, Plt Count 446 H, MPV 8.0, Neut % (Auto) 57.6, Lymph % (Auto) 23.5, Citrus % (Auto) 6.3, Eos % (Auto) 12.1 H, Baso % (Auto) 0.5, Neut # (Auto) 4.0, Lymph # (Auto) 1.6, Citrus # (Auto) 0.4, Eos # (Auto) 0.8 H, Baso # (Auto) 0.0 09/04/20 06:04: Sodium 134 L, Potassium 4.5, Chloride 99, Carbon Dioxide 28, Anion Gap 11.5, BUN 9 D, Creatinine 0.50 L, Estimated Creat Clear 118, Estimated GFR 133, Est GFR ( Amer) 161, Glucose 110 H, Calcium 9.7 09/04/20 06:10: Urine HCG, Qual Negative Medical History: Reports:: Anxiety, Asthma, Depression, Hyperlipidemia, Hypertension, MRSA, Peripheral Artery Disease, Seizures Denies:: Cancer, Diabetes Mellitus Type 1, Diabetes Mellitus Type 2, Internal Pacemaker Assessment and Plan (1) CHF exacerbation Status: Acute Qualifiers: Heart failure type: unspecified Qualified Code(s): I50.9 - Heart failure, unspecified Category: Medical Code(s): I50.9 - Heart failure, unspecified (2) Pneumonia Status: Acute Qualifiers: Pneumonia type: due to unspecified organism Laterality: right Lung location: lower lobe of lung Qualified Code(s): J18.9 - Pneumonia, unspecified organism Category: Medical Code(s): J18.9 - Pneumonia, unspecified organism (3) Tobacco use Status: Acute Category: Social Hx Code(s): Z72.0 - Tobacco use (4) Anxiety Status: Chronic Category: Medical Code(s): F41.9 - Anxiety disorder, unspecified (5) Essential
[2020-09-04 09:56] LABS: Microscopic,Cath URINE MICROSCOPIC (MICROSCOPIC)
[2020-09-04 10:20] LABS: POC Glucose,Bedside 99 (70-110)
--- NOTE | 2020-09-04 10:21 | P.PN_ITS ---
[facility] Anesthesia Record Part II Discharge Time: 09:25 Destination: Medical Surgical Department PACU nurse assessment reviewed?: Yes Patient Condition:: Good Anesthesia Complications:: None Swallowing reflex intact?: Yes Cyanosis?: No Blood Pressure: 100/55 Pulse Rate: 99 Temperature: 98 F Mental Status: Alert & Oriented Pain level:: 0 Nausea and/or vomitting:: None Intake, IV Amount: 0
[2020-09-04 10:24] LABS: Appearance,Urine/Cath CLEAR (Clear); Bilirubin,Cath Negative (Negative); Blood, Urine/Cath Negative (Negative); Color,Urine/Cath YELLOW (Yellow); Glucose,Urine/Cath (UA) Negative (Negative); Ketones,Urine/Cath Negative (Negative); Leukocyte Esterase,Cath Negative (Negative); Nitrate,Cath Negative (Negative); PH,Urine/Cath 7.5 (5.0-8.5); Protein,Urine/Cath Negative (Negative); Urobilinogen,Cath 0.2 EU/dl (0.2)
[2020-09-04 10:29] LABS: POC Glucose,Bedside 113 (70-110)
--- NOTE | 2020-09-04 14:08 | HMH.PTEV ---
Physical Therapy Evaluation Rehab PT IP Evaluation Start: 09/04/20 09:09 Freq: ONCE Status: Active Protocol: Document 09/04/20 14:00 WANG (Rec: 09/04/20 14:08 WANG [id number]) Subjective/History History History This is the initial IP PT evalaution for Dorcas Hernández. Pt is a 44 y/o female who is a resident of [facility]. Pt had L BKA w/ following infxn and revison required. Pt has now had L AKA. Subjective Subjective Pt reports she still is numb but is able to move RLE Rehab PT IP Eval Objective Appearance Patient Behavior Appropriate,Cooperative, Fearful Patient Orientation Person,Place,Time Difficulty following instructions none Speech Pattern Clear,Appropriate Ambulation Patient Able to Ambulate No Balance Ability to Arise Unable Sitting Balance Steady, safe Standing Balance Unsteady Dynamic Sitting Balance Ability Fair Dynamic Standing Balance Ability Zero Transfers Bed Transfer Ability Independent Chair Transfer Ability Independent Sit to Stand Bed Transfer Ability Maximum x 1 (75% assist) Sit to Stand Chair Transfer Ability Maximum x 1 (75% assist) Rehab PT IP prob,goals,plan Problems Date of Evaluation: 09/04/20 PT IP Problems Bed Mobility,Transfers Rehab Potential Rehab Potential Fair Equipment Needs Assistive Devices Standard Walker Plan PT Intervention Plan Bed Mobility,Transfers, Therapeutic Exercise PT Plan Frequency BID Duration LOS Discharge Goals Bed Transfer Ability Independent Sit to Stand Chair Transfer Ability Maximum x 1 (75% assist) Ambulation Assistive Device Standard Walker Discharge Plan PT Discharge Plan Pt is safe to return to [facility] [place] once medically stable - pt should continue to improve with the spinal block wearing off. Pt could continue to improve function w/ continued skilled therapy to work on transfer training and self- care efficacy G -code Required Yes Eval Complexity Eval Charge Codes 83163 - Low Complexity G Codes PT Current Status Mobility PT Current Status Modifier CL-At least 60% but less than
[2020-09-04 16:31] LABS: POC Glucose,Bedside 141 (70-110)
--- NOTE | 2020-09-04 16:56 | PC.NURSE ---
[facility] CALLED AND SAID TO RESTART VANC PER DR HERNANDEZ. 1 GRAM EVERY 12 HOURS. ORDER WROTE AND FAXED TO PHARMACY.
--- NOTE | 2020-09-04 18:20 | HMH.ACPN2 ---
Internal Medicine - PN: Subj *Date: 09/04/20 *Time: 18:21 Interval history: Patient was taken to the operating room earlier today, underwent an [id number] amputation. She had previously had a BKA, the wound dehisced there was evidence of osteomyelitis. Patient's dressings are clean and dry. Exam Vital signs and Labs for Last 24 Hours: Temp Pulse Resp BP Pulse Ox 98.3 F 111 H 19 98/66 L 93 L 09/04/20 15:07 09/04/20 17:30 09/04/20 15:07 09/04/20 15:07 09/04/20 15:07 Laboratory Results - last 24 hr 09/03/20 16:42: POC Glucose 113 H 09/03/20 20:38: Vancomycin Trough 6.6 09/03/20 20:48: POC Glucose 110 09/04/20 06:04: WBC 6.9 D, RBC 3.80 L, Hgb 11.4 L, Hct 35.6 L, MCV 93.8, MCH 30.1, MCHC 32.1, RDW 15.0, Plt Count 446 H, MPV 8.0, Neut % (Auto) 57.6, Lymph % (Auto) 23.5, [place] % (Auto) 6.3, Eos % (Auto) 12.1 H, Baso % (Auto) 0.5, Neut # (Auto) 4.0, Lymph # (Auto) 1.6, [place] # (Auto) 0.4, Eos # (Auto) 0.8 H, Baso # (Auto) 0.0 09/04/20 06:04: Sodium 134 L, Potassium 4.5, Chloride 99, Carbon Dioxide 28, Anion Gap 11.5, BUN 9 D, Creatinine 0.50 L, Estimated Creat Clear 118, Estimated GFR 133, Est GFR ( Amer) 161, Glucose 110 H, Calcium 9.7 09/04/20 06:10: Urine HCG, Qual Negative 09/04/20 06:10: Urine Color Yellow, Urine Appearance Clear, Urine pH 7.5, Ur Specific Freeman 1.010, Urine Protein Negative, Urine Glucose (UA) Negative, Urine Ketones Negative, Urine Blood Negative, Urine Nitrate Negative, Urine Bilirubin Negative, Urine Urobilinogen 0.2, Ur Leukocyte Esterase Negative, Urine WBC 3-5, Ur Squamous Epith Cells 3-5 09/04/20 10:09: POC Glucose 99 09/04/20 16:23: POC Glucose 141 H I & O for Last 24 hours: Intake & Output 09/01/20 09/02/20 09/03/20 09/04/20 23:59 23:59 23:59 23:59 Intake Total 240 / 240 1170 / 1770 2280 / 2630 1770 / 1770 Output Total 600 / 1300 2400 / 2400 2950 / 2950 1580 / 1580 Balance -360 / -1060 -1230 / -630 -670 / -320 190 / 190 Weight 116 lb 1 oz 122 lb 3.2 oz 118 lb 7 oz 117 lb 7 oz Microbiology Reports for the Last 24 Hours: Microbiology 09/04/20 07:56 Leg,Left - Wound Gram Stain - Final - Constitutional mild distress - *Routine HEENT Exam Head: Present: normocephalic Eye: Present: EOMI, PERRL ENT: Present: mucous membranes moist - *Routine Neck Exam Present: supple. Absent: lymphadenopathy - *Routine Respiratory Exam Present: CTA bilaterally - *Routine Cardiovascular Exam Present: RRR - *Routine Abdominal Exam Present: soft, normoactive bowel sounds. Absent: tenderness - *Routine Extremities Exam Present: tenderness, amputation - *Routine Skin Exam Present: warm. Absent: rash - *Routine Neurological Exam Present: alert, oriented X3, vision grossly intact, hearing grossly intact, normal speech. Absent: facial asymmetry, tremors Assessment and Plan (1) CHF exacerbation Status: Acute Qualifiers: Heart failure type: unspecified Qualified Code(s): I50.9 - Heart failure, unspecified Category: Medical Code(s): I50.9 - Heart failure, unspecified (2) Pneumonia Status: Acute Qualifiers: Pneumonia type: due to unspecified organism Laterality: right Lung location: lower lobe of lung Qualified Code(s): J18.9 - Pneumonia, unspecified organism Category: Medical Code(s): J18.9 - Pneumonia, unspecified organism (3) Tobacco use Status: Acute Category: Social Hx Code(s): Z72.0 - Tobacco use (4) Anxiety Status: Chronic Category: Medical Code(s): F41.9 - Anxiety disorder, unspecified (5) Essential (primary) hypertension Status: Chronic Category: Medical Code(s): I10 - Essential (primary) hypertension (6) Acute and chronic cholecystitis Status: Acute Category: Medical Code(s): K81.2 - Acute cholecystitis with chronic cholecystitis (7) Osteomyelitis Status: Acute Category: Medical Code(s): M86.9 - Osteomyelitis, unspecified (8) MRSA (methicillin resistant Staphylococcus
--- NOTE | 2020-09-04 18:34 | PC.NURSE ---
A&OX4. PT HAS TOLERATED RA WELL THROUGHOUT SHIFT. RESPIRATIONS REGULAR AND UNLABORED. LUNG SOUNDS BILATERALLY CLEAR. NO COUGH NOTED. HAND DOUGH CUTTING MACHINE OPERATOR EQUAL. L AKA NOTED. DRESSING NOTED TO L KNEE. CDI. GABI DRAIN IN PLACE TO L KNEE. PT HAS REPORTED PAIN SEVERAL TIMES THIS SHIFT AND RECEIVED PAIN MEDS PER NOV. ON REASSESSMENT, SHE STATED PAIN WAS TOLERABLE. PT HAD A L AKA TODAY AND HAS DONE WELL WITH RECOVERY. SHE GOT UP TO THE CHAIR FOR ABOUT A HOUR TODAY. SCUD PUMP UNAVAILABLE AT THIS TIME BUT PT IS ON LOVENOX. PT HAD A URBAN CATH AFTER SURGERY AND IT WAS RECENTLY REMOVED. PT TOLERATED WELL. PT HAS ALREADY VOIDED. CLEAR YELLOW URINE NOTED. PT RECEIVED LASIX AND HAD GREAT OUTPUT. PURWICK IN PLACE NOW. ACTIVE BOWEL SOUNDS HEARD IN ALL 4 QUADRANTS. SOFT AND NONTENDER ABDOMEN. NO BM THUS FAR. +2 PULSES NOTED THROUGHOUT. PT IS CURRENTLY SITTING IN BED RESTING. BED IN LOWEST POSITION. CALL LIGHT WITHIN REACH. VSS. WILL CONTINUE TO MONITOR.
[2020-09-04 21:33] LABS: POC Glucose,Bedside 120 (70-110)
[2020-09-05] VITALS (8 sets, daily range): BP systolic 112–137; BP diastolic 75–93; PULSE 96–118; RESP 16–18; TEMP 36.6–36.8; O2SAT 93–98; BMI 23.6
--- NOTE | 2020-09-05 04:25 | PC.NURSE ---
Addendum entered by Ana Dutton RN 09/05/20 06:07: IS @ [facility] [id number] MD Alvarado notified of drainage and GABI drain issues. No new orders. Original Note: Pt is A&Ox4. Pt has slept majority of this shift. Lung sounds are clear t/o. IS placed in pt's room this shift. Pt has been sinus tach on tele. Left AKA remains elevated on (2) pillows. At the beginning of shift dressing was CDI. During 399 rounds, nursing staff notified this nurse that the chux under pt's AKA had drainage on it. Upon assessment, a small amount of serosanguineous drainage noted to MARIMAR bandage and to chux under stump. Also the pt's GABI drain was inflated w/ air and when this nurse went to deflate the drain and close it again, the drain reinflated itself. Battery Plate Assembler notified and instructed to reinforce dressings. Additional MARIMAR bandage placed on pt's stump w/ extra chux underneath. Pt has c/o of LLE pain multiple times t/o this shift. Pt medicated per NOV. Purewick remains in place and pt has urinated clear, dark yellow urine. ANDREW placed on pt's rt leg this shift for VTE. No other complaints or acute changes at this time.
[2020-09-05 06:00] LABS: POC Glucose,Bedside 111 (70-110)
[2020-09-05 06:47] LABS: Basophils % 0.5 % (0.1-2.0); Eosinophils # 0.5 K/mm3 (0.0-0.4); Eosinophils % 5.8 % (0.1-12.0); Hematocrit 33.7 % (37.0-47.0); Lymphocytes # 1.3 K/mm3 (0.7-4.5); Lymphocytes % 14.3 % (10-50); Mean Corpuscular HGB Conc 32.5 g/dL (31.8-35.4); Mean Corpuscular Hemoglobin 30.1 pg (27.0-31.2); Mean Corpuscular Volume 92.5 fl (81-99); Mean Platelet Volume 7.8 fl (7.4-10.4); Monocytes # 0.6 K/mm3 (0.1-1.0); Monocytes % 6.9 % (1.7-9.3); Neutrophils # 6.4 K/mm3 (1.8-7.8); Neutrophils % 72.5 % (37.0-80.0); Platelet Count 475 K/mm3 (142-424); Red Blood Count 3.65 M/mm3 (4.20-5.40); Red Cell Distribution Width 14.9 % (11.5-17.5); White Blood Count 8.8 K/mm3 (4.8-10.8)
[2020-09-05 06:54] LABS: Chloride 98 mmol/L (98-107); Potassium 4.3 mmoL/L (3.5-5.1); Sodium 131 mmol/L (136-145)
[2020-09-05 06:57] LABS: Anion Gap 9.3 mEq/L (5-15); Blood Urea Nitrogen 8 mg/dl (7-17); Carbon Dioxide 28 mmol/L (22.0-30.0); Creatinine Clearance Estimated 151 mL/min (50-200); Estimated Glomerular Filt Rate 172 ml/min (>60); GFR (African American) 208 ML/MIN (>60)
[2020-09-05 06:58] LABS: Calcium 9.5 mg/dl (8.4-10.2); Glucose 117 mg/dl (74-100)
[2020-09-05 07:03] LABS: C-Reactive Protein 10.5 mg/L (0-4)
[2020-09-05 07:06] LABS: Erythrocyte Sedimentation Rate 42 mm/hr (0-20)
[2020-09-05 11:24] LABS: POC Glucose,Bedside 109 (70-110)
--- NOTE | 2020-09-05 12:20 | HMH.ORTHPN ---
Subjective Date: 09/05/20 Time: 11:30 Principal diagnosis: L BKA osteomyelitis Interval history: The patient is doing well this morning, though she's had some drainage through her dressings overnight. The bulb on her drain is malfunctioning and will not hold suction. The dressings have been reinforced without further strikethrough. Vitals have been stable, with some tachycardia but no hypotension, no fevers or chills, no shortness of breath. PN: Obj Ex Vital signs: Temp Pulse Resp BP Pulse Ox 98.1 F 116 H 17 137/93 H 95 09/05/20 08:00 09/05/20 08:00 09/05/20 08:00 09/05/20 08:00 09/05/20 08:00 - Constitutional no acute distress - Routine HEENT Exam Head: Present: normocephalic Eye: Present: EOMI ENT: Present: mucous membranes moist - Routine Respiratory Exam Absent: respiratory distress, wheezes - Routine Cardiovascular Exam Present: RRR - Routine Abdominal Exam Present: soft - Routine Extremities Exam Comments: L AKA dressings loose, nearly off leg dressings removed, drain has pulled out and is sitting in dressings incision and sutures c/d/i, no periwound erythema or drainage skin pink, warm - Routine Skin Exam Present: warm - Routine Neurological Exam Present: alert, oriented X3, moving all extremities, normal tone, vision grossly intact, hearing grossly intact, normal speech. Absent: sensory deficit, motor deficit, altered mental status - Urinary Catheter Management [place] Cath placed during this visit: no Progress Note: A&P (1) CHF exacerbation Status: Acute (2) Pneumonia Status: Acute (3) Tobacco use Status: Acute (4) Anxiety Status: Chronic (5) Essential (primary) hypertension Status: Chronic (6) Acute and chronic cholecystitis Status: Acute (7) Osteomyelitis Status: Acute (8) MRSA (methicillin resistant Staphylococcus aureus) Status: Acute Assessment and Plan for All Diagnoses:: 44yo F s/p L BKA 07/09/20 --> subsequent stump abscess I&D by Dr. Cao on 08/17/20. Cultures were +MRSA. POD 1 s/p L AKA. -- drain came out overnight, discarded and dressings changed. Incision looks healthy w/o active drainage. -- keep LLE elevated on 2 pillows at all times -- PT to continue at SNF; mobilization, gait training/transfers -- continue IV antibiotics; IV vancomycin -- pathology/cultures pending -- DVT prophy per PCP; I am ok with aspirin -- leave dressings in place for now, but once d/c back to SNF, change once daily -- dispo planning: ok to d/c back to SNF from ortho perspective, once medically cleared. Follow-up with me in the office next week; 09/11/20 at 2:45pm
--- NOTE | 2020-09-05 13:29 | HMH.DCSUM ---
General - General Admission date:: 09/01/20 Discharge date: 09/05/20 HPI HPI: 44-year-old female who looks much older than stated age with a [id number] amputation currently being treated for osteomyelitis. Presents in acute respiratory distress with severe difficulty breathing from rehab facility. Differential includes pneumonia, CHF exacerbation, COPD exacerbation, pulmonary embolism, ACS. Significant rales on exam concerning for pulmonary edema is also associated with profound hypertension at this time. Satting in the 80s on nonrebreather chest x-ray demonstrates pulmonary edema with possible pneumonia in the right lower lobe. She was started on BiPAP which significantly improved her symptoms and work of breathing now satting 96% with normal respiratory rate. Further work-up demonstrated a negative troponin and with diuresis and BiPAP therapy her heart rate is normalized and she is no longer hypoxic and with obvious other source no concern for pulmonary embolism at this time as she has no evidence of a DVT. Patient was given 40 mg IV Lasix 125 mg IV Solu-Medrol. BNP is greater than 2000. Will be treated for pneumonia with IV ceftriaxone and IV azithromycin. The patient was admitted and discussed to Dr. Gray for further evaluation and management (Per Dr. Blackburn). 09/01/20 CXR: IMPRESSION: Prominent diffuse ill-defined pneumonic infiltrates right upper lobe and right lower lobe with minimal similar appearing patchy infiltrate left perihilar region Dictated by: Trey, 09/01/20 L Femur XR: IMPRESSION: Post below-knee amputation, otherwise grossly negative left femur Dictated by: Trey 09/02/20 CXR: IMPRESSION: Marked improvement of the diffuse infiltrate and pulmonary edema since yesterday's chest film Improvement and regression of infiltrate/pulmonary edema most striking at the previously more involved right chest,, but there is also been improvement throughout the left chest Heart normal size. CP angles sharp. Dictated by: Wes 44-year-old female patient sitting up in bed awakens easily to verbal stimuli. Oxygen saturations on 2 L per nasal cannula have been greater than 92% all night and afebrile during night. She does report she is feeling better this morning dressing to left BKA clean dry and intact. Patient did receive 40 of Lasix yesterday in ED and additional 20 cc during the night. She did diurese a good amount of urine during the night. This morning still with bibasilar crackles we will give an additional 20 mg Lasix IV x1 and start potassium 20 mEq p.o. daily. We will consult Ortho for left BKA I and D earlier this month. She is currently residing in [place] [facility] for rehab and IV antibiotics for osteomyelitis of left below-knee amputation. She also has a history of mitral regurg, diabetes, CHF, and COPD Sodium 134, potassium 3.3, CBC within normal, Chest x-ray today showing improvement Hospital Course Hospital Course: Pt was admitted with dyspnea and an infected distal stump from recent bka. Patient was seen in consultation with orthopedics and cardiology. Patient was taken to the operating room by Dr. Israel on 09/04/20 and her left BKA was revised to an AKA. Dr. Israel and I examined the wound together today. She anticipates good healing. On the day of her discharge patient was in a good mood, is having no chest pain or shortness of breath. She feels ready to go home. Objective Vital signs: Temp Pulse Resp BP Pulse Ox 98.2 F 118 H 16 134/90 94 L 09/05/20 12:00 09/05/20 12:00 09/05/20 12:00 09/05/20 12:00 09/05/20 12:00 no acute distress - *Routine HEENT Exam Head: Present: normocephalic Eye: Present: EOMI, PERRL ENT: Present: mucous membranes moist - *Routine Neck Exam Present: supple - *Routine Respiratory Exam Present: CTA bilaterally - *Routine Cardiovascular Exam Present: RRR - *Routine Abdominal Ex
[2020-09-05 15:31] LABS: Adenovirus,PCR Not Detected (NotDetected); Bordetella Pertussis Not Detected (NotDetected); Chlamydophila Pneumoniae, PCR Not Detected (NotDetected); Coronavirus 19, PCR Not Detected (NotDetected); Coronavirus 229E Not Detected (NotDetected); Coronavirus NL63 Not Detected (NotDetected); Coronavirus OC43 Not Detected (NotDetected); Coronovirus HKU1,PCR Not Detected (NotDetected); Human Metapneumovirus Not Detected (NotDetected); Influenza A, PCR Not Detected (NotDetected); Influenza AH1, 2009 Not Detected (NotDetected); Influenza AH1, PCR Not Detected (NotDetected); Influenza AH3,PCR Not Detected (NotDetected); Influenza B, PCR Not Detected (NotDetected); Mycoplasma Pneumoniae, PCR Not Detected (NotDetected); Parainfluenza 1, PCR Not Detected (NotDetected); Parainfluenza 2, PCR Not Detected (NotDetected); Parainfluenza 3, PCR Not Detected (NotDetected); Parainfluenza 4, PCR Not Detected (NotDetected); Respiratory Syncytial Virus Not Detected (NotDetected); Rhinovirus/Enterovirus Not Detected (NotDetected)
[2020-09-05 16:04] LABS: POC Glucose,Bedside 114 (70-110)
--- NOTE | 2020-09-05 16:31 | PC.NURSE ---
Pt is alert and oriented and able to make needs known. RR even and unlabored. CB in reach. PICC in MARY. Pt will be going back to [facility], pending covid pcr. Dsg changed per Dr. Alvarado this shift and joselin drain was out and left out. have called report to Katia at [facility]. Will cont to mx until d/c. Did also make Dr. Gray aware that pt has continued to be tachy this shift, NNO given.
--- NOTE | 2020-09-05 16:53 | PC.NURSE ---
Called [facility] at this time for transportation and they will be here as soon as possible. Called to make nurse Montalvo aware that pt will be there when ambulance becomes available.
== END 2020-09-05 17:32 | DRG 474 ==
LOC: ER 12:52 → 2ND 15:32
PROVIDERS: Nurse Practitioner Family; Orthopaedic Surgery; Admitting Provider Family Medicine; Emergency Provider Student in an Organized Health Care Education/Training Program; PCP Emergency Medicine; Visit Provider Family Medicine
PROC: (CPT 27880; principal; 2020-09-03 07:30)
PROC: 0Y6D0Z3 Detachment at Left Upper Leg, Low, Open Approach (ICD-10-PCS; CPT 27880; principal; 2020-09-04 06:30)
DX: T87.44 Infection of amputation stump, left lower extremity (principal); I50.33 Acute on chronic diastolic (congestive) heart failure; J18.9 Pneumonia, unspecified organism; J96.01 Acute respiratory failure with hypoxia; M86.162 Other acute osteomyelitis, left tibia and fibula; M86.672 Other chronic osteomyelitis, left ankle and foot; I70.262 Atherosclerosis of native arteries of extremities with gangrene, left leg; K81.2 Acute cholecystitis with chronic cholecystitis; M87.9 Osteonecrosis, unspecified; B95.62 Methicillin resistant Staphylococcus aureus infection as the cause of diseases classified elsewhere; Z79.82 Long term (current) use of aspirin; Z79.899 Other long term (current) drug therapy; Z88.0 Allergy status to penicillin; Z88.5 Allergy status to narcotic agent; Z87.891 Personal history of nicotine dependence; I11.0 Hypertensive heart disease with heart failure; J44.9 Chronic obstructive pulmonary disease, unspecified
CPT/HCPCS: 27590; 36415; 71045; 73552; 73718; 80048; 80053; 80202; 81001; 81025; 82803; 82962; 83735; 83880; 84484; 85025; 85651; 86140; 86328; 87070; 87075; 87205; 87581; 87633; 87798; 88307; 88311; 93005; 93306; 94640; 94760; 94761; 96365; 96375; 97161; 99285; J1956; J2405; J3370; U0003

== ENCOUNTER → 2020-09-07 08:27 | Outpatient (REF) | payer MEDICARE, MEDICAID, SELFPAY ==
[2020-09-07 08:58] LABS: Anion Gap 12.4 mEq/L (5-15); Blood Urea Nitrogen 9 mg/dl (7-17); Calcium 9.7 mg/dl (8.4-10.2); Carbon Dioxide 27 mmol/L (22.0-30.0); Chloride 100 mmol/L (98-107); Estimated Glomerular Filt Rate 172 ml/min (>60); GFR (African American) 208 ML/MIN (>60); Glucose 110 mg/dl (74-100); Potassium 4.4 mmoL/L (3.5-5.1); Sodium 135 mmol/L (136-145)
== END ==
LOC: LAB.DROPOF 08:27
PROVIDERS: Visit Provider Emergency Medicine
DX: Z51.81 Encounter for therapeutic drug level monitoring (principal); M86.9 Osteomyelitis, unspecified
CPT/HCPCS: 80048; 80202

== ENCOUNTER → 2020-09-10 08:05 | Outpatient (CLI) | payer MEDICARE, MEDICAID, SELFPAY ==
[2020-09-10 10:24] LABS: Anion Gap 12.2 mEq/L (5-15); Blood Urea Nitrogen 5 mg/dl (7-17); Carbon Dioxide 24 mmol/L (22.0-30.0); Chloride 103 mmol/L (98-107); Estimated Glomerular Filt Rate 172 ml/min (>60); GFR (African American) 208 ML/MIN (>60); Glucose 93 mg/dl (74-100); Potassium 4.2 mmoL/L (3.5-5.1); Sodium 135 mmol/L (136-145)
[2020-09-10 10:29] LABS: Vancomycin,Trough 15.7 ug/mL (5.0-10.0)
== END ==
PROVIDERS: Visit Provider Emergency Medicine
DX: M86.9 Osteomyelitis, unspecified (principal); Z51.81 Encounter for therapeutic drug level monitoring
CPT/HCPCS: 80048; 80202

== ENCOUNTER → 2020-09-15 12:22 | Outpatient (CLI) | payer MEDICARE, MEDICAID, SELFPAY ==
[2020-09-15 13:43] LABS: Anion Gap 12.2 mEq/L (5-15); Blood Urea Nitrogen 3 mg/dl (7-17); Calcium 8.8 mg/dl (8.4-10.2); Carbon Dioxide 24 mmol/L (22.0-30.0); Chloride 103 mmol/L (98-107); Estimated Glomerular Filt Rate 133 ml/min (>60); GFR (African American) 161 ML/MIN (>60); Glucose 68 mg/dl (74-100); Potassium 4.2 mmoL/L (3.5-5.1); Sodium 135 mmol/L (136-145)
[2020-09-15 13:48] LABS: Vancomycin,Trough 19.4 ug/mL (5.0-10.0)
== END ==
PROVIDERS: PCP Emergency Medicine; Visit Provider Emergency Medicine
DX: S78.112A Complete traumatic amputation at level between left hip and knee, initial encounter (principal); T87.40 Infection of amputation stump, unspecified extremity
CPT/HCPCS: 80048; 80202

== ENCOUNTER → 2020-10-10 13:27 | Outpatient (CLI) | payer MEDICARE, MEDICAID, SELFPAY ==
[2020-10-10 13:50] LABS: Basophils % 0.6 % (0.1-2.0); Eosinophils # 0.7 K/mm3 (0.0-0.4); Eosinophils % 13.2 % (0.1-12.0); Hematocrit 32.5 % (37.0-47.0); Hemoglobin 9.4 g/dL (12.2-16.2); Lymphocytes # 1.6 K/mm3 (0.7-4.5); Lymphocytes % 29.3 % (10-50); Mean Corpuscular Hemoglobin 24.3 pg (27.0-31.2); Mean Corpuscular Volume 83.8 fl (81-99); Mean Platelet Volume 7.2 fl (7.4-10.4); Monocytes # 0.3 K/mm3 (0.1-1.0); Monocytes % 5.8 % (1.7-9.3); Neutrophils # 2.8 K/mm3 (1.8-7.8); Platelet Count 363 K/mm3 (142-424); Red Blood Count 3.88 M/mm3 (4.20-5.40); Red Cell Distribution Width 15.1 % (11.5-17.5); White Blood Count 5.4 K/mm3 (4.8-10.8)
[2020-10-10 14:26] LABS: Erythrocyte Sedimentation Rate 23 mm/hr (0-20)
[2020-10-10 16:20] LABS: C-Reactive Protein 0.8 mg/L (0-4)
== END ==
PROVIDERS: Visit Provider Orthopaedic Surgery
DX: L02.619 Cutaneous abscess of unspecified foot (principal); L03.119 Cellulitis of unspecified part of limb; Z51.89 Encounter for other specified aftercare; Z89.619 Acquired absence of unspecified leg above knee
CPT/HCPCS: 36415; 85025; 85651; 86140

== ENCOUNTER → 2020-11-03 09:30 | Outpatient (CLI) | payer MEDICARE, MEDICAID, SELFPAY ==
--- NOTE | 2020-11-03 09:37 | XR_ITS ---
PROCEDURE: XR FEMUR LT 2V CLINICAL INDICATION: S/p L AKA 09/04/20 Follow-up amputation COMPARISON: CR XR TIBIA FIBULA LT 2V from 08/26/2020 CR XR FEMUR LT 2V from 09/01/2020 MR MR LOWER LEG LT WO CON from 09/02/2020 CR XR FEMUR LT 2V from 09/04/2020 FINDINGS: Status post above the knee amputation. Surgical clips are present at the distal femoral shaft medially within the soft tissues. There is some bony irregularity involving the amputation site of the femur. This had a more sharp appearance on 09/04/2020. Please correlate with clinical parameters. Bony erosion can be seen with hyperemic changes however, infection would be included in the differential diagnosis. IMPRESSION: There is some irregularity of the bone at the amputation site. Cannot exclude underlying infection/osteomyelitis. Please correlate with clinical parameters. Dictated by: Pranay Patricio MD 11/03/2020 12:13 Pranay Patricio MD in [place] 11/03/2020 12:13
== END ==
PROVIDERS: PCP Emergency Medicine; Visit Provider Orthopaedic Surgery
DX: S78.112A Complete traumatic amputation at level between left hip and knee, initial encounter (principal)
CPT/HCPCS: 73552

== ENCOUNTER → 2020-11-17 09:15 | Outpatient (CLI) | payer MEDICARE, MEDICAID, SELFPAY ==
[2020-11-17 09:42] LABS: Basophils # 0.1 K/mm3 (0-0.2); Basophils % 0.5 % (0.1-2.0); Eosinophils # 1.2 K/mm3 (0.0-0.4); Eosinophils % 13.3 % (0.1-12.0); Hematocrit 35.4 % (37.0-47.0); Hemoglobin 10.9 g/dL (12.2-16.2); Lymphocytes # 1.5 K/mm3 (0.7-4.5); Lymphocytes % 15.7 % (10-50); Mean Corpuscular HGB Conc 30.7 g/dL (31.8-35.4); Mean Corpuscular Hemoglobin 24.2 pg (27.0-31.2); Mean Corpuscular Volume 78.8 fl (81-99); Mean Platelet Volume 7.1 fl (7.4-10.4); Monocytes # 0.5 K/mm3 (0.1-1.0); Monocytes % 5.2 % (1.7-9.3); Neutrophils # 6.1 K/mm3 (1.8-7.8); Neutrophils % 65.3 % (37.0-80.0); Platelet Count 366 K/mm3 (142-424); Red Cell Distribution Width 16.9 % (11.5-17.5); White Blood Count 9.3 K/mm3 (4.8-10.8)
[2020-11-17 10:09] LABS: Erythrocyte Sedimentation Rate 15 mm/hr (0-20)
== END ==
PROVIDERS: Visit Provider Orthopaedic Surgery
DX: S78.112A Complete traumatic amputation at level between left hip and knee, initial encounter (principal); T81.40XA Infection following a procedure, unspecified, initial encounter; L02.619 Cutaneous abscess of unspecified foot; L03.119 Cellulitis of unspecified part of limb
CPT/HCPCS: 36415; 85025; 85651; 86140

== ENCOUNTER → 2020-12-25 10:01 | Outpatient (CLI) | payer MEDICARE, MEDICAID, SELFPAY | PROVIDERS: PCP Emergency Medicine; Visit Provider Internal Medicine Pulmonary Disease | DX: R06.00 Dyspnea, unspecified (principal) | CPT/HCPCS: 94060; 94727; 94729 ==

== ENCOUNTER → 2021-01-26 15:47 | Outpatient (CLI) | payer MEDICARE, MEDICAID, SELFPAY | PROVIDERS: Visit Provider Emergency Medicine | DX: S61.202A Unspecified open wound of right middle finger without damage to nail, initial encounter (principal) | CPT/HCPCS: 87070; 87077; 87186; 87205 ==

== ENCOUNTER 2021-09-14 00:55 | Emergency (ER) | payer MEDICARE, MEDICAID, SELFPAY ==
[2021-09-14] VITALS (8 sets, daily range): BP systolic 101–142; BP diastolic 66–95; PULSE 110–115; RESP 20; TEMP 36.8–36.9; O2SAT 93–97; BMI 27.6
--- NOTE | 2021-09-14 01:24 | ECG_ITS ---
APPROVED REPORT Exam: Resting ECG HR:118 bpm ECG Measurements Heart Rate 118 AXES VT 150 P 57 QRSd 70 QRS 64 QT 322 T 67 QTc 451 Conclusion Sinus tachycardia Possible Left atrial enlargement Cannot rule out Anterior infarct, age undetermined Abnormal ECG Electronically signed by : Jonas Blair MD 09/17/2021 13:51:24
--- NOTE | 2021-09-14 01:24 | XR_ITS ---
PROCEDURE INFORMATION: Exam: XR Chest Exam date and time: 09/14/2021 1:24 AM Age: 45 years old Clinical indication: Cough; Additional info: Congestion TECHNIQUE: Imaging protocol: XR of the chest. Views: 1 view. COMPARISON: CR XR CHEST PORTABLE 09/02/2020 5:28 AM FINDINGS: Lungs: Biapical scarring. Coarse bilateral perihilar and infrahilar opacities suspicious for atypical infection. Patchy left basilar airspace disease could be more consolidative pneumonia or atelectasis. Suspect mild interstitial edema. Pleural spaces: Question a small left pleural effusion. No pneumothorax. Heart/Mediastinum: Normal heart size. Bones/joints: Mild dextroconvex thoracic curvature. Mild spondylosis. Possible age-indeterminate fracture defect of the posterolateral left 8th rib, versus artifact due to overlapping structures she. IMPRESSION: 1. Findings suspicious for atypical infection, with more consolidative infiltrate or atelectasis at the left lung base. Differential would include [id number] pulmonary edema. 2. Possible small left pleural effusion. 3. Questionable age-indeterminate nondisplaced fracture posterolateral left 8th rib, versus artifact. Request correlation for point tenderness.
[2021-09-14 01:35] LABS: Basophils # 0.1 K/mm3 (0-0.2); Basophils % 0.9 % (0.1-2.0); Coronavirus 19, PCR Not Detected (NotDetected); Eosinophils # 0.6 K/mm3 (0.0-0.4); Eosinophils % 4.6 % (0.1-12.0); Hematocrit 34.4 % (37.0-47.0); Hemoglobin 10.9 g/dL (12.2-16.2); Influenza A, PCR Not Detected (NotDetected); Lymphocytes # 1.9 K/mm3 (0.7-4.5); Lymphocytes % 15.5 % (10-50); Mean Corpuscular HGB Conc 31.6 g/dL (31.8-35.4); Mean Corpuscular Hemoglobin 25.6 pg (27.0-31.2); Mean Corpuscular Volume 81.2 fl (81-99); Mean Platelet Volume 7.6 fl (7.4-10.4); Monocytes # 0.6 K/mm3 (0.1-1.0); Monocytes % 4.8 % (1.7-9.3); Neutrophils # 9.2 K/mm3 (1.8-7.8); Neutrophils % 74.1 % (37.0-80.0); Platelet Count 324 K/mm3 (142-424); Red Blood Count 4.23 M/mm3 (4.20-5.40); Red Cell Distribution Width 19.1 % (11.5-17.5); White Blood Count 12.5 K/mm3 (4.8-10.8)
[2021-09-14 01:45] LABS: Alanine Aminotransferase 31 U/L (12-78); Albumin Level 4.3 g/dl (3.5-5.0); Albumin/Globulin Ratio 1.3 (1.1-1.8); Alkaline Phosphatase 120 U/L (38-126); Anion Gap 13.5 mEq/L (5-15); Aspartate Amino Transferase 38 U/L (14-36); Bilirubin,Total 0.4 mg/dl (0.2-1.3); Blood Urea Nitrogen 5 mg/dl (7-17); Carbon Dioxide 23 mmol/L (22.0-30.0); Chloride 98 mmol/L (98-107); Creatinine Clearance Estimated 145 mL/min (50-200); Estimated Glomerular Filt Rate 132 ml/min (>60); GFR (African American) 160 ML/MIN (>60); Globulin 3.3 g/dL (1.3-3.2); Glucose 134 mg/dl (74-100); Potassium 3.5 mmoL/L (3.5-5.1); Sodium 131 mmol/L (136-145); Total Protein,Serum 7.6 g/dl (6.3-8.2)
[2021-09-14 01:50] LABS: C-Reactive Protein 69.1 mg/L (0-4)
--- NOTE | 2021-09-14 01:57 | HMH.EDSOB ---
ED Disposition Clinical Impression: Acute exacerbation of chronic obstructive airways disease Disposition: Home, Self-Care Condition on Discharge: Good Instructions: DI for Chronic Obstructive Pulmonary Disease Additional Instructions: resume meds Referrals: Isac Sandhu MD [Primary Care Provider] - - Critical Care Critical Care Time: No Attestation: On 09/14/21, the high probability of a clinically significant, sudden or life threatening deterioration of the following system(s) required my full and direct attention, intervention and personal management. The time I documented below is in addition to time spent performing reported procedures but includes the following listed in this critical care notation. Medical Decision Making - Medical Records Medical records reviewed: Yes: I reviewed the patient's medical records. - Raymond Inquiry Pt receiving controlled substance: No Vital Signs: 09/14/21 00:51 09/14/21 01:31 09/14/21 02:00 Temperature 98.5 F Temperature Source Oral Pulse Rate 113 H 113 H Pulse Rate [Apical] 114 H Respiratory Rate 20 Blood Pressure 107/67 L 108/73 L Blood Pressure [Right Arm] 142/95 H Blood Pressure Mean Blood Pressure Mean [Right Arm] 110 Blood Pressure Source [Right Arm] Automatic Cuff Blood Pressure Position [Right Arm] Sitting 02 Sat by Pulse Oximetry 95 93 L 93 L Oxygen Delivery Method Room Air Room Air Room Air 09/14/21 02:31 09/14/21 03:00 09/14/21 03:30 Temperature Temperature Source Pulse Rate 115 H 110 H 111 H Pulse Rate [Apical] Respiratory Rate Blood Pressure 102/81 L 120/81 101/66 L Blood Pressure [Right Arm] Blood Pressure Mean 92 77 Blood Pressure Mean [Right Arm] Blood Pressure Source [Right Arm] Blood Pressure Position [Right Arm] 02 Sat by Pulse Oximetry 94 L 94 L 95 Oxygen Delivery Method Room Air 09/14/21 04:00 Temperature Temperature Source Pulse Rate 115 H Pulse Rate [Apical] Respiratory Rate Blood Pressure 111/70 Blood Pressure [Right Arm] Blood Pressure Mean 76 Blood Pressure Mean [Right Arm] Blood Pressure Source [Right Arm] Blood Pressure Position [Right Arm] 02 Sat by Pulse Oximetry 93 L Oxygen Delivery Method - Lab Data Lab results reviewed: Yes: I reviewed the patient's lab results. Lab Results 09/14/21 01:15: WBC 12.5 H, RBC 4.23, Hgb 10.9 L, Hct 34.4 L, MCV 81.2, MCH 25.6 L, MCHC 31.6 L, RDW 19.1 H, Plt Count 324, MPV 7.6, Neut % (Auto) 74.1, Lymph % (Auto) 15.5, [place] % (Auto) 4.8, Eos % (Auto) 4.6, Baso % (Auto) 0.9, Neut # (Auto) 9.2 H, Lymph # (Auto) 1.9, [place] # (Auto) 0.6, Eos # (Auto) 0.6 H, Baso # (Auto) 0.1, ESR 36 H 09/14/21 01:15: Sodium 131 L, Potassium 3.5, Chloride 98, Carbon Dioxide 23, Anion Gap 13.5, BUN 5 L, Creatinine 0.50 L, Estimated Creat Clear 145, Estimated GFR 132, Est GFR ( Amer) 160, Glucose 134 H, Calcium 9.0, Total Bilirubin 0.4, AST 38 H, ALT 31, Alkaline Phosphatase 120, Troponin I < 0.01, C-Reactive Protein 69.1 H, Total Protein 7.6, Albumin 4.3, Globulin 3.3 H, Albumin/Globulin Ratio 1.3, Procalcitonin 0.121 09/14/21 01:15: SARS-CoV-2 (PCR) Not detected, Influenza A Untype (PCR) Not detected, Influenza Type B (PCR) Not detected 09/14/21 01:15: NT-Pro-B Natriuret Pep 125 Result diagrams: 09/14/21 01:15 09/14/21 01:15 Orders (Tests/Meds): ED MEDICATIONS Generic Name Dose Route Start Last Admin Trade Name Freq PRN Reason Stop Dose Admin Sodium Chloride 1,000 mls @ 999 mls/hr 09/14/21 02:30 09/14/21 02:21 Sod Chlor 0.9% 1000ml Bag IV 09/14/21 03:30 999 mls/hr .Q1H1M ASH Administration Discontinued Medications Generic Name Dose Route Start Last Admin Trade Name Freq PRN Reason Stop Dose Admin Methylprednisolone Sodium Succinate 125 mg 09/14/21 02:19 09/14/21 02:20 Methylprednisolone Sod Succ 125mg Vial IV 09/14/21 02:20 125 mg ONCE ONE Administration ORDERS Category Date Time Status Tro
[2021-09-14 02:01] LABS: Troponin I < 0.01 ng/ml (0.00-0.034)
[2021-09-14 02:02] LABS: Erythrocyte Sedimentation Rate 36 mm/hr (0-20)
[2021-09-14 02:03] LABS: Influenza B, PCR Not Detected (NotDetected)
[2021-09-14 02:05] LABS: Procalcitonin 0.121 ng/mL (0.0-2.0)
[2021-09-14 02:30] LABS: NT Pro Brain Natriuretic Pep. 125 pg/mL (0-125)
[2021-09-14 04:40] LABS: Troponin I < 0.01 ng/ml (0.00-0.034)
--- NOTE | 2021-09-14 05:06 | PC.NURSE ---
Brayden notified for pt transfer back to [place]
== END 2021-09-14 05:29 | disposition home or self-care (01) ==
PROVIDERS: Emergency Provider Emergency Medicine; PCP Emergency Medicine
DX: J44.1 Chronic obstructive pulmonary disease with (acute) exacerbation (principal); F41.8 Other specified anxiety disorders; E78.5 Hyperlipidemia, unspecified; Z87.891 Personal history of nicotine dependence; Z20.822 Contact with and (suspected) exposure to COVID-19
CPT/HCPCS: 71045; 80053; 83880; 84145; 84484; 85025; 85651; 86140; 93005; 96365; 96375; 99284; C9803; U0003; U0005

== ENCOUNTER 2021-12-20 01:55 | Emergency (ER) | payer MEDICARE, MEDICAID, SELFPAY ==
[2021-12-20] VITALS (19 sets, daily range): BP systolic 99–124; BP diastolic 59–87; PULSE 88–124; RESP 17–22; TEMP 36.9; O2SAT 90–97; BMI 29.2
--- NOTE | 2021-12-20 02:16 | ECG_ITS ---
APPROVED REPORT Exam: Resting ECG HR:106 bpm ECG Measurements Heart Rate 106 AXES CA 128 P 59 QRSd 76 QRS 66 QT 337 T 59 QTc 399 Conclusion SINUS TACHYCARDIA POSSIBLE LEFT ATRIAL ENLARGEMENT [-0.1mV P-WAVE IN V1/V2] ABNORMAL RHYTHM ECG UNCONFIRMED REPORT Electronically signed by : Jonas Blair MD 12/21/2021 08:38:27
[2021-12-20 02:30] LABS: Lactic Acid 1.9 mmol/L (0.7-2.1); Magnesium 1.6 mg/dl (1.6-2.3)
[2021-12-20 02:34] LABS: C-Reactive Protein 9.5 mg/L (0-4)
[2021-12-20 02:41] LABS: NT Pro Brain Natriuretic Pep. 26.8 pg/mL (0-125)
[2021-12-20 02:46] LABS: Erythrocyte Sedimentation Rate 23 mm/hr (0-20)
[2021-12-20 02:47] LABS: Troponin I < 0.01 ng/ml (0.00-0.034)
[2021-12-20 02:48] LABS: Procalcitonin 0.106 ng/mL (0.0-2.0)
--- NOTE | 2021-12-20 02:50 | HMH.EDLOEX ---
ED Disposition Condition on Discharge: Good - Critical Care Critical Care Time: No <Isac Sandhu - Last Filed: 12/20/21 08:49> <González Schmitt - Last Filed: 12/20/21 09:25> Clinical Impression: Lower extremity edema Disposition: Xfer [facility] Prescriptions: cephALEXin [Cephalexin 500mg Tab] 500 mg PO Q6H #28 tab Transmission Status: Pending to [facility] Furosemide [Lasix 20mg tab] 20 mg PO DAILY 10 Days #10 tab Transmission Status: Pending to [facility] Referrals: Isac Sandhu MD [Primary Care Provider] - Attestation: On 12/20/21, the high probability of a clinically significant, sudden or life threatening deterioration of the following system(s) required my full and direct attention, intervention and personal management. The time I documented below is in addition to time spent performing reported procedures but includes the following listed in this critical care notation. Medical Decision Making - Medical Records Medical records reviewed: Yes: I reviewed the patient's medical records. - Raymond Inquiry Pt receiving controlled substance: No - Lab Data Lab results reviewed: Yes: I reviewed the patient's lab results. Result diagrams: 12/20/21 01:15 12/20/21 01:15 - ECG Data Tracing #1 Normal Sinus Rhythm: Yes Ischemic changes: non-specific ST-T wave changes <Isac Sandhu - Last Filed: 12/20/21 08:49> - Lab Data Result diagrams: 12/20/21 01:15 12/20/21 01:15 <González Schmitt - Last Filed: 12/20/21 09:25> Vital Signs: 12/20/21 01:36 12/20/21 02:00 12/20/21 02:30 Temperature Temperature Source Pulse Rate 89 89 Respiratory Rate 20 Blood Pressure 101/75 L 99/76 L Blood Pressure Position 02 Sat by Pulse Oximetry 94 L 92 L 90 L Oxygen Delivery Method Room Air Room Air 12/20/21 03:01 12/20/21 03:31 12/20/21 07:05 Temperature 98.5 F Temperature Source Oral Pulse Rate 110 H 98 H 110 H Respiratory Rate 22 Blood Pressure 124/70 121/87 110/64 Blood Pressure Position Sitting 02 Sat by Pulse Oximetry 95 95 93 L Oxygen Delivery Method Room Air - Lab Data Lab Results 12/20/21 01:15: ESR 23 H 12/20/21 01:15: Troponin I < 0.01, C-Reactive Protein 9.5 H, Procalcitonin 0.106 12/20/21 01:15: Lactate 1.9 12/20/21 01:15: Magnesium 1.6, NT-Pro-B Natriuret Pep 26.8 12/20/21 01:15: WBC 7.8, RBC 4.37, Hgb 12.5, Hct 37.5, MCV 85.7, MCH 28.6, MCHC 33.4, RDW 17.6 H, Plt Count 290, MPV 7.8, Neut % (Auto) 61.7, Lymph % (Auto) 23.5, [place] % (Auto) 5.8, Eos % (Auto) 6.9, Baso % (Auto) 2.0, Neut # (Auto) 4.8, Lymph # (Auto) 1.8, [place] # (Auto) 0.5, Eos # (Auto) 0.5 H, Baso # (Auto) 0.2 12/20/21 01:15: Sodium 129 L, Potassium 3.8, Chloride 100, Carbon Dioxide 20 L, Anion Gap 12.8, BUN 11, Creatinine 0.40 L, Estimated Creat Clear 185, Estimated GFR 170, Est GFR ( Amer) 206, Glucose 122 H, Calcium 8.5, Total Bilirubin 0.4, AST 52 H, ALT 35, Alkaline Phosphatase 175 H, Total Protein 7.2, Albumin 3.9, Globulin 3.3 H, Albumin/Globulin Ratio 1.2 12/20/21 05:27: Troponin I < 0.01 Orders (Tests/Meds): ED MEDICATIONS Generic Name Dose Route Start Last Admin Trade Name Freq PRN Reason Stop Dose Admin Sodium Chloride 1,000 mls @ 150 mls/hr 12/20/21 02:30 12/20/21 02:23 Sod Chlor 0.45% 1000ml Bag IV 01/19/22 02:29 150 mls/hr .Q6H40M ASH Administration Discontinued Medications Generic Name Dose Route Start Last Admin Trade Name Freq PRN Reason Stop Dose Admin Sodium Chloride 1,000 mls @ 999 mls/hr 12/20/21 07:00 12/20/21 05:30 Sod Chlor 0.9% 1000ml Bag IV 12/20/21 08:00 999 mls/hr .Q1H1M ASH Administration ORDERS Category Date Time Status Troponin I Q3H Lab 12/20/21 08:30 Ordered Blood Culture Stat Micro 12/20/21 01:15 Received CA venous doppler LE RT Stat Y 12/20/21 06:59 Ordered Lower Extremity Injury HPI - General Mode of Arrival: EMS Source of Information: Patient, EMS
--- NOTE | 2021-12-20 03:09 | PC.NURSE ---
IV leaking, Shanelle Rider RN fixed, patient resting quietly at this time
[2021-12-20 03:21] LABS: Basophils # 0.2 K/mm3 (0-0.2); Eosinophils # 0.5 K/mm3 (0.0-0.4); Eosinophils % 6.9 % (0.1-12.0); Hematocrit 37.5 % (37.0-47.0); Hemoglobin 12.5 g/dL (12.2-16.2); Lymphocytes # 1.8 K/mm3 (0.7-4.5); Lymphocytes % 23.5 % (10-50); Mean Corpuscular HGB Conc 33.4 g/dL (31.8-35.4); Mean Corpuscular Hemoglobin 28.6 pg (27.0-31.2); Mean Corpuscular Volume 85.7 fl (81-99); Mean Platelet Volume 7.8 fl (7.4-10.4); Monocytes # 0.5 K/mm3 (0.1-1.0); Monocytes % 5.8 % (1.7-9.3); Neutrophils # 4.8 K/mm3 (1.8-7.8); Neutrophils % 61.7 % (37.0-80.0); Platelet Count 290 K/mm3 (142-424); Red Blood Count 4.37 M/mm3 (4.20-5.40); Red Cell Distribution Width 17.6 % (11.5-17.5); White Blood Count 7.8 K/mm3 (4.8-10.8)
[2021-12-20 03:27] LABS: Alanine Aminotransferase 35 U/L (12-78); Albumin Level 3.9 g/dl (3.5-5.0); Albumin/Globulin Ratio 1.2 (1.1-1.8); Alkaline Phosphatase 175 U/L (38-126); Anion Gap 12.8 mEq/L (5-15); Aspartate Amino Transferase 52 U/L (14-36); Bilirubin,Total 0.4 mg/dl (0.2-1.3); Blood Urea Nitrogen 11 mg/dl (7-17); Calcium 8.5 mg/dl (8.4-10.2); Carbon Dioxide 20 mmol/L (22.0-30.0); Chloride 100 mmol/L (98-107); Creatinine Clearance Estimated 185 mL/min (50-200); Estimated Glomerular Filt Rate 170 ml/min (>60); GFR (African American) 206 ML/MIN (>60); Globulin 3.3 g/dL (1.3-3.2); Glucose 122 mg/dl (74-100); Potassium 3.8 mmoL/L (3.5-5.1); Sodium 129 mmol/L (136-145); Total Protein,Serum 7.2 g/dl (6.3-8.2)
[2021-12-20 06:10] LABS: Troponin I < 0.01 ng/ml (0.00-0.034)
--- NOTE | 2021-12-20 06:49 | PC.NURSE ---
Pt changed in to clean, dry depends. Sheets also changed at this time
--- NOTE | 2021-12-20 06:50 | PC.NURSE ---
RT notified that patient will need doppler of the R lower extremity
--- NOTE | 2021-12-20 06:59 | CA_ITS ---
FINAL REPORT TECHNIQUE: Color Doppler, duplex Doppler and compression sonography of the right lower extremity venous system was performed. CLINICAL HISTORY: swelling /pos homans FINDINGS: There is no evidence of deep venous thrombosis from the level of the groin to the calf. The veins are patent and compressible. IMPRESSION: No evidence of deep venous thrombosis right lower extremity. Reviewed, Interpreted and Dictated by Bhaskar Alas III, MD Transcribed by Mateo Brooke Authenticated by Bhaskar Alas III, MD on 12/21/2021 07:11:[address] [facility]
--- NOTE | 2021-12-20 07:08 | PC.NURSE ---
Pt received breakfast tray, in room comfortably in bed eating
--- NOTE | 2021-12-20 07:49 | PC.NURSE ---
pt in room resting
--- NOTE | 2021-12-20 08:49 | PC.NURSE ---
[facility] called. relayed they are here and are coming to get pt shortly [id number]
--- NOTE | 2021-12-20 09:18 | PC.NURSE ---
Doppler done, pt in room comfortable
== END 2021-12-20 10:44 ==
PROVIDERS: Emergency Provider Emergency Medicine; PCP Emergency Medicine
DX: I11.0 Hypertensive heart disease with heart failure (principal); I50.9 Heart failure, unspecified; M79.661 Pain in right lower leg; I73.9 Peripheral vascular disease, unspecified; E78.5 Hyperlipidemia, unspecified; G40.909 Epilepsy, unspecified, not intractable, without status epilepticus; J45.909 Unspecified asthma, uncomplicated; F95.2 Tourette's disorder; F90.9 Attention-deficit hyperactivity disorder, unspecified type; F32.A Depression, unspecified; F41.9 Anxiety disorder, unspecified; Z79.1 Long term (current) use of non-steroidal anti-inflammatories (NSAID); Z79.51 Long term (current) use of inhaled steroids; Z79.82 Long term (current) use of aspirin; Z79.899 Other long term (current) drug therapy; Z88.0 Allergy status to penicillin; Z88.5 Allergy status to narcotic agent; Z87.891 Personal history of nicotine dependence; Z86.14 Personal history of Methicillin resistant Staphylococcus aureus infection; Z96.641 Presence of right artificial hip joint; Z82.49 Family history of ischemic heart disease and other diseases of the circulatory system
CPT/HCPCS: 80053; 83605; 83735; 83880; 84145; 84484; 85025; 85651; 86140; 87040; 93005; 93971; 96361; 96365; 96374; 99285

== ENCOUNTER → 2022-03-16 10:19 | Outpatient (CLI) | payer MEDICARE, MEDICAID, SELFPAY ==
--- NOTE | 2022-03-16 | CA_ITS ---
APPROVED REPORT Exam: Pharmacologic Technologist: Lynn Andrews, Ht: 5 ft 0 in Wt: 164 lbs BSA: 1.72 m2 HR: 93 bpm BP: 133/82 mmHg Rhythm: NSR, RIGHTWARD AXIS Indications: Angina Medical History Medications: Lorazepam,,,,, Aspirin,,,,, Metoprolol,,,,, Cephalexin,,,,, Gabapentin,,,,, Albuterol,,,,, Cyclobenzaprine,,,,, ANoro,,,,, Loperamide,,,,, ONdansetron,,,,, Oxcarbazepine,,,,, Aripiprazole,,,,, Cardiac Risk Factors: Smoking Stress Test Details Test: LEXISCAN HR Resting HR: 105 bpm Max Heart Rate (APMHR): 172.196895 bpm Max HR Achieved: 132 bpm Target HR (85% APMHR): 146.027067 bpm % of APMHR: 76.74 Recovery HR: 118 bpm BP Resting BP: 133/82 mmHg Max BP: 141/93 mmHg Recovery BP: 141.0/93.0 mmHg ECG Recovery ECG: NSR, RIGHTWARD AXIS Clinical Exercise duration: 04:01 min Highest Stage Achieved: Exercise capacity: 1.0 METs Stress ECG Conclusion PT HAD MILD SOA, MILD HEAD DISCOMFORT. NO CP. NO SIGNIFICANT CHANGES. UNREMARKABLE LEXISCAN STRESS. MYOVIEW IMAGES REPORTED SEPARATELY. Test Summary REST . . . . . . . Sitting REST 02:36 . . 105 . 133/ 82 . . Stage 1 01:00 . . 131 . . . . Stage 2 01:00 . . 130 . 138/ 95 . . Stage 3 01:00 . . 127 . 135/ 86 . . Stage 4 01:00 . . 122 . 133/ 87 . . Stage 4 01:01 . . 124 . 133/ 87 . Stop exercise at 04:01 RECOVERY 01:00 . . 119 . . . . RECOVERY 02:00 . . 119 . 132/ 89 . . RECOVERY 03:00 . . 120 . 141/ 93 . . RECOVERY 03:37 . . 119 . 141/ 93 . . Electronically signed by : Sandeep Booth MD 03/16/2022 20:01:30
--- NOTE | 2022-03-16 10:19 | NM_ITS ---
APPROVED REPORT Exam: Nuclear Stress Test Indication: Chest pain, SOB, Palpitations, Tobacco use, Family history Patient Location: Outpatient Stress Tech: Lynn JORDAN Tech:Diana Burris, ARRT, RT (R)(N) Ht: 5 ft 0 in Wt: 162 lbs Bra Size: D HR: 105 bpm BP: 133/82 mmHg BSA: 1.71 m2 TID: 0.89 History: Chest pain, SOB, Palpitations, Tobacco use, Family history Procedure: Patient received a 0.4 mg of intravenous Lexiscan, resting heart rate 105 bpm, resting blood pressure 133/82 mmHg, with Lexiscan maximum heart rate achived was 132 bpm which is Less than 85 % of the maximum predicted heart rate and blood pressure was 141/93 mmHg. With Lexiscan, patient denied any complaint of chest pain. Electrocardiogram Resting electrocardiogram shows sinus rhythm, with Lexiscan there is less than 1.[address] segment depression noted from the baseline EKG. The EKG portion of the Lexiscan is nondiagnostic. Cardiac Stress and Resting SPECT Images: Cardiac Stress and Resting SPECT images were obtained using technetium 99m Myoview 32.1 mCi stress and 10.11 mCi at rest. Patient unable to lay on stomach for prone images. Gated SPECT for analysis of segmental wall motion and calculation of the ejection fraction also done. Cardiac stress and rest SPECT images show uniform myocardial activity without segmental perfusion abnormality, computer derived ejection fraction is over 65% with no regional wall motion abnormality, right ventricle is normal size and contractility. Conclusion: 1. The EKG portion of the Lexiscan is nondiagnostic. 2. No scintigraphic evidence of reversible ischemia seen, computer derived ejection fraction is over 65% with no regional wall motion abnormality, right ventricle is normal size and contractility. 3. Normal Lexiscan Myoview study. Electronically signed by : Sandeep Booth MD 03/16/2022 20:06:09
--- NOTE | 2022-03-16 12:55 | HMH.ITSHM ---
Current Home Medications as stated by this patient Dorcas Hernández or hr representative. []ALBUTEROL GUAIFENESIN LOPERAMIDE ANORO ARIPIPRAZOLE ASA CYCLOBENZAPRINE GABAPENTIN HYDORCODONE LORATADINE LORAZEPAM MEOTPROLOL OXCARBAZEPINE PANTOPRAZOLE SERTRALINE
== END ==
PROVIDERS: PCP Emergency Medicine; Visit Provider Internal Medicine Cardiovascular Disease
DX: I20.9 Angina pectoris, unspecified (principal); I73.9 Peripheral vascular disease, unspecified; R00.2 Palpitations; R60.0 Localized edema; Z72.0 Tobacco use
CPT/HCPCS: 78452; 93017; A9502; J2785

== ENCOUNTER → 2022-07-27 10:10 | Outpatient (CLI) | payer MEDICARE, MEDICAID, SELFPAY ==
[2022-07-27 10:20] VITALS: PULSE 90; PULSE 94
== END ==
PROVIDERS: PCP Emergency Medicine; Visit Provider Internal Medicine Pulmonary Disease
DX: R06.09 Other forms of dyspnea (principal)
CPT/HCPCS: 94060; 94640

== ENCOUNTER → 2022-09-07 16:21 | Outpatient (CLI) | payer MEDICARE, MEDICAID, SELFPAY | PROVIDERS: PCP Emergency Medicine; Visit Provider Emergency Medicine | DX: U07.1 COVID-19 (principal) | CPT/HCPCS: C9803; U0003; U0005 ==

== ENCOUNTER → 2022-12-20 02:49 | Outpatient (CLI) | payer MEDICARE, MEDICAID, SELFPAY ==
[2022-12-20 03:11] LABS: Basophils % 0.5 % (0.1-2.0); Eosinophils # 0.9 K/mm3 (0.0-0.4); Eosinophils % 11.3 % (0.1-12.0); Hematocrit 31.7 % (37.0-47.0); Lymphocytes # 1.8 K/mm3 (0.7-4.5); Lymphocytes % 22.5 % (10-50); Mean Corpuscular HGB Conc 31.4 g/dL (31.8-35.4); Mean Corpuscular Hemoglobin 25.1 pg (27.0-31.2); Mean Platelet Volume 7.5 fl (7.4-10.4); Monocytes # 0.5 K/mm3 (0.1-1.0); Monocytes % 5.7 % (1.7-9.3); Neutrophils # 4.7 K/mm3 (1.8-7.8); Platelet Count 296 K/mm3 (142-424); Red Blood Count 3.96 M/mm3 (4.20-5.40); Red Cell Distribution Width 17.2 % (11.5-17.5); White Blood Count 7.9 K/mm3 (4.8-10.8)
[2022-12-20 03:22] LABS: Alanine Aminotransferase 22 U/L (12-78); Albumin Level 3.8 g/dl (3.5-5.0); Albumin/Globulin Ratio 1.4 (1.1-1.8); Alkaline Phosphatase 119 U/L (38-126); Anion Gap 6.4 mEq/L (5-15); Aspartate Amino Transferase 30 U/L (14-36); Bilirubin,Total 0.4 mg/dl (0.2-1.3); Blood Urea Nitrogen 5 mg/dl (7-17); Calcium 8.5 mg/dl (8.4-10.2); Carbon Dioxide 25 mmol/L (22.0-30.0); Chloride 101 mmol/L (98-107); Estimated Glomerular Filt Rate 170 ml/min (>60); GFR (African American) 205 ML/MIN (>60); Globulin 2.8 g/dL (1.3-3.2); Glucose 104 mg/dl (74-100); Potassium 4.4 mmoL/L (3.5-5.1); Sodium 128 mmol/L (136-145); Total Protein,Serum 6.6 g/dl (6.3-8.2)
== END ==
PROVIDERS: PCP Emergency Medicine; Visit Provider Emergency Medicine
DX: N39.0 Urinary tract infection, site not specified (principal)
CPT/HCPCS: 80053; 85025

== ENCOUNTER 2022-12-31 01:44 | Inpatient (IN) | payer MEDICARE, MEDICAID, SELFPAY ==
[2022-12-31] VITALS (13 sets, daily range): BP systolic 109–159; BP diastolic 69–99; PULSE 104–128; RESP 16–26; TEMP 36.6–37.1; O2SAT 90–96; BMI 27.7; BMI 27.8
--- NOTE | 2022-12-31 01:50 | XR_ITS ---
PROCEDURE INFORMATION: Exam: XR Chest Exam date and time: 12/31/2022 2:20 AM Age: 47 years old Clinical indication: Shortness of breath; Additional info: SOB TECHNIQUE: Imaging protocol: Radiologic exam of the chest. Views: 1 view. COMPARISON: CR XR CHEST PORTABLE 09/14/2021 1:43 AM FINDINGS: Lungs: Bilateral mid and lower lung zone airspace disease much worse on the right. Pleural spaces: Unremarkable. Small effusions can not be excluded. No pneumothorax. Heart/Mediastinum: Unremarkable. No cardiomegaly. Vasculature: Unremarkable. Bones/joints: Unremarkable. IMPRESSION: Bilateral mid to lower lung zone pneumonia worse on the right.
[2022-12-31 02:00] LABS: ABG Base Excess -3.2 mmol/L (-2.4-2.3); ABG HCO3 21.4 mmhg (22.0-26.0); ABG Oxygen Saturation 90 % (90-100); ABG PCO2 34.4 mmhg (35.0-45.0); ABG PH 7.41 mmol/L (7.35-7.45); ABG PO2 61.1 mmhg (80-100); ABG TCO2 22.5 mmhg (23-27)
[2022-12-31 02:01] LABS: Allen's Test Acceptable; Oxygen ROOM AIR %
[2022-12-31 02:02] LABS: Source Left Radial
--- NOTE | 2022-12-31 02:03 | ECG_ITS ---
APPROVED REPORT Exam: Resting ECG HR:115 bpm ECG Measurements Heart Rate 115 AXES WA 159 P 61 QRSd 80 QRS 61 QT 333 T 57 QTc 401 Conclusion SINUS TACHYCARDIA POSSIBLE LEFT ATRIAL ENLARGEMENT [-0.1mV P-WAVE IN V1/V2] ABNORMAL RHYTHM ECG UNCONFIRMED REPORT Electronically signed by : Jonas Blair MD 12/31/2022 09:03:32
--- NOTE | 2022-12-31 02:08 | HMH.EDSOB ---
Discharge Plan Disposition Patient Disposition: Admitted As Inpatient Chief Complaint: Shortness of Breath/Dyspnea Prescriptions Prescriptions: No Action albuterol sulfate 90 mcg/actuation HFA aerosol inhaler 1 inh INHALATION QID PRN (Reason: shortness of breath or wheezing) Qty: 8.5 12RF pantoprazole 20 mg tablet,delayed release (DR/EC) 20 mg PO DAILY loperamide 2 mg capsule 2 mg PO BIDP PRN (Reason: Diarrhea) cyclobenzaprine 10 mg tablet 10 mg PO HS gabapentin 600 mg tablet 600 mg PO QID Qty: 120 5RF lorazepam 1 mg tablet 1 mg PO BID Qty: 60 5RF hydrocodone-acetaminophen 7.5-325 mg tablet 1 tab PO TID Qty: 90 0RF acetaminophen 500 MG tablet 500 mg PO BIDP PRN (Reason: As Needed For Fever Or Pain) aspirin 325 MG tablet 325 mg PO DAILY oxcarbazepine 300 MG tablet 300 mg PO BID sertraline 50 mg tablet 100 mg PO BID metoprolol tartrate 25 MG tablet 25 mg PO BID aripiprazole 15 mg tablet 10 mg PO DAILY ondansetron HCl 4 MG tablet 1 tab PO Q6HP PRN (Reason: Nausea) polyethylene glycol 3350 17 GM powder in packet 17 gm PO DAILY loratadine 10 MG tablet 10 mg PO DAILYP PRN (Reason: ALLERGIES) fluticasone propionate [Flonase Allergy Relief] 50 mcg/actuation spray,suspension 1 spray intranasal DAILY Rx Instructions: administer into each nostril Gaviscon 95-358 mg/15 mL Suspension 15 ml PO DAILY PRN (Reason: gas) guaifenesin 200 mg Tablet 400 mg PO BID PRN (Reason: sinuses) Incruse Ellipta 62.5 mcg/actuation Blister With Device 1 inh INHALATION ONCE Referrals Follow up/Referrals: Isac Sandhu MD [Primary Care Provider] - See instructions Clinical Impressions Clinical Impression: Pneumonia of both lower lobes, Hypoxemia Discharge ED Provider: Myrtle Montenegro Resp/SOB HPI General Chief Complaint: Shortness of Breath/Dyspnea Stated Complaint: SOA, hx CHF Time Seen by Provider: 12/31/22 01:45 Mode of Arrival: EMS Source of Information: Patient and EMS Limitations: No Limitations Description of Symptoms (Recalled from ER Triage Doc. by RN): Pt arrives via ems from [facility]. Per ems, patient was having an increased heart rate and soa at the [facility] and the staff was concerned that the patient was having an issue with her congestive heart failure or anxiety. History of Present Illness Patient is a 47-year-old female who is here secondary to chest pain, cough, short of breath and low oxygen sats. Patient has a known history of asthma, COPD, and COVID in the past. Patient has been coughing not bringing up some productive phlegm has been short of breath and wheezing. Patient describes as pressure in the middle of the chest as well patient describes as 2 out of 10. Patient stated that she cannot catch her breath she is wheezing worse with cough and short of breath is also worse with lying flat. No nausea vomiting diarrhea. Patient's had osteomyelitis to the left leg and has amputation to the left leg. Patient does have some swelling in the right lower leg. EMS got there and noted that her sats were 88% and put on 2 L O2 per MD Complaint: shortness of breath, cough and chest pain Onset (ago): day(s) Context: recent illness Severity: moderate Consistency/Duration: intermittent Relieving factors: nothing Exacerbating factors: lying flat and movement Known history of: COPD, asthma and diabetes Associated symptoms: chest pain, cough, wheezing, sputum production and orthopnea Treatment prior to arrival: oxygen Related Data Home oxygen amount: none Home Medications Medication Instructions Recorded Confirmed cyclobenzaprine 10 mg tablet 10 mg PO HS MUSCLE SPASMS 02/02/19 12/31/22 loperamide 2 mg capsule 2 mg PO BIDP PRN Diarrhea 02/02/19 12/31/22 metoprolol tartrate 25 mg tablet 25 mg PO BID Hypertension 08/22/19 12/31/22 aripiprazole 15 mg tablet 10 mg PO DAILY
[2022-12-31 02:24] LABS: Coronavirus 19, PCR Not Detected (NotDetected); Influenza A, PCR Not Detected (NotDetected); Influenza B, PCR Not Detected (NotDetected)
[2022-12-31 02:28] LABS: Basophils % 0.2 % (0.1-2.0); Eosinophils # 0.8 K/mm3 (0.0-0.4); Eosinophils % 8.4 % (0.1-12.0); Hematocrit 27.6 % (37.0-47.0); Hemoglobin 8.9 g/dL (12.2-16.2); Lymphocytes # 1.3 K/mm3 (0.7-4.5); Lymphocytes % 13.9 % (10-50); Mean Corpuscular HGB Conc 32.3 g/dL (31.8-35.4); Mean Corpuscular Hemoglobin 25.2 pg (27.0-31.2); Mean Corpuscular Volume 78.1 fl (81-99); Mean Platelet Volume 7.4 fl (7.4-10.4); Monocytes # 0.6 K/mm3 (0.1-1.0); Monocytes % 5.8 % (1.7-9.3); Neutrophils # 6.9 K/mm3 (1.8-7.8); Neutrophils % 71.7 % (37.0-80.0); Platelet Count 277 K/mm3 (142-424); Red Blood Count 3.53 M/mm3 (4.20-5.40); Red Cell Distribution Width 17.9 % (11.5-17.5); White Blood Count 9.6 K/mm3 (4.8-10.8)
[2022-12-31 02:34] LABS: Alanine Aminotransferase 28 U/L (12-78); Albumin Level 3.7 g/dl (3.5-5.0); Albumin/Globulin Ratio 1.2 (1.1-1.8); Alkaline Phosphatase 120 U/L (38-126); Anion Gap 12.6 mEq/L (5-15); Aspartate Amino Transferase 39 U/L (14-36); Bilirubin,Total 0.5 mg/dl (0.2-1.3); Blood Urea Nitrogen 6 mg/dl (7-17); Calcium 8.1 mg/dl (8.4-10.2); Carbon Dioxide 21 mmol/L (22.0-30.0); Chloride 98 mmol/L (98-107); Creatinine Clearance Estimated 173 mL/min (50-200); Estimated Glomerular Filt Rate 170 ml/min (>60); GFR (African American) 205 ML/MIN (>60); Globulin 3.1 g/dL (1.3-3.2); Glucose 110 mg/dl (74-100); Potassium 3.6 mmoL/L (3.5-5.1); Sodium 128 mmol/L (136-145); Total Protein,Serum 6.8 g/dl (6.3-8.2)
[2022-12-31 02:35] LABS: Activated Partial Thrombo Time 31.8 seconds (22.8-30.6); INR 0.97 (0.9-1.1); Prothrombin Time 10.5 seconds (10.1-12.5)
[2022-12-31 02:43] LABS: NT Pro Brain Natriuretic Pep. 904 pg/mL (0-125)
[2022-12-31 02:51] LABS: D-Dimer 1.19 ug/mL (0.0-0.5)
[2022-12-31 02:52] LABS: Troponin I < 0.01 ng/ml (0.00-0.034)
--- NOTE | 2022-12-31 04:24 | PC.NURSE ---
Pt was transported to CT. Rudolph garcia called and asked for me to assess the patients IV because she had concerns. Upon assessment of ultrasound guided IV, it was noted that the IV catheter seemed to get more swollen whenever we pushed saline flushes. I notified who further assessed the IV and determined that the IV had in fact infiltrated and would need to be discontinued. CT scan with contrast is cancelled for now. The IV in the patients hand is still functional for IV medications and fluids.
[2022-12-31 04:35] LABS: Chol/HDL Ratio 6.1 (1-3.5); Cholesterol 159 mg/dl (140-200); HDL Cholesterol 26 mg/dl (40-60); Triglycerides 340 mg/dl (30-150); VLDL Cholesterol 68 mg/dL (0-40)
--- NOTE | 2022-12-31 04:39 | EXP.HP ---
History of Present Illness *Admission Date: 12/31/22 *Reason for visit:: Shortness of breath *History of present illness: This is a 47-year-old female with a past medical history of tobacco abuse, COPD, prior left AKA, bipolar disorder, chronic hyponatremia, seizures who presents to the emergency department today with complaints of shortness of breath. She resides at [facility] and states that she became short of breath this evening. She also endorses generalized myalgias over the last week. She does endorse cough but is nonproductive. She also states that she has been wheezing more than normal. She denies any fever or any sick contacts. She denies any chronic O2 use On arrival to the emergency department she was noted to be hypoxic with oxygen saturation of 90% on room air. Laboratory evaluation remarkable for elevated D-dimer at 1.19, chest x-ray consistent with bilateral pneumonia right greater than left. Sodium of 128. CTA was attempted for rule out PE but patient has poor peripheral access so unable to to complete testing. She was given 1 dose of therapeutic Lovenox, vancomycin and Levaquin and admitted to the hospitalist service for further evaluation and management. [facility] Disclaimer: The information contained in this section may have been updated after the patient was seen, as this information can be updated by other users. Medical History Allergic rhinitis Amputation of left lower extremity above knee upon examination COPD (chronic obstructive pulmonary disease) Dyspnea on exertion Moderate mitral regurgitation by prior echocardiogram Pulmonary emphysema Shortness of breath Smoking greater than 30 pack years Tobacco abuse counseling Tobacco abuse disorder Surgical History Status post biopsy of kidney Family History Other Coronary artery disease Heart attack Social History (Updated 12/31/22 @ 06:29 by Marylin Balderas RN) Smoking Status: Current every day smoker tobacco type: cigarettes packs per day: 1 second hand exposure: Yes alcohol intake: former substance use type: former substance user and IV drugs current occupational status: disabled Travel in the last 8 weeks: None household members: other housing: senior living current occupational exposures/hazards: No caffeine: No Review of Systems Review of Systems Review of systems:: pertinent systems reviewed and negative unless documented below *Cardiovascular Cardiovascular: Reports dyspnea and Reports leg edema *Respiratory Respiratory: Reports chest congestion, Reports cough and Reports dyspnea Meds Home Medications and Allergies Home Medications Medication Instructions Recorded Confirmed Type cyclobenzaprine 10 mg tablet 10 mg PO HS MUSCLE SPASMS 02/02/19 12/31/22 History loperamide 2 mg capsule 2 mg PO BIDP PRN Diarrhea 02/02/19 12/31/22 History metoprolol tartrate 25 mg tablet 25 mg PO BID Hypertension 08/22/19 12/31/22 History aripiprazole 15 mg tablet 10 mg PO DAILY MOOD 09/17/19 12/31/22 History ondansetron HCl 4 mg tablet 1 tab PO Q6HP PRN Nausea 12/06/19 12/31/22 History polyethylene glycol 3350 17 gram 17 gm PO DAILY CONSTIPATION 12/06/19 12/31/22 History oral powder packet loratadine 10 mg tablet 10 mg PO DAILYP PRN ALLERGIES 07/09/20 12/31/22 History acetaminophen 500 mg tablet 500 mg PO BIDP PRN As Needed For 08/16/20 12/31/22 History Fever Or Pain aspirin 325 mg tablet 325 mg PO DAILY CAD 08/16/20 12/31/22 History oxcarbazepine 300 mg tablet 300 mg PO BID SEIZURES 08/17/20 12/31/22 History albuterol sulfate 90 mcg/actuation 1 inh inhalation QID PRN shortness 01/19/22 12/31/22 Rx aerosol inhaler of breath or wheezing #8.5 grams gabapentin 600 mg tablet 600 mg PO QID Pain #120 tabs 07/16/22 12/31/22 Rx pantoprazole 20 mg tablet,delayed 20 mg
[2022-12-31 04:46] LABS: Direct LDL Cholesterol 91.85 mg/dL (100-129)
--- NOTE | 2022-12-31 05:41 | PC.NURSE ---
requests patient to be placed on 2L NC when patient arrives to her medsur room
--- NOTE | 2022-12-31 05:55 | PC.NURSE ---
Pt arrived to floor via wheelchair @ [phone]
--- NOTE | 2022-12-31 06:04 | PC.NURSE ---
Pt HR 138-145 bpm, RR 18, SPO2 99% on Room Air, BBS clear and equal. Held Duoneb treatment due to increased HR. RN at bedside and aware.
--- NOTE | 2022-12-31 07:08 | CT_ITS ---
FINAL REPORT TECHNIQUE: Thin section axial CT images of the chest were obtained with contrast. 3D reformatted images were also obtained. This study was performed with techniques to keep radiation doses as low as reasonably achievable (ALARA). Individualized dose reduction techniques using automated exposure control or adjustment of mA and/or kV according to the patient''s size were employed. CLINICAL HISTORY: suspect PE COMPARISON: none FINDINGS: There is no evidence of pulmonary embolism. There is no evidence of thoracic aortic aneurysm or dissection. There is mild mediastinal and hilar adenopathy which is nonspecific and favored to be reactive over neoplasm. There is moderate emphysema. There are patchy bilateral pulmonary alveolar opacities which may represent pneumonia or edema. There are several calcified granulomas. There are several noncalcified pulmonary nodules, mostly in the right lower lobe with the largest measuring 6 mm. These are nonspecific and differential diagnosis includes granulomas or metastases. Limited images of the upper abdomen demonstrate fatty infiltration of the liver. There is a left adrenal nodule which is nonspecific, adenoma versus metastasis. There is a partially imaged mass in the upper pole the right kidney measuring 18 mm favored to represent a cyst. IMPRESSION: No evidence of pulmonary embolism. Patchy bilateral pulmonary alveolar opacities. Several noncalcified pulmonary nodules mostly in the right lower lobe. Differential diagnosis includes granulomas or metastases. Fatty liver. Left adrenal nodule. Possible cyst right kidney. Reviewed, Interpreted and Dictated by Bhaskar Alas III, MD Transcribed by Nakia Nassar Authenticated and [facility]
[2022-12-31 07:18] LABS: Troponin I < 0.01 ng/ml (0.00-0.034)
--- NOTE | 2022-12-31 07:47 | EXP.PHA.CONS ---
Pharmacy Consult Date: 12/31/22 Time: 07:47 Referring provider: DR. ARMSTRONG Reason for Consult:: VANCOMYCIN DOSING Allergies Allergy/AdvReac Type Severity Reaction Status Date / Time Penicillins Allergy Mild Unknown Verified 09/24/22 13:38 allergy reaction codeine AdvReac Mild vomiting Verified 09/24/22 13:38 [From Tylenol-Codeine #3] Home Medications Medication Instructions Recorded Confirmed Type cyclobenzaprine 10 mg tablet 10 mg PO HS MUSCLE SPASMS 02/02/19 12/31/22 History loperamide 2 mg capsule 2 mg PO BIDP PRN Diarrhea 02/02/19 12/31/22 History metoprolol tartrate 25 mg tablet 25 mg PO BID Hypertension 08/22/19 12/31/22 History aripiprazole 15 mg tablet 10 mg PO DAILY MOOD 09/17/19 12/31/22 History ondansetron HCl 4 mg tablet 1 tab PO Q6HP PRN Nausea 12/06/19 12/31/22 History polyethylene glycol 3350 17 gram 17 gm PO DAILY CONSTIPATION 12/06/19 12/31/22 History oral powder packet loratadine 10 mg tablet 10 mg PO DAILYP PRN ALLERGIES 07/09/20 12/31/22 History acetaminophen 500 mg tablet 500 mg PO BIDP PRN As Needed For 08/16/20 12/31/22 History Fever Or Pain aspirin 325 mg tablet 325 mg PO DAILY CAD 08/16/20 12/31/22 History oxcarbazepine 300 mg tablet 300 mg PO BID SEIZURES 08/17/20 12/31/22 History albuterol sulfate 90 mcg/actuation 1 inh inhalation QID PRN shortness 01/19/22 12/31/22 Rx aerosol inhaler of breath or wheezing #8.5 grams gabapentin 600 mg tablet 600 mg PO QID Pain #120 tabs 07/16/22 12/31/22 Rx pantoprazole 20 mg tablet,delayed 20 mg PO DAILY gerd 09/24/22 12/31/22 History release sertraline 50 mg tablet 100 mg PO BID Depression 09/24/22 12/31/22 History lorazepam 1 mg tablet 1 mg PO BID anxiety #60 tabs 10/04/22 12/31/22 Rx hydrocodone 7.5 mg-acetaminophen 1 tab PO TID pain #90 tabs 12/23/22 12/31/22 Rx 325 mg tablet aluminum hydrox-magnesium carb 95 15 ml PO DAILY PRN gas 12/31/22 12/31/22 History mg-358 mg/15 mL oral suspension (Gaviscon) fluticasone propionate 50 1 spray intranasal DAILY allergies 12/31/22 12/31/22 History mcg/actuation nasal spray,suspension (Flonase Allergy Relief) guaifenesin 200 mg tablet 400 mg PO BID PRN sinuses 12/31/22 12/31/22 History umeclidinium 62.5 mcg/actuation 1 inh inhalation ONCE Asthma 12/31/22 12/31/22 History blister powder for inhalation (Incruse Ellipta) New Prescriptions to Start Prescriptions: Height: 1.52 m Weight: 64.41 kg Laboratory Results:: Laboratory Results - last 24 hr 12/31/22 01:46: WBC 9.6, RBC 3.53 L, Hgb 8.9 L, Hct 27.6 L, MCV 78.1 L, MCH 25.2 L, MCHC 32.3, RDW 17.9 H, Plt Count 277, MPV 7.4, Neut % (Auto) 71.7, Lymph % (Auto) 13.9, [place] % (Auto) 5.8, Eos % (Auto) 8.4, Baso % (Auto) 0.2, Neut # (Auto) 6.9, Lymph # (Auto) 1.3, [place] # (Auto) 0.6, Eos # (Auto) 0.8 H, Baso # (Auto) 0.0 12/31/22 01:46: PT 10.5, INR 0.97, APTT 31.8 H 12/31/22 01:46: D-Dimer 1.19 H 12/31/22 01:46: Sodium 128 L, Potassium 3.6, Chloride 98, Carbon Dioxide 21 L, Anion Gap 12.6, BUN 6 L, Creatinine 0.40 L, Estimated Creat Clear 173, Estimated GFR 170, Est GFR ( Amer) 205, Glucose 110 H, Calcium 8.1 L, Total Bilirubin 0.5, AST 39 H, ALT 28, Alkaline Phosphatase 120, Troponin I < 0.01, Total Protein 6.8, Albumin 3.7, Globulin 3.1, Albumin/Globulin Ratio 1.2 12/31/22 01:46: SARS-CoV-2 (PCR) Not detected, Influenza A Untype (PCR) Not detected, Influenza Type B (PCR) Not detected 12/31/22 01:46: NT-Pro-B Natriuret Pep 904 H 12/31/22 01:46: Triglycerides 340 H, Cholesterol 159, LDL Cholesterol Direct 91.85 L, VLDL Cholesterol 68 H, HDL Cholesterol 26 L, Cholesterol/HDL Ratio 6.1 H 12/31/22 01:57: Specimen Source Left radial, O2 % Room air, ABG pH 7.41, ABG pCO2 34.4 L, ABG pO2 61.1 L, ABG HCO3 21.4 L, ABG Total CO2 22.5 L, ABG O2 Saturation 90, ABG Base Excess -3.2 L, Pranay Test Acceptable 12/31/22 05:00: Troponin I < 0.01 Medical History: Medical History (Updated 12/31/22 @ 07:34 by Ron Centeno MD) Allergic r
--- NOTE | 2022-12-31 08:12 | HMH.PHAINT1 ---
Pharmacy Intervention Comments: home medication list verified using MAR from [facility]
--- NOTE | 2022-12-31 08:16 | EXP.CARD.CON ---
History of Present Illness History of Present Illness Consult date: 12/31/22 Requesting physician: Ron Centeno Consult reason: congestive heart failure Chief complaint: SOA, CHF, Pneumonia Additional Medical History:: 1.? Hypertension A.? Echo, 08/2020, Mild LAE, normal LV size, mild concentric LVH, EF 55% with no regional WMA. Diastolic parameters inconclusive. Mild AR, MR and TR. 2.? Psychiatric issues A. bipolar disorder B.?PTSD C. Anxiety/Depression 3.? History of drug use 4.? History of Seizure disorder 5.? History of Tourette's syndrome 6.? Tobacco use, continued A. COPD/paraseptal emphysema, CTA of the chest 08/24 7.? Asthma 8.? PAD A.? Peripheral Angiogram of LE's, medical therapy, 2018 B. 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 Hyponatremia, 123 on 07/08/2020 (same as 09/2019 but as high as 131 in 03/2020).? Possible psychogenic polydipsia. A. Na 128, 12/2022 10. Diabetes mellitus 11. Microcytic anemia, 12/2022 12. CAD A. Jimmie myoview, 03/16/2022, No ischemia, EF 65% 13. HFpEF with elevated BNP of 904, 12/31/2022 A. Echo pending with Prelim EF >60% B. Normal troponin 15. Bilateral pneumonia, 12/31/2022 A. Elevated D-dimer with plans to perform CTA once IV access available, 01/01/2020 History of present illness: This is a 47-year-old female with a past medical history of tobacco abuse, COPD, prior left AKA, bipolar disorder, chronic hyponatremia, seizures who presents to the emergency department today with complaints of shortness of breath.? She resides at [facility] and states that she became short of breath this evening.? She also endorses generalized myalgias over the last week.? She does endorse cough but is nonproductive.? She also states that she has been wheezing more than normal.? She denies any fever or any sick contacts.? She denies any chronic O2 use On arrival to the emergency department she was noted to be hypoxic with oxygen saturation of 90% on room air.? Laboratory evaluation remarkable for elevated D-dimer at 1.19, chest x-ray consistent with bilateral pneumonia right greater than left.? Sodium of 128.? CTA was attempted for rule out PE but patient has poor peripheral access so unable to to complete testing.? She was given 1 dose of therapeutic Lovenox, vancomycin and Levaquin and admitted to the hospitalist service for further evaluation and management. The above per FRANSICO Vines for the hospitalist service Patient describes increasing shortness of breath and edema recently. She does admit to increased salt intake and lower extremity edema. She denies any recent chest pain. Patient is aware of her medical issues but is not able to give a significant amount of detail. Electrocardiogram this admission is sinus tachycardia at 115 bpm with no acute ST segment changes. Atrial enlargement noted Troponins normal overnight. [facility] Disclaimer: The information contained in this section may have been updated after the patient was seen, as this information can be updated by other users. Medical History Allergic rhinitis Amputation of left lower extremity above knee upon examination COPD (chronic obstructive pulmonary disease) Dyspnea on exertion Moderate mitral regurgitation by prior echocardiogram Pulmonary emphysema Shortness of breath Smoking greater than 30 pack years Tobacco abuse counseling Tobacco abuse disorder Surgical History Status post biopsy of kidney Family History Other Coronary artery disease Heart attack Social History (Updated 12/31/22 @ 06:29 by Marylin Balderas RN) Smoking Status: Current every day smoker tobacco type: cigarettes packs per day: 1 second hand exposure: Yes alcohol intake: former substance use type: former substance user and IV drugs
--- NOTE | 2022-12-31 09:08 | SW/DCPLANNER ---
Patient is currently ICF level of care at [facility]. I will continue to follow up with patient/Rosario from [facility]. Discharge date is unknown at this time.
--- NOTE | 2022-12-31 09:45 | HMH.OTEV ---
OT Inpatient Evaluation Rehab OT IP Evaluation Start: 12/31/22 07:55 Freq: ONCE Status: Active Protocol: Document 12/31/22 09:36 PARVINDIOGO (Rec: 12/31/22 09:45 CHERELLEFRANKIE [id number]) Rehab OT IP Assessment Subjective History This is a 47-year-old female with a past medical history of tobacco abuse, COPD, prior left AKA, bipolar disorder, chronic hyponatremia, seizures who presents to the emergency department today with complaints of shortness of breath. She resides at [facility] and states that she became short of breath this evening. She also endorses generalized myalgias over the last week. She does endorse cough but is nonproductive. She also states that she has been wheezing more than normal. She denies any fever or any sick contacts. She denies any chronic O2 use On arrival to the emergency department she was noted to be hypoxic with oxygen saturation of 90% on room air. Laboratory evaluation remarkable for elevated D- dimer at 1.19, chest x-ray consistent with bilateral pneumonia right greater than left. Sodium of 128. CTA was attempted for rule out PE but patient has poor peripheral access so unable to to complete testing. She was given 1 dose of therapeutic Lovenox, vancomycin and Levaquin and admitted to the hospitalist service for further evaluation and management. Patient is a resident at [facility] for the past 2 years. Patient is an amputee on the LE. Patient is planned to be fitted for prosthetic fitting next week. P
--- NOTE | 2022-12-31 10:00 | HMH.PTEV ---
Physical Therapy Evaluation Rehab PT IP Evaluation Start: 12/31/22 07:55 Freq: ONCE Status: Active Protocol: Document 12/31/22 09:45 CHIVANGIE (Rec: 12/31/22 10:00 NEIL [id number]) Subjective/History History History Pt is a 47 year old female that presented to the ED on with complaints of shortness of breath. Pt has a PMH significant for tobacco abuse, COPD, prior left AKA, bipolar disorder, chronic hyponatremia and seizures. Pt resides at [facility]. Pt endorses generalized myalgias over the last week as well as non-productive cough. Pt denies reports of fever. While in ED, pt was noted to be hypoxic with oxygen saturation of 90% on room air. Laboratory evaluation remarkable for elevated D-dimer at 1.19, chest x-ray consistent with bilateral pneumonia right greater than left. Sodium of 128. CTA was attempted for rule out PE but patient has poor peripheral access so unable to to complete testing. She was given 1 dose of therapeutic Lovenox, vancomycin and Levaquin and admitted to the hospitalist service for further evaluation and management. Subjective Subjective Pt presents seated in bedside chair, pleasant and agreeable to PT initial evaluation. Pt denies reports of pain at rest . Pt reports she lives at [facility] and plans on returning there at time of discharge. Pt states that she is getting her LLE prosthesis on Wednesday 01/03. Pt reports that she feels wet and is requesting to be changed. Pt performed sit to stand with the use of a RW and CGA. Pt
[2022-12-31 10:14] LABS: Troponin I < 0.01 ng/ml (0.00-0.034)
[2022-12-31 10:54] LABS: Iron 48 ug/dL (37-170)
[2022-12-31 11:04] LABS: Total Iron Binding Capacity 559 ug/dL (265-497)
--- NOTE | 2022-12-31 12:10 | PC.NURSE ---
tech note; notified nurse of high heart rate for 1200 vital signs. K Jemal, SRNA
--- NOTE | 2022-12-31 18:48 | PC.NURSE ---
midline placed this shift. pt tolerated well but insertion site oozing blood after insertion. dsg change performed. pt has expressed wishes to return to [facility] when ready for d/c. she has spent the majority of shift sitting up to chair. not requiring o2 support.
[2023-01-01] VITALS (7 sets, daily range): BP systolic 99–116; BP diastolic 59–81; PULSE 97–121; RESP 16–19; TEMP 36.8–36.9; O2SAT 92–97; BMI 31.2
--- NOTE | 2023-01-01 04:25 | PC.NURSE ---
pts bed scale not working so weight is estimated by pt.
--- NOTE | 2023-01-01 04:25 | PC.NURSE ---
Patient A&O x 3, states she is a little anxious to return to [facility] but is also looking forward to going home as well. Patient lungs clear to auscultation, recvd Vanc Abx & Levequin. Changed Midline dressing due to soiled with blood. It seem as though the oozing of blood has decreased significantly. Patient has not slept at all this shift and she doesn't know why. She states she is tired but just can't sleep.
--- NOTE | 2023-01-01 07:23 | XR_ITS ---
PROCEDURE INFORMATION: Exam: XR Chest Exam date and time: 01/01/2023 7:22 AM Age: 47 years old Clinical indication: Dyspnea TECHNIQUE: Imaging protocol: Radiologic exam of the chest. Views: 1 view. COMPARISON: CR XR CHEST PORTABLE 12/31/2022 2:20 AM FINDINGS: Lungs: Similar reticular and ground-glass opacities right greater than left lungs. Subtle nodular densities seen bilaterally are better evaluated on the comparison study. Pleural spaces: Unremarkable. No pleural effusion. No pneumothorax. Heart/Mediastinum: Unremarkable. No cardiomegaly. Bones/joints: Chronic left posterior 7th rib deformity with callus formation. Rightward curvature of the thoracic spine. No acute fracture. IMPRESSION: No significant change.
--- NOTE | 2023-01-01 07:26 | EXP.DC.SUM ---
General Admission date:: 12/31/22 Discharge date: 01/01/23 HPI HPI HPI: This is a 47-year-old female with a past medical history of tobacco abuse, COPD, prior left AKA, bipolar disorder, chronic hyponatremia, seizures who presents to the emergency department today with complaints of shortness of breath. She resides at [facility] and states that she became short of breath this evening. She also endorses generalized myalgias over the last week. She does endorse cough but is nonproductive. She also states that she has been wheezing more than normal. She denies any fever or any sick contacts. She denies any chronic O2 use On arrival to the emergency department she was noted to be hypoxic with oxygen saturation of 90% on room air. Laboratory evaluation remarkable for elevated D-dimer at 1.19, chest x-ray consistent with bilateral pneumonia right greater than left. Sodium of 128. CTA was attempted for rule out PE but patient has poor peripheral access so unable to to complete testing. She was given 1 dose of therapeutic Lovenox, vancomycin and Levaquin and admitted to the hospitalist service for further evaluation and management. Hospital Course Hospital Course Hospital Course: This is a 47-year-old female who is admitted to the hospital service for shortness of breath concern for pneumonia versus CHF exacerbation. Initiated on antibiotics. Diuresed over first day of admission. Responded well. Stable on room air. Medically stable for discharge back to nursing facility to complete antibiotic regimen and to continue care. Problems addressed as follows: Pneumonia COPD Dyspneic on arrival however remained appropriate on room air. Did not require oxygen during admission. Chest imaging showing bilateral airspace disease versus edema, right greater than left. Started on Levaquin, plan to complete 5 days total. Has had a normal white cell count since admission. Breathing treatments ordered given significant history of smoking and findings of COPD/emphysematous changes on CT of her chest. Plan to continue with Trelegy inhaler at discharge. Would recommend continuing albuterol nebs/inhaler as needed for dyspnea. Of note, CT of chest did not show any pulmonary emboli. Repeat chest x-ray on day of discharge personally reviewed, minor improvement in airspace findings in lower lobes. Suggestive of mixed component of pneumonia and CHF. Will complete 5-day empiric course of antibiotics as stated above. Patient needs 3 more doses orally. Heart failure with preserved ejection fraction Mild to moderate mitral valve insufficiency Lower extremity edema Coronary artery disease +2 pitting to right lower extremity. Elevated BNP of 900 on admission. Diuresed on day 1 of admission with good response. Edema resolved. Dyspnea improved. Repeat echo obtained, formal read still pending at time of discharge. Ejection fraction normal. Concern for pulmonary edema secondary to mitral insufficiency. We will continue diuresis with 40 mg Lasix daily. Follow-up with cardiology in the next 1 to 2 weeks, will need appointment scheduled due to the weekend discharge. Please call cardiology office on Tuesday to schedule appointment. Additionally continue home aspirin and metoprolol. Hyponatremia: Chronic, sodium level at baseline. Likely secondary to oxcarbazepine. Remained stable on serial BMPs Depression: Continue home sertraline Please call Tuesday to schedule appointment for patient with cardiology. Patient needs repeat lab work within the next 3 to 5 days to monitor kidney function and electrolytes, recommend CBC and CMP. Medically stable for discharge back to senior care for continued care. Exam Data for Last 24 hours Vital signs and Labs for Last 24 Hours: Temp Pulse Resp BP Pulse Ox 98.4 F 113 H 16 107/81 L 94 L 01/01/23 04:00 01/01/23 06:17 01/01/23 04:00 01/01/23 04:00 01/01/23 06:17 Laboratory Results - last 24 hr
[2023-01-01 07:32] LABS: Basophils % 0.3 % (0.1-2.0); Eosinophils # 0.6 K/mm3 (0.0-0.4); Eosinophils % 7.4 % (0.1-12.0); Hematocrit 28.5 % (37.0-47.0); Hemoglobin 9.1 g/dL (12.2-16.2); Lymphocytes # 1.7 K/mm3 (0.7-4.5); Lymphocytes % 22.1 % (10-50); Mean Corpuscular HGB Conc 31.8 g/dL (31.8-35.4); Mean Corpuscular Hemoglobin 25.1 pg (27.0-31.2); Mean Corpuscular Volume 78.9 fl (81-99); Mean Platelet Volume 7.5 fl (7.4-10.4); Monocytes # 0.6 K/mm3 (0.1-1.0); Monocytes % 7.5 % (1.7-9.3); Neutrophils % 62.7 % (37.0-80.0); Platelet Count 290 K/mm3 (142-424); Red Blood Count 3.61 M/mm3 (4.20-5.40); Red Cell Distribution Width 18.2 % (11.5-17.5); White Blood Count 7.9 K/mm3 (4.8-10.8)
[2023-01-01 07:34] LABS: Chloride 92 mmol/L (98-107); Potassium 3.7 mmoL/L (3.5-5.1); Sodium 132 mmol/L (136-145)
[2023-01-01 07:36] LABS: Blood Urea Nitrogen 11 mg/dl (7-17); Creatinine Clearance Estimated 130 mL/min (50-200); Estimated Glomerular Filt Rate 106 ml/min (>60); GFR (African American) 129 ML/MIN (>60)
[2023-01-01 07:37] LABS: Anion Gap 17.7 mEq/L (5-15); Calcium 8.4 mg/dl (8.4-10.2); Carbon Dioxide 26 mmol/L (22.0-30.0); Glucose 109 mg/dl (74-100)
--- NOTE | 2023-01-01 12:59 | PC.NURSE ---
MIDline removed. dressing is c/d/i. pt tolerated well.
--- NOTE | 2023-01-01 15:08 | PC.NURSE ---
report called to ruth ann at [facility].
--- NOTE | 2023-01-03 13:37 | CARE MANAGER ---
Contacted Rose at [facility] and checked on patient since discharge. She states she is doing much better and has already made her follow up appointments. They deny any questions or concerns. GUTIERREZ Obrien
[2023-01-09 21:34] LABS: MRSA DNA PCR Positive
== END 2023-01-01 15:09 | DRG 193 ==
LOC: ER 04:30 → 2ND 05:07
PROVIDERS: Nurse Practitioner Acute Care; Physician Assistant; Admitting Provider Internal Medicine Adolescent Medicine; Emergency Provider Emergency Medicine; PCP Emergency Medicine; Visit Provider Internal Medicine Adolescent Medicine
DX: J18.9 Pneumonia, unspecified organism (principal); I50.33 Acute on chronic diastolic (congestive) heart failure; E87.1 Hypo-osmolality and hyponatremia; I11.0 Hypertensive heart disease with heart failure; F17.210 Nicotine dependence, cigarettes, uncomplicated; F31.9 Bipolar disorder, unspecified; I25.10 Atherosclerotic heart disease of native coronary artery without angina pectoris; J43.9 Emphysema, unspecified; I34.0 Nonrheumatic mitral (valve) insufficiency; Z89.612 Acquired absence of left leg above knee; Y95 Nosocomial condition; T42.6X5A Adverse effect of other antiepileptic and sedative-hypnotic drugs, initial encounter
CPT/HCPCS: 36410; 36415; 71045; 71275; 80048; 80053; 80061; 82803; 83540; 83550; 83880; 84484; 85025; 85378; 85610; 85730; 87040; 87641; 93005; 93306; 93308; 94640; 97161; 97165; 97530; 99291; C9803; J1956; J2405; J3370; Q9967; U0003; U0005

== ENCOUNTER → 2023-07-22 10:01 | Outpatient (CLI) | payer MEDICARE, MEDICAID, SELFPAY ==
[2023-07-22 10:30] VITALS: PULSE 80; PULSE 81
== END ==
PROVIDERS: PCP Emergency Medicine; Visit Provider Internal Medicine Pulmonary Disease
DX: J44.9 Chronic obstructive pulmonary disease, unspecified (principal); F17.210 Nicotine dependence, cigarettes, uncomplicated
CPT/HCPCS: 94060; 94640

== ENCOUNTER → 2023-08-12 15:47 | Outpatient (CLI) | payer MEDICARE, MEDICAID, SELFPAY ==
[2023-08-12 23:02] LABS: Barbiturates Screen,Urine Negative ng/ml (<200)
[2023-08-12 23:03] LABS: Benzodiazepines Screen,Urine Negative ng/ml (<200)
[2023-08-12 23:04] LABS: Amphetamine/Metha Screen,Urine Negative ng/ml (<1000); Cannabinoid Screen,Urine Positive ng/ml (<50)
[2023-08-12 23:05] LABS: Cocaine Screen,Urine Negative ng/ml (<300)
[2023-08-12 23:06] LABS: Methadone Screen,Urine Negative ng/ml (<300); Opiate Screen,Urine Positive ng/ml (<300)
[2023-08-12 23:07] LABS: Phencyclidine Screen,Urine Negative ng/ml (<25)
== END ==
PROVIDERS: PCP Internal Medicine; Visit Provider Internal Medicine
DX: Z79.899 Other long term (current) drug therapy (principal)
CPT/HCPCS: 80305